=== PATIENT | female | born 1995 | race Caucasian/White ===

== ENCOUNTER → 2023-08-10 | Outpatient (CLI) | payer BC, SELFPAY ==
--- NOTE | 2023-08-10 12:29 | US_ITS ---
STUDY: FIRST TRIMESTER OBSTETRICAL ULTRASOUND REASON FOR EXAM: Female, 27 years old bleeding and cramping LMP: July 06, 2023 TECHNIQUE: Transvaginal TECHNICAL QUALITY: Adequate. PRIOR ULTRASOUND: None. FINDINGS: There is visualization of a single gestational sac in a normal intrauterine position. The mean sac diameter (MSD) measures 4.5 mm, indicating an estimated gestational age (EGA) of 5 weeks, 2 days. The gestational sac shape is within normal limits. There is no demonstrated yolk sac. The placenta is non-visualized. There is no demonstrated embryo ( pole). The estimated gestation age (EGA) by LMP is 5 weeks, 0 days. The estimated date of delivery (RALPH) by LMP is April 11, 2024. The estimated gestation age (EGA) by US is 5 weeks, 2 days. The estimated date of delivery (RALPH) by US is April 09, 2024. The uterus measures 9.5 cm x 6.8 cm x 5 cm. The endometrium is thickened and is hyperechoic. The endometrium measures 1.6 cm. There is no demonstrated uterine fibroid. The cervix is closed. The right ovary measures 4.1 cm x 2.37 x 2.5. There is a 1.9 cm x 1.6 cm x 1.4 cm corpus luteum cyst. There is no visualized right adnexal mass or complex lesion. The left ovary measures 2.6 cm x 1.5 cm x 1.1 cm. There is no left ovarian cyst. There is no visualized left adnexal mass or complex lesion. There is no fluid in the cul de sac. US/Transvaginal w/Preg US IMPRESSION: Intrauterine gestational sac without a yolk sac or pole measuring 5 weeks and 2 days. Follow up recommended. Electronically Signed: Miguel Vazquez MD at 13:22 EDT ,
[2023-08-10 13:45] LABS: hCG Titer Quant., Serum 4809 mIU/mL (1-3)
== END | disposition home or self-care (01) ==
PROVIDERS: Referring Provider Obstetrics & Gynecology; Visit Provider Obstetrics & Gynecology
DX: O26.899 Other specified pregnancy related conditions, unspecified trimester (principal); O20.9 Hemorrhage in early pregnancy, unspecified; R10.9 Unspecified abdominal pain; Z3A.00 Weeks of gestation of pregnancy not specified
CPT/HCPCS: 36415; 76817; 84702

== ENCOUNTER → 2023-08-12 | Outpatient (CLI) | payer BC, SELFPAY ==
[2023-08-12 07:59] LABS: hCG Titer Quant., Serum 916 mIU/mL (1-3)
== END | disposition home or self-care (01) ==
LOC: LAB 07:16
PROVIDERS: Referring Provider Obstetrics & Gynecology; Visit Provider Obstetrics & Gynecology
DX: O26.899 Other specified pregnancy related conditions, unspecified trimester (principal); O20.9 Hemorrhage in early pregnancy, unspecified; R10.9 Unspecified abdominal pain; Z3A.00 Weeks of gestation of pregnancy not specified
CPT/HCPCS: 36415; 84702

== ENCOUNTER 2023-08-20 07:31 | Outpatient (CLI) | payer BC, SELFPAY ==
[2023-08-20] VITALS (9 sets, daily range): BP systolic 115–124; BP diastolic 78–85; PULSE 68–82; RESP 14–20; TEMP 36.4–36.6; O2SAT 98–100; BMI 25.0
--- NOTE | 2023-08-20 07:37 | US_ITS ---
INDICATION: viability -- HEMORRHAGE IN EARLY -- HCG 08/10/23 4809 -- HCG 08/12/23 916 EXAMINATION: Ultrasound US OB Transvaginal TECHNIQUE: Transvaginal (for optimal evaluation of the adnexa) pelvic ultrasound was performed. Grayscale, spectral waveform, and color flow Doppler evaluation of the adnexa. COMPARISON: August 10, 2023 LMP: [Unknown Beta-hCG: Unknown FINDINGS: UTERUS: 8.0 x 4.1 x 6.0 cm. There is a 0.2 x 0.1 cm round anechoic focus within the endometrial cavity. The endometrial stripe measures 7.3 mm and is echogenic. RIGHT OVARY: 3.3 x 2.1 x 5.4 cm. There appears to be a corpus luteal cyst in the right ovary. LEFT OVARY: 3.3 x 1.3 x 2.0 cm. Normal. FREE FLUID: None. US/Transvaginal w/Preg US IMPRESSION: 0.2 x 0.1 cm round fluid focus within the endometrial cavity may reflect trace fluid, cannot entirely exclude, although unlikely, an early gestational sac. Electronically Signed: Sara Russell MD at 8:40 EDT ,
[2023-08-20] MEDS: Lactated Ringers 1,000 ML 15 ML IV (10:35)
[2023-08-20] MEDS: Doxycycline 100 MG CAPSULE PO (12:05)
--- NOTE | 2023-08-20 12:20 | PRE.ANES_ITS ---
ASA Classification* ASA Classification ASA Classification: 1 Assessment & Plan Anesthesia* Anesthesia Assessment Anesthesia Assessment: Discussed sedation and/or anesthesia options, risks, benefits, and alternatives with patient/parents/legal guardian/POA. Questions invited. The patient/parents/legal guardian/POA seems to understand and agrees to proceed with anesthesia plan. Reviewed the physical assessment, medical history, allergy history and patient home medications list prior to surgery/procedure/anesthetic and documented any changes. Performed airway and anesthesia risk assessments. Anesthesia Type Anesthesia Type: MAC History Source History Obtained from:: Patient and Chart Anesthesia Focused Assessment* Temperature: 97.5 F Pulse Rate: 82 Blood Pressure: 124/79 Respiratory Rate: 16 Pulse Ox: 100 Oxygen Delivery Method: Room Air Airway Assessment Mouth opens: >3 cm Mallampati Score: I Teeth Condition: Intact Neck Range of motion (ROM): Full ROM Focused Labs Anesthesia Preop lab: CBC CHEMISTRY COAG HCG, Quant 916 mIU/mL (1-3) H 08/12/23 07:18 Pre-Assessment Diagnosis/Proposed Procedure Planned Operative Procedure(s): SUCTION D & C Anesthesia History Anesthesia History - clerical support: Anesthesia History - clerical support Hx Hospitalization No 08/20/23 10:18 Any Problems With Anesthesia No 08/20/23 10:18 Cholinesterase deficiency No 08/20/23 10:18 You/Your Family Experience No 08/20/23 10:18 fever (hyperthermia) with Relationship Recent Exposure to Contagious No 08/20/23 10:22 Disease Does patient have nerve No 08/20/23 10:18 stimulator Patient instructed to have device shut off --Does patient have Pacemaker No 08/20/23 10:22 or ICD? When Was Last Pacemaker Check QUESTION #4 FULL TEXT: You/Your Family Experience fever (hyperthermia) with Anesthesia Last Oral Intake Last Oral intake: Last Oral Intake NPO since 07:15 08/20/23 10:22 Meds taken in AM with sips of water? Meds patient instructed to take am of surgery PONV PONV - clerical support: PONV - clerical support Female Yes 08/20/23 10:18 HX of Motion Sickness No 08/20/23 10:18 HX of N/V After Surgery No 08/20/23 10:18 Non-Smoker Yes 08/20/23 10:18 Duration of Surgery greater No 08/20/23 10:18 than 60 minutes Number of Risk Factors 2 08/20/23 10:18 PONV Score Moderate Risk 08/20/23 10:18 Height & Weight Height & Weight: Anesthesia: Height & Weight Height 5 ft 5 in 08/20/23 10:22 Weight: 68.039 kg 08/20/23 10:22 Body Mass Index (BMI) 25.0 08/20/23 10:22 Respiratory Assessment Respiratory Assessment - clerical support: Respiratory Tract Infection Hx - clerical support Hx Respiratory Tract Infection No 08/20/23 10:18 STOP Sleep Apnea STOP Sleep Apnea - clerical support: STOP Sleep Apnea - clerical support Hx Hypertension No 08/20/23 10:18 Hx Sleep Apnea No 08/20/23 10:18 CPAP BIPAP Do you snore loudly (louder No 08/20/23 10:18 than talking or can be heard Do you often feel tired/ No 08/20/23 10:18 fatigued/ sleepy during daytime? Has anyone observed you stop No 08/20/23 10:18 breathing during sleep? STOP Results Negative 08/20/23 10:18 QUESTION #5 FULL TEXT : Do you snore loudly (louder than talking or can be heard through closed doors)? 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 Specify any problems Hx of Preganancy in last 3 Yes 08/20/23 10:18 Months Nurse Filling Out Transfusion KNAPOLDIMAS 08/20/23 10:18 & Questions: Date: 08/20/23 08/20/23 10:18 Time: 10:20 08/20/23 10:18 Patient unable to answer at this time (ie. confused, unrespo /Reproduction History /Reproductive History - clerical support: /Reproductive Hx- clerical support Hx Now Yes 08/20/23 10:18 Gestational Age (in weeks): EDC: Hx Hx Para Hx Section SAB No 08/20/23 10:18 Active Medications Active Medications: Current Medications Generic Name Dose Route Start Last Admin Trade Name Freq PRN Reason Stop Dose Admin Lactated Ringer's 1,000 mls @ 15 mls/hr 08/20/23 10:00 08/20/23 10:35 IV 15 mls/hr .Q48H ARIK Administration PFSH Home Medications ?Medication ?Instructions ?Recorded ?Last Taken ?Type NK 08/20/23 Unknown History Allergy/AdvReac Type Severity Reaction Status Date / Time metoclopramide (From Reglan) Allergy Mild lock jaw Verified 08/20/23 10:17 Surgical History S/P left knee surgery S/P wisdom tooth extraction Social History adopted: Yes Smoking Status: Never smoker alcohol intake: current details: occasionally substance use type: does not use caffeine: Yes what type of physical activity do you participate in: walking frequency: 5-6 times per week seatbelt use: always do you feel safe at home: Yes additional social history: Radha Day Review of Systems (Anesthesia) ROS Narrative System reviewed and no additional complaints, except as documented.
--- NOTE | 2023-08-20 12:42 | PCM.HP.OB ---
HPI - General HPI Narrative s27 year old who presents for with recent miscarriage at home. states large amount of bleeding on wednesday with tissue passage. using motrin but no other medication management. had ultrasound on 08/09 that demonstrated IUP with no pole but GS measuring 5w2d. repeat hcg on 08/11 decreasing from 4809 to 916 to confirm miscarriage diagnosis. retained POC seen today on ultrasound PFSH PFSH Home Medications ?Medication ?Instructions ?Recorded ?Last Taken ?Type NK 08/20/23 Unknown History Allergy/AdvReac Type Severity Reaction Status Date / Time metoclopramide (From Reglan) Allergy Mild lock jaw Verified 08/20/23 10:17 Surgical History S/P left knee surgery S/P wisdom tooth extraction Social History adopted: Yes Smoking Status: Never smoker alcohol intake: current details: occasionally substance use type: does not use caffeine: Yes what type of physical activity do you participate in: walking frequency: 5-6 times per week seatbelt use: always do you feel safe at home: Yes additional social history: - Shay History 2 Elective abortions Hx Para 0 Spontaneous abortions 2 Hx # Term Pregnancies Ectopic pregnancies Hx # Pregnancies Multiple births # of living children ROS Constitutional Constitutional: Reports systems reviewed and no addt'l complaints, except as documented; Denies as per HPI, change in weight, fatigue, fever(s), malaise, weakness or other Eyes Eyes: Reports systems reviewed and no addt'l complaints, except as documented; Denies as per HPI, change in vision or other ENT HEENT: Reports systems reviewed and no addt'l complaints, except as documented Respiratory/Chest Respiratory/Chest: Reports systems reviewed and no addt'l complaints, except as documented Gastrointestinal Gastrointestinal: Reports systems reviewed and no addt'l complaints, except as documented and as per HPI Genitourinary Genitourinary: Reports as per HPI Musculoskeletal Musculoskeletal: Reports systems reviewed and no addt'l complaints, except as documented Neurologic Neurologic: Reports systems reviewed and no addt'l complaints, except as documented Psychiatric Psychiatric: Reports systems reviewed and no addt'l complaints, except as documented Endocrine Endocrinology: Reports systems reviewed and no addt'l complaints, except as documented Hematologic/Lymphatic Hematologic/Lymphatic: Reports systems reviewed and no addt'l complaints, except as documented Vital Signs Vital Signs Vital Signs: 08/20/23 10:22 08/20/23 10:22 08/20/23 12:28 Temperature 97.5 F L 97.5 F L Temperature Source Temporal Pulse Rate 82 82 Respiratory Rate 16 16 Respiratory Pattern Normal Blood Pressure 124/79 H 124/79 H Blood Pressure Mean 94 Blood Pressure Source Monitor Blood Pressure Position Semi-Fowlers Blood Pressure Location Left Arm Pulse Ox 100 100 Oxygen Delivery Method Room Air Room Air Weight Weight: 150 lb Body Mass Index (BMI) 25.0 Physical Exam Const alert, oriented x3 and no apparent distress HEENT normocephalic Head and Scalp: atraumatic Eyes EOMs intact bilaterally and conjunctivae normal Neck full ROM, no lymphadenopathy, supple and thyroid normal General: trachea midline Lymph Lymphatic: no lymphadenopathy noted Resp normal respiratory effort, no retractions, no use of accessory muscles and clear to auscultation bilaterally Cardio regular rhythm GI normal to inspection, nondistended, normoactive bowel sounds, soft to palpation, non-distended and no masses Inspection: Negative for abdominal distention Back/Spine no CVA tenderness Extremity normal to inspection Skin no rashes or lesions noted Neuro moves all extremities and deep tendon reflexes 2+ bilaterally Psych mental status grossly normal Labs Labs Labs: Obstetrics Ultrasound Assessment & Plan (1) Incomplete miscarriage: COMMENT: 7.3mm EML with debris. c/w Dr. Enriquez. options reviewed and pt opted for D&C today. PLAN: Plan suspeicion for retained POC recommend d and c. After discussing the patient's diagnosis and treatment plan options, patient wishes to proceed with surgical management. I have discussed with the patient the risks, benefits, and alternatives of the procedure which include but are not limited to risks of anesthesia, bleeding, infection, possible damage to bowel, bladder, or surrounding vasculature which could lead to additional surgery to evaluate any complications. Patient agrees to procedure and wishes to proceed. ACOG/uptodate references given for additional information regarding procedure.
--- NOTE | 2023-08-20 13:00 | POC_PTH ---
PATIENT: ALEJANDRO BAUTISTA LOC: [facility] [place] U#:[id number] AGE/SX: 27/F ROOM: RE08/20/[address]: Dr. Krystle Enriquez MD : 1995 BED: DIS: 08/20/2023 SPEC #: [id number] RECD: 08/20/23 14:16 STATUS: ASHLEY RESuha #: [id number] KIAN: 08/20/23 13:[address]: Krystle Enriquez DEPT: SURGICAL PATHOLOGY RECD BY: Philomena Delgado ENTERED: 08/20/23 14:17 SP TYPE: PROD CONC OTHR DR: Dr. Brenda Hernandez, DO No Primary Care Phys Tissues: Product of conception, NOS Procedures: Surgery Specimen Level IV HEADER OPERATION: D&C, suction PRE-OP DIAGNOSIS: Incomplete miscarriage TISSUE SUBMITTED: Products of conception for Anora testing MICROSCOPIC DIAGNOSIS Products of conception, suction, dilation and curettage: Decidua, endometrium and syncytial and cyto-trophoblastic tissue (products of conception), clinically incomplete miscarriage. See comment. JESSIKA: 08/23/2023 COMMENT No obvious chorionic villi are identified. Results of Anora studies will be reported separately as an addendum. Case has been reviewed in consultation with Dr. Shell who concurs with the above diagnosis. IDC:AM MICROSCOPIC DESCRIPTION Slides are reviewed. GROSS DESCRIPTION Received fresh for Anora studies without fixative labeled with the patient's name is a specimen designated Products of conception. The specimen consists of multiple irregular fragments of pink hemorrhagic soft tissue that in aggregate measure 3.0 x 2.0 x 0.3 cm. No tissue is identified. The specimen is totally submitted in one cassette. Portion of tissue is submitted for Anora studies. Entire specimen is submitted in one cassette. JESSIKA/ 08/20/2023 TC:5 CPT:34870
[2023-08-20 13:14] LABS: Absolute Lymphocyte Count 2.26 X10^3/uL (0.83-4.51); Absolute Neutrophil Count 7.6 X10^3/uL (2.0-7.7); Basophil# 0.05 X10^3/uL; Basophil% 0.5 % (0-1); Eosinophil# 0.03 X10^3/uL; Eosinophils% 0.3 % (0-5); Hematocrit 43.9 % (37-47); Hemoglobin 14.4 g/dL (12.0-15.0); Lymphocyte # 2.26 X10^3/ul (0.83-4.51); Lymphocyte % 21.8 % (19-41); Mean Corp Hgb Conc 32.8 g/dL (32-36); Mean Corpuscular Hgb 29.8 pg (27.0-32.0); Mean Corpuscular Volume 90.7 fL (81-99); Monocyte# 0.44 X10^3/uL; Monocyte% 4.2 % (0-10); NRBC Flagged by Analyzer 0 % (0-5); Neutrophil # 7.57 X10^3/uL (2.7-7.7); Neutrophil % 72.9 % (47-70); Platelet Count 340 K/mm3 (150-450); RBC Distribution Width CV 12.3 % (11.6-14.6); RBC Distribution Width SD 40.7 fl (35.1-43.9); Red Blood Count 4.84 M/mm3 (4.2-5.4); White Blood Count 10.4 K/mm3 (4.4-11.0)
--- NOTE | 2023-08-20 13:14 | PCM.OPRPT ---
Problems Associated Problem List Diagnoses (1) Incomplete miscarriage: (2) History of recurrent miscarriages: Report of Operation Date of Procedure: 08/20/23 Pre-Operative Diagnosis: see problem list Post-Operative Diagnosis: same Surgery/Procedure Performed:: Suction dilation and curettage Description of Surgical Findings:: no FHT present, Nonviable 7-8 weeks retained POC Surgeon: Krystle Enriquez search engine optimization manager: None Type of Anesthesia: Local MAC Special Medications: none Specimen's removed: POC Drains: none Estimated Blood Loss (mL): 50 Fluids Replaced: crystalloid Description of Procedure: Patient was taken to the operating room and placed under MAC local anesthesia. She was prepped and draped in the normal sterile fashion the dorsal lithotomy position. Bladder was drained of clear urine and anterior lip of the cervix was grasped and the uterus sounded to 8 cm. Cervix was progressively dilated to allow passage of a 8 mm suction curette. Progressive passes were made removing the retained products of conception without complication. Sharp curettage confirmed complete removal of the retained products. All instruments were removed from the vagina and excellent hemostasis was noted and the patient was taken to recovery in stable condition. Grafts/Implants Used: none Procedure Start Time: 13:28 Procedure Stop Time: 13:38 Complications none Admit VTE Documentation VTE Present on Admission: No VTE Mechan Device Prophylaxis: SCD's Procedures Urinary/Genital 52xxx-59xxx: 27598 Trmt of incomplete Ab, any TM
--- NOTE | 2023-08-20 13:16 | DCINST_ITS ---
Discharge Instructions Diet Discharge Diet: No restrictions Activity Discharge Activity: Return to Normal Activity, May Shower and May Take a Tub Bath (after 1 week) May resume sexual activity in: 1-2 weeks Weight Bearing Status: Weight bearing as tolerated Lifting Restrictions: none Dressing / Incision Call your doctor if you observe: Fever of 101 or Higher, Using more than 1 pad per hour, Shortness of breath and Uncontrolled pain Follow Up Care Please Follow Up With: Krystle Enriquez MD When: Call [phone] to schedule appointment. Test Results: Test results from this visit will be discussed in further detail at your follow- up appointment, if applicable. Discharge Plan Admission Reason For Visit: HEMORRHAGE IN EARLY Attending Provider: Krystle Enriquez Primary Care Provider: Care Physician,Vy Primary Discharge Orders/Prescriptions Prescriptions: No Action NK Referrals / Follow Up: Care Physician,No Primary [Primary Care Provider] - Disposition Patient Disposition: Home, Self Care
[2023-08-20] MEDS: Lidocaine 1% (20 ml mdv) 20 ML Vial (13:41)
[2023-08-20] MEDS: Silver Nitrate (BKC) 1 EACH ×2 (13:49→13:51)
--- NOTE | 2023-08-20 14:02 | PCM.POST.ANE ---
Anesthesia: Postop Eval I Current Vital Signs Temperature: 97.8 F Pulse Rate: 75 Blood Pressure: 122/85 Respiratory Rate: 20 Pulse Ox: 100 Oxygen Delivery Method: Room Air Assessment Airway patent: Yes Spontaneous unlabored respirations: Yes Mental status: Awake and Calm nausea: No Vomiting: No Anesthesia Complication: No Fluid Hydration Crystalloid volume administer (ml): 600 Total IV fluid infused: 600 Progress Note Anesthesia document: Postop Eval 1 completed: Yes
--- NOTE | 2023-08-20 16:50 | POSTOPAN2_ITS ---
Anesthesia Postop Eval I Sum Postop Eval Completion status Anesthesia document: Postop Eval 1 completed: Yes Anesthesia Postop Eval I Summary Anesthesia Postop Eval I Summary: Anesthesia Postop Eval I: Assessment Summary Airway patent Yes 08/20/23 14:03 PRACTICE ASSISTANT.JDEF Spontaneous unlabored Yes 08/20/23 14:03 PRACTICE ASSISTANT.JDEF respirations Mental status Awake,Calm 08/20/23 14:03 PRACTICE ASSISTANT.JDEF nausea No 08/20/23 14:03 PRACTICE ASSISTANT.JDEF Vomiting No 08/20/23 14:03 PRACTICE ASSISTANT.JDEF Anesthesia Postop Eval I: Fluid Summary Crystalloid volume administer 600 08/20/23 14:03 PRACTICE ASSISTANT.JDEF (ml) Colloids volume administered ( ml) Blood Product volume administered (ml) Total IV fluid infused 600 08/20/23 14:03 PRACTICE ASSISTANT.JDEF Anesthesia Postop Eval I: Summary Notes Anesthesia Complication No 08/20/23 14:03 PRACTICE ASSISTANT.JDEF Anesthesia Complication Comment: Post-operative progress note Anesthesia: Postop Eval II Evaluation Mental status: Awake and Calm Pain Level: 1 nausea: No Vomiting: No
--- NOTE | 2023-08-20 16:50 | PCM.POSTANE2 ---
Anesthesia Postop Eval I Sum Postop Eval Completion status Anesthesia document: Postop Eval 1 completed: Yes Anesthesia Postop Eval I Summary Anesthesia Postop Eval I Summary: Anesthesia Postop Eval I: Assessment Summary Airway patent Yes 08/20/23 14:03 WORKERS' COMPENSATION CLAIMS EXAMINER.JDEF Spontaneous unlabored Yes 08/20/23 14:03 WORKERS' COMPENSATION CLAIMS EXAMINER.JDEF respirations Mental status Awake,Calm 08/20/23 14:03 WORKERS' COMPENSATION CLAIMS EXAMINER.JDEF nausea No 08/20/23 14:03 WORKERS' COMPENSATION CLAIMS EXAMINER.JDEF Vomiting No 08/20/23 14:03 WORKERS' COMPENSATION CLAIMS EXAMINER.JDEF Anesthesia Postop Eval I: Fluid Summary Crystalloid volume administer 600 08/20/23 14:03 WORKERS' COMPENSATION CLAIMS EXAMINER.JDEF (ml) Colloids volume administered ( ml) Blood Product volume administered (ml) Total IV fluid infused 600 08/20/23 14:03 WORKERS' COMPENSATION CLAIMS EXAMINER.JDEF Anesthesia Postop Eval I: Summary Notes Anesthesia Complication No 08/20/23 14:03 WORKERS' COMPENSATION CLAIMS EXAMINER.JDEF Anesthesia Complication Comment: Post-operative progress note Anesthesia: Postop Eval II Evaluation Mental status: Awake and Calm Pain Level: 1 nausea: No Vomiting: No
[2023-08-24 17:08] LABS: Anti-Cardiolipin Ab, IgA, Qn < 9 APL U/mL (0-11); Anti-Cardiolipin Ab, IgG, Qn < 9 GPL U/mL (0-14); Anti-Cardiolipin Ab, IgM, Qn < 9 MPL U/mL (0-12); Beta-2-Glycoprotein I IgA <9 (0-25); Beta-2-Glycoprotein I IgG <9 (0-20); Beta-2-Glycoprotein I IgM <9 (0-32); Dilute Prothrombin Time (dPT) 37.9 sec (0.0-47.6); Dilute Russell Viper Venom 39.1 sec (0.0-47.0); Interpretation Comment: (.); Thrombin Time 19.2 sec (0.0-23.0); dPT Confirm Ratio 1.26 Ratio (0.00-1.34)
[2023-08-25 06:07] LABS: Pathology Specimen OB SEE PATHOLOGY REPORT
== END 2023-08-20 15:16 | disposition home or self-care (01) ==
LOC: OPUS 09:51 → SDC 09:56 → AC 10:01
PROVIDERS: Referring Provider Obstetrics & Gynecology; Visit Provider Obstetrics & Gynecology
PROC: (CPT 59812; principal; 2023-08-20 12:45)
DX: O03.4 Incomplete spontaneous abortion without complication (principal); Z87.59 Personal history of other complications of pregnancy, childbirth and the puerperium
CPT/HCPCS: 59812; 01965; 76817; 85025; 86146; 86147; 86850; 86900; 86901; 88305; J2405

== ENCOUNTER → 2024-01-06 | Outpatient (CLI) | payer SELFPAY ==
[2024-01-06 18:05] LABS: hCG Titer Quant., Serum 2222 mIU/mL (1-3)
== END | disposition home or self-care (01) ==
LOC: BWCLAB 14:41
PROVIDERS: Referring Provider Obstetrics & Gynecology; Visit Provider Obstetrics & Gynecology
DX: O26.859 Spotting complicating pregnancy, unspecified trimester (principal); Z3A.00 Weeks of gestation of pregnancy not specified
CPT/HCPCS: 36415; 84702

== ENCOUNTER → 2024-01-08 | Outpatient (CLI) | payer SELFPAY ==
[2024-01-08 15:37] LABS: hCG Titer Quant., Serum 1600 mIU/mL (1-3)
== END | disposition home or self-care (01) ==
LOC: LAB 13:41
PROVIDERS: Visit Provider Obstetrics & Gynecology
DX: O26.859 Spotting complicating pregnancy, unspecified trimester (principal); Z3A.00 Weeks of gestation of pregnancy not specified
CPT/HCPCS: 36415; 84702

== ENCOUNTER → 2024-01-12 | Outpatient (CLI) | payer SELFPAY ==
[2024-01-12 15:33] LABS: hCG Titer Quant., Serum 260 mIU/mL (1-3)
== END | disposition home or self-care (01) ==
PROVIDERS: Obstetrics & Gynecology; Referring Provider Obstetrics & Gynecology; Visit Provider Obstetrics & Gynecology
DX: O03.9 Complete or unspecified spontaneous abortion without complication (principal)
CPT/HCPCS: 36415; 84702

== ENCOUNTER → 2024-01-24 | Outpatient (CLI) | payer SELFPAY ==
[2024-01-24 11:17] LABS: hCG Titer Quant., Serum 6 mIU/mL (1-3)
== END | disposition home or self-care (01) ==
LOC: BWCLAB 10:25
PROVIDERS: Visit Provider Obstetrics & Gynecology
DX: O03.4 Incomplete spontaneous abortion without complication (principal)
CPT/HCPCS: 36415; 84702

== ENCOUNTER → 2024-04-21 | Outpatient (CLI) | payer SELFPAY ==
[2024-04-21 13:39] LABS: hCG Titer Quant., Serum 33446 mIU/mL (<9 non-preg)
== END | disposition home or self-care (01) ==
LOC: BWCLAB 11:46
PROVIDERS: Referring Provider Registered Nurse; Visit Provider Registered Nurse
DX: N96 Recurrent pregnancy loss (principal)
CPT/HCPCS: 36415; 84702

== ENCOUNTER → 2024-04-23 | Outpatient (CLI) | payer SELFPAY ==
[2024-04-23 12:00] LABS: hCG Titer Quant., Serum 40447 mIU/mL (<9 non-preg)
== END | disposition home or self-care (01) ==
LOC: LAB 11:02
PROVIDERS: Registered Nurse; PCP Obstetrics & Gynecology; Referring Provider Obstetrics & Gynecology; Visit Provider Obstetrics & Gynecology
DX: O26.20 Pregnancy care for patient with recurrent pregnancy loss, unspecified trimester (principal)
CPT/HCPCS: 36415; 84702

== ENCOUNTER → 2024-05-11 | Outpatient (CLI) | payer SELFPAY ==
[2024-05-11 12:21] LABS: Absolute Lymphocyte Count 2.11 X10^3/uL (0.83-4.51); Absolute Neutrophil Count 11.2 X10^3/uL (2.0-7.7); Basophil# 0.04 X10^3/uL; Basophil% 0.3 % (0-1); Eosinophil# 0.14 X10^3/uL; Hematocrit 41.3 % (37-47); Hemoglobin 14.3 g/dL (12.0-15.0); Lymphocyte # 2.11 X10^3/ul (0.83-4.51); Lymphocyte % 14.9 % (19-41); Mean Corp Hgb Conc 34.6 g/dL (32-36); Mean Corpuscular Hgb 30.3 pg (27.0-32.0); Mean Corpuscular Volume 87.5 fL (81-99); Mean Platelet Vol. 9.6 fl (6.2-12.0); Monocyte# 0.67 X10^3/uL; Monocyte% 4.7 % (0-10); NRBC Flagged by Analyzer 0 % (0-5); Neutrophil # 11.17 X10^3/uL (2.7-7.7); Neutrophil % 78.8 % (47-70); Platelet Count 332 K/mm3 (150-450); RBC Distribution Width SD 38.8 fl (35.1-43.9); Red Blood Count 4.72 M/mm3 (4.2-5.4); White Blood Count 14.2 K/mm3 (4.4-11.0)
[2024-05-11 13:35] LABS: Hepatitis B Surface Antigen Nonreactive (Nonreactive); Hepatitis C Antibody Nonreactive (Nonreactive); Rubella IgG REAC (Nonreactive); Syphilis Antibodies Nonreactive (Nonreactive)
[2024-05-11 14:42] LABS: HIV Nonreactive (Nonreactive)
== END | disposition home or self-care (01) ==
PROVIDERS: PCP Obstetrics & Gynecology; Referring Provider Obstetrics & Gynecology; Visit Provider Obstetrics & Gynecology
DX: O09.90 Supervision of high risk pregnancy, unspecified, unspecified trimester (principal); Z3A.00 Weeks of gestation of pregnancy not specified; Z78.9 Other specified health status
CPT/HCPCS: 36415; 85025; 86703; 86762; 86780; 86787; 86803; 86850; 86900; 86901; 87340

== ENCOUNTER → 2024-06-06 | Outpatient (CLI) | payer SELFPAY | END | disposition home or self-care (01) | LOC: LABSPEC 14:06 | PROVIDERS: PCP Obstetrics & Gynecology; Referring Provider Obstetrics & Gynecology; Visit Provider Obstetrics & Gynecology | DX: O09.90 Supervision of high risk pregnancy, unspecified, unspecified trimester (principal); Z3A.00 Weeks of gestation of pregnancy not specified | CPT/HCPCS: 87491; 87591 ==

== ENCOUNTER → 2024-07-05 | Outpatient (CLI) | payer BC, SELFPAY | END | disposition home or self-care (01) | LOC: LABSPEC 10:56 | PROVIDERS: PCP Obstetrics & Gynecology; Referring Provider Nurse Practitioner Women's Health; Visit Provider Nurse Practitioner Women's Health | DX: R30.0 Dysuria (principal) | CPT/HCPCS: 87086; 87088 ==

== ENCOUNTER → 2024-07-10 | Outpatient (CLI) | payer SELFPAY ==
[2024-07-10 07:23] LABS: Bacteria 0 SEEN /hpf (None Seen); Mucous, Urine 0 SEEN /hpf (<or=2+); Red Blood Cells-Urine 0 SEEN /hpf (0-5); White Blood Cells 0 SEEN /hpf (0-5)
[2024-07-10 10:32] LABS: Color, Urine Yellow (Yellow); Glucose, Dipstick Normal (Normal); Ketone-Dipstick Negative (Negative); Leukocyte Esterase-Dipstick Negative /ul (Negative); Nitrite-Dipstick Negative (Negative); Occult Blood-Urine Negative /ul (Negative); Protein-Dipstick Negative (Negative); Specific Gravity, Urine 1.005 (1.002-1.030); Urine Bilirubin Dipstick Negative (Negative); Urine Clarity Clear (Clear); Urine Urobilinogen Normal (Normal)
[2024-07-10 10:38] LABS: Squamous Epithelial Cells - UA 0-5 SEEN /hpf (5-10)
== END | disposition home or self-care (01) ==
LOC: LABSPEC 07:21
PROVIDERS: PCP Obstetrics & Gynecology; Visit Provider Physician Assistant
DX: R82.90 Unspecified abnormal findings in urine (principal)
CPT/HCPCS: 81001; 87086; 87088

== ENCOUNTER → 2024-07-20 | Outpatient (CLI) | payer SELFPAY ==
--- NOTE | 2024-07-20 15:08 | US_ITS ---
PROCEDURE: OB ANATOMY W/ TRANSVAGINAL 07/20/2024 REASON FOR EXAM: ANATOMY/CERVICAL LENGTH TECHNIQUE: High resolution obstetric ultrasound performed using a 2D transducer. Standard views obtained, including biometry, anatomy survey, and Doppler studies. COMPARISON: None FINDINGS LMP: March 07, 2024. Number: 1 Position: Vertex Placental Position: Anterior and not low-lying. Placental Abnormalities: None DIMENSIONS: Biparietal Diameter: 4.42 cm: 19 weeks and 3 days: 54 percentile/ Head Circumference: 16.65 cm: 19 weeks and 2 days: 45th percentile/ Abdominal Circumference: 14.11 cm: 19 weeks and 3 days: 52nd percentile/ Femur Length: 2.76 cm: 18 weeks and 3 days: 16 percentile/ ESTIMATED WEIGHT: 272 g plus/-41 g ESTIMATED WEIGHT PERCENTILE (24+ weeks): 33rd ESTIMATED GESTATIONAL AGE: Baseline: 19 weeks and 2 days By Ultrasound: 19 weeks and 1 day ESTIMATED DATE OF DELIVERY: Baseline: December 12, 2024 By Ultrasound: December 13, 2024 BIOPHYSICAL ASSESSMENT: Amniotic Fluid Volume: 4.1 Amniotic Fluid Index: Within normal limits. ( Cardiac Motion: 160 beats per minute (average) Trunk and Limb Motion: Present. MATERNAL ANATOMY: Adnexa: Both maternal ovaries are visualized and unremarkable. Cervical Length (if measured): 3.5 cm ANATOMY: Spine: Unremarkable Cranium: Unremarkable Cerebellum: Unremarkable Cisterna Magna: Unremarkable Cavum Septum Pellucidi: Unremarkable Lateral Ventricles: Unremarkable Choroid Plexus: Unremarkable Midline Falx: Unremarkable Nuchal Fold: Unremarkable Heart: Unremarkable Stomach: Unremarkable Kidneys: Unremarkable Bladder: Unremarkable Umbilical Cord: Unremarkable Extremities: Unremarkable US/OB Anatomy w/ Transvaginal IMPRESSION: Single live intrauterine gestation with a mean gestational age of 19 weeks and 1 day. Reading Location: [place] [id number]
== END | disposition home or self-care (01) ==
PROVIDERS: Referring Provider Obstetrics & Gynecology; Visit Provider Obstetrics & Gynecology
DX: Z34.90 Encounter for supervision of normal pregnancy, unspecified, unspecified trimester (principal)
CPT/HCPCS: 76805; 76817

== ENCOUNTER → 2024-09-18 | Outpatient (CLI) | payer SELFPAY ==
[2024-09-18 10:37] LABS: Hematocrit 37.0 % (37-47); Hemoglobin 11.9 g/dL (12.0-15.0); Immature Granulocytes Count 0.090 X10^3/uL (0.0-0.0); Mean Corp Hgb Conc 32.2 g/dL (32-36); Mean Corpuscular Volume 88.3 fL (81-99); Mean Platelet Vol. 10.3 fl (6.2-12.0); NRBC Flagged by Analyzer 0 % (0-5); Platelet Count 222 K/mm3 (150-450); RBC Distribution Width CV 13.0 % (11.6-14.6); RBC Distribution Width SD 41.5 fl (35.1-43.9); Red Blood Count 4.19 M/mm3 (4.2-5.4); White Blood Count 13.0 K/mm3 (4.4-11.0)
[2024-09-18 11:22] LABS: Glucose Challenge Gest 1H 50g 148 mg/dL (70-140); HIV Nonreactive (Nonreactive); Syphilis Antibodies Nonreactive (Nonreactive)
== END | disposition home or self-care (01) ==
LOC: BWCLAB 08:46
PROVIDERS: Obstetrics & Gynecology; Visit Provider Nurse Practitioner Women's Health
DX: O09.92 Supervision of high risk pregnancy, unspecified, second trimester (principal); Z3A.00 Weeks of gestation of pregnancy not specified; Z13.1 Encounter for screening for diabetes mellitus
CPT/HCPCS: 36415; 82950; 85025; 86703; 86780

== ENCOUNTER → 2024-09-20 | Outpatient (CLI) | payer SELFPAY ==
--- OUTSIDE RECORDS SUMMARY | 2024-09-20 06:41 | XMS RPT_ITS | CCD ---
Author Organization [facility] Care Team Providers Care Ems Instructor Name Role Phone ANTHONY GONGORA Attending Unavailable Timothy Anna Primary Care Unavaila Timothy Rivero Consulting Unavaila Timothy Rivero Unavailable Brenda Mccall Unavailable Unavailable Primary Care Provider UnavailGENEVIEVE Perez Consulting Unavailable NAZZARO JOHANNA C Attending Unavailable NAZZAROYUSUFJOHANNA C Attending Unavailable NAZZARO, JOHANNA C Attending Unavailable NAZZARO, JOHANNA Doc Attending Unavailable TUNDE ROJAS Attending Unavailabl e NAZZARO, JOHANNA C Attending Unavailable NAZZARO, JOHANNA C Attending Unavailable NAZZARO, JOHANNA C Attending Unavailable NAZZARO, JOHANNA C Attending Unavailable NAZZARO, JOHANNA C Attending Unavailable NAZZARO, JOHANNA C Attending Unavailable NAZZARO, JOHANNA Attending Unavailable Care Physician, No Primary Primary Care Provider Unavailable Dr. Brenda Hernandez DO Attending Provider Dr. Brenda Hernandez DO Referring Provider Dr. Krystle Enriquez MD Attending Provider [phone] Care Physician, No Primary Referring Provider Un available Lacy Gongora CNM Attending Provider [phone] Lacy Gongora CNM Referring Provider [phone] Dr. Brenda Hernandez DO Primary Care Provid er Care Physician, No Primary Primary Care Provider Unavailable Dr. Brenda Hernandez DO Attending Provider Dr. Brenda Hernandez DO Referring Provider Care Physician, No Primary Primary Care Provider Unavailable Yamilex Delvalle CNM Attending Provider [phone] Joseph POSTDOCTORAL RESEARCH FELLOW-CBonnie Attending Provider [phone] Joseph POSTDOCTORAL RESEARCH FELLOW-C, Bonnie Referring Provider [phone] Richard Fofana Attending Provider Richard Fofana Attending Provider [phone] Krissy Castillo DO, Dr. Gutierrez Primary Care Provid er Krissy Castillo DO, Dr. Gutierrez Attending Provider Krissy Castillo DO, Dr. Gutierrez Referring Provider Care Physician, No Primary Referring Provider Un available Care Physician, No Primary Primary Care Provider Unavailable Krissy Castillo DO, Dr. Gutierrez Primary Care Provid er Krissy Castillo DO, Dr. Gutierrez Attending Provider Krissy Castillo DO, Dr. Gutierrez Referring Provider Brenda Hernandez Primary Care Unavailabl e Brenda Hernandez Referring Unavailabl e Yamilex Delvalle Attending Unavailable Care Physician, No Primary Primary Care Unava ilable Care Physician, No Primary Referring Unava ilable Krystle Enriquez Attending Unavailable Care Physician, No Primary Primary Care Unava ilable Brenda Hernandez Referring Unavailabl e Betye Brenda Castillo Attending Unavailabl e Betye Brenda Castillo Primary Care Unavailabl e Richard Meng Attending Unavailable Care Physician, No Primary Primary Care Unava ilable Lacy Gongora Referring Unavailable Lacy Gongora Attending Unavailable Brenda Hernandez Primary Care Unavailabl e Betye VelBrenda greenberg Referring Unavailabl e Betye Anna, Brenda Attending Unavailabl e Care Physician, No Primary Primary Care Unava ilable Brenda Hernandez Referring Unavailabl e Brenda Hernandez Attending Unavailabl e Care Physician, No Primary Primary Care Unava ilable Bonnie Ruiz NP Attending Unavailable Care Physician, No Primary Primary Care Unava ilable Brenda Hernandez Referring Unavailabl e Yamilex Delvalle Attending Unavailable Care Physician, No Primary Primary Care Unava ilable Vande Velde, Brenda Attending Unavailabl e Vande Velde, Brenda Primary Care Unavailabl e Vande Velde, Brenda Referring Unavailabl e Richard Meng Attending Unavailable Care Physician, No Primary Primary Care Unava ilable Care Physician, No Primary Referring Unava ilable Lacy Gongora Attending Unavailable Vande Velde, Brenda Primary Care Unavailabl e Vande Velde, Brenda Referring Unavailabl e Vande Velde, Brenda Attending Unavailabl e Vande Velde, Brenda Primary Care Unavailabl e Care Physician, No Primary Referring Unava ilable Vande Velde, Brenda Attending Unavailabl e Care Physician, No Primary Primary Care Unava ilable Vande Velde, Brenda Referring Unavailabl e Joseph POSTDOCTORAL RESEARCH FELLOWBonnie Attending Unavailable Vande Velde, Brenda Primary Care Unavailabl e Vande Velde, Brenda Referring Unavailabl e Joseph POSTDOCTORAL RESEARCH FELLOWBonnie Attending Unavailable Care Physician, No Primary Primary Care Unava ilable Vande Velde, Brenda Referring Unavailabl e Vande Velde, Brenda Attending Unavailabl e Care Physician, No Primary Primary Care Unava ilable Krystle Enriquez Attending Unavailable Vande Velde, Brenda Primary Care Unavailabl e Vande Velde, Brenda Referring Unavailabl e Vande Velde, Brenda Attending Unavailabl e Vande Velde, Brenda Primary Care Unavailabl e Vande Velde, Brenda Referring Unavailabl e Vande Velde, Brenda Attending Unavailabl e Care Physician, No Primary Primary Care Unava ilable Vande Velde, Brenda Referring Unavailabl e Vande Velde, Brenda Attending Unavailabl e Vande Velde, Brenda Primary Care Unavailabl e Joseph POSTDOCTORAL RESEARCH FELLOWBonnie Referring Unavailable Joseph Bonnie SANCHEZ Attending Unavailable Allergies Allergy Classification Reported Allergen(s) Allergy Type Date of Onset Reaction(s) Facility (20 sources) Metoclopramide; Translations: [METOCLOPRAMIDE] Drug Allergy [address] [facility] (1 source) Metoclopramide Drug Allergy 5 [facility] Medications Current Medications Medication Drug Class(es) Dates Sig (Normalized) Sig (Original) Amoxicillin / Clavulanate (1 source) Penicillin-class Antibacterial Start: 12-25-2020 take 1 tablet by mouth twice daily Augmentin 875-125 MG 1 tablet Orally Twice a day for 10 day(s) Dec, Active busPIRone hydrochloride 10 mg oral tablet (9 sources) Start: 06-06-2024 take 1 tablet by mouth three times daily as needed for anxiety Buspirone 10 mg tablet Active 10 mg PO THREE TIMES A DAY as needed for anxiety 60 June 06, 2024 12:00am cephalexin 500 mg oral capsule (9 sources) Cephalosporin Antibacterial Start: 02-24-2022 End: 03-06-2022 take 1 capsule by mouth twice daily cephALEXin (KEFLEX) 500 mg capsule Indications: Urinary tract infection symptoms Take 1 capsule by mouth twice daily for 10 days. 20 capsule 0 02/24/2022 03/06/2022 Active Comment on above: Take 1 capsule by [facility] twice daily for 10 days. dextromethorphan hydrobromide 15 mg / guaiFENesin 400 mg / pseudoephedrine hydrochloride 60 mg oral tablet (1 source) alpha-Adrenergic Agonist, Uncompetitive F-ruiktz-Y-aspartat e Receptor Antagonist, Sigma-1 Agonist Start: 12-13-2020 Capmist DM 60-15-400 MG 1 tablet at 6 hour intervals as needed Orally Four times a day for 7 days Nov, Active hydrOXYzine hydrochloride 25 mg oral tablet (1 source) Antihistamine Start: 02-06-2021 take 1 tablet by mouth every six hours hydrOXYzine HCl 25 MG 1 tablet as needed Orally every 6 hrs for 30 day(s) Jan, Active Iron (12 sources) Start: 04-13-2024 [id number] 1-Hji-Kam-Fish (Natavi Pnv) 13.5 mg iron- 0.5 mg-150 mg capsule Active NMA PO April 13, 2024 1:00am melatonin 5 mg oral tablet (6 sources) take 1 tablet by mouth once daily in the evening Melatonin 5 MG 1 tablet in the evening Orally Once a day for 30 day(s) Active sertraline 25 mg oral tablet (1 source) Serotonin Reuptake Inhibitor Start: 01-04-2020 take 1 tablet by mouth once daily Sertraline HCl 25 MG 1 tablet Orally Once a day for 30 day(s) Dec, Active Completed/Discontinued Medications Medication Drug Class(es) Dates Sig (Normalized) Sig (Original) amoxicillin 500 mg oral capsule (20 sources) Penicillin-class Antibacterial Start: 02-19-2022 take 1 capsule by mouth three times daily amoxicillin (POLYMOX, AMOXIL) 500 mg capsule Take 500 mg by mouth three times daily. 0 02/19/2022 Active Comment on above: Take 500 mg by mouth three times daily. progesterone 200 mg oral capsule (12 sources) Progesterone Start: 09-24-2023 End: 04-13-2024 Progesterone Micronized (Prometrium) 200 mg capsule Discontinued 200 mg VAGINAL AT BEDTIME 30 30 3 September 24, 2023 12:00am April 13, 2024 9:25am continue through 14 weeks Problems Active Problems Problem Classification Problem Date Documented Date Episodic/Chronic Genitourinary symptoms and ill-defined conditions (20 sources) Urinary symptoms ; Translations: [Unspecified symptoms and signs involving the genitourinary system] Onset: 07-11-2024 Episodic Hemorrhage during ; abruptio placenta; placenta previa (12 sources) Antepartum hemorrhage; Translations: [Hemorrhage in early , unspecified] 08-24-2023 Episodic Other complications of (20 sources) ; Translations: [ with inconclusive viability, not applicable or unspecified] Episodic Comment on above: NIPT w gender and ca rrier- declines NIPT w gender and ca rrier-agrees NIPT w gender and ca rrier-agrees, normal anatomy Other complications of (20 sources) Spotting per vagina in ; Translations: [Spotting complicating , unspecified trimester] 04-21-2024 Episodic Comment on above: FHR 114, HCGx2. FHR 114, HCGx2. reso lved Other complications of (12 sources) H/O: miscarriage; Translations: [Supervision of with other poor reproductive or obstetric history, unspecified trimester] 08-24-2023 Episodic Other complications of (20 sources) High risk ; Translations: [Supervision of high risk , unspecified, unspecified trimester] 04-13-2024 Episodic Comment on above: , Shay [id number], Mor ramón Other complications of (12 sources) Complication of , childbirth and/or the puerperium; Translations: [Other specified related conditions, unspecified trimester] 08-24-2023 Episodic Other complications of (13 sources) Varicella non-immune; Translations: [Supervision of other high risk pregnancies, unspecified trimester] 07-05-2024 Episodic Comment on above: Enc avoidance and va ccine pp Other complications of (1 source) Supervision of high risk , unspecified, second trimester; Translations: [Supervision of high risk , unspecified, second trimester] Onset: 08-30-2024 Episodic Other complications of (1 source) Supervision of other high risk pregnancies, unspecified trimester; Translations: [Supervision of other high risk pregnancies, unspecified trimester] Onset: 08-03-2024 Episodic Other complications of (1 source) Supervision of high risk , unspecified, unspecified trimester; Translations: [Supervision of high risk , unspecified, unspecified trimester] Onset: 08-16-2024 Episodic Other female genital disorders (20 sources) Recurrent loss; 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] Onset: 08-03-2024 09-13-2023 Episodic Comment on above: recommend APL panel and suzan haney, will discuss parental chromosome testing and HSG at postop appointmenttapan Haney female, Maternal cell contaminiation cant be ruled out as patental sample was not ran Other nutritional; endocrine; and metabolic disorders (1 source) Body mass index (BMI) 27.0-27.9, adult Episodic Other and delivery including normal (11 sources) test positive; Translations: [Encounter for test, result positive] Onset: 07-25-2024 Episodic Comment on above: Enc avoidance and va ccine pp Other screening for suspected conditions (not mental disorders or infectious disease) (8 sources) Liver function tests abnormal; Translations: [Abnormal results of liver function studies] Episodic Other upper respiratory infections (6 sources) Sinusitis; Translations: [Chronic sinusitis, unspecified] Chronic Residual codes; unclassified (20 sources) Adopted; Translations: [Other specified health status] 04-13-2024 Episodic Residual codes; unclassified (1 source) Other specified health status; Translations: [Other specified health status] Onset: 08-03-2024 Episodic Residual codes; unclassified (1 source) 21 weeks gestation of ; Translations: [21 weeks gestation of ] Onset: 08-03-2024 Episodic Unclassified (20 sources) No additional problems on file Unclassified (1 source) Other underimmunization status; Translations: [Other underimmunization status] Onset: 08-03-2024 Past or Other Problems Problem Classification Problem Date Documented Date Episodic/Chronic Other complications of (1 source) with inconclusive viability, not applicable or unspecified; Translations: [ of unknown anatomic location] Onset: 03-16-2022 Episodic Other complications of (1 source) Spotting complicating , unspecified trimester; Translations: [Spotting complicating , unspecified trimester] Onset: 05-11-2024 Episodic Other complications of (1 source) care for patient with recurrent loss, unspecified trimester; Translations: [ care for patient with recurrent loss, unspecified trimester] Onset: 05-04-2024 Episodic Residual codes; unclassified (1 source) Other specified postprocedural states; Translations: [Other specified postprocedural states] Onset: 05-11-2024 Episodic Residual codes; unclassified (1 source) 9 weeks gestation of ; Translations: [9 weeks gestation of ] Onset: 05-11-2024 Episodic Spontaneous (15 sources) Miscarriage; Translations: [Complete or unspecified spontaneous without complication] Onset: 02-10-2024 Episodic Comment on above: 7.3mm EML with les roach/mick Enriquez. options reviewed and pt opted for D&C today. Unclassified (1 source) OB GROIN AREA DISCOMFORT Onset: 02-26-2022 Unclassified (1 source) VIABILITY Onset: 03-12-2022 Results Test Name Value Interpretation Reference Range Facility CBC W/Diff, Automatedon 07-2 Absolute Lymph 1.70 X10 3/uL Normal 0.83-4.51 [facility] Comment on above: Performed By: #### L 501.0250, L509.8002, L100.0100, [id number] #### [facility] [address] [place], [address] Absolute Neut 10.4 X10 3/uL High 2.0-7.7 [facility] Comment on above: Performed By: #### L 501.0250, L509.8002, L100.0100, [id number] #### [facility] [address] [place], [address] Basophils/100 WBC (Bld) 0.2 % Normal 0-1 [facility] Comment on above: Performed By: #### L 501.0250, L509.8002, L100.0100, [id number] #### [facility] [address] [place], [address] Eosinophils/100 WBC (Bld) 0.3 % Normal 0-5 [facility] Comment on above: Performed By: #### L 501.0250, L509.8002, L100.0100, [id number] #### [facility] [address] [place], [address] Erythrocyte distribution width (RBC) [Ratio] 13.0 % Normal 11.6-14.6 [facility] Comment on above: Performed By: #### L 501.0250, L509.8002, L100.0100, [id number] #### [facility] [address] [place], [address] Hematocrit (Bld) [Volume fraction] 37.0 % Normal 37-47 [facility] Comment on above: Performed By: #### L 501.0250, L509.8002, L100.0100, [id number] #### [facility] [address] [place], [address] Hemoglobin (Bld) [Mass/Vol] 11.9 g/dL Low 12.0-15.0 [facility] Comment on above: Performed By: #### L 501.0250, L509.8002, L100.0100, [id number] #### [facility] [address] [place], [address] IG% 0.700 Normal 0.0-0.9 [facility] Comment on above: Result Comment: IG% - Immature Granulocytes (promyelocytes, myelocytes and metamyelocytes) > 1% indicates that a LEFT SHIFT is Present. Performed By: #### L 501.0250, L509.8002, L100.0100, L3890.6006 #### [facility] [address] [place], [address] Lymphocytes/100 WBC (Bld) 13.1 % Low 19-41 [facility] Comment on above: Performed By: #### L 501.0250, L509.8002, L100.0100, [id number] #### [facility] [address] [place], [address] MCH (RBC) [Entitic mass] 28.4 pg Normal 27.0-32.0 [facility] Comment on above: Performed By: #### L 501.0250, L509.8002, L100.0100, [id number] #### [facility] [address] [place], [address] MCHC (RBC) [Mass/Vol] 32.2 g/dL Normal 32-36 [facility] Comment on above: Performed By: #### L 501.0250, L509.8002, L100.0100, [id number] #### [facility] [address] [place], [address] MCV (RBC) [Entitic vol] 88.3 fL Normal 81-99 [facility] Comment on above: Performed By: #### L 501.0250, L509.8002, L100.0100, [id number] #### [facility] [address] [place], [address] Monocytes/100 WBC (Bld) 5.5 % Normal 0-10 [facility] Comment on above: Performed By: #### L 501.0250, L509.8002, L100.0100, [id number] #### [facility] [address] [place], [address] Neutrophils/100 WBC (Bld) 80.2 % High 47-70 [facility] Comment on above: Performed By: #### L 501.0250, L509.8002, L100.0100, [id number] #### [facility] [address] [place], [address] Nucleated RBC (Bld) [#/Vol] 0 10*3/uL Normal 0-5 [facility] Comment on above: Performed By: #### L 501.0250, L509.8002, L100.0100, [id number] #### [facility] [address] [place], [address] Platelet mean volume (Bld) [Entitic vol] 10.3 fL Normal 6.2-12.0 [facility] Comment on above: Performed By: #### L 501.0250, L509.8002, L100.0100, [id number] #### [facility] [address] [place], [address] Platelets (Bld) [#/Vol] 222 10*3/uL Normal 150-450 [facility] Comment on above: Performed By: #### L 501.0250, L509.8002, L100.0100, [id number] #### [facility] [address] [place], [address] RBC (Bld) [#/Vol] 4.19 10*6/uL Low 4.2-5.4 [facility] Comment on above: Performed By: #### L 501.0250, L509.8002, L100.0100, [id number] #### [facility] [address] [place], [address] RDW SD 41.5 fl Normal 35.1-43.9 [facility] Comment on above: Performed By: #### L 501.0250, L509.8002, L100.0100, [id number] #### [facility] [address] [place], [address] WBC (Bld) [#/Vol] 13.0 10*3/uL High 4.4-11.0 [facility] Comment on above: Performed By: #### L 501.0250, L509.8002, L100.0100, [id number] #### [facility] [address] [place], [address] Glucose Challenge Gest 1H 50 deborah 09-18-2024 GLU GEST 50g 1H 148 mg/dL High 70-140 [facility] Comment on above: Performed By: #### L 501.0250, L509.8002, L100.0100, [id number] #### [facility] [address] [place], [address] HIVon 09-18-2024 HIV Non-Reactive Normal Nonreactive [facility] Comment on above: Result Comment: Non- Reactive Reactive Repeatedly reactive samples must be confirmed according to CDC recommended confirmatory algorithms. The subresults for either HIVAG or AHIV can be used as an aid in the selection of the confirmation algorithm for reactive samples. Send out specimens with Reactive results to [facility] for confirmation. Order the HIV antibody detection and differentiation: [id number] Performed By: #### L 501.0250, L509.8002, L100.0100, L3890.6006 #### [facility] [address] [place], [address] Human Service Technician Office Visit Reporton 09-18-2024 Human Service Technician Office Visit Report [facility] [address] [place] [address], [address] [place] [address] OFFICE VISIT Date of Service: 09/18/24 MR#: [id number] Acct: [id number] Name: KASSANDRA BAUTISTA Rep #: [id number] : 1995 Provider: JESSI cooper Age/Sex: 28/F [place] [facility] [place]: Signed Intake Vital Signs 07/05/24 08:31 08/30/24 08:43 09/18/24 08:37 09/18/24 08:53 Height 5 ft 5 in 5 ft 5 in 5 ft 5 in Weight: 190 lb BMI 31.6 BP 136/80 H Intake Visit Reasons: 28 wk ob/glucose Rush Seater Required: No Is patient in pain?: No Allergies metoclopramide (From Reglan) Allergy (Mild, Verified 09/18/24 08:38) lock jaw Medications ???Medication ???Instructions ???Recorded ???Confirmed ???Type PNV 158-iron 13.5 mg-folic 0.5 cap PO 04/13/24 09/18/24 History mg-omega 3-dha 150 mg-epa-fish capsule (Natavi PNV) buspirone 10 mg tablet 10 mg PO TID PRN anxiety #60 tabs 06/06/24 09/18/24 Rx Last Menstrual Period: 03/07/24 Zika: Zika virus screening: Negative : No Have you fallen in the past year?: No PFSH PFSH Medical History Spotting in early Incomplete miscarriage History of miscarriage, currently Abdominal cramping affecting Bleeding in early Surgical History S/P D C (status post dilation and curettage) S/P left knee surgery S/P wisdom tooth extraction Social History adopted: Yes household members: spouse number of children: 0 current occupational status: employed 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[employer] pets and animals: No history of recent travel: No sexually active: Yes Smoking Status: Never smoker second hand exposure: No alcohol intake: never substance use type: does not use diet: gluten free well-balanced diet: daily or most days caffeine: Yes during the past year weight has: decreased > 10 lbs what type of physical activity do you participate in: walking frequency: 3-4 times per week blayne/sabianism: Religious seatbelt use: always do you feel safe at home: Yes additional social history: - Shay History 4 Elective abortions Hx Para 0 Spontaneous abortions 3 Hx # Term Pregnancies Ectopic pregnancies Hx # Pregnancies Multiple births # of living children HPI 28 wk ob/glucose Details: KASSANDRA BAUTISTA is a 28 year old who presents for routine OB visit. OB Visit RALPH Calculator Estimated Delivery Date Method Current WG Current Estimate 12/12/24 LMP (Certain) 27w 6d Initial Weight: 168 lb Date -???-???-???-???-???- ???-???-???-???-???-? ??-???- EGA Weight BP Urine Prot -???-???-???-???-???- ???-???-???-???-???-? ??-???- Glucose FHR FuHt Pres Dilation -???-???-???-???-???- ???-???-???-???-???-? ??-???- Effaced St Visit Note 04/21/24 -???-???-???-???-???- ???-???-???-???-???-? ??-???- 6w 3d 168 lb 4 oz (+4 oz) 143/89 -???-???-???-???-???- ???-???-???-???-???-? ??-???- 114 -???-???-???-???-???- ???-???-???-???-???-? ??-???- LC- nob next week. here for early trimester bleeding. brown bleeding x5 days. not wearing a pad. FHR 114. obtaining hcgs. 05/11/24 -???-???-???-???-???- ???-???-???-???-???-? ??-???- 9w 2d 171 lb 6 oz (+3 lb 6 oz) 121/83 Negative -???-???-???-???-???- ???-???-???-???-???-? ??-???- Negative 190 -???-???-???-???-???- ???-???-???-???-???-? ??-???- JV- CRL stil l consistent with LMP. new ob labs today. 06/06/24 -???-???-???-???-???- ???-???-???-???-???-? ??-???- 13w 0d 173 lb 8 oz (+5 lb 8 oz) 129/82 Negative -???-???-???-???-???- ???-???-???-???-???-? ??-???- Negative 168 -???-???-???-???-???- ???-???-???-???-???-? ??-???- JV- no lof, vaginal bleeding, or cramping. + FM seen. patient is still suffering with anxiety. will try buspar. 06/22/24 -???-???-???-???-???- ???-???-???-???-???-? ??-???- 15w 2d 179 lb 4 oz (+11 lb 4 oz) 139/84 Negative -???-???-???-???-???- ???-???-???-???-???-? ??-???- Negative 163 -???-???-???-???-???- ???-???-???-???-???-? ??-???- KW- work in for heartbeat check. no vb/cramping. KW- work in for heartbeat check. n o vb/cramping. anatomy US ordered 07/05/24 -???-???-???-???-???- ???-???-???-???-???-? ??-???- 17w 1d 179 lb 2 oz (+11 lb 2 oz) 122/76 Negative -???-???-???-???-???- ???-???-???-???-???-? ??-???- Negative 148 -???-???-???-???-???- ???-???-???-???-???-? ??-???- -No VB. D lena well. Denies concerns 08/03/24 -???-???-???-???-???- ???-???-???-???-???-? ??-???- 21w 2d 185 lb 6 oz (+17 lb 6 oz) 127/83 Negative -???-???-???-???-???- ???-???-???-???-???-? ??-???- Negative 150 -???-???-???-???-???- ???-???-???-???-???-? ??-???- k (more content not included)... Normal [facility] Syphilis Antibodieson 2024 Syphilis Abs Non-Reactive Normal Nonreactive [facility] Comment on above: Performed By: #### L 501.0250, L509.8002, L100.0100, L3890.6006 #### [facility] [address] [place], [address] Laboratory - Chemistry and C hemistry - challengeOrdered By: Brenda Castillo on 08-30-2024 Glucose Ql (U) Negative [facility] - UrinalysisOrder ed By: Brenda Castillo on 08-30-2024 Protein Ql (U) Negative [facility] Human Service Technician Office Visit Reporton 08-30-2024 Human Service Technician Office Visit Report [facility] [address], [address] [place] [address] OFFICE VISIT Date of Service: 08/30/24 MR#: [id number] Acct: [id number] Name: KASSANDRA BAUTISTA Rep #: [id number] : 1995 Provider: Dr. Brenda Ramos DO Age/Sex: 28/F [place] [facility] [place]: Signed Intake Vital Signs 06/06/24 12:57 08/03/24 10:19 08/30/24 08:43 Height 5 ft 5 in 5 ft 5 in 5 ft 5 in Weight: 189 lb 6 oz BMI 31.5 BP 134/84 H Intake Visit Reasons: 25wk ob Rush Seater Required: No Is patient in pain?: No Feel stressed/tense/nervou s/anxious/difficulty sleeping: not at all Allergies metoclopramide (From Reglan) Allergy (Mild, Verified 08/30/24 08:49) lock jaw Medications ???Medication ???Instructions ???Recorded ???Confirmed ???Type PNV 158-iron 13.5 mg-folic 0.5 cap PO 04/13/24 08/30/24 History mg-omega 3-dha 150 mg-epa-fish capsule (Natavi PNV) buspirone 10 mg tablet 10 mg PO TID PRN anxiety #60 tabs 06/06/24 08/30/24 Rx Last Menstrual Period: 03/07/24 Zika: Zika virus screening: Negative : No PFSH PFSH Medical History Spotting in early Incomplete miscarriage History of miscarriage, currently Abdominal cramping affecting Bleeding in early Surgical History S/P D C (status post dilation and curettage) S/P left knee surgery S/P wisdom tooth extraction Social History adopted: Yes household members: spouse number of children: 0 current occupational status: employed 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[employer] pets and animals: No history of recent travel: No sexually active: Yes Smoking Status: Never smoker second hand exposure: No alcohol intake: never substance use type: does not use diet: gluten free well-balanced diet: daily or most days caffeine: Yes during the past year weight has: decreased > 10 lbs what type of physical activity do you participate in: walking frequency: 3-4 times per week blayne/sabianism: Religious seatbelt use: always do you feel safe at home: Yes additional social history: - Shay History 4 Elective abortions Hx Para 0 Spontaneous abortions 3 Hx # Term Pregnancies Ectopic pregnancies Hx # Pregnancies Multiple births # of living children HPI 25wk ob Details: KASSANDRA BAUTISTA is a 28 year old who presents for routine OB visit. OB Visit RALPH Calculator Estimated Delivery Date Method Current WG Current Estimate 12/12/24 LMP (Certain) 25w 1d Initial Weight: 168 lb Date -???-???-???-???-???- ???-???-???-???-???-? ??-???- EGA Weight BP Urine Prot -???-???-???-???-???- ???-???-???-???-???-? ??-???- Glucose FHR FuHt Pres Dilation -???-???-???-???-???- ???-???-???-???-???-? ??-???- Effaced St Visit Note 04/21/24 -???-???-???-???-???- ???-???-???-???-???-? ??-???- 6w 3d 168 lb 4 oz (+4 oz) 143/89 -???-???-???-???-???- ???-???-???-???-???-? ??-???- 114 -???-???-???-???-???- ???-???-???-???-???-? ??-???- LC- nob next week. here for early trimester bleeding. brown bleeding x5 days. not wearing a pad. FHR 114. obtaining hcgs. 05/11/24 -???-???-???-???-???- ???-???-???-???-???-? ??-???- 9w 2d 171 lb 6 oz (+3 lb 6 oz) 121/83 Negative -???-???-???-???-???- ???-???-???-???-???-? ??-???- Negative 190 -???-???-???-???-???- ???-???-???-???-???-? ??-???- JV- CRL stil l consistent with LMP. new ob labs today. 06/06/24 -???-???-???-???-???- ???-???-???-???-???-? ??-???- 13w 0d 173 lb 8 oz (+5 lb 8 oz) 129/82 Negative -???-???-???-???-???- ???-???-???-???-???-? ??-???- Negative 168 -???-???-???-???-???- ???-???-???-???-???-? ??-???- JV- no lof, vaginal bleeding, or cramping. + FM seen. patient is still suffering with anxiety. will try buspar. 06/22/24 -???-???-???-???-???- ???-???-???-???-???-? ??-???- 15w 2d 179 lb 4 oz (+11 lb 4 oz) 139/84 Negative -???-???-???-???-???- ???-???-???-???-???-? ??-???- Negative 163 -???-???-???-???-???- ???-???-???-???-???-? ??-???- KW- work in for heartbeat check. no vb/cramping. KW- work in for heartbeat check. n o vb/cramping. anatomy US ordered 07/05/24 -???-???-???-???-???- ???-???-???-???-???-? ??-???- 17w 1d 179 lb 2 oz (+11 lb 2 oz) 122/76 Negative -???-???-???-???-???- ???-???-???-???-???-? ??-???- Negative 148 -???-???-???-???-???- ???-???-???-???-???-? ??-???- -No VB. D oing well. Denies concerns 08/03/24 -???-???-???-???-???- ???-???-???-???-???-? ??-???- 21w 2d 185 lb 6 oz (+17 lb 6 oz) 127/83 Negative -???-???-???-???-???- ???-???-???-???-???-? ??-???- Negative 150 -???-???-???-???-???- ???-???-???-???-? (more content not included)... Normal [facility] - Chemistry and C hemistry - challengeOrdered By: Yamilex Delvalle on 08-03-2024 Glucose Ql (U) Negative [facility] - UrinalysisOrder ed By: Yamilex Delvalle on 08-03-2024 Protein Ql (U) Negative [facility] Human Service Technician Office Visit Reporton 08-03-2024 Human Service Technician Office Visit Report [facility], [facility] [address] [place] [address] OFFICE VISIT Date of Service: 08/03/24 MR#: [id number] Acct: [id number] Name: KASSANDRA BAUTISTA Rep #: [id number] : 1995 Provider: MICHAEL Freeman [facility] Age/Sex: 28/F [place] [facility] [place]: Signed Intake Vital Signs 06/06/24 12:57 07/08/24 09:56 08/03/24 10:17 08/03/24 10:19 Height 5 ft 5 in 5 ft 5 in 5 ft 5 in 5 ft 5 in Weight: 185 lb 6 oz BMI 30.8 BP 127/83 H Intake Visit Reasons: 21wk ob Rush Seater Required: No Is patient in pain?: No Allergies metoclopramide (From Reglan) Allergy (Mild, Verified 08/03/24 10:17) lock jaw Medications ???Medication ???Instructions ???Recorded ???Confirmed ???Type PNV 158-iron 13.5 mg-folic 0.5 cap PO 04/13/24 08/03/24 History mg-omega 3-dha 150 mg-epa-fish capsule (Natavi PNV) buspirone 10 mg tablet 10 mg PO TID PRN anxiety #60 tabs 06/06/24 08/03/24 Rx Last Menstrual Period: 03/07/24 Zika: Zika virus screening: Negative : No PFSH PFSH Medical History Spotting in early Incomplete miscarriage History of miscarriage, currently Abdominal cramping affecting Bleeding in early Surgical History S/P D C (status post dilation and curettage) S/P left knee surgery S/P wisdom tooth extraction Social History adopted: Yes household members: spouse number of children: 0 current occupational status: employed 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[employer] pets and animals: No history of recent travel: No sexually active: Yes Smoking Status: Never smoker second hand exposure: No alcohol intake: never substance use type: does not use diet: gluten free well-balanced diet: daily or most days caffeine: Yes during the past year weight has: decreased > 10 lbs what type of physical activity do you participate in: walking frequency: 3-4 times per week blayne/sabianism: Religious seatbelt use: always do you feel safe at home: Yes additional social history: - Shay History 4 Elective abortions Hx Para 0 Spontaneous abortions 3 Hx # Term Pregnancies Ectopic pregnancies Hx # Pregnancies Multiple births # of living children HPI 21wk ob Details: KASSANDRA BAUTISTA is a 28 year old who presents for routine OB visit. OB Visit RALPH Calculator Estimated Delivery Date Method Current WG Current Estimate 12/12/24 LMP (Certain) 21w 2d Initial Weight: 168 lb Date -???-???-???-???-???- ???-???-???-???-???-? ??-???- EGA Weight BP Urine Prot -???-???-???-???-???- ???-???-???-???-???-? ??-???- Glucose FHR FuHt Pres Dilation -???-???-???-???-???- ???-???-???-???-???-? ??-???- Effaced St Visit Note 04/21/24 -???-???-???-???-???- ???-???-???-???-???-? ??-???- 6w 3d 168 lb 4 oz (+4 oz) 143/89 -???-???-???-???-???- ???-???-???-???-???-? ??-???- 114 -???-???-???-???-???- ???-???-???-???-???-? ??-???- LC- nob next week. here for early trimester bleeding. brown bleeding x5 days. not wearing a pad. FHR 114. obtaining hcgs. 05/11/24 -???-???-???-???-???- ???-???-???-???-???-? ??-???- 9w 2d 171 lb 6 oz (+3 lb 6 oz) 121/83 Negative -???-???-???-???-???- ???-???-???-???-???-? ??-???- Negative 190 -???-???-???-???-???- ???-???-???-???-???-? ??-???- JV- CRL stil l consistent with LMP. new ob labs today. 06/06/24 -???-???-???-???-???- ???-???-???-???-???-? ??-???- 13w 0d 173 lb 8 oz (+5 lb 8 oz) 129/82 Negative -???-???-???-???-???- ???-???-???-???-???-? ??-???- Negative 168 -???-???-???-???-???- ???-???-???-???-???-? ??-???- JV- no lof, vaginal bleeding, or cramping. + FM seen. patient is still suffering with anxiety. will try buspar. 06/22/24 -???-???-???-???-???- ???-???-???-???-???-? ??-???- 15w 2d 179 lb 4 oz (+11 lb 4 oz) 139/84 Negative -???-???-???-???-???- ???-???-???-???-???-? ??-???- Negative 163 -???-???-???-???-???- ???-???-???-???-???-? ??-???- KW- work in for heartbeat check. no vb/cramping. KW- work in for heartbeat check. n o vb/cramping. anatomy US ordered 07/05/24 -???-???-???-???-???- ???-???-???-???-???-? ??-???- 17w 1d 179 lb 2 oz (+11 lb 2 oz) 122/76 Negative -???-???-???-???-???- ???-???-???-???-???-? ??-???- Negative 148 -???-???-???-???-???- ???-???-???-???-???-? ??-???- MH-No VB. D oing well. Denies concerns 08/03/24 -???-???-???-???-???- ???-???-???-???-???-? ??-???- 21w 2d 185 lb 6 oz (+17 lb 6 oz) 127/83 Negative -???-???-???-???-???- ???-???-???-???-???-? ??-???- Negative 150 -???-???-???-???-???- ???-???-???-???-???-? ??-???- kw- no vb/lo f/ctx. some fm. anatomy (more content not included)... [facility] OB Anatomy w/ Transvaginalon 07-20-2024 OB Anatomy w/ Transvaginal [facility] [address] [place] [address] OB Anatomy w/ Transvaginal MR#: [id number] Acct: [id number] Name: KASSANDRA BAUTISTA Rep #: [id number] : 1995 F 28 From: Miguel olea MD PCP: Care Physician,No Primary Status: [facility] CLI Study: OB Anatomy w/ Transvaginal Date of Exam: 07/20 Exam# [id number] Ordering Dr: Brenda Hernandez DO PROCEDURE: OB ANATOMY W/ TRANSVAGINAL 07/20/2024 REASON FOR EXAM: ANATOMY/CERVICAL LENGTH TECHNIQUE: High resolution obstetric ultrasound performed using a 2D transducer. Standard views obtained, including biometry, anatomy survey, and Doppler studies. COMPARISON: None FINDINGS LMP: March 07, 2024. Number: 1 Position: Vertex Placental Position: Anterior and not low-lying. Placental Abnormalities: None DIMENSIONS: Biparietal Diameter: 4.42 cm: 19 weeks and 3 days: 54 percentile/ Head Circumference: 16.65 cm: 19 weeks and 2 days: 45th percentile/ Abdominal Circumference: 14.11 cm: 19 weeks and 3 days: 52nd percentile/ Femur Length: 2.76 cm: 18 weeks and 3 days: 16 percentile/ ESTIMATED WEIGHT: 272 g plus/-41 g ESTIMATED WEIGHT PERCENTILE (24+ weeks): 33rd ESTIMATED GESTATIONAL AGE: Baseline: 19 weeks and 2 days By Ultrasound: 19 weeks and 1 day ESTIMATED DATE OF DELIVERY: Baseline: December 12, 2024 By Ultrasound: December 13, 2024 BIOPHYSICAL ASSESSMENT: Amniotic Fluid Volume: 4.1 Amniotic Fluid Index: Within normal limits. ( Cardiac Motion: 160 beats per minute (average) Trunk and Limb Motion: Present. MATERNAL ANATOMY: Adnexa: Both maternal ovaries are visualized and unremarkable. Cervical Length (if measured): 3.5 cm ANATOMY: Spine: Unremarkable Cranium: Unremarkable Cerebellum: Unremarkable Cisterna Magna: Unremarkable Cavum Septum Pellucidi: Unremarkable Lateral Ventricles: Unremarkable Choroid Plexus: Unremarkable Midline Falx: Unremarkable Nuchal Fold: Unremarkable Heart: Unremarkable Stomach: Unremarkable Kidneys: Unremarkable Bladder: Unremarkable Umbilical Cord: Unremarkable Extremities: Unremarkable US/OB Anatomy w/ Transvaginal IMPRESSION: Single live intrauterine gestation with a mean gestational age of 19 weeks and 1 day. Reading Location: [facility]--[facility] CC: Dr. Brenda Hernandez DO; No Primary Care Physician Supervisor Sulfuric Acid Plant: Signed Normal [facility] Urine Cultureon 07-11-2024 URC Mixed Gram Positive Organisms [place] Count 11,000-25,000 MIXC Mixed contaminants. Submit a new specimen if indicated. [facility] Comment on above: Performed By: #### M 100.2986 #### [facility] [address] [place] [place], [address] Bilirubin Test strip Ql (U)O rdered By: Richard Meng on 07-10-2024 Bilirubin Ql (U) Negative Negative [facility] Ketones Test strip Ql (U)Ord ered By: Richard Meng on 07-10-2024 Ketones Ql (U) Negative Negative [facility] Microscopic analysis of urin e for red blood cells (RBC)Ordered By: Richard Meng on 07-10-2024 Microscopic analysis of urine for red blood cells (RBC) 0 SEEN /hpf 0-5 [facility] Mucus LM Ql (Urine sed)Order ed By: Richard Meng on 07-10-2024 Mucus Ql (Urine sed) 0 SEEN /hpf [facility] Nitrite Test strip Ql (U)Ord ered By: Richard Meng on 07-10-2024 Nitrite Ql (U) Negative Negative [facility] Protein Test strip Ql (U)Ord ered By: Richard Meng on 07-10-2024 Protein Ql (U) Negative Negative [facility] Squamous epithelial cells de tection in urine sediment by light microscopyOrdered By: Richard Meng on 07-10-2024 Epithelial cells.squamous LM Ql (Urine sed) 0-5 SEEN /hpf 5-10 [facility] Urinalysis, Completeon 07-10 EPI,SQUAMOUS 0-5 SEEN Normal 5-10 [facility] Comment on above: Order Comment: ALICIA TYLER TO SPECIFY Performed By: #### M 100.2200 #### [facility] [address] [place], [place], [id number] BACTERIA 0 SEEN Normal None Seen [facility] Comment on above: Order Comment: ALICIA MULTANIOR TO SPECIFY Performed By: #### M 100.2200 #### [facility] [address] [place], [place], [phone] Mucus Ql (Urine sed) 0 SEEN Normal [facility] Comment on above: Order Comment: ALICIA MULTANIOR TO SPECIFY Performed By: #### M 100.2200 #### [facility] [address] [place], [place], [id number] RBC 0 SEEN Normal 0-5 [facility] Comment on above: Order Comment: ALICIA MULTANIOR TO SPECIFY Performed By: #### M 100.2200 #### [facility] [address] [place], [place], [phone] WBC 0 SEEN Normal 0-5 [facility] Comment on above: Order Comment: ALICIA MULTANIOR TO SPECIFY Performed By: #### M 100.2200 #### [facility] [address] [place], [place], [id number] Urine clarityOrdered By: Augustine Meng on 07-10-2024 Clarity (U) Clear Clear [facility] Urine color determinationOrd ered By: Richard Meng on 07-10-2024 Color (U) Yellow Yellow [facility] Urine cultureOrdered By: Augustine Meng on 07-10-2024 Bacteria identified Cx Nom (U) Positive Abnormal [facility] Urine glucose detectionOrder ed By: Richard Meng on 07-10-2024 Glucose Ql (U) Normal mg/dl Normal [facility] Urine leukocyte esterase det ection by dipstickOrdered By: Richard Meng on 07-10-2024 Leukocyte esterase Test strip Ql (U) Negative Negative [facility] Urine pHOrdered By: Richard Moreno hstetler on 07-10-2024 pH (U) 7.0 [pH] 5.0 - 8.0 [facility] Urine sediment bacteria coun t by microscopy (number/high power field)Ordered By: Richard Meng on 07-10-2024 Bacteria LM.HPF (Urine sed) [#/Area] 0 /[HPF] None Seen [facility] Urine specific gravity measu rementOrdered By: Richard Meng on 07-10-2024 Specific gravity (U) [Rel density] 1.005 1.002-1.030 [facility] Urine urobilinogen measureme ntOrdered By: Richard Meng on 07-10-2024 Urobilinogen Ql (U) Normal mg/dl Normal [facility] White blood cell countOrdere d By: Richard Meng on 07-10-2024 White blood cell count 0 SEEN /hpf 0-5 [facility] - Chemistry and C hemistry - challengeOrdered By: Richard Meng on 07-08-2024 Bilirubin Ql (U) Negative [facility] Glucose Ql (U) Negative [facility] Ketones Ql (U) Negative [facility] pH (U) 7.0 [pH] [facility] Specific gravity (U) [Rel density] 1.005 [facility] Urobilinogen (U) [Mass/Vol] 0.7360748 mg/dL [facility] - Hematology and Cell countsOrdered By: Richard Meng on 07-08-2024 Hemoglobin Ql (U) Negative [facility] - Specimen inform ationOrdered By: Richard Meng on 07-08-2024 Clarity (U) Clear [facility] Color (U) YELLOW [facility] - UrinalysisOrder ed By: Richard Meng on 07-08-2024 Nitrite Ql (U) Negative [facility] Protein Ql (U) Negative [facility] No Panel InformationOrdered By: Richard Meng on 07-08-2024 Urine Leukocytes Negatve [facility] Urine Non-Hemolyzed Blood Negative [facility] Urgent Care Visit Reporton 0 07-08-2024 Urgent Care Visit Report [facility] [address], [address] [place] [address] OFFICE VISIT Date of Service: 07/08/24 MR#: [id number] Acct: [id number] Name: KASSANDRA BAUTISTA Rep #: [id number] : 1995 Provider: ARGENTINA Pang Age/Sex: 28/F [place] [facility] [place] Status: Signed Intake Vital Signs 07/05/24 08:31 07/08/24 09:56 Height 5 ft 5 in 5 ft 5 in Weight: 179 lb 2 oz 179 lb 2 oz BMI 29.7 29.7 BP 122/76 H 120/78 Position Sitting Pulse 99 Temp 98.7 F Temp Source Oral Pulse Oximetry (%) 97 Oxygen Delivery Method room air Intake Visit Reasons: CONCERN FOR UTI Accompanied by: Allergies metoclopramide (From Reglan) Allergy (Mild, Verified 07/08/24 09:49) lock jaw Medications ???Medication ???Instructions ???Recorded ???Confirmed ???Type PNV 158-iron 13.5 mg-folic 0.5 cap PO 04/13/24 07/08/24 History mg-omega 3-dha 150 mg-epa-fish capsule (Natavi PNV) buspirone 10 mg tablet 10 mg PO TID PRN anxiety #60 tabs 06/06/24 07/08/24 Rx Nurse's Note: Frequency with cloudy urination and tiny amount of burning after urinating. Patient concerned for a UTI and she is . Patient states this has been going on for 3 days to a week. 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[employer] pets and animals: No history of recent travel: No sexually active: Yes Smoking Status: Never smoker second hand exposure: No alcohol intake: never substance use type: does not use diet: gluten free well-balanced diet: daily or most days caffeine: Yes during the past year weight has: decreased > 10 lbs what type of physical activity do you participate in: walking frequency: 3-4 times per week blayne/sabianism: Religious seatbelt use: always do you feel safe at home: Yes additional social history: - Shay Female Reproductive History Menstrual Ab spontaneous: 3 HPI HPI Details: KASSANDRA BAUTISTA, is a 28 F who presents to the office today for evaluation of possible UTI. Patient states that she recently completed a urine culture through her [employer] and was notified that it showed 80,000 - 100,000 mixed gram positive bacteria, she was then instructed to complete another urinalysis and culture to rule out infection. Patient states that she is currently feeling well without symptoms but is concerned since she is 17 weeks . Patient denies history of recurrent UTIs. ROS Const Constitutional: No body ache, chills, fatigue or fever(s) Gastro GI: No abdominal pain, change in bowel habits, diarrhea or vomiting Genitourinary-Female: No painful urination, urinary frequency, urinary urgency, blood in urine or suprapubic fullness Endo Endocrine: No fatigue Exam Const General: healthy appearing and no acute distress GI Palpation: soft, no guarding and nontender Other: Palpable fundus just inferior to the umbilicus; No CVA tenderness bilaterally Results POC Urinalysis Dip (Clinic) Office Urine Color YELLOW Last Edit by Lesley Guo MA on 07/08/24 09:59 Office Urine Clarity Clear Last Edit by Lesley Guo MA on 07/08/24 09:59 Office Urine Glucose Negative Last Edit by Lesley Guo MA on 07/08/24 09:59 Office Urine Ketones Negative Last Edit by Lesley Guo MA on 07/08/24 09:59 Off Ur Spec [place] 1.005 Last Edit by Lesley Guo MA on 07/08/24 09:59 Office Urine pH 7.0 Last Edit by Lesley Guo MA on 07/08/24 09:59 Office Urine Bilirubin Negative Last Edit by Lesley Guo MA on 07/08/24 09:59 Office Urine Urobilinogen 0.2 mg/dL Last Edit by Lesley Guo MA on 07/08/24 09:59 Office Urine Blood Negative Last Edit by Lesley Guo MA on 07/08/24 09:59 Office Urine Blood Hemolyzed Negative Last Edit by Lesley Guo MA on 07/08/24 09:59 Office Urine Protein Negative Last Edit by Lesley Guo MA on 07/08/24 09:59 Office Urine Nitrate Negative Last Edit by Lesley Guo MA on 07/08/24 09:59 Off Ur Leukocytes Negatve Last Edit by Lesley Guo MA on 07/08/24 09:59 Coding Level of Care Code New Pt Off vis,new,level 3 Patient Type New History Expanded Problem Focused Exam Expanded Problem Focused Medical Decision Making Low Complexity Diagnoses (more content not included)... [facility] Urine Cultureon 07-07-2024 URC Mixed Gram Positive Organisms [place] Count 80,000-100,000 MIXC Mixed contaminants. Submit a new specimen if indicated. [facility] Comment on above: Performed By: #### M 100.3022 #### [facility] [address] [place], [address] Laboratory - Chemistry and C hemistry - challengeOrdered By: Bonnie Ruiz on 07-05-2024 Bilirubin Ql (U) Negative [facility] Glucose Ql (U) Negative [facility] Ketones Ql (U) Negative [facility] pH (U) 8.5 [pH] [facility] Specific gravity (U) [Rel density] 1.010 [facility] Urobilinogen (U) [Mass/Vol] Negative [facility] - Hematology and Cell countsOrdered By: Bonnie Ruiz on 07-05-2024 Hemoglobin Ql (U) Trace [facility] - Specimen inform ationOrdered By: Bonnie Ruiz on 07-05-2024 Clarity (U) Clear [facility] Color (U) Yellow [facility] - UrinalysisOrder ed By: Bonnie Ruiz on 07-05-2024 Nitrite Ql (U) Negative [facility] Protein Ql (U) Negative [facility] No Panel InformationOrdered By: Bonnie Ruiz on 07-05-2024 Urine Leukocytes Negatve [facility] Urine Non-Hemolyzed Blood [facility] Human Service Technician Office Visit Reporton 07-05-2024 Human Service Technician Office Visit Report [facility] [address], [address] [place] [address] OFFICE VISIT Date of Service: 07/05/24 MR#: [id number] Acct: [id number] Name: KASSANDRA BAUTISTA Rep #: [id number] : 1995 Provider: JESSI cooper Age/Sex: 28/F Location[place] [facility] Status: Signed Intake Vital Signs 05/11/24 10:21 06/22/24 14:21 07/05/24 08:31 Height 5 ft 5 in 5 ft 5 in 5 ft 5 in Weight: 179 lb 2 oz BMI 29.7 BP 122/76 H Intake Visit Reasons: 17wk ob Chief Complaint: 17 Week OB Rush Seater Required: No Is patient in pain?: No Allergies metoclopramide (From Reglan) Allergy (Mild, Verified 07/05/24 08:30) lock jaw Medications ???Medication ???Instructions ???Recorded ???Confirmed ???Type PNV 158-iron 13.5 mg-folic 0.5 cap PO 04/13/24 07/05/24 History mg-omega 3-dha 150 mg-epa-fish capsule (Natavi PNV) buspirone 10 mg tablet 10 mg PO TID PRN anxiety #60 tabs 06/06/24 07/05/24 Rx Last Menstrual Period: 03/07/24 Zika: Zika virus screening: Negative : No PFSH PFSH Medical History Spotting in early Incomplete miscarriage History of miscarriage, currently Abdominal cramping affecting Bleeding in early Surgical History S/P D C (status post dilation and curettage) S/P left knee surgery S/P wisdom tooth extraction Social History adopted: Yes household members: spouse number of children: 0 current occupational status: employed current occupation: [employer] pets and animals: No history of recent travel: No sexually active: Yes Smoking Status: Never smoker second hand exposure: No alcohol intake: never substance use type: does not use diet: gluten free well-balanced diet: daily or most days caffeine: Yes during the past year weight has: decreased > 10 lbs what type of physical activity do you participate in: walking frequency: 3-4 times per week blayne/sabianism: Religious seatbelt use: always do you feel safe at home: Yes additional social history: - Shay History 4 Elective abortions Hx Para 0 Spontaneous abortions 3 Hx # Term Pregnancies Ectopic pregnancies Hx # Pregnancies Multiple births # of living children HPI 17wk ob Details: KASSANDRA BAUTISTA is a 28 year old who presents for routine OB visit. OB Visit RALPH Calculator Estimated Delivery Date Method Current WG Current Estimate 12/12/24 LMP (Certain) 17w 1d Initial Weight: 168 lb Date -???-???-???-???-???- ???-???-???-???-???-? ??-???- EGA Weight BP Urine Prot -???-???-???-???-???- ???-???-???-???-???-? ??-???- Glucose FHR FuHt Pres Dilation -???-???-???-???-???- ???-???-???-???-???-? ??-???- Effaced St Visit Note 04/21/24 -???-???-???-???-???- ???-???-???-???-???-? ??-???- 6w 3d 168 lb 4 oz (+4 oz) 143/89 -???-???-???-???-???- ???-???-???-???-???-? ??-???- 114 -???-???-???-???-???- ???-???-???-???-???-? ??-???- LC- nob next week. here for early trimester bleeding. brown bleeding x5 days. not wearing a pad. FHR 114. obtaining hcgs. 05/11/24 -???-???-???-???-???- ???-???-???-???-???-? ??-???- 9w 2d 171 lb 6 oz (+3 lb 6 oz) 121/83 Negative -???-???-???-???-???- ???-???-???-???-???-? ??-???- Negative 190 -???-???-???-???-???- ???-???-???-???-???-? ??-???- JV- CRL stil l consistent with LMP. new ob labs today. 06/06/24 -???-???-???-???-???- ???-???-???-???-???-? ??-???- 13w 0d 173 lb 8 oz (+5 lb 8 oz) 129/82 Negative -???-???-???-???-???- ???-???-???-???-???-? ??-???- Negative 168 -???-???-???-???-???- ???-???-???-???-???-? ??-???- JV- no lof, vaginal bleeding, or cramping. + FM seen. patient is still suffering with anxiety. will try buspar. 06/22/24 -???-???-???-???-???- ???-???-???-???-???-? ??-???- 15w 2d 179 lb 4 oz (+11 lb 4 oz) 139/84 Negative -???-???-???-???-???- ???-???-???-???-???-? ??-???- Negative 163 -???-???-???-???-???- ???-???-???-???-???-? ??-???- KW- work in for heartbeat check. no vb/cramping. KW- work in for heartbeat check. n o vb/cramping. anatomy US ordered 07/05/24 -???-???-???-???-???- ???-???-???-???-???-? ??-???- 17w 1d 179 lb 2 oz (+11 lb 2 oz) 122/76 Negative -???-???-???-???-???- ???-???-???-???-???-? ??-???- Negative 148 -???-???-???-???-???- ???-???-???-???-???-? ??-???- MH-No VB. D oing well. Denies concerns ACOG First Trimester First Trimester: Discussed Exam Const General: cooperative Nutritional Appearance: well nourished GI Palpation: soft, nontender and other (gravid) Results POC Urinalysis 2 Dip (Clinic) Offic (more content not included)... [facility] Urine cultureOrdered By: Valentín Ruiz on 07-05-2024 Bacteria identified Cx Nom (U) Positive Abnormal [facility] - Chemistry and C hemistry - challengeOrdered By: Yamilex Delvalle on 06-22-2024 Glucose Ql (U) Negative [facility] - UrinalysisOrder ed By: Yamilex Delvalle on 06-22-2024 Protein Ql (U) Negative [facility] Human Service Technician Office Visit Reporton 06-22-2024 Human Service Technician Office Visit Report [facility] [address], [address] [place] [address] OFFICE VISIT Date of Service: 06/22/24 MR#: [id number] Acct: [id number] Name: KASSANDRA BAUTISTA Rep #: [id number] : 1995 Provider: MICHAEL Freeman ams Age/Sex: 28/F Location: [facility] [place] Status: Signed Intake Vital Signs 06/06/24 12:57 06/22/24 14:21 Height 5 ft 5 in 5 ft 5 in Weight: 173 lb 8 oz 179 lb 4 oz BMI 28.8 29.8 BP 129/82 H 139/84 H Intake Visit Reasons: HEARTBEAT CHECK Chief Complaint: Heartbeat Check Rush Seater Required: No Is patient in pain?: No Allergies metoclopramide (From Reglan) Allergy (Mild, Verified 06/22/24 14:24) lock jaw Medications ???Medication ???Instructions ???Recorded ???Confirmed ???Type PNV 158-iron 13.5 mg-folic 0.5 cap PO 04/13/24 06/22/24 History mg-omega 3-dha 150 mg-epa-fish capsule (Natavi PNV) buspirone 10 mg tablet 10 mg PO TID PRN anxiety #60 tabs 06/06/24 06/22/24 Rx Last Menstrual Period: 03/07/24 : No PFSH PFSH Medical History Spotting in early Incomplete miscarriage History of miscarriage, currently Abdominal cramping affecting Bleeding in early Surgical History S/P D C (status post dilation and curettage) S/P left knee surgery S/P wisdom tooth extraction Social History adopted: Yes household members: spouse number of children: 0 current occupational status: employed 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[employer] pets and animals: No history of recent travel: No sexually active: Yes Smoking Status: Never smoker second hand exposure: No alcohol intake: never substance use type: does not use diet: gluten free well-balanced diet: daily or most days caffeine: Yes during the past year weight has: decreased > 10 lbs what type of physical activity do you participate in: walking frequency: 3-4 times per week blayne/sabianism: Religious seatbelt use: always do you feel safe at home: Yes additional social history: - Shay History 4 Elective abortions Hx Para 0 Spontaneous abortions 3 Hx # Term Pregnancies Ectopic pregnancies Hx # Pregnancies Multiple births # of living children HPI HEARTBEAT CHECK Details: KASSANDRA BAUTISTA is a 28 year old who presents for routine OB visit. OB Visit RALPH Calculator Estimated Delivery Date Method Current WG Current Estimate 12/12/24 LMP (Certain) 15w 2d Initial Weight: 168 lb Date -???-???-???-???-???- ???-???-???-???-???-? ??-???- EGA Weight BP Urine Prot -???-???-???-???-???- ???-???-???-???-???-? ??-???- Glucose FHR FuHt Pres Dilation -???-???-???-???-???- ???-???-???-???-???-? ??-???- Effaced St Visit Note 04/21/24 -???-???-???-???-???- ???-???-???-???-???-? ??-???- 6w 3d 168 lb 4 oz (+4 oz) 143/89 -???-???-???-???-???- ???-???-???-???-???-? ??-???- 114 -???-???-???-???-???- ???-???-???-???-???-? ??-???- LC- nob next week. here for early trimester bleeding. brown bleeding x5 days. not wearing a pad. FHR 114. obtaining hcgs. 05/11/24 -???-???-???-???-???- ???-???-???-???-???-? ??-???- 9w 2d 171 lb 6 oz (+3 lb 6 oz) 121/83 Negative -???-???-???-???-???- ???-???-???-???-???-? ??-???- Negative 190 -???-???-???-???-???- ???-???-???-???-???-? ??-???- JV- CRL stil l consistent with LMP. new ob labs today. 06/06/24 -???-???-???-???-???- ???-???-???-???-???-? ??-???- 13w 0d 173 lb 8 oz (+5 lb 8 oz) 129/82 Negative -???-???-???-???-???- ???-???-???-???-???-? ??-???- Negative 168 -???-???-???-???-???- ???-???-???-???-???-? ??-???- JV- no lof, vaginal bleeding, or cramping. + FM seen. patient is still suffering with anxiety. will try buspar. 06/22/24 -???-???-???-???-???- ???-???-???-???-???-? ??-???- 15w 2d 179 lb 4 oz (+11 lb 4 oz) 139/84 Negative -???-???-???-???-???- ???-???-???-???-???-? ??-???- Negative 163 -???-???-???-???-???- ???-???-???-???-???-? ??-???- KW- work in for heartbeat check. no vb/cramping. KW- work in for heartbeat check. n o vb/cramping. anatomy US ordered ACOG First Trimester First Trimester: Discussed ROS Const Reports system reviewed and no additional complaints, except as documented Eyes Reports system reviewed and no additional complaints, except as documented ENT Reports system reviewed and no additional complaints, except as documented Card Reports system reviewed and no additional complaints, except as documented Resp Reports system reviewed and no additional complaints, except as documented GI Reports system reviewed and no additional complaints, except as documented (more content not included)... [facility] Chlamydia and Neisseria gono rrhoeae detection by PCROrdered By: Brenda Castillo on 06-06-2024 Chlamydia/Neisseria (PCR) [facility] - Chemistry and C hemistry - challengeOrdered By: Brenda Castillo on 06-06-2024 Glucose Ql (U) Negative [facility] - UrinalysisOrder ed By: Brenda Castillo on 06-06-2024 Protein Ql (U) Negative [facility] [id number] 06-06-2024 M8200.2203 Pending Chlamydia Trachomatis PCR NEGATIVE for Chlamydia trachomatis N. gonorrhoeae PCR Negative for N. gonorrhoeae Normal [facility] Comment on above: Performed By: #### L 700.8000 #### [facility] [address] [place], [address] Human Service Technician Office Visit Reporton 06-06-2024 Human Service Technician Office Visit Report [facility] [address], [address] [place] [address] OFFICE VISIT Date of Service: 06/06/24 MR#: [id number] Acct: [id number] Name: KASSANDRA BAUTISTA Rep #: [id number] : 1995 Provider: Dr. Brenda Ramos, Age/Sex: 28/F [place] [facility] [place]: Signed Intake Vital Signs 09/24/23 08:21 05/11/24 10:21 06/06/24 12:57 Height 5 ft 5 in 5 ft 5 in 5 ft 5 in Weight: 173 lb 8 oz BMI 28.8 BP 129/82 H Intake Visit Reasons: 13wk ob Rush Seater Required: No Is patient in pain?: No Allergies metoclopramide (From Reglan) Allergy (Mild, Verified 06/06/24 12:58) lock jaw Medications ???Medication ???Instructions ???Recorded ???Confirmed ???Type PNV 158-iron 13.5 mg-folic 0.5 cap PO 04/13/24 06/06/24 History mg-omega 3-dha 150 mg-epa-fish capsule (Natavi PNV) buspirone 10 mg tablet 10 mg PO TID PRN anxiety #60 tabs 06/06/24 06/06/24 Rx Last Menstrual Period: 03/07/24 Zika: Zika virus screening: Negative : No PFSH PFSH Medical History Spotting in early Incomplete miscarriage History of miscarriage, currently Abdominal cramping affecting Bleeding in early Surgical History S/P D C (status post dilation and curettage) S/P left knee surgery S/P wisdom tooth extraction Social History adopted: Yes household members: spouse number of children: 0 current occupational status: employed 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[employer] pets and animals: No history of recent travel: No sexually active: Yes Smoking Status: Never smoker second hand exposure: No alcohol intake: never substance use type: does not use diet: gluten free well-balanced diet: daily or most days caffeine: Yes during the past year weight has: decreased > 10 lbs what type of physical activity do you participate in: walking frequency: 3-4 times per week blayne/sabianism: Religious seatbelt use: always do you feel safe at home: Yes additional social history: - Shay History 4 Elective abortions Hx Para 0 Spontaneous abortions 3 Hx # Term Pregnancies Ectopic pregnancies Hx # Pregnancies Multiple births # of living children HPI 13wk ob Details: KASSANDRA BAUTISTA is a 28 year old who presents for routine OB visit. OB Visit RALPH Calculator Estimated Delivery Date Method Current WG Current Estimate 12/12/24 LMP (Certain) 13w 0d Initial Weight: 168 lb Date -???-???-???-???-???- ???-???-???-???-???-? ??-???- EGA Weight BP Urine Prot -???-???-???-???-???- ???-???-???-???-???-? ??-???- Glucose FHR FuHt Pres Dilation -???-???-???-???-???- ???-???-???-???-???-? ??-???- Effaced St Visit Note 04/21/24 -???-???-???-???-???- ???-???-???-???-???-? ??-???- 6w 3d 168 lb 4 oz (+4 oz) 143/89 -???-???-???-???-???- ???-???-???-???-???-? ??-???- 114 -???-???-???-???-???- ???-???-???-???-???-? ??-???- LC- nob next week. here for early trimester bleeding. brown bleeding x5 days. not wearing a pad. FHR 114. obtaining hcgs. 05/11/24 -???-???-???-???-???- ???-???-???-???-???-? ??-???- 9w 2d 171 lb 6 oz (+3 lb 6 oz) 121/83 Negative -???-???-???-???-???- ???-???-???-???-???-? ??-???- Negative 190 -???-???-???-???-???- ???-???-???-???-???-? ??-???- JV- CRL stil l consistent with LMP. new ob labs today. 04/15/25 -???-???-???-???-???- ???-???-???-???-???-? ??-???- 13w 0d 173 lb 8 oz (+5 lb 8 oz) 129/82 -???-???-???-???-???- ???-???-???-???-???-? ??-???- 168 -???-???-???-???-???- ???-???-???-???-???-? ??-???- JV- no lof, vaginal bleeding, or cramping. + FM seen. patient is still suffering with anxiety. will try buspar. ACOG First Trimester First Trimester: Discussed Coding Level of Care Code OB Routine Diagnoses Spotting in early O26.859 S/P D C (status post dilation and curettage) Z98.890 Adopted person Z78.9 Supervision of high-risk O09.90 13 weeks gestation of Z3A.13 Weeks of gestation: 13 weeks History of recurrent miscarriages N96 Assessment and Plan Assessment and Plan (1) Spotting in early : Status: Acute Comment: FHR 114, HCGx2. resolved (2) S/P D C (status post dilation and curettage): Status: Acute Comment: 08/20/23 SM (3) Adopted person: Status: Acute (4) Supervision of high-risk : Status: Acute Comment: , Shay (5) : Status: Acute Qualifiers: Weeks of gestation: 13 weeks Qualified Code(s): Z3A.13 - 13 weeks gestation of Comment: NIPT w gender and carrier- declines (more content not included)... [facility] V-Zoster IgG (Immunity)on V ZOSTER IgG Normal [facility] Comment on above: Result Comment: RESU LT: NON REACTIVE Please note reference interval change A Reactive result is considered evidence of immunity to VZV. Reactive indicates that VZV IgG was detected consistent with previous infection and/or vaccination. A Non Reactive result indicates that VZV IgG was not detected suggesting that immunity has not been acquired. Performed at: [facility] [id number] Electronic Warfare Technician: Kevon Flynn PhD, Phone: [phone] Performed By: #### M 100.2200 #### [facility] [address] [place], [address] Absolute lymphocyte countOrd ered By: Brenda Anna on 05-11-2024 Lymphocytes Auto (Unsp spec) [#/Vol] 2.11 10*3/uL 0.83-4.51 [facility] Absolute neutrophil countOrd ered By: Brenda Anna on 05-11-2024 Neutrophils (Bld) [#/Vol] 11.2 10*3/uL High 2.0-7.7 [facility] Automated lymphocyte count a s percentage of total leukocytesOrdered By: Brenda Castillo on 05-11-2024 Lymphocytes/100 WBC Auto (Unsp spec) 14.9 % Low 19-41 [facility] Basophil percentageOrdered B y: Brenda Anna on 05-11-2024 Basophils/100 WBC (Bld) 0.3 % 0-1 [facility] CBC W/Diff, Automatedon - 0-2024 Absolute Lymph 2.11 X10 3/uL Normal 0.83-4.51 [facility] Comment on above: Performed By: #### M 100.2200 #### [facility] [address] [place], [address] Absolute Neut 11.2 X10 3/uL High 2.0-7.7 [facility] Comment on above: Performed By: #### M 100.2200 #### [facility] [address] [place], [address] Basophils/100 WBC (Bld) 0.3 % Normal 0-1 [facility] Comment on above: Performed By: #### M 100.2200 #### [facility] [address] [place], [address] Eosinophils/100 WBC (Bld) 1.0 % Normal 0-5 [facility] Comment on above: Performed By: #### M 100.2200 #### [facility] [address] [place], [address] Erythrocyte distribution width (RBC) [Ratio] 12.0 % Normal 11.6-14.6 [facility] Comment on above: Performed By: #### M 100.2200 #### [facility] [address] [place], [address] Hematocrit (Bld) [Volume fraction] 41.3 % Normal 37-47 [facility] Comment on above: Performed By: #### M 100.2200 #### [facility] [address] [place], [address] Hemoglobin (Bld) [Mass/Vol] 14.3 g/dL Normal 12.0-15.0 [facility] Comment on above: Performed By: #### M 100.2200 #### [facility] [address] [place], [address] IG% 0.300 Normal 0.0-0.9 [facility] Comment on above: Result Comment: IG% - Immature Granulocytes (promyelocytes, myelocytes and metamyelocytes) > 1% indicates that a LEFT SHIFT is Present. Performed By: #### M 100.2200 #### [facility] [address] [place], [address] Lymphocytes/100 WBC (Bld) 14.9 % Low 19-41 [facility] Comment on above: Performed By: #### M 100.2200 #### [facility] [address] [place], [address] MCH (RBC) [Entitic mass] 30.3 pg Normal 27.0-32.0 [facility] Comment on above: Performed By: #### M 100.2200 #### [facility] [address] [place], [address] MCHC (RBC) [Mass/Vol] 34.6 g/dL Normal 32-36 [facility] Comment on above: Performed By: #### M 100.2200 #### [facility] [address] [place], [address] MCV (RBC) [Entitic vol] 87.5 fL Normal 81-99 [facility] Comment on above: Performed By: #### M 100.2200 #### [facility] [address] [place], [address] Monocytes/100 WBC (Bld) 4.7 % Normal 0-10 [facility] Comment on above: Performed By: #### M 100.2200 #### [facility] [address] [place], [address] Neutrophils/100 WBC (Bld) 78.8 % High 47-70 [facility] Comment on above: Performed By: #### M 100.2200 #### [facility] [address] [place], [address] Nucleated RBC (Bld) [#/Vol] 0 10*3/uL Normal 0-5 [facility] Comment on above: Performed By: #### M 100.2200 #### [facility] [address] [place], [address] Platelet mean volume (Bld) [Entitic vol] 9.6 fL Normal 6.2-12.0 [facility] Comment on above: Performed By: #### M 100.2200 #### [facility] [address] [place], [address] Platelets (Bld) [#/Vol] 332 10*3/uL Normal 150-450 [facility] Comment on above: Performed By: #### M 100.2200 #### [facility] [address] [place], [address] RBC (Bld) [#/Vol] 4.72 10*6/uL Normal 4.2-5.4 [facility] Comment on above: Performed By: #### M 100.2200 #### [facility] [address] [place], [address] RDW SD 38.8 fl Normal 35.1-43.9 [facility] Comment on above: Performed By: #### M 100.2200 #### [facility] [address] [place], [address] WBC (Bld) [#/Vol] 14.2 10*3/uL High 4.4-11.0 [facility] Comment on above: Performed By: #### M 100.2200 #### [facility] [address] [place], [address] Eosinophil percentageOrdered By: Brenda Castillo on 05-11-2024 Eosinophils/100 WBC (Bld) 1.0 % 0-5 [facility] Erythrocyte distribution wid th ratioOrdered By: Brenda Castillo on 05-11-2024 Erythrocyte distribution width (RBC) [Ratio] 12.0 % 11.6-14.6 [facility] Erythrocyte distribution wid th standard deviationOrdered By: Brenda Castillo on 05-11-2024 Erythrocyte distribution width (RBC) [Entitic vol] 38.8 fL 35.1-43.9 [facility] Erythrocyte distribution width (RBC) [Ratio] 38.8 fl 35.1-43.9 [facility] HBV surface Ag Ql (S)Ordered By: Brenda Castillo on 05-11-2024 Hepatitis B Surface Antigen Non-Reactive Nonreactive [facility] Comment on above: Reactive: Presumptiv e evidence of HBV. Repeatedly reactive samples must be confirmed using a neutralization test ([employer] HBsAg Confirmatory Test)Non-Reactive: HBsAg not detected; does not exclude the possibility of exposure to HBV Hematocrit Auto (Bld) [Volum e fraction]Ordered By: Brenda Castillo on 05-11-2024 Hematocrit (Bld) [Volume fraction] 41.3 % 37-47 [facility] Hemoglobin measurementOrdere d By: Brenda Anna on 05-11-2024 Hemoglobin (Bld) [Mass/Vol] 14.3 g/dL 12.0-15.0 [facility] Hepatitis C antibodyOrdered By: Brenda Castillo on 05-11-2024 Hepatitis C Antibody Non-Reactive Nonreactive [facility] Comment on above: Reactive: Presumptiv e evidence of antibodies to HCV. Follow CDC recommendations for supplemental testing.Non-Reactive: Antibodies to HCV were not detected; does not exclude the possibility of exposure to HCVReactive Results are presumptive evidence of antibodies to HCV. Follow CDC recommendations for supplemental testing.Order confirmation testing: HCV Quant by PCR testing - HCVPCR #[id number] Non Reactive: < 0.8 Equivocal: >/= 0.8 to < 1.0 Reactive: >/= 1.0The [facility] requires that a reactive/equivocal HCV antibody result be sent out for confirmation. HCV Quant by PCR testing. Immature granulocytes/100 WB C Auto (Bld)Ordered By: Brenda Castillo on 05-11-2024 Immature granulocytes/100 WBC (Bld) 0.300 % 0.0-0.9 [facility] Comment on above: IG% - Immature Granu locytes (promyelocytes, myelocytes and metamyelocytes) > 1% indicates that a LEFT SHIFT is Present. L3890.6006on 05-11-2024 HIV Non-Reactive Normal Nonreactive [facility] Comment on above: Performed By: #### M 100.2200 #### [facility] [address] [place], [place], [address] L3890.6102on 05-11-2024 HEP B Surf Ag Non-Reactive Normal Nonreactive [facility] Comment on above: Result Comment: Reac tive: Presumptive evidence of HBV. Repeatedly reactive samples must be confirmed using a neutralization test ([employer] HBsAg Confirmatory Test) Non-Reactive: HBsAg not detected; does not exclude the possibility of exposure to HBV Performed By: #### M 100.2200 #### [facility] [address] [facility] [place], [address] L3890.6301on 05-11-2024 Hepatitis C Ab Non-Reactive Normal Nonreactive [facility] Comment on above: Result Comment: Reac tive: Presumptive evidence of antibodies to HCV. Follow CDC recommendations for supplemental testing. Non-Reactive: Antibodies to HCV were not detected; does not exclude the possibility of exposure to HCV Reactive Results are presumptive evidence of antibodies to HCV. Follow CDC recommendations for supplemental testing. Order confirmation testing: HCV Quant by PCR testing - HCVPCR #[id number] Non Reactive: < 0.8 Equivocal: >/= 0.8 to < 1.0 Reactive: >/= 1.[address] [facility] requires that a reactive/equivocal HCV antibody result be sent out for confirmation. HCV Quant by PCR testing. Performed By: #### M 100.2200 #### [facility] [address] [place], [address] L509.4006on 05-11-2024 Rubella IgG REAC Normal Nonreactive [facility] Comment on above: Result Comment: Anti body Result: Interpretation Non-Reactive: Non-Immune Reactive: Immune The following results were obtained with the [employer] Rubella IgG assay. Results from assays of other manufacturers cannot be used interchangeably. Performed By: #### M 100.2200 #### [facility] [address] [facility] [place], [address] L509.8002on 05-11-2024 Syphilis Abs Non-Reactive Normal Nonreactive [facility] Comment on above: Performed By: #### M 100.2200 #### [facility] [address] [place] [address]. [place], [address] Laboratory - Chemistry and C hemistry - challengeOrdered By: Brenda Castillo on 05-11-2024 Glucose Ql (U) Negative [facility] - Microbiology an d Antimicrobial susceptibilityOrdered By: Brenda Castillo on 05-11-2024 HBV surface Ag Ql (S) Non-Reactive Nonreactive [facility] Comment on above: Reactive: Presumptiv e evidence of HBV. Repeatedly reactive samples must be confirmed using a neutralization test ([employer] HBsAg Confirmatory Test)Non-Reactive: HBsAg not detected; does not exclude the possibility of exposure to HBV Laboratory - UrinalysisOrder ed By: Brenda Castillo on 05-11-2024 Protein Ql (U) Negative [facility] Lymphocytes Auto (Unsp spec) [#/Vol]Ordered By: Brenda Castillo on 05-11-2024 Lymphocytes (Bld) [#/Vol] 2.11 10*3/uL 0.83-4.51 [facility] Lymphocytes/100 WBC Auto (Un sp spec)Ordered By: Brenda Castillo on 05-11-2024 Lymphocytes/100 WBC (Bld) 14.9 % Low 19-41 [facility] MCV (mean corpuscular volume ) determinationOrdered By: Brenda Castillo on 05-11-2024 MCV (RBC) [Entitic vol] 87.5 fL 81-99 [facility] Mean corpuscular hemoglobin (MCH) determinationOrdered By: Brenda Castillo on 05-11-2024 MCH (RBC) [Entitic mass] 30.3 pg 27.0-32.0 [facility] Mean corpuscular hemoglobin concentration (MCHC) determinationOrdered By: Brenda Castillo on 05-11-2024 MCHC (RBC) [Mass/Vol] 34.6 g/dL 32-36 [facility] Mean platelet volume determi nationOrdered By: Brenda Castillo on 05-11-2024 Platelet mean volume (Bld) [Entitic vol] 9.6 fL 6.2-12.0 [facility] Monocyte percentageOrdered B y: Brenda Castillo on 05-11-2024 Monocytes/100 WBC (Bld) 4.7 % 0-10 [facility] Neutrophil percentageOrdered By: Brenda Castillo on 05-11-2024 Neutrophils/100 WBC (Bld) 78.8 % High 47-70 [facility] No Panel InformationOrdered By: Brenda Castillo on 05-11-2024 HIV (1&2) Antibody Non-Reactive Nonreactive [facility] Nucleated red blood cell per centageOrdered By: Brenda Castillo on 05-11-2024 Nucleated RBC/100 WBC (Bld) [Ratio] 0 % 0-5 [facility] Human Service Technician Office Visit Reporton 05-11-2024 Human Service Technician Office Visit Report [facility] [address], [address] [place] [address] OFFICE VISIT Date of Service: 05/11/24 MR#: [id number] Acct: [id number] Name: KASSANDRA BAUTISTA Rep #: [id number] : 1995 Provider: Dr. Brenda Ramos, Age/Sex: 28/F [place] [facility] [place]: Signed Intake Vital Signs 04/21/24 12:02 04/24/24 09:38 05/11/24 10:21 Height 5 ft 5 in 5 ft 5 in 5 ft 5 in Weight: 171 lb 6 oz BMI 28.5 BP 121/83 H Intake Visit Reasons: 9WK NOB Rush Seater Required: No Is patient in pain?: No Allergies metoclopramide (From Reglan) Allergy (Mild, Verified 05/11/24 10:19) lock jaw Medications ???Medication ???Instructions ???Recorded ???Confirmed ???Type PNV 158-iron 13.5 mg-folic 0.5 cap PO 04/13/24 05/11/24 History mg-omega 3-dha 150 mg-epa-fish capsule (Natavi PNV) Last Menstrual Period: 03/07/24 Zika: Zika virus screening: Negative : No PFSH PFSH Medical History Spotting in early Incomplete miscarriage History of miscarriage, currently Abdominal cramping affecting Bleeding in early Surgical History S/P D C (status post dilation and curettage) S/P left knee surgery S/P wisdom tooth extraction Social History adopted: Yes household members: spouse number of children: 0 current occupational status: employed 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 occupation: [employer]- [employer] pets and animals: No history of recent travel: No sexually active: Yes Smoking Status: Never smoker second hand exposure: No alcohol intake: never substance use type: does not use diet: gluten free well-balanced diet: daily or most days caffeine: Yes during the past year weight has: decreased > 10 lbs what type of physical activity do you participate in: walking frequency: 3-4 times per week blayne/sabianism: Religious seatbelt use: always do you feel safe at home: Yes additional social history: - Shay History 4 Elective abortions Hx Para 0 Spontaneous abortions 3 Hx # Term Pregnancies Ectopic pregnancies Hx # Pregnancies Multiple births # of living children HPI 9WK NOB Details: KASSANDRA BAUTISTA is a 28 year old who presents for routine OB visit. OB Visit RALPH Calculator Estimated Delivery Date Method Current WG Current Estimate 12/12/24 LMP (Certain) 9w 2d Initial Weight: 168 lb Date -???-???-???-???-???- ???-???-???-???-???-? ??-???- EGA Weight BP Urine Prot -???-???-???-???-???- ???-???-???-???-???-? ??-???- Glucose FHR FuHt Pres Dilation -???-???-???-???-???- ???-???-???-???-???-? ??-???- Effaced St Visit Note 04/21/24 -???-???-???-???-???- ???-???-???-???-???-? ??-???- 6w 3d 168 lb 4 oz (+4 oz) 143/89 -???-???-???-???-???- ???-???-???-???-???-? ??-???- 114 -???-???-???-???-???- ???-???-???-???-???-? ??-???- LC- nob next week. here for early trimester bleeding. brown bleeding x5 days. not wearing a pad. FHR 114. obtaining hcgs. 05/11/24 -???-???-???-???-???- ???-???-???-???-???-? ??-???- 9w 2d 171 lb 6 oz (+3 lb 6 oz) 121/83 Negative -???-???-???-???-???- ???-???-???-???-???-? ??-???- Negative 190 -???-???-???-???-???- ???-???-???-???-???-? ??-???- JV- CRL stil l consistent with LMP. new ob labs today. ACOG First Trimester First Trimester: Discussed Results POC Urinalysis 2 Dip (Clinic) Office Urine Glucose Negative Last Edit by Ju Kirk on 05/11/24 10:26 Office Urine Protein Negative Last Edit by Ju Kirk on 05/11/24 10:26 Coding Level of Care Code OB Routine Diagnoses Spotting in early O26.859 S/P D C (status post dilation and curettage) Z98.890 Adopted person Z78.9 Supervision of high-risk O09.90 9 weeks gestation of Z3A.09 Weeks of gestation: 9 weeks History of recurrent miscarriages N96 Assessment and Plan Assessment and Plan (1) Spotting in early : Status: Acute Comment: FHR 114, HCGx2. resolved (2) S/P D C (status post dilation and curettage): Status: Acute Comment: 08/20/23 SM (3) Adopted person: Status: Acute (4) Supervision of high-risk : Status: Acute Comment: , Shay (5) : Status: Acute Qualifiers: Weeks of gestation: 9 weeks Qualified Code(s): Z3A.09 - 9 weeks gestation of Comment: NIPT w gender and carrier- declines (6) History of recurrent miscarriages: Status: Acute Comment: recommend APL panel and suzan haney, will discuss parental chromosome testing and HSG at postop appointment [place] nl female, Maternal ce (more content not included)... [facility] Platelet countOrdered By: Yusuf Castillo on 05-11-2024 Platelets (Bld) [#/Vol] 332 10*3/uL 150-450 [facility] RBC Auto (Bld) [#/Vol]Ordere d By: Brenda Castillo on 05-11-2024 RBC (Bld) [#/Vol] 4.72 10*6/uL 4.2-5.4 [facility] Rubella immune status determ ination by IgG antibody assayOrdered By: Brenda Castillo on 05-11-2024 Rubella IgG Antibody REAC Nonreactive [facility] Comment on above: Antibody Result: Int erpretationNon-Reactive: Non-ImmuneReactive: ImmuneThe following results were obtained with the [employer] Rubella IgG assay. Results from assays of other manufacturers cannot be used interchangeably. Serum Varicella zoster virus IgG antibody assay by immunoassay (units/volume)Ordered By: Brenda Castillo on 05-11-2024 VZV IgG IA Qn (S) See comment [facility] Comment on above: RESULT: NON REACTIVE Please note reference interval changeA Reactive result is considered evidence of immunity toVZV. Reactive indicates that VZV IgG was detectedconsistent with previous infection and/or vaccination.A Non Reactive result indicates that VZV IgG was notdetected suggesting that immunity has not been acquired.Performed at: [facility] [address] [id number] Director: Kevon Flynn PhD, Phone: [phone] T. pallidum abOrdered By: Yusuf Castillo on 05-11-2024 Syphilis Total Antibody Non-Reactive Nonreactiv e [facility] Type AND Screenon 05-11-2024 ABO and Rh group Nom (Bld) Blood group A Rh(D) positive Normal [facility] Comment on above: Order Comment: PN Performed By: #### M 100.2200 #### [facility] [address] [facility] [place], [address] VZV IgG IA Qn (S)Ordered By: Brenda Castillo on 05-11-2024 Varicella-Zoster IgG Antibody See comment [facility] Comment on above: RESULT: NON REACTIVE Please note reference interval changeA Reactive result is considered evidence of immunity toVZV. Reactive indicates that VZV IgG was detectedconsistent with previous infection and/or vaccination.A Non Reactive result indicates that VZV IgG was notdetected suggesting that immunity has not been acquired.Performed at: [facility] ([place])[address] [id number] Director: Kevon Flynn PhD, Phone: [phone] White blood cell (WBC) count Ordered By: Brenda Castillo on 05-11-2024 WBC (Bld) [#/Vol] 14.2 10*3/uL High 4.4-11.0 [facility] HCG ( test) QlOrder ed By: Lacy Gongora on 04-23-2024 Human Chorionic Gonadotropin, Quant 53526 mIU/mL High <9 [facility] Comment on above: Gestational Age0.2-1 Week: 5-50 mIU/mL1-2 Weeks: 50-500 mIU/mL2-3 Weeks: 100-5000 mIU/mL3-4 Weeks: 500-10,000 mIU/mL4-5 Weeks:1000-50,000 mIU/mL5-6 Weeks: 10,000-100,000 mIU/mL6-8 Weeks: 15,000-200,000 mIU/mL2-3 Months:10,000-100,000 mIU/mL Serum human chorionic gonado tropin detection for pregnancyOrdered By: Lacy Gongora on 04-23-2024 HCG ( test) Ql [address]23 mIU/mL High <9 [facility] Comment on above: Gestational Age0.2-1 Week: 5-50 mIU/mL1-2 Weeks: 50-500 mIU/mL2-3 Weeks: 100-5000 mIU/mL3-4 Weeks: 500-10,000 mIU/mL4-5 Weeks:1000-50,000 mIU/mL5-6 Weeks: 10,000-100,000 mIU/mL6-8 Weeks: 15,000-200,000 mIU/mL2-3 Months:10,000-100,000 mIU/mL hCG Titer Quant., Serumon HCG QUANT. 36951 mIU/mL High <9 non-preg [facility] Comment on above: Result Comment: Gest ational Age 0.2-1 Week: 5-50 mIU/mL 1-2 Weeks: 50-500 mIU/mL 2-3 Weeks: 100-5000 mIU/mL 3-4 Weeks: 500-10,000 mIU/mL 4-5 Weeks:1000-50,000 mIU/mL 5-6 Weeks: 10,000-100,000 mIU/mL 6-8 Weeks: 15,000-200,000 mIU/mL 2-3 Months:10,000-100,000 mIU/mL Performed By: #### L 700.8000 #### [facility] [address] [place], [address] HCG ( test) QlOrder ed By: Lacy Gongora on 04-21-2024 Human Chorionic Gonadotropin, Quant 59473 mIU/mL High <9 [facility] Comment on above: Gestational Age0.2-1 Week: 5-50 mIU/mL1-2 Weeks: 50-500 mIU/mL2-3 Weeks: 100-5000 mIU/mL3-4 Weeks: 500-10,000 mIU/mL4-5 Weeks:1000-50,000 mIU/mL5-6 Weeks: 10,000-100,000 mIU/mL6-8 Weeks: 15,000-200,000 mIU/mL2-3 Months:10,000-100,000 mIU/mL Human Service Technician Office Visit Reporton 04-21-2024 Human Service Technician Office Visit Report [facility] [address], [address] [place] [address] OFFICE VISIT Date of Service: 04/21/24 MR#: [id number] Acct: [id number] Name: KASSANDRA BAUTISTA Rep #: [id number] : 1995 Provider: MICHAEL lua Age/Sex: 28/F [place] [facility] [place]: Signed Intake Vital Signs 09/24/23 08:21 04/21/24 11:20 Height 5 ft 5 in 5 ft 5 in Weight: 168 lb 4 oz BMI 28.0 BP 143/89 H Intake Visit Reasons: 6w3d spotting x 5 days Allergies metoclopramide (From Reglan) Allergy (Mild, Verified 04/21/24 11:21) lock jaw Medications ???Medication ???Instructions ???Recorded ???Confirmed ???Type PNV 158-iron 13.5 mg-folic 0.5 cap PO 04/13/24 04/21/24 History mg-omega 3-dha 150 mg-epa-fish capsule (Natavi PNV) PFSH Medical History (Updated 04/21/24 @ 12:01 by Lacy Gongora CNM) Spotting in early Incomplete miscarriage History of miscarriage, currently Abdominal cramping affecting Bleeding in early Surgical History S/P D C (status post dilation and curettage) S/P left knee surgery S/P wisdom tooth extraction Social History adopted: Yes household members: spouse number of children: 0 current occupational status: employed current occupation: [employer]- [employer] pets and animals: No history of recent travel: No sexually active: Yes Smoking Status: Never smoker second hand exposure: No alcohol intake: never substance use type: does not use diet: gluten free well-balanced diet: daily or most days caffeine: Yes during the past year weight has: decreased > 10 lbs what type of physical activity do you participate in: walking frequency: 3-4 times per week blayne/sabianism: Religious seatbelt use: always do you feel safe at home: Yes additional social history: - Shay HPI 6w3d spotting x 5 days Details: KASSANDRA BAUTISTA is a 28 year old who presents for first trimester bleeding with recurrent miscarriages. brown bleeding x5 days. not needing to wear a pad. History 4 Elective abortions Hx Para 0 Spontaneous abortions 3 Hx # Term Pregnancies Ectopic pregnancies Hx # Pregnancies Multiple births # of living children Exam Const General: cooperative and healthy appearing Resp Effort Inspection: normal respiratory effort and able to speak in complete sentences GI Inspection: normal to inspection Palpation: soft Speculum Exam - Vagina: normal appearance of the vagina Coding Level of Care Code Off vis,est,level 3 Diagnoses Adopted person Z78.9 Supervision of high-risk O09.90 Less than 8 weeks gestation of Z3A.01 Weeks of gestation: less than 8 weeks History of recurrent miscarriages N96 Spotting in early O26.859 Assessment and Plan Assessment and Plan (1) Adopted person: Status: Acute (2) Supervision of high-risk : Status: Acute Comment: , Shay (3) : Status: Acute Qualifiers: Weeks of gestation: less than 8 weeks Qualified Code(s): Z3A.01 - Less than 8 weeks gestation of Comment: NIPT w gender and carrier- declines (4) History of recurrent miscarriages: Status: Acute Comment: recommend APL panel and suzan haney, will discuss parental chromosome testing and HSG at postop appointment tapan Haney female, Maternal cell contaminiation cant be ruled out as patental sample was not ran (5) Spotting in early : Status: Acute Comment: FHR 114, HCGx2. Orders: Orders hCG Titer Quant., Serum Today N96 - Recurrent loss hCG Titer Quant., Serum 2 Days N96 - Recurrent loss, O09.90 - Supervision of high risk , unspecified, unspecified trimester 04/21/24 1202 Date Lacy Gongora [facility] Cosigner Signature: Date (if applicable) CC: Normal [facility] Serum human chorionic gonado tropin detection for pregnancyOrdered By: Lacy Gongora on 04-21-2024 HCG ( test) Ql [address] mIU/mL High <9 [facility] Comment on above: Gestational Age0.2-1 Week: 5-50 mIU/mL1-2 Weeks: 50-500 mIU/mL2-3 Weeks: 100-5000 mIU/mL3-4 Weeks: 500-10,000 mIU/mL4-5 Weeks:1000-50,000 mIU/mL5-6 Weeks: 10,000-100,000 mIU/mL6-8 Weeks: 15,000-200,000 mIU/mL2-3 Months:10,000-100,000 mIU/mL hCG Titer Quant., Serumon HCG QUANT. 95850 mIU/mL High <9 non-preg [facility] Comment on above: Result Comment: Gest ational Age 0.2-1 Week: 5-50 mIU/mL 1-2 Weeks: 50-500 mIU/mL 2-3 Weeks: 100-5000 mIU/mL 3-4 Weeks: 500-10,000 mIU/mL 4-5 Weeks:1000-50,000 mIU/mL 5-6 Weeks: 10,000-100,000 mIU/mL 6-8 Weeks: 15,000-200,000 mIU/mL 2-3 Months:10,000-100,000 mIU/mL Performed By: #### L 700.8000 #### [facility] [place], [address] HCG ( test) QlOrder ed By: Krystle Enriquez on 01-24-2024 Human Chorionic Gonadotropin, Quant 6 mIU/mL High <4 [facility] hCG Titer Quant., Serumon HCG QUANT. 6 mIU/mL High 1-3 [facility] Comment on above: Performed By: #### L 700.8000 #### [facility] [address] [place], [address] HCG ( test) QlOrder ed By: Krystle Enriquez on 01-12-2024 Human Chorionic Gonadotropin, Quant 260 mIU/mL High <4 [facility] Comment on above: hCG levels with Gest ational AgeGestational Age hCG mIU/mL (IU/L)0.2 - 1 week 5 - 501-2 weeks 50 - 5002-3 weeks 100 - 62580-9 weeks 500 - 481553-8 weeks 1000 - 926379-6 weeks 42856 - 100,0006-8 weeks 60890 - 200,0002-3 months 13033 - 100,000 hCG Titer Quant., Serumon HCG QUANT. 260 mIU/mL High 1-3 [facility] Comment on above: Result Comment: hCG levels with Gestational Age Gestational Age hCG mIU/mL (IU/L) 0.2 - 1 week 5 - 50 1-2 weeks 50 - 500 2-3 weeks 100 - 5000 3-4 weeks 500 - 29160 4-5 weeks 1000 - 87573 5-6 weeks 82980 - 100,000 6-8 weeks 85697 - 200,000 2-3 months 90537 - 100,000 Performed By: #### L 700.8000 #### [facility] [address] [place], [address] HCG ( test) QlOrder ed By: Brenda Castillo on 01-08-2024 Human Chorionic Gonadotropin, Quant 1600 mIU/mL High <4 [facility] Comment on above: hCG levels with Gest ational AgeGestational Age hCG mIU/mL (IU/L)0.2 - 1 week 5 - 501-2 weeks 50 - 5002-3 weeks 100 - 38587-8 weeks 500 - 467487-1 weeks 1000 - 722311-0 weeks 65686 - 100,0006-8 weeks 59271 - 200,0002-3 months 13026 - 100,000 hCG Titer Quant., Serumon HCG QUANT. 1600 mIU/mL High 1-3 [facility] Comment on above: Result Comment: hCG levels with Gestational Age Gestational Age hCG mIU/mL (IU/L) 0.2 - 1 week 5 - 50 1-2 weeks 50 - 500 2-3 weeks 100 - 5000 3-4 weeks 500 - 65956 4-5 weeks 1000 - 55062 5-6 weeks 69728 - 100,000 6-8 weeks 13075 - 200,000 2-3 months 04921 - 100,000 Performed By: #### L 700.8000 #### [facility] [address] [place], [address] HCG ( test) QlOrder ed By: Brenda Castillo on 01-06-2024 Human Chorionic Gonadotropin, Quant 2222 mIU/mL High <4 [facility] Comment on above: hCG levels with Gest ational AgeGestational Age hCG mIU/mL (IU/L)0.2 - 1 week 5 - 501-2 weeks 50 - 5002-3 weeks 100 - 04676-8 weeks 500 - 471407-6 weeks 1000 - 889073-0 weeks 42527 - 100,0006-8 weeks 65110 - 200,0002-3 months 08676 - 100,000 hCG Titer Quant., Serumon HCG QUANT. 2222 mIU/mL High 1-3 [facility] Comment on above: Result Comment: hCG levels with Gestational Age Gestational Age hCG mIU/mL (IU/L) 0.2 - 1 week 5 - 50 1-2 weeks 50 - 500 2-3 weeks 100 - 5000 3-4 weeks 500 - 55628 4-5 weeks 1000 - 96798 5-6 weeks 03944 - 100,000 6-8 weeks 10612 - 200,000 2-3 months 66313 - 100,000 Performed By: #### L 700.8000 #### [facility] [address] [place], [place], [address] Human Service Technician Office Visit Reporton 09-24-2023 Human Service Technician Office Visit Report [facility] [address] [place] [address] OFFICE VISIT Date of Service: 09/24/23 MR#: [id number] Acct: [id number] Name: KASSANDRA BAUTISTA Rep #: [id number] : 1995 Provider: Dr. Krystle alejo MD Age/Sex: 27/F [place] [facility] [place]: Signed Intake Vital Signs 08/20/23 10:22 09/24/23 08:21 Height 5 ft 5 in 5 ft 5 in Weight: 156 lb 8 oz BMI 26.0 BP 124/82 H Intake Visit Reasons: D+C FU Chief Complaint: D C F/U Rush Seater Required: No Is patient in pain?: No Allergies metoclopramide (From Reglan) Allergy (Mild, Verified 09/24/23 08:21) lock jaw Medications ???Medication ???Instructions ???Recorded ???Confirmed ???Type NK 08/20/23 09/24/23 History progesterone micronized 200 mg 200 mg vaginal QHS 30 days #30 caps 09/24/23 09/24/23 Rx capsule (Prometrium) Is last menstrual period known: No Post menopausal: No Patient : No : No [employer] [facility] Medical History History of miscarriage, currently Abdominal cramping affecting Bleeding in early Surgical History S/P D C (status post dilation and curettage) S/P left knee surgery S/P wisdom tooth extraction Social History adopted: Yes Smoking Status: Never smoker alcohol intake: current details: occasionally substance use type: does not use caffeine: Yes what type of physical activity do you participate in: walking frequency: 5-6 times per week seatbelt use: always do you feel safe at home: Yes additional social history: - [facility] D+C FU Details: KASSANDRA BAUTSITA is a 27 year old who presents for follow up after miscarriage, recovered well no issues. History 2 Elective abortions Hx Para 0 Spontaneous abortions 2 Hx # Term Pregnancies Ectopic pregnancies Hx # Pregnancies Multiple births # of living children ROS Const Constitutional: Denies fatigue, fever(s), headache(s), increased appetite, poor appetite, weight gain or weight loss GI GI: Reports as per HPI; Denies abdominal pain, constipation, nausea or vomiting : Reports as per HPI; Denies difficulty voiding, dysuria, hematuria, pelvic pain, urinary frequency, urinary incontinence, urinary hesitancy, urinary urgency, vaginal discharge, vaginal dryness, vaginal odor, vaginal pruritus or other Exam Const General: cooperative, healthy appearing, comfortable, no acute distress and well developed Orientation: alert HENKS Head: normal to inspection and normocephalic Ears: hearing grossly normal bilaterally and external ears normal Nose: external nose normal and nares normal Face and sinus: normal facial exam Neck Neck: normal visual inspection, no lymphadenopathy and trachea midline Thyroid: thyroid normal Resp Effort Inspection: normal respiratory effort Musc Other: gross motor intact no deficits, full bilateral strength Skin General: no rashes or lesions noted Neuro Motor: muscle tone normal throughout Coding Level of Care Code No Charge Diagnoses History of recurrent miscarriages N96 Incomplete miscarriage O03.4 Assessment and Plan Assessment and Plan (1) History of recurrent miscarriages: Status: Acute Comment: recommend APL panel and suzan haney, will discuss parental chromosome testing and HSG at postop appointment [place], tapan female, Maternal cell contaminiation cant be ruled out as patental sample was not ran (2) Incomplete miscarriage: Status: Acute Comment: 7.3mm EML with debris. c/w Dr. Enriquez. options reviewed and pt opted for D C today. Medications: New progesterone micronized (Prometrium) continue through 14 weeks 200 mg vaginal QHS 30 days 30 caps 3RF Plan Problem list updated and treatment plans were reviewed with the patient and relevant educational handouts given. See problem list details for specific plan information. 09/24/23 0838 Date Krystle Enriquez MD [facility] Signature: Date (if applicable) CC: [facility] IGP,RFX APTIMA HPV ASCU (LC1 91945)on 03-25-[address] [facility] Diagnosis [facility] Note [facility] Performed by [facility] Specimen adequacy: [facility] Test Methodology: [facility] IGP,Rfx AptimaRon 03-25-2022 . . [facility] Comment on above: Order Comment: Speci men Comment: [id number] Specimen Comment: No. of containers..01 ThinPrep Vial Performed By: #### L 801.8810 #### [place] [address] . [facility] Comment on above: Order Comment: Speci men Comment: [id number] Specimen Comment: No. of containers..01 ThinPrep Vial Result Comment: The HPV DNA reflex criteria were not met with this specimen result therefore, no HPV testing was performed. Performed at: [facility] [address] [place], [place] [id number] Electronic Warfare Technician: Berto Banegas MD, Phone: [phone] Performed at: - [facility] [id number] Electronic Warfare Technician: Lila Martin MD, Phone: [phone] Performed By: #### L 801.8810 #### [place] [address] Diagnosis: [facility] Comment on above: Order Comment: Speci men Comment: [id number] Specimen Comment: No. of containers..01 ThinPrep Vial Result Comment: NEGA TIVE FOR INTRAEPITHELIAL LESION OR MALIGNANCY. Performed By: #### L 801.8810 #### [place] [address] Note: [facility] Comment on above: Order Comment: Speci men Comment: [id number] Specimen Comment: No. of containers..01 ThinPrep Vial Result Comment: The Pap smear is a screening test designed to aid in the detection of premalignant and malignant conditions of the uterine cervix. It is not a diagnostic procedure and should not be used as the sole means of detecting cervical cancer. Both false-positive and false-negative reports do occur. Performed By: #### L 801.8810 #### [place] [address] Performed by: [facility] Comment on above: Order Comment: Speci men Comment: [id number] Specimen Comment: No. of containers..01 ThinPrep Vial Result Comment: Carson Delvalle Program Support Assistant (ASCP) Performed By: #### L 801.8810 #### [place] [address] Spec adequacy: [facility] Comment on above: Order Comment: Speci men Comment: [id number] Specimen Comment: No. of containers..01 ThinPrep Vial Result Comment: Sati sfactory for evaluation. Endocervical and/or squamous metaplastic cells (endocervical component) are present. Performed By: #### L 801.8810 #### [place] [address] Test Methodlogy Normal [facility] Comment on above: Order Comment: Speci men Comment: [id number] Specimen Comment: No. of containers..01 ThinPrep Vial Result Comment: This liquid based ThinPrep(R) pap test was screened with the use of an image guided system. Performed By: #### L 801.8810 #### [place] [address] No Panel Informationon 03-[address] [facility] CNOVon 03-17-2022 CNOV Office Visit (OBGDOV ) KASSANDRA BAUTISTA ([id number]) 1995 F Date Time Provider Department 03/17/22 2:45 PM JOHANNA NIEVES During your visit today, we recorded the following information about you: Pulse Blood pressure Weight Height 110/minute 130/85 78.3 kg 1.651 m Johanna Nieves DO 03/17/2022 4:10 PM Signed Patient presents for follow up She has been having bhcg q48h due to of unknown location She initially did not have an appropriate rise, did have an appropriate rise for a few levels, then an inappropriate rise At which time she started bleeding at the end of last week, she states the flow was like a period Today she has not had any bleeding Bhcg dropped significantly and was 25 yesterday Today the urine is negative Sexually active with 1 male partner Denies concern for infection Denies pain today Exam: Appears well, in no acute distress No increased respiratory effort Ambulating without difficulty External genitalia wnl, physiologic discharge, no bleeding, cervix appears normal, bimanual non tender A/P: ASSESSMENT/PLAN: 1. Encounter for gynecological examination (general) (routine) without abnormal findings - ICD9: V72.31, ICD10: Z01.419 (primary diagnosis) 2. examination or test, negative result - ICD9: V72.41, ICD10: Z32.02 - HCG QUAL UR B/O 3. Spontaneous loss - ICD9: 634.90, ICD10: O03.9 UPT negative today thus resolved Patient coping well States this was not prevented but not planned, she is interested in contraception; we discussed options including LARC methods She will notify us of her decision 4. Encounter for screening for malignant neoplasm of cervix - ICD9: V76.2, ICD10: Z12.4 - IGP,RFX APTIMA HPV ASCU ([id number]) Johanna Nieves DO This visit was chaperoned by Radha Pereyra spent a total of 30 minutes on the date of the service which included preparing to see the patient, [id number] patient care, completing clinical documentation, obtaining and/or reviewing separately obtained history, performing a medically appropriate examination, counseling and educating the patient/family/caregi amanda, and ordering medications, tests, or procedures. Allergies As of Date: 03/17/2022 Noted Allergy Reaction REGLAN (METOCLOPRAMIDE) 02/24/2022 5 - Intolerance Date Reviewed: 03/17/2022 Reviewed by: Jolynn Szymanski MA - Fully Assessed Reason for Visit: Follow Up [171] Cmt: Discuss possible DANDC Primary Visit Diagnosis:Encounter for gynecological examination (general) (routine) without abnormal findings [Z01.419] Other Visit Diagnoses: examination or test, negative result [Z32.02] Spontaneous loss [O03.9] Encounter for screening for malignant neoplasm of cervix [Z12.4] Order(s):HCG QUAL UR B/O [[id number]] Order #: [id number] IGP,RFX APTIMA HPV ASCU ([id number]) [[id number]] Order #: [id number] Prescriptions as of 03/17/2022 - amoxicillin (POLYMOX, AMOXIL) 500 mg capsule Take 500 mg by mouth three times daily. Problem List As Of Date: 03/17/2022 (None) Encounter Status:Closed by JOHANNA NIEVES on 03/17/22 Normal [facility] HCG QUAL UR B/Oon 03-17-2022 status Negative neg - pos [facility] Quality Check Yes [facility] B-HCG (QUANT)on 03-16-2022 B-HCG (QUANT) 25.41 mIU/mL Normal [facility] Comment on above: Result Comment: Appr ox. Gestional Age Approx. hCG Range (weeks) (mlU/mL) 3 5.8 - 71.2 4 9.5 - 750 5 217 - 7,138 6 158 - 31,795 7 3,697 - 163,563 8 32,065 - 149,571 9 63,803 - 151,140 10 46,509 - 186,977 12 27,832 - 210,612 14 13,950 - 62,530 15 12,039 - 70,971 16 9,040 - 56,451 17 8,175 - 55,868 18 8,099 - 58,176 Performed By: #### L 304.0222 #### ML - [facility] [address] [place] [address] [facility] 03-16-2022 [facility] Nurse Visit (OBGDOV) KASSANDRA BAUTISTA ([id number]) 1995 F Date Time Provider Department 03/16/22 7:00 AM NURSE CEMENT SIDE LASTER RALPH GAMEZ During your visit today, we recorded the following information about you: Matty Becker, ALEXX 03/16/2022 7:27 AM Signed Patient presented today for repeat lab work for her bhcg level. Patient reports still bleeding today stating it's honestly like I'm having a period. Patient had sent a secure email to due to not being able to send a message through [employer] on Wednesday showing Dr. Nieves what she had passed. Today patient provided a urine sample for a urine test. It was originally negative at 3 minutes but by 5 minutes showed a faint line. A bhcg level was drawn today in the office. Patient has an in office appointment with Dr. Nieves tomorrow at 2:45PM. No further questions or concerns at this time. Venipuncture performed to right antecubital. Number of tubes collected: 1 Matty Becker RN March 16, 2022 7:18 AM Allergies As of Date: 03/16/2022 Noted Allergy Reaction REGLAN (METOCLOPRAMIDE) 02/24/2022 5 - Intolerance Date Reviewed: 03/16/2022 Reviewed by: Matty Becker RN - Fully Assessed Reason for Visit: Follow Up [171] Phlebotomy [1172] Primary Visit Diagnosis: of unknown anatomic location [O36.80X0] Other Visit Diagnosis:Encounter for test, result positive [Z32.01] Order(s):HCG QUAL UR B/O [[id number]] Order #: [id number] Prescriptions as of 03/16/2022 - amoxicillin (POLYMOX, AMOXIL) 500 mg capsule Take 500 mg by mouth three times daily. Problem List As Of Date: 03/16/2022 (None) Visit Notes: >> Matty Becker RN Mon Mar 16, 2022 7:24 AM Status: Signed Patient presented today for repeat lab work for her bhcg level. Patient reports still bleeding today stating it's honestly like I'm having a period. Patient had sent a secure email to [email or web address] due to not being able to send a message through [employer] on Wednesday showing Dr. Nieves what she had passed. Today patient provided a urine sample for a urine test. It was originally negative at 3 minutes but by 5 minutes showed a faint line. A bhcg level was drawn today in the office. Patient has an in office appointment with Dr. Nieves tomorrow at 2:45PM. No further questions or concerns at this time. Venipuncture performed to right antecubital. Number of tubes collected: 1 Matty Becker RN March 16, 2022 7:18 AM Encounter Status:Closed by MATTY BECKER on 03/16/22 Normal [facility] HCG.beta subunit Qnon 2022 hCG Quantitative, Blood 25.41 mIU/mL [facility] B-HCG (QUANT)on 03-12-2022 B-HCG (QUANT) 440.40 mIU/mL Normal [facility] Comment on above: Result Comment: Appr ox. Gestional Age Approx. hCG Range (weeks) (mlU/mL) 3 5.8 - 71.2 4 9.5 - 750 5 217 - 7,138 6 158 - 31,795 7 3,697 - 163,563 8 32,065 - 149,571 9 63,803 - 151,140 10 46,509 - 186,977 12 27,832 - 210,612 14 13,950 - 62,530 15 12,039 - 70,971 16 9,040 - 56,451 17 8,175 - 55,868 18 8,099 - 58,176 Performed By: #### L 304.0222 #### ML - [facility] [address] [place] [id number] [facility] 03-12-2022 [facility] Nurse Visit (OBGDOV) KASSANDRA BAUTISTA ([id number]) 1995 F Date Time Provider Department 03/12/22 7:00 AM NURSE CEMENT SIDE LASTER UP RALPH OBGDOV During your visit today, we recorded the following information about you: Matty Becker RN 03/12/2022 7:33 AM Signed Venipuncture performed to left antecubital. Number of tubes collected: 1 gold. Matty Becker RN March 12, 2022 7:28 AM Allergies As of Date: 03/12/2022 Noted Allergy Reaction REGLAN (METOCLOPRAMIDE) 02/24/2022 5 - Intolerance Date Reviewed: 03/12/2022 Reviewed by: Matty Becker RN - Fully Assessed Reason for Visit: Phlebotomy [1172] Primary Visit Diagnosis: of unknown anatomic location [O36.80X0] Prescriptions as of 03/12/2022 - amoxicillin (POLYMOX, AMOXIL) 500 mg capsule Take 500 mg by mouth three times daily. Problem List As Of Date: 03/12/2022 (None) Visit Notes: >> Matty Becker RN [facility] Mar 12, 2022 7:31 AM Status: Signed Venipuncture performed to left antecubital. Number of tubes collected: 1 gold. Matty Becker RN March 12, 2022 7:28 AM Encounter Status:Closed by MATTY BECKER on 03/12/22 [facility] CNOVon 03-12-2022 CNOV Office Visit (OBGDOV ) KASSANDRA BAUTISTA ([id number]) 1995 F Date Time Provider Department 03/12/22 7:00 AM ULTRASOUND CEMENT SIDE LASTER UP RALPH OBGDOV During your visit today, we recorded the following information about you: Matty Lee 03/12/2022 7:48 AM Signed Kassandra Castellanosder was seen today for an complete transvaginal obstetric ultrasound to evaluate uterus, ovaries, adnexae, gestation, and viability at 5 weeks. Patient was educated about the exam. All questions and concerns were addressed. Verbal consent was obtained. Patient tolerated the exam well with no concerns voiced throughout the exam. Exam was completed without complication. The exam was submitted to the radiologist for interpretation. Matty Lee RDMS Allergies As of Date: 03/12/2022 Noted Allergy Reaction REGLAN (METOCLOPRAMIDE) 02/24/2022 5 - Intolerance Date Reviewed: 03/12/2022 Reviewed by: Matty Becker RN - Fully Assessed Reason for Visit: Care [86] Cmt: Ultrasound Primary Visit Diagnosis: of unknown anatomic location [O36.80X0] Prescriptions as of 03/12/2022 - amoxicillin (POLYMOX, AMOXIL) 500 mg capsule Take 500 mg by mouth three times daily. Problem List As Of Date: 03/12/2022 (None) Encounter Status:Closed by MATTY LEE on 03/12/22 Normal [facility] CNPNon 03-12-2022 CNPN Telephone (OBGDOV) KASSANDRA BAUTISTA ([id number]) 1995 F Date Time Provider Department 03/12/22 JOHANNA NIEVES During your visit today, we recorded the following information about you: Johanna Nieves, 03/12/2022 12:14 PM Signed At this point bhcg is not rising appropriately or falling appropriately. Can we add her for an appointment within 1 week? I would recommend [facility] as this does not seem to be resolving spontaneously. Jolynn Szymanski MA 03/12/2022 4:16 PM Signed Informed patient. Scheduled her with Dr Nieves next week. Allergies As of Date: 03/12/2022 Noted Allergy Reaction REGLAN (METOCLOPRAMIDE) 02/24/2022 5 - Intolerance Date Reviewed: 03/12/2022 Reviewed by: Matty Becker RN - Fully Assessed Reason for Visit: Results [95] Prescriptions as of 06/26/2022 - amoxicillin (POLYMOX, AMOXIL) 500 mg capsule Take 500 mg by mouth three times daily. Problem List As Of Date: 03/12/2022 (None) Encounter Status:Closed by JOLYNN SZYMANSKI on 06/26/22 Normal [facility] HCG.beta subunit Qnon 2022 hCG Quantitative, Blood 440.40 mIU/mL [facility] OB TRANSVAGINALon 023 [facility] B-HCG (QUANT)on 03-10-2022 B-HCG (QUANT) 416.60 mIU/mL Normal [facility] Comment on above: Result Comment: Appr ox. Gestional Age Approx. hCG Range (weeks) (mlU/mL) 3 5.8 - 71.2 4 9.5 - 750 5 217 - 7,138 6 158 - 31,795 7 3,697 - 163,563 8 32,065 - 149,571 9 63,803 - 151,140 10 46,509 - 186,977 12 27,832 - 210,612 14 13,950 - 62,530 15 12,039 - 70,971 16 9,040 - 56,451 17 8,175 - 55,868 18 8,099 - 58,176 Performed By: #### L 304.0222 #### ML - LABORATORY [address] [place] [address] [facility] 03-10-2022 CNNURSE Nurse Visit (OBGDOV) KASSANDRA BAUTISTA ([id number]) 1995 F Date Time Provider Department 03/10/22 7:00 AM NURSE CEMENT SIDE LASTER UP RALPH OBGDOV During your visit today, we recorded the following information about you: Matty Becker RN 03/10/2022 7:09 AM Signed Venipuncture performed to right antecubital. Number of tubes collected: 1 gold. Matty Becker RN March 10, 2022 7:06 AM Allergies As of Date: 03/10/2022 Noted Allergy Reaction REGLAN (METOCLOPRAMIDE) 02/24/2022 5 - Intolerance Date Reviewed: 03/10/2022 Reviewed by: Matty Becker RN - Fully Assessed Reason for Visit: Phlebotomy [1172] Primary Visit Diagnosis: of unknown anatomic location [O36.80X0] Prescriptions as of 03/10/2022 - amoxicillin (POLYMOX, AMOXIL) 500 mg capsule Take 500 mg by mouth three times daily. Problem List As Of Date: 03/10/2022 (None) Visit Notes: >> Matty Becker RN e Mar 10, 2022 7:08 AM Status: Signed Venipuncture performed to right antecubital. Number of tubes collected: 1 gold. Matty Becker RN March 10, 2022 7:06 AM Encounter Status:Closed [facility] (OBGDOV) KASSANDRA BAUTISTA ([id number]) 1995 F Date Time Provider Department 03/10/22 JOHANNA NIEVES During your visit today, we recorded the following information about you: Johanna Nieves DO 03/10/2022 11:57 AM Signed The bhcg dropping over the last two days is now concerning for a non-viable , after it did rise appropriately for a few blood draws. Can we schedule TVUS? A viable would not be visible at this time but I want to assess the ovaries for signs of ectopic . Continue bhcg. Matty Becker RN 03/10/2022 1:03 PM Signed Patient is scheduled in our office on 03/12/22 for an ultrasound along with her bhcg blood draw. Matty Becker RN March 10, 2022 1:02 PM Matty Becker RN 03/11/2022 7:59 AM Signed Patient called in stating that she started spotting today. Informed patient that she could have bleeding that is similar to a period along with cramping. Patient instructed to go to the ER if she starts bleeding more than 2 maxi pads for 2 consecutive hours. Patient verbalized an understanding. Matty Becker RN Allergies As of Date: 03/10/2022 Noted Allergy Reaction REGLAN (METOCLOPRAMIDE) 02/24/2022 5 - Intolerance Date Reviewed: 03/10/2022 Reviewed by: Matty Becker RN - Fully Assessed Reason for Visit: Results [95] Primary Visit Diagnosis: of unknown anatomic location [O36.80X0] Order(s): FEMALE PELVIS TRANSVAG [[id number]] Order #: [id number] FUTURE Prescriptions as of 06/26/2022 - amoxicillin (POLYMOX, AMOXIL) 500 mg capsule Take 500 mg by mouth three times daily. Problem List As Of Date: 03/10/2022 (None) Encounter Status:Closed by MATTY BECKER on 03/10/22 [facility] Telephone (OBGDOV) BAUTISTAKASSANDRA BEAN ([id number]) 1995 F Date Time Provider Department 03/10/22 JOHANNA NIEVES During your visit today, we recorded the following information about you: Matty Becker RN 03/10/2022 11:51 AM Signed This RN returned the patient's phone call regarding her lab results. Dr. Nieves discussed with this nurse that due to the bhcg levels dropping that we can say that this is a non-viable . Dr. Nieves advises that the patient continue her bhcg levels every 48 hours. Patient is scheduled in our office on 03/12/[address] Nieves would also like the patient to have an ultrasound. Patient is scheduled in our office on 03/12/2022 at 7AM. This RN called patient to discuss these findings with patient. Informed patient that she must continue the blood work and that Dr. Nieves would like the ultrasound. Patient aware of the date and time. Informed patient that this ultrasound is to look at everything but that we don't plan on seeing anything in the uterus. Patient verbalized an understanding. Matty Becker RN March 10, 2022 11:51 AM Matty Becker RN 03/10/2022 1:04 PM Signed Patient called in asking if this would be the start of a miscarriage referring to the decreasing bhcg levels. Patient reports that when she went to the bathroom today she had a small amount of brown on the toilet paper. Patient instructed to continue monitoring and to go to the ER if she soaks through 2 or more maxi pads for 2 consecutive hours. Patient also instructed to go to the ER if she starts experiencing abdominal pain. Patient verbalized an understanding. Matty Becker RN March 10, 2022 1:00 PM Allergies As of Date: 03/10/2022 Noted Allergy Reaction REGLAN (METOCLOPRAMIDE) 02/24/2022 5 - Intolerance Date Reviewed: 03/10/2022 Reviewed by: Matty Becker RN - Fully Assessed Reason for Visit: Appointment [186] Prescriptions as of 06/26/2022 - amoxicillin (POLYMOX, AMOXIL) 500 mg capsule Take 500 mg by mouth three times daily. Problem List As Of Date: 03/10/2022 (None) Encounter Status:Closed by MATTY BECKER on 03/10/22 Normal [facility] HCG.beta subunit Qnon 2022 hCG Quantitative, Blood 416.60 mIU/mL [facility] B-HCG (QUANT)on 03-08-2022 B-HCG (QUANT) 501.60 mIU/mL Normal [facility] Comment on above: Result Comment: Appr ox. Gestional Age Approx. hCG Range (weeks) (mlU/mL) 3 5.8 - 71.2 4 9.5 - 750 5 217 - 7,138 6 158 - 31,795 7 3,697 - 163,563 8 32,065 - 149,571 9 63,803 - 151,140 10 46,509 - 186,977 12 27,832 - 210,612 14 13,950 - 62,530 15 12,039 - 70,971 16 9,040 - 56,451 17 8,175 - 55,868 18 8,099 - 58,176 Performed By: #### L 304.0222 #### ML [facility] [address] [place] [address] HCG.beta subunit Qnon 2022 hCG Quantitative, Blood 501.60 mIU/mL [facility] B-HCG (QUANT)on 03-06-2022 B-HCG (QUANT) 226.10 mIU/mL [facility] Comment on above: Result Comment: Appr ox. Gestional Age Approx. hCG Range (weeks) (mlU/mL) 3 5.8 - 71.2 4 9.5 - 750 5 217 - 7,138 6 158 - 31,795 7 3,697 - 163,563 8 32,065 - 149,571 9 63,803 - 151,140 10 46,509 - 186,977 12 27,832 - 210,612 14 13,950 - 62,530 15 12,039 - 70,971 16 9,040 - 56,451 17 8,175 - 55,868 18 8,099 - 58,176 Performed By: #### Sonny 304.0222 #### ML [facility] [address] [place] [address] [facility] 03-06-2022 CNNURSE Nurse Visit (OBGDOV) KASSANDRA [id number]) 1995 F Date Time Provider Department 03/06/22 7:00 AM NURSE CEMENT SIDE LASTER HEMA GAMEZ During your visit today, we recorded the following information about you: Matty Becker RN 03/06/2022 7:13 AM Signed Venipuncture performed to left forearm. Number of tubes collected: 1 Matty Becker RN March 06, 2022 7:07 AM Allergies As of Date: 03/06/2022 Noted Allergy Reaction REGLAN (METOCLOPRAMIDE) 02/24/2022 5 - Intolerance Date Reviewed: 03/06/2022 Reviewed by: Matty Becker RN - Fully Assessed Reason for Visit: Phlebotomy [1172] Primary Visit Diagnosis: of unknown anatomic location [O36.80X0] Prescriptions as of 03/06/2022 - amoxicillin (POLYMOX, AMOXIL) 500 mg capsule Take 500 mg by mouth three times daily. - cephALEXin (KEFLEX) 500 mg capsule Take 1 capsule by mouth twice daily for 10 days. Problem List As Of Date: 03/06/2022 (None) Visit Notes: >> Matty Becker RN WedMar 06, 2022 7:12 AM Status: Signed Venipuncture performed to left forearm. Number of tubes collected: 1 Matty Becker RN March 06, 2022 7:07 AM Encounter Status:Closed by MATTY BECKER on 03/06/22 [facility] 03-06-2022 CNPN Telephone (OBZENAIDAOV) KASSANDRA BAUTISTA ([id number]) 1995 F Date Time Provider Department 03/06/22 JOHANNA NIEVES During your visit today, we recorded the following information about you: Johanna Nieves DO 03/06/2022 12:46 PM Signed SHARON bhcg ravindra appropriately on this most recent lab draw; continue current mgmt; we still do not know anything definitively but will not intervene given the chance of a viable . Matty Becker RN 03/06/2022 1:07 PM Signed Patient had called into the office and this RN spoke to patient. Patient was informed of the appropriate rise in the bhcg level. Informed patient that she needed to continue to have the bhcg levels drawn. Patient verbalized an understanding. Matty Becker RN Allergies As of Date: 03/06/2022 Noted Allergy Reaction REGLAN (METOCLOPRAMIDE) 02/24/2022 5 - Intolerance Date Reviewed: 03/06/2022 Reviewed by: Matty Becker RN - Fully Assessed Reason for Visit: Results [95] Prescriptions as of 03/06/2022 - amoxicillin (POLYMOX, AMOXIL) 500 mg capsule Take 500 mg by mouth three times daily. - cephALEXin (KEFLEX) 500 mg capsule Take 1 capsule by mouth twice daily for 10 days. Problem List As Of Date: 03/06/2022 (None) Encounter Status:Closed by MATTY BECKER on 03/06/22 Normal [facility] HCG.beta subunit non 2022 hCG Quantitative, Blood 226.10 mIU/mL [facility] 03-05-2022 [facility] Telephone (OBGDOV) KASSANDRA BAUTISTA ([id number]) 1995 F Date Time Provider Department 03/05/22 JOHANNA NIEVES During your visit today, we recorded the following information about you: Johanna Nieves DO 03/05/2022 9:09 AM Signed Continue bhcg because they are rising but very slowly - typically this is a sign of a non-viable but do not want to intervene if there could be a viable . Continue with pain/bleeding precautions. Matty Becker RN 03/05/2022 9:25 AM Signed This RN called patient and informed her of Dr. Nieves's message. Patient asking about control. Informed patient that her bhcg levels have to go down to non- level (negative test) before she is able to start control. Patient is scheduled in our office tomorrow morning for her repeat bhcg. Patient verbalized an understanding. Patient re-educated on bleeding/pain precautions. Matty Becker RN March 05, 2022 9:25 AM Allergies As of Date: 03/05/2022 Noted Allergy Reaction REGLAN (METOCLOPRAMIDE) 02/24/2022 5 - Intolerance Date Reviewed: 03/04/2022 Reviewed by: Matty Becker RN - Fully Assessed Reason for Visit: Results [95] Prescriptions as of 03/05/2022 - amoxicillin (POLYMOX, AMOXIL) 500 mg capsule Take 500 mg by mouth three times daily. - cephALEXin (KEFLEX) 500 mg capsule Take 1 capsule by mouth twice daily for 10 days. Problem List As Of Date: 03/05/2022 (None) Encounter Status:Closed by MATTY BECKER on 03/05/22 [facility] CNN[facility] Nurse Visit (OBGDOV) KASSANDRA BAUTISTA ([id number]) 1995 F Date Time Provider Department 03/04/22 7:00 AM NURSE CEMENT SIDE LASTER UP RALPH OBGDOV During your visit today, we recorded the following information about you: Matty Becker RN 03/04/2022 8:24 AM Signed Venipuncture performed to right antecubital. Number of tubes collected: 1 gold. Matty Becker RN March 04, 2022 7:15 AM Matty Becker RN 03/04/2022 8:24 AM Signed Patient has been in contact with this nurse the past couple of days asking questions regarding her bhcg results and future plan of care. This RN has been in contact with Dr. Nieves regarding patient's results and care. Dr. Nieves states that she wants the patient to continue her bhcg levels every 48 hours until she reaches a non- level. Dr. Nieves states that she anticipates the number reaching a level and then plateauing and then decreasing. Dr. Nieves does not anticipate another ultrasound because we would not be able to see anything at the level the bhcg is at. Dr. Nieves states that if the bhcg does not get down to a non- level that she may have to go in for a DANDC. Patient was educated on signs and symptoms of an ectopic and when she should report to the ER. Patient was also educated on bleeding precautions and when she should report to the ER. Patient reports that when she first presented to the ER for something unrelated to the , patient reports having a severe cramp. Patient reports that when she went to the bathroom and wiped that there was a lot of blood and large clot/possible tissue. Patient reports that she isn't sure if this was the or what that was. Patient denies having any pain/discomfort or bleeding since. Informed patient that this message would be sent on to Dr. Nieves and that if her plan of care changes for patient, we would let her know. Patient thanked this nurse for answering all of her questions. No further concerns at this time. Matty Becker RN Allergies As of Date: 03/04/2022 Noted Allergy Reaction REGLAN (METOCLOPRAMIDE) 02/24/2022 5 - Intolerance Date Reviewed: 03/04/2022 Reviewed by: Matty Becker RN - Fully Assessed Reason for Visit: Phlebotomy [1172] Primary Visit Diagnosis: of unknown anatomic location [O36.80X0] Prescriptions as of 03/04/2022 - amoxicillin (POLYMOX, AMOXIL) 500 mg capsule Take 500 mg by mouth three times daily. - cephALEXin (KEFLEX) 500 mg capsule Take 1 capsule by mouth twice daily for 10 days. Problem List As Of Date: 03/04/2022 (None) Visit Notes: >> Matty Becker RN WedMar 04, 2022 7:58 AM Status: Signed Venipuncture performed to right antecubital. Number of tubes collected: 1 gold. Matty Becker RN March 04, 2022 7:15 AM >> Matty Becker RN WedMar 04, 2022 7:58 AM Status: Signed Patient has been in contact with this nurse the past couple of days asking questions regarding her bhcg results and future plan of care. This RN has been in contact with Dr. Nieves regarding patient's results and care. Dr. Nieves states that she wants the patient to continue her bhcg levels every 48 hours until she reaches a non- level. Dr. Nieves states that she anticipates the number reaching a level and then plateauing and then decreasing. Dr. Nieves does not anticipate another ultrasound because we would not be able to see anything at the level the bhcg is at. Dr. Nieves states that if the bhcg does not get down to a non- level that she may have to go in for a DANDC. Patient was educated on signs and symptoms of an ectopic and when she should report to the ER. Patient was also educated on bleeding precautions and when she should report to the ER. Patient reports that when she first presented to the ER for something unrelated to the , patient reports having a severe cramp. Patient reports that when she went to the bathroom and wiped that there was a lot of blood and large clot/possible tissue. Patient reports that she isn't sure if this was the or what that was. Patient denies having any pain/discomfort or bleeding since. Informed patient that this message would be sent on to Dr. Nieves and that if her plan of care changes for patient, we would let her know. Patient thanked this nurse for answering all of her questions. No further concerns at this time. Matty Becker RN Encounter Status:Closed by MATTY BECKER on 03/04/22 [facility] [place] 03-04-2022 FABRIZIO Telephone (OBGDOV) KASSANDRA BAUTISTA ([id number]) 1995 F Date Time Provider Department 03/04/22 JOHANNA NIEVES During your visit today, we recorded the following information about you: Matty Becker RN 03/04/2022 8:25 AM Signed Patient has been in contact with this nurse the past couple of days asking questions regarding her bhcg results and future plan of care. This RN has been in contact with Dr. Nieves regarding patient's results and care. Dr. Nieves states that she wants the patient to continue her bhcg levels every 48 hours until she reaches a non- level. Dr. Nieves states that she anticipates the number reaching a level and then plateauing and then decreasing. Dr. Nieves does not anticipate another ultrasound because we would not be able to see anything at the level the bhcg is at. Dr. Nieves states that if the bhcg does not get down to a non- level that she may have to go in for a DANDC. Patient was educated on signs and symptoms of an ectopic and when she should report to the ER. Patient was also educated on bleeding precautions and when she should report to the ER. Patient reports that when she first presented to the ER for something unrelated to the , patient reports having a severe cramp. Patient reports that when she went to the bathroom and wiped that there was a lot of blood and large clot/possible tissue. Patient reports that she isn't sure if this was the or what that was. Patient denies having any pain/discomfort or bleeding since. Informed patient that this message would be sent on to Dr. Nieves and that if her plan of care changes for patient, we would let her know. Patient thanked this nurse for answering all of her questions. No further concerns at this time. ALEXX Leong RN 03/04/2022 11:07 AM Signed Patient called in again asking about the result from today. Patient asking if this still means she isn't viable. Informed patient that we had discussed prior that the number could still rise but that it isn't rising appropriately and that the is still consider non-viable. Informed patient that this message would also be sent on to Dr. Nieves but that I may not be able to discuss her case with her until tomorrow when she returns to the office. Patient verbalized an understanding and thanked this nurse for talking with her. Matty Becker RN March 04, 2022 11:07 AM Allergies As of Date: 03/04/2022 Noted Allergy Reaction REGLAN (METOCLOPRAMIDE) 02/24/2022 5 - Intolerance Date Reviewed: 03/04/2022 Reviewed by: Matty Becker RN - Fully Assessed Reason for Visit: Patient Question [0204] Patient Update [7344] Prescriptions as of 03/04/2022 - amoxicillin (POLYMOX, AMOXIL) 500 mg capsule Take 500 mg by mouth three times daily. - cephALEXin (KEFLEX) 500 mg capsule Take 1 capsule by mouth twice daily for 10 days. Problem List As Of Date: 03/04/2022 (None) Encounter Status:Closed by MATTY BECKER on 03/04/22 Normal [facility] HCG.beta subunit Qnon 2022 hCG Quantitative, Blood 118.70 mIU/mL [facility] CNNURSEon 03-02-2022 CNNURSE Nurse Visit (OBGDOV) KASSANDRA BAUTISTA ([id number]) 1995 F Date Time Provider Department 03/02/22 7:00 AM NURSE CEMENT SIDE LASTER [facility]AL[facility] OBGDOV During your visit today, we recorded the following information about you: Matty Becker RN 03/02/2022 7:15 AM Signed Venipuncture performed to left hand. Number of tubes collected: 1 gold. Matty Becker RN March 02, 2022 7:12 AM Allergies As of Date: 03/02/2022 Noted Allergy Reaction REGLAN (METOCLOPRAMIDE) 02/24/2022 5 - Intolerance Date Reviewed: 03/02/2022 Reviewed by: Matty Becker RN - Fully Assessed Reason for Visit: Phlebotomy [1172] Primary Visit Diagnosis: of unknown anatomic location [O36.80X0] Prescriptions as of 03/02/2022 - amoxicillin (POLYMOX, AMOXIL) 500 mg capsule Take 500 mg by mouth three times daily. - cephALEXin (KEFLEX) 500 mg capsule Take 1 capsule by mouth twice daily for 10 days. Problem List As Of Date: 03/02/2022 (None) Visit Notes: >> Matty Becker RN WedMar 02, 2022 7:14 AM Status: Signed Venipuncture performed to left hand. Number of tubes collected: 1 gold. Matty Becker RN March 02, 2022 7:12 AM Encounter Status:Closed by MATTY BECKER on 03/02/22 Normal [facility] HCG.beta subunit Qnon 2022 hCG Quantitative, Blood 83.12 mIU/mL [facility] B-HCG (QUANT)on 02-28-2022 B-HCG (QUANT) 79.44 mIU/mL Normal [facility] Comment on above: Result Comment: Appr ox. Gestional Age Approx. hCG Range (weeks) (mlU/mL) 3 5.8 - 71.2 4 9.5 - 750 5 217 - 7,138 6 158 - 31,795 7 3,697 - 163,563 8 32,065 - 149,571 9 63,803 - 151,140 10 46,509 - 186,977 12 27,832 - 210,612 14 13,950 - 62,530 15 12,039 - 70,971 16 9,040 - 56,451 17 8,175 - 55,868 18 8,099 - 58,176 Performed By: #### L 304.0222 #### [facility] - [facility] [address] [place] [address]60 HCG.beta subunit Qnon 2022 hCG Quantitative, Blood 79.44 mIU/mL [facility] ABO and Rh group panel (Bld) on 02-27-2022 ABO and Rh group Nom (Bld) Blood group A Rh(D) positive [facility] B-HCG (QUANT)on 02-27-2022 B-HCG (QUANT) 64.20 mIU/mL Normal [facility] Comment on above: Result Comment: Appr ox. Gestional Age Approx. hCG Range (weeks) (mlU/mL) 3 5.8 - 71.2 4 9.5 - 750 5 217 - 7,138 6 158 - 31,795 7 3,697 - 163,563 8 32,065 - 149,571 9 63,803 - 151,140 10 46,509 - 186,977 12 27,832 - 210,612 14 13,950 - 62,530 15 12,039 - 70,971 16 9,040 - 56,451 17 8,175 - 55,868 18 8,099 - 58,176 Performed By: #### L 304.0222 #### [facility] [address] [place] [address] 89419 CBCon 02-27-2022 BASO# 0.00 x10(3) Normal 0.00-0.10 [facility] Comment on above: Performed By: #### L 200.0010 #### ML [facility] [address] [place] [address] 76696 Basophils/100 WBC (Bld) 0.2 % Normal 0.0-1.0 [facility] Comment on above: Performed By: #### L 200.0010 #### [facility] [address] [place] [address] 98628 EOS# 0.00 x10(3) Normal 0.00-0.54 [facility] Comment on above: Performed By: #### L 200.0010 #### [facility] [address] [place] [address] 73622 Eosinophils/100 WBC (Bld) 0.2 % Low 0.5-4.9 [facility] Comment on above: Performed By: #### L 200.0010 #### [facility] [address] [place] [address] 73003 Erythrocyte distribution width (RBC) [Ratio] 12.9 % Normal 12.5-15.7 [facility] Comment on above: Performed By: #### L 200.0010 #### ML [facility] [address] [place] [address] 28065 Hematocrit (Bld) [Volume fraction] 45.7 % Normal 36.0-48.0 [facility] Comment on above: Performed By: #### L 200.0010 #### ML [facility] [address] [place] [address] 86126 Hemoglobin (Bld) [Mass/Vol] 15.1 g/dL Normal 12.0-16.0 [facility] Comment on above: Performed By: #### L 200.0010 #### [facility] [address] [place] [address] 27469 LYMPH# 2.90 x10(3) Normal 1.00-3.50 [facility] Comment on above: Performed By: #### L 200.0010 #### [facility] [address] [place] [address] 63344 Lymphocytes/100 WBC (Bld) 18.0 % Normal 16.0-48.0 [facility] Comment on above: Performed By: #### L 200.0010 #### [facility] [address] [place] [address] 82226 MCH (RBC) [Entitic mass] 29.0 pg Normal 28.5-32.9 [facility] Comment on above: Performed By: #### L 200.0010 #### ML [facility] [address] [place] [address] 45679 MCHC (RBC) [Mass/Vol] 33.0 g/dL Normal 33.0-36.0 [facility] Comment on above: Performed By: #### L 200.0010 #### ML [facility] [address] [place] [address] 70072 MCV (RBC) [Entitic vol] 88.1 fL Normal 80.0-99.0 [facility] Comment on above: Performed By: #### L 200.0010 #### ML [facility] [address] [place] [address] 58568 MONO# 1.10 x10(3) High 0.30-0.80 [facility] Comment on above: Performed By: #### L 200.0010 #### [facility] [address] [place] [address] 03875 Monocytes/100 WBC (Bld) 6.9 % Normal 4.3-11.2 [facility] Comment on above: Performed By: #### L 200.0010 #### [facility] [address] [place] [address] 72138 NEUT# 11.80 x10(3) High 1.40-6.50 [facility] Comment on above: Performed By: #### L 200.0010 #### ML [facility] [address] [place] [address] 23381 Neutrophils/100 WBC (Bld) 74.7 % High 45.0-73.0 [facility] Comment on above: Performed By: #### L 200.0010 #### ML [facility] [address] [place] [address] 20850 Platelet mean volume (Bld) [Entitic vol] 8.1 fL Normal 7.5-9.5 [facility] Comment on above: Performed By: #### L 200.0010 #### [facility] [address] [place] [address] 53843 PLT 297 X10(3) Normal 150-450 [facility] Comment on above: Performed By: #### L 200.0010 #### [facility] [address] [place] [address] 15785 RBC 5.18 x10(6) High 3.30-5.00 [facility] Comment on above: Performed By: #### L 200.0010 #### ML [facility] [address] [place] [address] 50339 WBC 15.9 x10(3) High 4.5-10.0 [facility] Comment on above: Performed By: #### L 200.0010 #### [facility] [address] [place] [address] 99209 CBC W Auto Differential pane l (Bld)on 02-27-2022 BASO ABS 0.00 x10(3) 0.00 - 0.10 x10(3) [facility] Basophils/100 WBC (Bld) 0.2 % 0.0 - 1.0 % [facility] EOS ABS 0.00 x10(3) 0.00 - 0.54 x10(3) [facility] Eosinophils/100 WBC (Bld) 0.2 % Low 0.5 - 4.9 % [facility] Erythrocyte distribution width (RBC) [Ratio] 12.9 % 12.5 - 15.7 % [facility] Hematocrit (Bld) [Volume fraction] 45.7 % 36.0 - 48.0 % [facility] Hemoglobin (Bld) [Mass/Vol] 15.1 g/dL 12.0 - 16.0 g/dL [facility] LYMPH ABS 2.90 x10(3) 1.00 - 3.50 x10(3) [facility] Lymphocytes/100 WBC (Bld) 18.0 % 16.0 - 48.0 % [facility] MCH (RBC) [Entitic mass] 29.0 pg 28.5 - 32.[address] [facility] MCHC (RBC) [Mass/Vol] 33.0 g/dL 33.0 - 36.0 g/dL [facility] MCV (RBC) [Entitic vol] 88.1 fL 80.0 - 99.[address] [facility] MONO ABS 1.10 x10(3) High 0.30 - 0.80 x10(3) [facility] Monocytes/100 WBC (Bld) 6.9 % 4.3 - 11.2 % [facility] Neutrophil Ab 11.80 x10(3) High 1.40 - 6.50 x10(3) [facility] Neutrophils/100 WBC (Bld) 74.7 % High 45.0 - 73.0 % [facility] Platelet Count 297 X10(3) 150 - 450 X10(3) [facility] Platelet mean volume (Bld) [Entitic vol] 8.1 fL 7.5 - 9.[address] [facility] RBC 5.18 x10(6) High 3.30 - 5.00 x10(6) [facility] WBC 15.9 x10(3) High 4.5 - 10.0 x10(3) [facility] CNPNon 02-27-2022 CNPN Telephone (OBGDOV) ADELA BAUTISTA ([id number]) 1995 F Date Time Provider Department 02/27/22 JOHANNA NIEVES During your visit today, we recorded the following information about you: Matty Becker RN 02/27/2022 10:31 AM Signed Patient reports that she presented to the ER for increased pressure in her vagina. Patient reports that it wasn't until she was in the ER that she started cramping. Patient reports having blood work done. Patient reports her LMP was 02/01/2022. This would make her 3w5d . Patient reports she has not missed her period yet. Informed patient that Dr. Nieves advises that she go to [facility] lab tomorrow to have a repeat bhcg drawn and that she can present to our office on Wednesday for a lab draw. Appointment made. Patient verbalizes an understanding of plan of care. No further questions at this time. ALEXX Leong, DO 02/27/2022 10:54 AM Signed Addended by: JOHANNA NIEVES on: 02/27/2022 10:54 AM Modules accepted: Orders Allergies As of Date: 02/27/2022 Noted Allergy Reaction REGLAN (METOCLOPRAMIDE) 02/24/2022 5 - Intolerance Date Reviewed: Never Reviewed Reason for Visit: Patient Update [1234] Patient Question [7387] Appointment [186] Primary Visit Diagnosis: of unknown anatomic location [O36.80X0] Order(s):BETA HCG QUANT TUMOR MARKER [SQBHCG] Order #: [id number] STANDING Prescriptions as of 02/27/2022 - amoxicillin (POLYMOX, AMOXIL) 500 mg capsule Take 500 mg by mouth three times daily. - cephALEXin (KEFLEX) 500 mg capsule Take 1 capsule by mouth twice daily for 10 days. Problem List As Of Date: 02/27/2022 (None) Encounter Status:Closed by MATTY BECKER on 02/27/22 Normal [facility] HCG.beta subunit Qnon 2022 hCG Quantitative, Blood 64.20 mIU/mL [facility] TYPE & RHon 02-27-2022 BLD TYPE Positive Normal [facility] Comment on above: Performed By: #### B 100.0900 #### [facility] [address] [place] [address] US OB TRANSVAGINALon 023 [facility] US PREG TRANSVAGINALon 02-27 US PREG TRANSVAGINAL [place] [id number] Name: ADELA BAUTISTA Phys: GENEVIEVE ASNCHEZ D.O. : [birth year] Age: 26 Sex: F Acct: [id number] Loc: ED Exam Date: 02/27/22 Status: REG ER Radiology No.: Unit Number: [id number] Exam # Type/Exam [id number] US / US PREG TRANSVAGINAL EXAMINATION: FIRST TRIMESTER OBSTETRIC ULTRASOUND 02/27/2022 TECHNIQUE: Transvaginal first trimester obstetric pelvic duplex ultrasound was performed with real-time imaging, color flow Doppler imaging, and spectral analysis. COMPARISON: None HISTORY: ORDERING SYSTEM PROVIDED HISTORY: TECHNOLOGIST PROVIDED HISTORY: Reason for Exam: FINDINGS: Uterus: Uterus measures 8.7 x 4.3 x 5.5 cm. Endometrial double wall thickness is 12.2 mm.Gestational sac or yolk sac are not visualized. No cardiac activity is identified. Small quantity of free fluid is noted in the cul-de-sac. Right ovary measures 2.2 x 2.3 x 1.6 cm. Left ovary measures 1.9 x 1.4 x 1.4 cm. Flow is noted within the ovaries bilaterally. IMPRESSION: No intrauterine gestation identified. This could be related to early gestation, continued serial beta HCG values and short-term ultrasound follow-up are suggested. Electronically signed By Arcelia Gibson MD 02/27/2022 2:29:25 AM EST Workstation ID : [id number] < > Reported By: ARCELIA GIBSON M.D. Signed In Fluency By: ARCELIA GIBSON M.D. << Signature on File>> Reported By: ARCELIA GIBSON M.D. Signed By: ARCELIA GIBSON M.D. Tests performed at: [address] [address] [facility] 02-26-2022 [place] Telephone (NATHALIE) ADELA BAUTISTA ([id number]) 1995 F Date Time Provider Department 02/26/22 JOHANNA ROJAS During your visit today, we recorded the following information about you: Johanna Rojas APRN.PLATER APPRENTICE 02/26/2022 10:52 AM Signed Urine culture is negative for bacteria. Close follow up with product analyst is recommended. 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 Cece Carty Allergies As of Date: 02/26/2022 Noted Allergy Reaction REGLAN (METOCLOPRAMIDE) 02/24/2022 5 - Intolerance Date Reviewed: Never Reviewed Reason for Visit: Results [95] Prescriptions as of 02/26/2022 - amoxicillin (POLYMOX, AMOXIL) 500 mg capsule Take 500 mg by mouth three times daily. - cephALEXin (KEFLEX) 500 mg capsule Take 1 capsule by mouth twice daily for 10 days. Problem List As Of Date: 02/26/2022 (None) Encounter Status:Closed by JOHANNA ROJAS on 02/26/22 Normal [facility] UA W/C&Son 02-26-2022 Bilirubin Ql (U) Negative Normal NEGATIVE [facility] Comment on above: Order Comment: Urine Specimen Source+ CLEAN CATCH Performed By: #### L 200.3001 #### [facility] [address] [place] [address] 91282 Color (U) YELLOW Normal YELLOW [facility] Comment on above: Order Comment: Urine Specimen Source+ CLEAN CATCH Performed By: #### L 200.3001 #### [facility] [address] [place] [address] 42939 Glucose Ql (U) Negative Normal NEGATIVE [facility] Comment on above: Order Comment: Urine Specimen Source+ CLEAN CATCH Performed By: #### L 200.3001 #### [facility] [address] [place] [address] 21762 Hemoglobin Ql (U) LARGE Normal NEGATIVE [facility] Comment on above: Order Comment: Urine Specimen Source+ CLEAN CATCH Performed By: #### L 200.3001 #### [facility] [address] [place] [address] 02632 Leukocyte esterase Test strip Ql (U) Negative Normal NEGATIVE [facility] Comment on above: Order Comment: Urine Specimen Source+ CLEAN CATCH Performed By: #### L 200.3001 #### [facility] [address] [place] [address] 14382 Nitrite Ql (U) Negative Normal NEGATIVE [facility] Comment on above: Order Comment: Urine Specimen Source+ CLEAN CATCH Performed By: #### L 200.3001 #### [facility] [address] [place] [address] 91630 pH (U) 6.0 [pH] Normal 5.0-8.0 [facility] Comment on above: Order Comment: Urine Specimen Source+ CLEAN CATCH Performed By: #### L 200.3001 #### [facility] [address] [place] [address] 59245 Protein Ql (U) Negative Normal NEGATIVE [facility] Comment on above: Order Comment: Urine Specimen Source+ CLEAN CATCH Performed By: #### L 200.3001 #### [facility] [address] [place] [address] 31509 URINE APPEARANC CLEAR Normal CLEAR [facility] Comment on above: Order Comment: Urine Specimen Source+ CLEAN CATCH Performed By: #### L 200.3001 #### [facility] [address] [place] [address] 13293 URINE KETONE >=80 Normal NEGATIVE [facility] Comment on above: Order Comment: Urine Specimen Source+ CLEAN CATCH Performed By: #### L 200.3001 #### [facility] [address] [place] [address] 17482 URINE SPECIFIC 1.025 Normal 1.001-1.035 [facility] Comment on above: Order Comment: Urine Specimen Source+ CLEAN CATCH Performed By: #### L 200.3001 #### [facility] [address] [place] [address] 17652 URINE UROBILINO 0.2 EU/DL Normal 0.2-1.0 [facility] Comment on above: Order Comment: Urine Specimen Source+ CLEAN CATCH Performed By: #### L 200.3001 #### [facility] [address] [place] [address] 30066 URINE CULTUREon 02-26-2022 Bacteria identified Cx Nom (U) XXX [facility] Urinalysis complete panel (U )on 02-26-2022 Appearance (U) CLEAR CLEAR [facility] Bilirubin, Urine Negative NEGATIVE [facility] Blood, Urine LARGE NEGATIVE [facility] Color (U) YELLOW YELLOW [facility] Glucose Ql (U) Negative NEGATIVE MG/DL [facility] Ketones Ql (U) >=80 NEGATIVE MG/DL [facility] Leukocytes Negative NEGATIVE [facility] Nitrites Urine Negative NEGATIVE [facility] pH (U) 6.0 [pH] 5.0 - 8.0 [facility] Protein.monoclonal (U) [Mass/Vol] Negative NEGATIVE MG/DL [facility] Specific [place], Ur 1.025 1.001 - 1.035 [facility] Urobilinogen, Urine 0.2 EU/DL 0.2 - 1. 0 EU/DL [facility] CNOVon 02-24-2022 CNOV Office Visit (UPNO ) ADELA BAUTISTA ([id number]) 1995 F Date Time Provider Department 02/24/22 3:20 PM JOAHNNA ROJAS During your visit today, we recorded the following information about you: Temperature Pulse Respiration Blood pressure 98.3 degrees 96/minute 16/minute 122/83 Weight Last Period 70.3 kg 02/01/22 Johanna Rojas APRN.PLATER APPRENTICE 02/24/2022 3:50 PM Signed February 24, 2022 Subjective Chief Complaint: UTI (Patient stated that burning and frequent urination x 1 week. OTC: None Patient stated that she has been on Amox from PCP for the past week for her symptoms. Patient also stated that she is . ) HPI: Adela Bautista is a 26 year old female who presents today for 1 week history of urinary tract infection symptoms. Patient states that she has had urinary frequency and burning with urination for 1 week. States that she will initiate a urine stream and will feel a tinge at the end of her urination stream. States that she contacted her primary care provider via telephone and was sent amoxicillin for her symptoms. Patient states she has taken approximately 4 to 5 days worth of the medication with no change in her symptoms. Patient states that she and her found out yesterday that they are . Patient states she is approximately [address] Nieves's office today and established a new patient appointment. Patient denies any vaginal discharge, vaginal bleeding, fever, abdominal pain, flank/back pain, fever, vomiting. Has been drinking lots of cranberry juice. History reviewed. No pertinent past medical history. History reviewed. No pertinent surgical history. History reviewed. No pertinent family history. Social History Tobacco Use Smoking status: Never Smokeless tobacco: Never Vaping Use Vaping Use: Never used ALLERGIES Allergen Reactions Reglan [Metoclopram* Intolerance There is no immunization history on file for this patient. Current Medications: amoxicillin (POLYMOX, AMOXIL) 500 mg capsule Take 500 mg by mouth three times daily. Review of Systems Constitutional: Negative for chills, fever and malaise/fatigue. HENT: Negative. Eyes: Negative. Respiratory: Negative. Cardiovascular: Negative. Gastrointestinal: Negative for diarrhea, nausea and vomiting. Genitourinary: Positive for dysuria and frequency. Negative for flank pain and hematuria. Musculoskeletal: Negative. Skin: Negative. Neurological: Negative. Objective BP 122/83 Pulse 114 Temp 98.3 Resp 16 Wt 155 lb (70.3kg) SpO2 99% LMP 02/01/2022 HR - 96 Physical Exam Vitals reviewed. Constitutional: General: She is not in acute distress. Appearance: Normal appearance. She is not ill-appearing, toxic-appearing or diaphoretic. HENT: Head: Normocephalic and atraumatic. Abdominal: Tenderness: There is no right CVA tenderness or left CVA tenderness. Skin: General: Skin is warm and dry. Capillary Refill: Capillary refill takes less than 2 seconds. Neurological: Mental Status: She is alert and oriented to person, place, and time. Psychiatric: Mood and Affect: Mood normal. Behavior: Behavior normal. Thought Content: Thought content normal. Judgment: Judgment normal. Did show patient that Keflex was safe via [employer] juany on cell phone ASSESSMENT/PLAN: 1. Urinary tract infection symptoms - ICD9: 788.99, ICD10: R39.9 Increase fluids Avoid caffeine or carbonated drinks at this time Take all medications as ordered ER right away if you note a fever over 100.7, nausea, vomiting, and low back pain. Go to ER May stop Amoxicillin since it is not helping. Start new antibiotic (Keflex) -Educational pamphlet regarding Urinary Tract Infection in given - UA DIP B/O - URINE CULTURE - HCG QUAL UR B/O - CEPHALEXIN 500 MG CAPSULE TED Strange APRN.CNP 02/24/2022 3:45 PM Addendum Preliminary urine testing completed in [facility] is indicative of a Urinary Tract Infection. We will send your urine to the lab for culture analysis. This is to ensure the antibiotic selected today will indeed treat the bacteria in your urine. A [facility] employee will notify you via telephone with the results in 2-3 days. Increase fluids Avoid caffeine or carbonated drinks at this time Take all medications as ordered ER right away if you note a fever over 100.7, nausea, vomiting, and low back pain. Go to ER May stop Amoxicillin since it is not helping. Start new antibiotic (Keflex) -Educational pamphlet regarding Urinary Tract Infection in given Referring Provider: SELF [200] Allergies As of Date: 02/24/2022 Noted Allergy Reaction REGLAN (METOCLOPRAMIDE) 02/24/2022 5 - Intolerance Date Reviewed: Never Reviewed Reason for Visit: UTI [116] Cmt: Patient stated that burning and frequent (more content not included)... Normal [facility] HCG QUAL UR B/Oon 02-24-2022 status Positive neg - pos [facility] Quality Check Yes [facility] UA DIP B/Oon 02-24-2022 Bilirubin, Urine Small Neg [facility] Color/Appearance Yellow/Clear [facility] Glucose Ql (U) Negative Neg mg/dL [facility] Hemoglobin/Blood,Ur Large Neg [facility] Ketones Ql (U) Neg [facility] Leukocytes Small Neg [facility] Nitrite Ql (U) Negative Neg [facility] pH (U) 6.5 [pH] 4.5 - 8.0 [facility] Protein.monoclonal (U) [Mass/Vol] 100 mg/dL Neg mg/dL [facility] Specific [place], Ur 1.005 - 1.030 C [facility] Urobilinogen, Urine 0.2 EU Normal ( <1.1) EU [facility] Urine Cultureon 02-24-2022 Bacteria identified Cx Nom (U) CULTURE, URINE No growth (<1,000 CFU/ml) Urine, Midstream clean catch SOURCE: Urine, Midstream clean catch Test Performed By: [facility] [address] [place] [address] Acid Purification Equipment Operator: Erick Leone III, M.D. See Below Normal [facility] Visiton 1 Urgent Care Clinic Visit [facility] [address] [place] [address] - KASSANDRA BAUTISTA 1995 (25 F) [id number] Indra Tran MD URG Report #: [id number] (Signed) PCP: Timothy Anna MD Urgent Care Clinic Visit Visit Date: 12/02/20 Report Date/Time: 12/02/20 1616 HPI Arrival Information Source: patient Travel/Ebola Screening Traveled Out Of Country In Last 30 Days: No (Or) Been in Contact With Ill Person Who Has Traveled: No COVID Screening Had Unmasked Contact w/Anyone Who Testing Positive for COVID: No Patient States Having COVID Symptoms: No History of Present Illness Complaint: back pain Description of Symptoms: Pt c/o sharp pain in the middle of the chest in the back that started a week and half ago. States that she moved out of the state last month and it caused a lot of stress causing her to move back yesterday. States that her left arm has been tingling that just started an hr ago. Pt is not sure if maybe her symptoms are related to stress or anxiety due to having bad anxiety. Reports taking ibuprofen. Date of Onset (approx): 11/20/20 Treatment ISOTOPE TECHNICIAN: NSAIDS Provider HPI Details Patient presents with a 10 day history of sharp pain upper middle back which radiates around to the chest. 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 She notes a great deal of stress and anxiety. She also noted some recent left arm tingling. She noted no nereyda chest pain, shortness of breath, wheezing or any other associated symptoms. She did take some ibuprofen, but noted only taking 400 mg dosages on a scattered basis. Pain Assessment denies: Behavior: Calm Immunizations Immunizations Up to Date: no Patient Tetanus UTD (Within 5 Years): no Flu Vaccine: seasonal COVID Vaccine: dose 2 of 2 (NOT given at [facility]) Allergies/Home Meds Allergies Allergy/AdvReac Type Severity Reaction Status Date / Time metoclopramide [From Reglan] AdvReac Intermediate ANXIETY, Verified 12/02/20 16:04 EYE/FACIAL TWITCHING Home Medications Medication Instructions Recorded Confirmed melatonin 10 mg tablet 10 mg PO HS PRN 07/15/20 12/02/20 sertraline 25 mg tablet 25 mg PO DAILY 12/02/20 12/02/20 Reproductive History LMP: 11/27/20 Possibility of : No Currently : No Past Medical/Family/Social Hx [facility] COVID Testing History tested, negative Medical History Medical History Anxiety COVID-19 Surgical History Surgical History H/O left knee surgery H/O wisdom tooth extraction Social History Social History Smoking Status: Patient has never smoked. Exposed to 2nd Hand Smoke: Is not exposed to second hand smoke. Alcohol Use: Admits alcohol use. - Patient admits to rarely drinking. Substance Use: Denies substance use. Lives With: Lives with family. Caregiver/Support Person: Support person includes family. Sexually Active: Patient is not sexually active. Control: control includes none. ROS Constitutional: Reports: no symptoms reported Eyes: Reports: no symptoms reported Ears, Nose, Throat: Reports: no symptoms reported Breast/Chest: Reports: no symptoms reported Cardiovascular: Reports: as per HPI and chest pain ( Musculoskeletal.) Respiratory: Reports: no symptoms reported Gastrointestinal: Reports: no symptoms reported Genitourinary: Reports: no symptoms reported Musculoskeletal: Reports: as per HPI and back pain ( Upper, mid-back.) Integumentary: Reports: no symptoms reported Neurological: Reports: no symptoms reported Psychological: Reports: no symptoms reported Endocrine: Reports: no symptoms reported Hematological/Lymphat ic: Reports: no symptoms reported Allergic/Immunologic: Reports: no symptoms reported Exam Musc Thoracic/Lumbar Spine normal thoracic/lumbar inspection, with spasm present bilaterally upper thoracic area and with paraspinal muscle tenderness present bilaterally upper thoracic area Course Vital Signs: Arrival Temperature 98.6 F 12/02/20 16:00 Pulse Rate 99 H 12/02/20 16:00 Respiratory Rate 20 12/02/20 16:00 Blood Pressure 129/82 12/02/20 16:00 Pulse Oximetry 96 12/02/20 16:00 Current/Last Documented Temperature 98.6 F 12/02/20 16:00 Pulse Rate 99 H 12/02/20 16:00 Respiratory Rate 20 12/02/20 16:00 Blood Pressure 129/82 12/02/20 16:00 Pulse Oximetry 96 12/02/20 16:00 Height/Weight/BMI Height 5 ft 4 in Weight 72.575 kg Body Mass Index 27.4 Course Narrative: Signs and symptoms reviewed wi (more content not included)... Normal [facility] Anesthesia Post-Evaluationon 07-26-2020 Anesthesia Post-Evaluation [facility] [address] [place] [address] - KASSANDRA BAUTISTA 1995 (24 F) [id number] Suresh Fajardo CRNA SURG / Report #: [id number] (Signed) PCP: Timothy Anna MD Anesthesia Post-Evaluation Report Date/Time: 07/26/201405 Date Evaluation: 07/26/20 Time Evaluation: 14:06 Post-Evaluation: stable, vital signs within normal pre-op range, cardiovascular stable, adequate hydration, pain controlled, no nausea/vomiting and report given to nursing Airway Status: airway adequate and spontaneous respirations LOC Post-Operative: drowsy Vital Signs: Current/Last Documented Temperature 98.8 F 07/26/20 13:53 Temperature Source Temporal Artery Scan 07/26/20 13:53 Pulse Rate 66 07/26/20 14:00 Respiratory Rate 9 L 07/26/20 14:00 Respiratory Effort Unlabored 07/26/20 13:53 Respiratory Depth Regular 07/26/20 13:53 Blood Pressure 95/52 L 07/26/20 14:00 Blood Pressure Mean 70 07/26/20 14:00 Pulse Oximetry 100 07/26/20 14:03 Oxygen Flow Rate 3 07/26/20 14:03 Oxygen Delivery Device Nasal Cannula 07/26/20 14:03 Inhalational Anesthesia: used for maintenance PONV/Antiemetics Total PONV Risk Factors: 3 Admin 2 or More Prophylactic Antiemetics/Different Classes: Yes Electronically Signed By/Signed Date Time Suresh Fajardo CRNA 07/26/20 1407 Electronically Cosigned By/Signed Date Time [facility] Anesthesia Pre-Evaluationon 07-26-2020 Anesthesia Pre-Evaluation [facility] [address] [place] [address] - KASSANDRA BAUTISTA 1995 (24 F) [id number] Jorge Yao DO SURG / Report #: [id number] (Signed) PCP: Timothy Anna MD Anesthesia Pre-Evaluation Report Date/Time: 07/26/20 1229 Anesthesia Pre-Evaluation Date of Evaluation: 07/26/20 Time of Evaluation: 12:29 History Physical Patient Examined Prior to Surgery: Yes History Physical Reviewed: Yes History Physical Date: 07/26/20 History Physical Changes: No History Anesthesia Complication History: no complications Anesthesia Family Complication History: unknown Neurological History: anxiety Assessment NPO Status: NPO >8 hours Airway/Mallampati Classification: (1) soft palate, A/P tonsillar pillars, and uvula visible Dentition: normal ASA: 1 Cardiovascular Assessment Rate: regular rate Rhythm: regular rhythm Respiratory Assessment Effort Inspection: normal respiratory effort Auscultation: clear bilaterally throughout Plan Planned Anesthesia: general anesthesia Risk Factors Post-Op Nausea/Vomiting Risk Factors: female, non-smoker and intended administration of opioids for post-op analgesia Total PONV Risk Factors: 3 Other Risk Factors: no other risk factors Reviewed Reviewed Current Medications: Yes Reviewed Chart, Including Items: allergies and vital signs Allergies metoclopramide [From Reglan] Adverse Reaction (Intermediate, Verified 01/24/20 06:42) ANXIETY, EYE/FACIAL TWITCHING Electronically Signed By/Signed Date Time Jorge Yao, DO 07/26/20 1230 Electronically Cosigned By/Signed Date Time Normal [facility] HCG URINEon 07-26-2020 Beta HCG ( test) Ql (U) Negative Normal [facility] Comment on above: Order Comment: COLLE CTED BY: arcelia begum Performed By: #### H U #### MAIN LAB CLIA:[id number] [address] [place] [address] SARS-CoV-2,MRHon 07-19-2020 SARS-CoV-2 (COVID-19) RNA FRANCISOC+probe Ql (Unsp spec) Negative Normal Negative [facility] Comment on above: Order Comment: Comme nts: PREOP Nasopharynx Result Comment: Ry guallpa was tested using the Echoing GreenGX SARS-CoV-2 RT-PCR test on the Inbiomotion System. This test has Emergency Use Authorization from the [place] FDA. The EUA for this test is supported by the Motorcycle Subas[employer]er of Health and Human Service's declaration that circumstances exist to justify the emergency use of in vitro diagnostics for the detection and/or diagnosis of the virus that causes COVID-19. This EUA will remain in effect for the duration of the COVID-19 declaration. Performed By: #### S ARSCOV #### MAIN LAB CLIA:[id number] [address] [place] [id number] SARS-CoV-2 (COVID-19) RNA FRANCISCO+probe Ql (Unsp spec) NASOP Normal [facility] Comment on above: Order Comment: Comme nts: PREOP Nasopharynx Performed By: #### S ARSCOV #### MAIN LAB CLIA:[id number] [address] [place] [address] Emergency Room Visit Reporto n 01-04-2020 Emergency [place] [address] - KASSANDRA BAUTISTA 1995 (24 F) [id number] Johanna Ledezma MD ED Report #: [id number] (Signed) PCP: Timothy Anna MD Emergency Room Visit Report Visit Date: 01/03/20 Report Date/Time: 01/04/20 0144 HPI Arrival Condition on Arrival: Good VJ Level: 2 Information Source: patient Mode of Arrival: walk-in Limitations: no limitations Lives With: Family Support System: Family Travel/Ebola Screening Traveled Out Of Country In Last 30 Days: No (Or) Been in Contact With Ill Person Who Has Traveled: No COVID Screening Had Unmasked Contact w/Anyone Who Testing Positive for COVID: No Patient States Having COVID Symptoms: Yes History of Present Illness Complaint: anxiety Description of Symptoms: face is frozen, eyes twitching, anxiety Associated Symptoms: anxiety and other Date of Onset (approx): 01/03/20 Time of Onset (approx): 23:00 Provoking Factors: other Place of Occurrence: home Improves With: nothing Worsens With: nothing Hx of Similar Episode: No Additional HPI Information: Pt states that she was diagnosed with Covid last . States that about an hour ago her face started getting tight and her eyes started twitching. Pt states that she is not sure if she is anxious or what. Provider HPI Details Pt states that she was diagnosed with Covid last . States that about an hour ago her face started getting tight and her eyes started twitching. Pt states that she is not sure if she is anxious or what. face is frozen, eyes twitching, anxiety Pt states that about an hour ago she started to feel that her face was getting tight and her eyes were twitching. Pain Assessment Jaw: Intensity: 10 Description: Ache Duration: 1 hour Radiation: none Behavior: Calm Immunizations Immunizations Up to Date: yes Patient Tetanus UTD (Within 5 Years): yes Flu Vaccine: seasonal Pneumonia Vaccine: no Allergies/Home Meds Allergy to Contrast: No Allergy to Iodine/Shellfish: No Allergies Allergy/AdvReac Type Severity Reaction Status Date / Time No Known Drug Allergies Allergy Unverified 01/03/20 23:53 Home Medications Medication Instructions Recorded Confirmed azithromycin [Zithromax Z-Simon] See Rx Instructions .ROUTE 01/02/20 01/03/20 .COMPLEX #6 tab Last Intake Date Of Last Food/Fluid: 01/03/20 Reproductive History LMP: last week Sexually Active: No Control: none Possibility of : Yes : 0 Para: 0 Past Medical/Family/Social Hx PFSH COVID Testing History tested, positive COVID Testing Details last pt tested positive Medical History Medical History Anxiety (Acute) COVID-19 (Acute) Social History Social History Smoking Status: Patient has never smoked. Exposed to 2nd Hand Smoke: Is not exposed to second hand smoke. Alcohol Use: Denies alcohol use. - Patient is not a recovering alcoholic. Substance Use: Denies substance use. Lives With: Lives family. Caregiver/Support Person: Support person includes family. Sexually Active: Patient is not sexually active. Control: control includes none. ROS Constitutional: Reports: no symptoms reported; Denies: chills or fever(s) Eyes: Reports: no symptoms reported Ears, Nose, Throat: Reports: as per HPI and other (tightness of face and lips); Denies: nasal discharge or tongue swelling Breast/Chest: Reports: no symptoms reported Cardiovascular: Reports: no symptoms reported; Denies: chest pain or shortness of breath Respiratory: Reports: no symptoms reported; Denies: cough or shortness of breath Gastrointestinal: Reports: no symptoms reported; Denies: abdominal pain, nausea or vomiting Genitourinary: Reports: no symptoms reported Musculoskeletal: Reports: no symptoms reported; Denies: abnormal walking Integumentary: Reports: no symptoms reported; Denies: rash Neurological: Reports: as per HPI and other (abnormal eye movements); Denies: abnormal movements, abnormal walking or convulsions Psychological: Reports: no symptoms reported Endocrine: Reports: no symptoms reported Hematological/Lymphat ic: Reports: no symptoms reported; Denies: easy bruising Allergic/Immunologic: Reports: no symptoms reported; Denies: tongue swelling Exam Const General no acute distress HENMT Head normal inspection Ears normal external ears bilaterally Nose normal external nose Mouth normal speech and other (tightness around upper lip and upper face) Eyes Eyes normal appearance Pupils other (equal, reactive) EOM EOM intact bilaterally Details twitching and winkin (more content not included)... Normal [facility] PROCALCITONINon 01-03-2020 PROCALCITONIN 0.122 ng/mL High <0.[address] [facility] Comment on above: Performed By: #### P ROCAL ####MAIN LABCLIA:[id number] [place] [address] CHEST 1 VIEWon 01-02-2020 CHEST 1 VIEW [place] [address] Pt Location: ED/ DEP ER Pt RM#: MR #: [id number] PERFORMED DATE: 01/02/201809 ADM#: [id number] Patient: KASSANDRA BAUTISTA : 1995 Age/Sex: 24 / F REPORT STATUS: Signed ORDERING PHYSICIAN: Bharathi Lin PA-C PRIVATE/PRIMARY PHYSICIAN: Timothy Anna M.D. HISTORY/REASON: COVID POS/N/V/D/FEVER CLINICAL HISTORY: Positive COVID TECHNICAL FACTORS: Portable AP upright chest. EXAMINATION: CHEST 1 VIEW FINDINGS: The cardiac silhouette appears unremarkable. There is an ill defined opacity in the right lower lobe and peripherally in the left lower lobe. There are nonspecific and COVID would be in the differential. The upper lung ahuja are clear. IMPRESSION: 1. Bilateral lower lobe pneumonia. REPORT# [id number] FILMS READ BY: Elvia English MD 01/03/20 1054 FINAL REPORT RELEASED BY: Elvia English MD 01/03/20 1251 Transcribed Date/Time: 01/03/20 1106 [facility] CC: Timothy Anna M.D.; Bharathi Lin PA-C Normal [facility] COMPLETE BLOOD COUNTon 01-01 ABSOLUTE BASOPHILS 0 /cmm Normal <216 [facility] Comment on above: Performed By: #### C BC ####MAIN LABCLIA:[id number] [facility] [place] [address] ABSOLUTE EOSINOPHILS 0 /cmm Normal <[address] [facility] Comment on above: Performed By: #### C BC ####MAIN LABCLIA:[id number] [facility] [place] [address] ABSOLUTE LYMPHS 900 /cmm Low [phone] [facility] Comment on above: Performed By: #### C BC ####MAIN LABCLIA:[id number] [facility] [place] [address] ABSOLUTE MONOCYTES 700 /cmm Normal 96-972 [facility] Comment on above: Performed By: #### C BC ####MAIN LABCLIA:[id number] [place] [address] ABSOLUTE SEGS 3300 /cmm Normal 5913-[address] [facility] Comment on above: Performed By: #### C BC ####MAIN LABCLIA:[id number] [facility] [address] Basophils/100 WBC (Bld) 0.3 % Normal <2.0 M [facility] Comment on above: Performed By: #### C BC ####MAIN LABCLIA:[id number] [place] [address] Eosinophils/100 WBC (Bld) 0.0 % Normal <4.[address] [facility] Comment on above: Performed By: #### C BC ####MAIN LABCLIA:[id number] [facility] [place] [address] Erythrocyte distribution width (RBC) [Ratio] 12.2 % Normal 11.5-14.[address] [facility] Comment on above: Performed By: #### C BC ####MAIN LABCLIA:[id number] [facility] [place] [address] Hematocrit (Bld) [Volume fraction] 42.8 % Normal 38.0-47.[address] [facility] Comment on above: Performed By: #### C BC ####MAIN LABCLIA:[id number] [facility] [place] [address] Hemoglobin (Bld) [Mass/Vol] 14.7 g/dL Normal 12.0-16.[address] [facility] Comment on above: Performed By: #### C BC ####MAIN LABCLIA:[id number] [facility] [place] [address] Lymphocytes/100 WBC (Bld) 18.5 % Low 20.0-44.[address] [facility] Comment on above: Performed By: #### C BC ####MAIN LABCLIA:[id number] [facility] [address] MCH (RBC) [Entitic mass] 29.7 pg Normal 27.0-31.[address] [facility] Comment on above: Performed By: #### C BC ####MAIN LABCLIA:[id number] [facility] [address] MCV (RBC) [Entitic vol] 87 fL Normal 80.0-96.0 [facility] Comment on above: Performed By: #### C BC ####MAIN LABCLIA:[id number] [facility] [place] [address] MEAN CORPUSCULAR HGB CONC 34.3 g/dL Normal 32.0-36.[address] [facility] Comment on above: Performed By: #### C BC ####MAIN LABCLIA:[id number] [facility] [place] [address] Monocytes/100 WBC (Bld) 13.2 % High 2.0-9.0 [facility] Comment on above: Performed By: #### C BC ####MAIN LABCLIA:[id number] [facility] [place] [address] Neutrophils/100 WBC (Bld) 68.0 % Normal 50.0-70.[address] [facility] Comment on above: Performed By: #### C BC ####MAIN LABCLIA:[id number] [facility] [place] [address] PLATELET COUNT 198 10 3/uL Normal 130-400 [facility] Comment on above: Performed By: #### C BC ####MAIN LABCLIA:[id number] [facility] [place] [address] RED BLOOD COUNT 4.94 10 6/uL Normal 4.20-5.40 [facility] Comment on above: Performed By: #### C BC ####MAIN LABCLIA:[id number] [facility] [place] [address] WHITE BLOOD COUNT 4.9 10 3/uL Normal 4.8-10.8 [facility] Comment on above: Performed By: #### C BC ####MAIN LABCLIA:[id number] [facility] [place] [address] COMPREHENSIVE METABOLIC PANE [facility] 01-02-2020 Albumin [Mass/Vol] 4.3 g/dL Normal 3.0-4.5 [facility] Comment on above: Performed By: #### C MP #### MAIN LAB CLIA:[id number] [address] [place] [address], [place] [address] Albumin/Globulin [Mass ratio] 1.2 {ratio} Normal 1-1.[address] [facility] Comment on above: Performed By: #### C MP #### MAIN LAB CLIA:[id number] [address] [place] [address], [place] [address] ALP [Catalytic activity/Vol] 38 U/L Normal 35-[address] [facility] Comment on above: Performed By: #### C MP #### MAIN LAB CLIA:[id number] [address] [place] [address], [place] [address] ALT [Catalytic activity/Vol] 151 U/L High 0-[address] [facility] Comment on above: Performed By: #### C MP #### MAIN LAB CLIA:[id number] [address] [place] [address] Anion gap [Moles/Vol] 20 mmol/L High 9-18 [facility] Comment on above: Performed By: #### C MP #### MAIN LAB CLIA:[id number] [address] [place] [address] AST [Catalytic activity/Vol] 105 U/L High 0-[address] [facility] Comment on above: Performed By: #### C MP #### MAIN LAB CLIA:[id number] [address] [place] [address] Bilirubin [Mass/Vol] 0.3 mg/dL Normal 0.2-1.[address] [facility] Comment on above: Performed By: #### C MP #### MAIN LAB CLIA:[id number] [address] [place] [address] Calcium [Mass/Vol] 9.3 mg/dL Normal 8.6-10.0 [facility] Comment on above: Performed By: #### C MP #### MAIN LAB CLIA:[id number] [address] [place] [address] [place] [address] Chloride [Moles/Vol] 98 mmol/L Normal 98-[address] [facility] Comment on above: Performed By: #### C MP #### MAIN LAB CLIA:[id number] [address] [place] [address] [place] [address] CO2 [Moles/Vol] 25 mmol/L Normal 22-29 [facility] Comment on above: Performed By: #### C MP #### MAIN LAB CLIA:[id number] [address] [place] [address] Creatinine [Mass/Vol] 0.65 mg/dL Normal 0.50-0.90 [facility] Comment on above: Performed By: #### C MP #### MAIN LAB CLIA:[id number] [address] [place] [address] GFR >=60 Normal >60 mL/min [facility] Comment on above: Result Comment: eGFR is calculated using the CKD-EPI equation. Result is intended only for patients between 18 and 71 years of age and is corrected for age, race, and gender. eGFR should NOT be used for pharmacy dosing. Performed By: #### C MP #### MAIN LAB CLIA:[id number] [address] [place] [address] Globulin (S) [Mass/Vol] 3.7 g/dL High 2.3-3.5 [facility] Comment on above: Performed By: #### C MP #### MAIN LAB CLIA:[id number] [address] [place] [address] Glucose [Mass/Vol] 92 mg/dL Normal 74-109 [facility] Comment on above: Performed By: #### C MP #### MAIN LAB CLIA:[id number] [address] [place] [address] Potassium [Moles/Vol] 3.6 mmol/L Normal 3.5-5.1 [facility] Comment on above: Performed By: #### C MP #### MAIN [facility] CLIA:[id number] [address] [place] [address] [place] [address] Protein [Mass/Vol] 8.0 g/dL Normal 6.4-8.3 [facility] Comment on above: Performed By: #### C MP #### [facility] CLIA:[id number] [address] [place] [address] [place] [address] Sodium [Moles/Vol] 139 mmol/L Normal 136-145 [facility] Comment on above: Performed By: #### C MP #### [facility] CLIA:[id number] [address] [place] [address] Urea nitrogen [Mass/Vol] 10 mg/dL Normal 6-[address] [facility] Comment on above: Performed By: #### C MP #### MA[facility] CLIA:[id number] [address] [place] [address] Urea nitrogen/Creatinine [Mass ratio] 15.4 mg/mg Normal [facility] Comment on above: Performed By: #### C MP #### [facility]IN [facility] CLIA:[id number] [address] [place] [address] Emergency Room Visit Reporto n 01-02-2020 Emergency Room Visit Report [place] [id number] - KASSANDRA BAUTISTA 1995 (24 F) [id number] Bharathi Lin PA-C ED Report #: [id number] (Signed) PCP: Timothy Anna MD Emergency Room Visit Report Visit Date: 01/02/20 Report Date/Time: 01/02/20 2010 HPI Arrival Condition on Arrival: Good VJ Level: 3 Information Source: patient Mode of Arrival: walk-in Lives With: Family Support System: Family Travel/Ebola Screening Traveled Out Of Country In Last 30 Days: No (Or) Been in Contact With Ill Person Who Has Traveled: No COVID Screening Had Unmasked Contact w/Anyone Who Testing Positive for COVID: Yes Patient States Having COVID Symptoms: Yes History of Present Illness Complaint: shortness of breath and cough Description of Symptoms: Pt COVID +. Pt c/o fever, cough, shortness of breath and n/v. Iburprofen this morning. Date of Onset (approx): 01/02/20 Provider HPI Details 24-year-old female patient presents today with shortness of breath coughing nausea and vomiting. She did test COVID positive couple days ago. She states that she knows Dr. Elliott personally and was told to come to the ED. She states that she took Motrin this morning. She is here for further evaluation treatment options. Allergies/Home Meds Allergy to Contrast: No Allergy to Iodine/Shellfish: No Allergies Allergy/AdvReac Type Severity Reaction Status Date / Time No Known Drug Allergies Allergy Unverified 01/02/20 18:01 Home Medications Medication Instructions Recorded Confirmed azithromycin [Zithromax Z-Simon] See Rx Instructions .ROUTE 01/02/20 .COMPLEX #6 tab metoclopramide HCl [Reglan] 10 mg PO Q6H PRN #10 tab 01/02/20 Reproductive History LMP: last week Sexually Active: No Possibility of : No Past Medical/Family/Social Hx PFSH COVID Testing History tested, positive Social History Social History Smoking Status: Patient has never smoked. Exposed to 2nd Hand Smoke: Is not exposed to second hand smoke. Lives With: Lives family. Caregiver/Support Person: Support person includes family. Sexually Active: Patient is not sexually active. ROS Constitutional: Reports: as per HPI Eyes: Reports: no symptoms reported Ears, Nose, Throat: Reports: no symptoms reported Breast/Chest: Reports: no symptoms reported Cardiovascular: Reports: no symptoms reported Respiratory: Reports: as per HPI Gastrointestinal: Reports: no symptoms reported Genitourinary: Reports: no symptoms reported Musculoskeletal: Reports: no symptoms reported Integumentary: Reports: no symptoms reported Neurological: Reports: no symptoms reported Psychological: Reports: no symptoms reported Endocrine: Reports: no symptoms reported Hematological/Lymphat ic: Reports: as per HPI Allergic/Immunologic: Reports: no symptoms reported Exam Const General no acute distress, appears healthy, well developed, comfortable and cooperative Orientation alert, oriented x 3 and awake Nutrition well nourished Appearance well groomed Limitations no limitations HENMT Head normal inspection, normocephalic and atraumatic Ears normal external ears bilaterally, normal EAC's bilaterally and normal tympanic membranes bilaterally Nose normal external nose, normal nares and normal mucous membranes and turbinates Face/Sinus normal facial exam Mouth normal oral mucosae, normal tongue, normal lips and normal speech Teeth/Gingiva normal dentition and normal gingiva Throat normal posterior oropharynx, normal tonsils and uvula midline Eyes Eyes normal appearance, normal alignment, normal conjunctivae, normal corneas and normal eyelids Pupils PERRL and normal by confrontation EOM EOM intact bilaterally Neck Neck normal visual inspection, supple and full ROM Thyroid normal thyroid Chest Chest normal chest inspection and symmetrical chest movement Cardio Rate regular rate Rhythm regular rhythm Heart Sounds normal S1 and normal S2 Resp Effort Inspection normal respiratory effort Auscultation clear bilaterally throughout and normal inspiratory/expirator y ratio GI Inspection normal inspection Palpation soft Auscultation normal bowel sounds Rectal Exam other ( Deferred) General deferred exam Musc Cervical Spine normal cervical lordosis Thoracic/Lumbar Spine normal thoracic/lumbar inspection Shoulder bilateral normal appearance Elbow bilateral normal apperaance Wrist bilateral normal appearance Hand/Fingers bilateral normal appearance Hip bilateral normal appearance Knee bilateral normal appearance Ankle/Foot bilateral normal appearance Skin Skin pink, warm, dry an (more content not included)... Normal [facility] LACTIC ACIDon 01-02-2020 Lactate [Moles/Vol] 1.0 mmol/L Normal 0.5-2.[address] [facility] Comment on above: Performed By: #### L AC #### MAIN LAB CLIA:[id number] [address] [place] [address] Vital Signs Date Time Vital Sign Value Performing Clinician Facility 09-18-2024 08:37-0400 Body height 165.1 cm No Primary Care Physician [facility] 09-18-2024 08:37-0400 Body mass index (BMI) [Ratio] 31.6 kg/m2 No Primary Care Physician [facility] 09-18-2024 08:37-0400 Body weight 86.18 kg No Primary Care Physician [facility] 08-30-2024 08:43-0400 Body height 165.[address] Brenda Hernandez DO Work Phone: [facility] 08-30-2024 08:43-0400 Body mass index (BMI) [Ratio] 31.5 kg/m2 Dr. Brenda Hernandez DO Work Phone: [facility] 08-30-2024 08:43-0400 Body weight 85.[address] Brenda Hernandez DO Work Phone: [facility] 08-30-2024 08:43-0400 Diastolic blood pressure 84 mm[Hg] Dr. Brenda Hernandez DO Work Phone: [facility] 08-30-2024 08:43-0400 Systolic blood pressure 134 mm[Hg] Dr. Brenda Hernandez DO Work Phone: [facility] 08-03-2024 10:19-0400 Body height 165.1 cm No Primary Care Physician [facility] 08-03-2024 10:17-0400 Body mass index (BMI) [Ratio] 30.8 kg/m2 No Primary Care Physician [facility] 08-03-2024 10:17-0400 Body weight 84.08 kg No Primary Care Physician [facility] 08-03-2024 10:17-0400 Diastolic blood pressure 83 mm[Hg] No Primary Care Physician [facility] 08-03-2024 10:17-0400 Systolic blood pressure 127 mm[Hg] No Primary Care Physician [facility] 07-08-2024 09:56-0400 Body height 165.1 cm No Primary Care Physician [facility] 07-08-2024 09:56-0400 Body mass index (BMI) [Ratio] 29.7 kg/m2 No Primary Care Physician [facility] 07-08-2024 09:56-0400 Body temperature 98.7 [degF] No Primary Care Physician [facility] 07-08-2024 09:56-0400 Body weight 81.24 kg No Primary Care Physician [facility] 07-08-2024 09:56-0400 Diastolic blood pressure 78 mm[Hg] No Primary Care Physician [facility] 07-08-2024 09:56-0400 Heart rate 99 /min No Primary Care Physician [facility] 07-08-2024 09:56-0400 SaO2% (BldA) [Mass fraction] 97 % No Primary Care Physician [facility] 07-08-2024 09:56-0400 Systolic blood pressure 120 mm[Hg] No Primary Care Physician [facility] 07-05-2024 08:31-0400 Body height 165.1 cm No Primary Care Physician [facility] 07-05-2024 08:31-0400 Body mass index (BMI) [Ratio] 29.7 kg/m2 No Primary Care Physician [facility] 07-05-2024 08:31-0400 Body weight 81.24 kg No Primary Care Physician [facility] 07-05-2024 08:31-0400 Diastolic blood pressure 76 mm[Hg] No Primary Care Physician [facility] 07-05-2024 08:31-0400 Systolic blood pressure 122 mm[Hg] No Primary Care Physician [facility] 06-22-2024 14:21-0400 Body mass index (BMI) [Ratio] 29.8 kg/m2 No Primary Care Physician [facility] 06-22-2024 14:21-0400 Body weight 81.3 kg No Primary Care Physician [facility] 06-22-2024 14:21-0400 Diastolic blood pressure 84 mm[Hg] No Primary Care Physician [facility] 06-22-2024 14:21-0400 Systolic blood pressure 139 mm[Hg] No Primary Care Physician [facility] 06-06-2024 12:57-0400 Body height 165.1 cm No Primary Care Physician [facility] 06-06-2024 12:57-0400 Body mass index (BMI) [Ratio] 28.8 kg/m2 No Primary Care Physician [facility] 06-06-2024 12:57-0400 Body weight 78.69 kg No Primary Care Physician [facility] 06-06-2024 12:57-0400 Diastolic blood pressure 82 mm[Hg] No Primary Care Physician [facility] 06-06-2024 12:57-0400 Systolic blood pressure 129 mm[Hg] No Primary Care Physician [facility] 05-11-2024 10:21-0400 Body height 165.1 cm No Primary Care Physician [facility] 05-11-2024 10:21-0400 Body mass index (BMI) [Ratio] 28.5 kg/m2 No Primary Care Physician [facility] 05-11-2024 10:21-0400 Body weight 77.73 kg No Primary Care Physician [facility] 05-11-2024 10:21-0400 Diastolic blood pressure 83 mm[Hg] No Primary Care Physician [facility] 05-11-2024 10:21-0400 Systolic blood pressure 121 mm[Hg] No Primary Care Physician [facility] 04-21-2024 11:20-0500 Body mass index (BMI) [Ratio] 28 kg/m2 No Primary Care Physician [facility] 04-21-2024 11:20-0500 Body weight 76.31 kg No Primary Care Physician [facility] 04-21-2024 11:20-0500 Diastolic blood pressure 89 mm[Hg] No Primary Care Physician [facility] 04-21-2024 11:20-0500 Systolic blood pressure 143 mm[Hg] No Primary Care Physician [facility] 03-17-2022 14:59-0500 Body height 165.1 cm Johanna Nazzaro DO Work Phone: [facility] 03-17-2022 14:59-0500 Body weight 78.34 kg Johanna Nazzaro DO Work Phone: [facility] 03-17-2022 14:59-0500 Diastolic blood pressure 85 mm[Hg] Johanna Nazzaro DO Work Phone: [facility] 03-17-2022 14:59-0500 Heart rate 110 /min Johanna Nazzaro DO Work Phone: [facility] 03-17-2022 14:59-0500 SaO2% (BldA) [Mass fraction] 98 % Johanna Nazzaro DO Work Phone: [facility] 03-17-2022 14:59-0500 Systolic blood pressure 130 mm[Hg] Johanna Nazzaro DO Work Phone: [facility] 02-24-2022 15:49-0500 Heart rate 96 /min Johanna Rojas APRN.PLATER APPRENTICE Work Phone: [facility] 02-24-2022 15:25-0500 Body temperature 98.29 [degF] Johanna Rojas APRN.PLATER APPRENTICE Work Phone: [facility] 02-24-2022 15:25-0500 Body weight 70.31 kg Johanna Rojas APRN.PLATER APPRENTICE Work Phone: [facility] 02-24-2022 15:25-0500 Diastolic blood pressure 83 mm[Hg] Johanna Rojas APRN.PLATER APPRENTICE Work Phone: [facility] 02-24-2022 15:25-0500 Respiratory rate 16 /min Johanna Rojas APRN.PLATER APPRENTICE Work Phone: [facility] 02-24-2022 15:25-0500 SaO2% (BldA) [Mass fraction] 99 % Johanna Gillisradha RANGEL.PLATER APPRENTICE Work Phone: [facility] 02-24-2022 15:25-0500 Systolic blood pressure 122 mm[Hg] Johanna Rojas APRN.PLATER APPRENTICE Work Phone: [facility] 11-06-2021 16:15-0400 Body height 162.56 cm Brenda Mccall Other [facility] Other 11-06-2021 16:15-0400 Body mass index (BMI) [Ratio] 27.98 kg/m2 Brenda Charmaineite Other [facility] Other 11-06-2021 16:15-0400 Body temperature 98.9 [degF] Brenda Cal Other [facility] Other 11-06-2021 16:15-0400 Body weight 73.94 kg Brenda Charmaineite Other [facility] Other 11-06-2021 16:15-0400 Diastolic blood pressure 82 mm[Hg] Brenda Mccall Other [facility] Other 11-06-2021 16:15-0400 Heart rate 89 /min Brenda Mccall Other [facility] Other 11-06-2021 16:15-0400 Respiratory rate 18 /min Brenda Hernandezwaite Other [facility] Other 11-06-2021 16:15-0400 SaO2% (BldA) [Mass fraction] 99 % Brenda Mccall Other [facility] Other 11-06-2021 16:15-0400 Systolic blood pressure 138 mm[Hg] Brenda Mccall Other [facility] Other Encounters Encounter Date Encounter Type Care Provider Facility Start: 09-18-2024 End: 09-18-2024 Patient encounter procedure Bonnie BOWEN [facility] Work Phone: Start: 09-18-2024 End: 09-18-2024 ambulatory No Primary Care Physician -[facility] Start: 08-30-2024 End: 08-30-[address] Brenda Hernandez DO -[facility] Work Phone: Start: 08-30-2024 End: 08-30-[address] Brenda Hernandez DO Work Phone: -[facility] Start: 08-03-2024 End: 08-03-2024 Patient encounter procedure Yamilex Delvalle CNM -[facility] Work Phone: Start: 08-03-2024 End: 08-03-2024 ambulatory No Primary Care Physician [facility] Work Phone: Start: 07-20-2024 End: 07-20-2024 ambulatory No Primary Care Physician [facility] Work Phone: Start: 07-20-2024 End: 07-20-[address] Brenda Hernandez DO -[facility] Work Phone: Start: 07-20-2024 End: 07-20-2024 ambulatory No Primary Care Physician Facility:[facility] Start: 07-10-2024 End: 07-10-2024 ambulatory No Primary Care Physician [facility] Work Phone: Start: 07-10-2024 End: 07-10-2024 Patient encounter procedure Richard Meng PA -[facility] Work Phone: Start: 07-10-2024 End: 07-10-2024 ambulatory Brenda Hernandez Facility:[facility] Start: 07-08-2024 End: 07-08-2024 Patient encounter procedure Richard ELAINE -[facility] Work Phone: Start: 07-08-2024 End: 07-08-2024 ambulatory No Primary Care Physician [facility] Work Phone: Start: 07-05-2024 End: 07-05-2024 ambulatory No Primary Care Physician [facility] Work Phone: Start: 07-05-2024 End: 07-05-2024 Patient encounter procedure Bonnie Ruiz NP-C -[facility] Work Phone: Start: 07-05-2024 End: 07-05-2024 Patient encounter procedure Bonnie Ruiz POSTDOCTORAL RESEARCH FELLOW-C -[facility] Work Phone: Start: 07-05-2024 End: 07-05-2024 ambulatory No Primary Care Physician [facility] Work Phone: Start: 07-05-2024 End: 07-05-2024 ambulatory Brenda Hernandez Facility:[facility] Start: 06-22-2024 End: 06-22-2024 Patient encounter procedure Yamilex Delvalle CNM -[facility] Work Phone: Start: 06-22-2024 End: 06-22-2024 ambulatory Brenda Hernandez Facility:[facility] Start: 06-06-2024 End: 06-06-2024 ambulatory No Primary Care Physician [facility] Work Phone: Start: 06-06-2024 End: 06-06-[address] Brenda Hernandez DO -Laboratory, [facility] Work Phone: Start: 06-06-2024 End: 06-06-[address] Brenda Hernandez DO -[facility] Work Phone: Start: 06-06-2024 End: 06-06-2024 ambulatory Brenda Hernandez Facility:[facility] Start: 06-06-2024 End: 06-06-2024 ambulatory Brenda Hernandez Facility:[facility] Start: 05-11-2024 End: 05-11-[address] Brenda Hernandez DO -[facility] Work Phone: Start: 05-11-2024 End: 05-11-2024 ambulatory No Primary Care Physician [facility] Work Phone: Start: 05-11-2024 End: 05-11-2024 ambulatory Brenda Hernandez Facility:[facility] Start: 04-23-2024 End: 04-23-2024 ambulatory No Primary Care Physician [facility] Work Phone: Start: 04-23-2024 End: 04-23-[address] Brenda Hernandez DO -Laboratory Work Phone: Start: 04-23-2024 End: 04-23-2024 ambulatory Brenda Hernandez Facility:[facility] Start: 04-21-2024 End: 04-21-2024 Patient encounter procedure Lacy ARTEAGA -[facility] Work Phone: Start: 04-21-2024 End: 04-21-2024 ambulatory No Primary Care Physician [facility] Work Phone: Start: 04-21-2024 End: 04-21-2024 ambulatory No Primary Care Physician Facility:[facility] Start: 01-24-2024 End: 01-24-[address] Krystle Enriquez MD -Lab, [facility] Start: 01-24-2024 End: 01-24-2024 ambulatory No Primary Care Physician Facility:[facility] Start: 01-12-2024 End: 01-12-[address] Brenda Morrison, [facility] Start: 01-12-2024 End: 01-12-2024 ambulatory No Primary Care Physician Facility:[facility] Start: 01-08-2024 End: 01-08-[address] Brenda [facility] Work Phone: Start: 01-08-2024 End: 01-08-2024 ambulatory No Primary Care Physician Facility:[facility] Start: 01-06-2024 End: 01-06-[address] Brenda Morrison, [facility] Start: 01-06-2024 End: 01-06-2024 ambulatory No Primary Care Physician Facility:[facility] Start: 09-24-2023 End: 09-24-2023 ambulatory No Primary Care Physician Facility:[facility] Start: 06-26-2022 Telephone encounter Johanna xiong DO Work Phone: [facility] Comment on above: Opened In Error Start: 03-26-2022 ambulatory Johanna bejarano DO Work Phone: [facility] Comment on above: Future Start: 03-17-2022 End: 03-17-2022 Patient encounter procedure Johanna Nieves DO Work Phone: [facility] Comment on above: Encounter for gyneco logical examination (general) (routine) without abnormal findings (Primary Dx); examination or test, negative result; Spontaneous loss; Encounter for screening for malignant neoplasm of cervix Start: 03-17-2022 End: 03-17-2022 Patient encounter status Johanna Nieves DO Work Phone: [facility] Start: 03-17-2022 End: 03-17-2022 ambulatory JOHANNA NIEVES Facility[facility] Start: 03-16-2022 End: 03-17-2022 Subsequent hospital visit by physician Provider [facility] Start: 03-16-2022 End: 03-16-2022 ambulatory JOHANNA NIEVES Facility[facility] Start: 03-16-2022 End: 03-16-2022 Nursing evaluation of patient and report Nurse Clinical Mental Health Counselor [facility] [place] Work Phone: [facility] Comment on above: of unknown anatomic location (Primary Dx); Encounter for test, result positive Start: 03-12-2022 Telephone encounter Johanna xiong DO Work Phone: [facility] Comment on above: Results Start: 03-12-2022 ambulatory JOHANNA NIEVES Facil ity:[facility] Start: 03-12-2022 End: 03-12-2022 Subsequent hospital visit by physician Provider [facility] Start: 03-12-2022 End: 03-12-2022 ambulatory JOHANNA NIEVES Facility:[facility] Start: 03-12-2022 End: 03-12-2022 Nursing evaluation of patient and report Nurse Clinical Mental Health Counselor [place] Work Phone: [facility] Comment on above: of unknown anatomic location (Primary Dx) Start: 03-12-2022 End: 03-12-2022 Patient encounter procedure Ultrasound Clinical Mental Health Counselor [facility] [place] Work Phone: [facility] Comment on above: of unknown anatomic location (Primary Dx) Start: 03-12-2022 End: 03-12-2022 [facility] Start: 03-10-2022 Telephone encounter Johanna xiong DO Work Phone: [facility] Comment on above: Appointment Results Start: 03-10-2022 End: 03-10-2022 ambulatory JOHANNA NIEVES Facility[facility] Start: 03-10-2022 End: 03-10-2022 [facility] Start: 03-10-2022 End: 03-10-2022 Nursing evaluation of patient and report Nurse Clinical Mental Health Counselor [place] Work Phone: [facility] Comment on above: of unknown anatomic location (Primary Dx) Start: 03-08-2022 ambulatory JOHANNA C NAABDONARO Facil ity:[facility] Start: 03-08-2022 End: 03-08-2022 Subsequent hospital visit by physician Provider [facility] Start: 03-06-2022 Telephone encounter Johanna xiong DO Work Phone: [facility] Comment on above: Results Start: 03-06-2022 End: 03-06-2022 ambulatory JOHANNA C NAZZARO Facility[facility] Start: 03-06-2022 End: 03-06-2022 Subsequent hospital visit by physician Provider [facility] Start: 03-06-2022 End: 03-06-2022 Nursing evaluation of patient and report Nurse Clinical Mental Health Counselor [place] Work Phone: [facility] Comment on above: of unknown anatomic location (Primary Dx) Start: 03-05-2022 Telephone encounter Johanna xiong DO Work Phone: [facility] Comment on above: Results Start: 03-04-2022 Telephone encounter Johanna xiong DO Work Phone: [facility] Comment on above: Patient Question; Pa tient Update Start: 03-04-2022 End: 03-04-2022 Subsequent hospital visit by physician Provider [facility] Start: 03-04-2022 End: 03-04-2022 ambulatory JOHANNA Roach NAZZARO Facility[facility] Start: 03-04-2022 End: 03-04-2022 Nursing evaluation of patient and report Nurse Clinical Mental Health Counselor [facility] [place] Work Phone: [facility] Comment on above: of unknown anatomic location (Primary Dx) Start: 03-02-2022 End: 03-02-2022 ambulatory JOHANNA C NAZZARO Facility[facility] Start: 03-02-2022 End: 03-02-2022 Subsequent hospital visit by physician Provider [facility] Start: 02-28-2022 ambulatory JOHANNA C NAZZARO Facil ity:[facility] Start: 02-28-2022 End: 02-28-2022 Subsequent hospital visit by physician Provider [facility] Start: 02-27-2022 Telephone encounter Johanna xiong DO Work Phone: [facility] Comment on above: Patient Update; Cynthia ent Question; Appointment Start: 02-26-2022 End: 02-27-2022 Emergency department patient visit GENEVIEVE SANCHEZ Facility:[facility] Start: 02-26-2022 End: 02-27-2022 Subsequent hospital visit by physician Provider [facility] Start: 02-26-2022 Telephone encounter Johanna Rojas TOOTH CUTTER.PLATER APPRENTICE Work Phone: [facility] Comment on above: Results Start: 02-24-2022 End: 02-24-2022 ambulatory FC-JOHANNA ROJAS Facility[facility] Start: 02-24-2022 End: 02-24-2022 Subsequent hospital visit by physician Provider [facility] Start: 02-24-2022 End: 02-24-2022 Patient encounter procedure Johanna Rojas TOOTH CUTTER.PLATER APPRENTICE Work Phone: [facility] Comment on above: Urinary tract infect ion symptoms (Primary Dx) Start: 12-12-2021 End: 12-12-2021 ambulatory Timothy Anna Other [facility] Other Start: 12-12-2021 Telephone encounter Timothy Ross [facility] Start: 12-11-2021 End: 12-11-2021 ambulatory Timothy Anna Other [facility] Other Start: 12-11-2021 Telephone encounter Timothy Ross [facility] Start: 12-04-2021 End: 12-04-2021 ambulatory Timothy Anna Other [facility] Other Start: 12-04-2021 Telephone encounter Timothy Ross [facility] Start: 11-07-2021 End: 11-07-2021 ambulatory Timothy Anna Other [facility] Other Start: 11-07-2021 Telephone encounter Timothy Ross [facility] Start: 11-06-2021 End: 11-06-2021 ambulatory Brenda Mccall Other [facility] Other Start: 11-06-2021 Encounter for other specified special examinations [facility] Start: 11-06-2021 Periodic preventive med est patient 18-39 yrs [facility] Start: 11-05-2021 End: 11-05-2021 ambulatory Timothy Anna Other [facility] Other Start: 11-05-2021 Telephone encounter Timothy Ross [facility] Start: 01-14-2019 End: 01-14-2019 Patient encounter procedure ANTHONY GONGORA Facility:[facility] Procedures Date Procedure Procedure Detail Performing Clinician Start: 07-20-2024 Ultrasonography in f irst trimester No Primary Care Physician Start: 07-10-2024 Urine culture No Primar y Care Physician Start: 07-10-2024 Urnls dip stick/tabl et reagent auto microscopy No Primary Care Physician Start: 07-05-2024 Urine culture No Primar y Care Physician Start: 06-06-2024 End: 06-06-2024 Polymerase chain reaction analysis No Primary Care Physician Start: 05-11-2024 Hepatitis C antibody measurement No Primary Care Physician Comment on above: Reactive: Presumptiv e evidence of antibodies to HCV. Follow CDC recommendations for supplemental testing.Non-Reactive: Antibodies to HCV were not detected; does not exclude the possibility of exposure to HCVReactive Results are presumptive evidence of antibodies to HCV. Follow CDC recommendations for supplemental testing.Order confirmation testing: HCV Quant by PCR testing - HCVPCR #[id number] Non Reactive: < 0.8 Equivocal: >/= 0.8 to < 1.0 Reactive: >/= 1.0The CDC requires that a reactive/equivocal HCV antibody result be sent out for confirmation. HCV Quant by PCR testing. Start: 05-11-2024 Rubella IgG measurement No Primary Care Physician Comment on above: Antibody Result: Int erpretationNon-Reactive: Non- ImmuneReactive: ImmuneThe following results were obtained with the [employer] Rubella IgG assay. Results from assays of other manufacturers cannot be used interchangeably. Start: 05-11-2024 Serologic test for syphilis No Primary Care Physician Start: 03-17-2022 Urine test visual color cmprsn meths Johanna Nazzaro DO Work Phone: Start: 03-17-2022 IGP,RFX APTIMA HPV A SCU ([id number]) Johanna Nazzaro DO Work Phone: Start: 03-16-2022 HCG QUANTITATIVE Jessic a Nazzaro DO Work Phone: Start: 03-12-2022 HCG QUANTITATIVE Jessic a Nazzaro DO Work Phone: Start: 03-12-2022 US OB TRANSVAGINAL Ernestina ica Nazzaro DO Work Phone: Start: 03-10-2022 HCG QUANTITATIVE Jessic a Nazzaro DO Work Phone: Start: 03-08-2022 HCG QUANTITATIVE Jessic a Nazzaro DO Work Phone: Start: 03-06-2022 HCG QUANTITATIVE Jessic a Nazzaro DO Work Phone: Start: 03-04-2022 HCG QUANTITATIVE Jessic a Nazzaro DO Work Phone: Start: 03-02-2022 HCG QUANTITATIVE Jessic a Nazzaro DO Work Phone: Start: 02-28-2022 HCG QUANTITATIVE Jessic a Nazzaro DO Work Phone: Start: 02-27-2022 US OB TRANSVAGINAL Gretta n Klepzig Sanchez Work Phone: Start: 02-26-2022 ABO AND RH ONLY Genevieve Sanchez Work Phone: Start: 02-26-2022 CBC + DIFF Genevieve Sanchez Work Phone: Start: 02-26-2022 HCG QUANTITATIVE Genevieve Sanchez Work Phone: Start: 02-26-2022 URINALYSIS WITH MICROSCOPIC, REFLEX CULTURE Freddy Durham Work Phone: Start: 02-24-2022 Bacteria identified in Urine by Culture Johanna Rojas APRN.PLATER APPRENTICE Work Phone: Start: 02-24-2022 End: 02-24-2022 Urine test visual color cmprsn meths Johanna Rojas APRN.PLATER APPRENTICE Work Phone: H/O: surgery S/P D&C (status post dilation and curettage) No Primary Care Physician Comment on above: 08/20/23 SM H/O: surgery S/P D&C (status post dilation and curettage) Dr. Brenda Hernandez DO H/O: surgery S/P D&C (status post dilation and curettage) Dr. Brenda Hernandez DO H/O: surgery S/P D&C (status post dilation and curettage) Yamilex Delvalle CNM Plan of Treatment Date Care Activity Detail Author Start: 03-17-2025 PAP TESTING PAP TESTING [facility] Start: 09-18-2024 CBC W Auto Different ial panel - Blood [facility] Start: 09-18-2024 Measurement of gluco se 2 hours after glucose challenge for glucose tolerance test [facility] Start: 09-18-2024 Serologic test for syphilis [facility] Start: 09-18-2024 [facility] Start: 10-23-2022 Influenza vaccination [facility] Start: 02-22-2022 DEPRESSION ASSESSMENT DEPRESSION ASS ESSMENT [facility] Start: 10-23-2021 Influenza vaccination INFLUENZA (#1) [facility] Start: 2018 PAP TESTING PAP TESTING [facility] Start: [address] [facility] Start: 11-12-2015 HEPATITIS C SCREENING HEPATITIS C SC EFREN [facility] Start: 11-12-2015 HIV SCREEN[address] HIV SCREENING [facility] Start: 2013 Meningococcal B Vacc ine: Consider Based On Risk (1 of 2 - Patient Seeks Protection) Meningococcal B Vaccine: Consider Based On Risk (1 of 2 - Patient Seeks Protection) [facility] Start: 11-12-2011 PEDS TO ADULT TRANSI TION ANNUAL ASSESSMENT PEDS TO ADULT TRANSITION ANNUAL ASSESSMENT [facility] Start: 2009 PEDS TO ADULT TRANSI TION INITIAL DISCUSSION PEDS TO ADULT TRANSITION INITIAL DISCUSSION [facility] Start: 2008 HPV VACCINE (1 - 2-d ose series) HPV VACCINE (1 - 2-dose series) [facility] Start: 11-12-2007 MENINGOCOCCAL B: Consider based on risk (1 of 2 - Risk Bexsero 2-dose series) MENINGOCOCCAL B: Consider based on risk (1 of 2 - Risk Bexsero 2-dose series) [facility] Start: 2006 HPV Vaccine (1 - 2-d ose series) HPV Vaccine (1 - 2-dose series) [facility] Start: 05-11-1998 COVID-19 VACCINE (#1) COVID-19 VACCI NE (#1) [facility] Start: 1997 HEPATITIS B (1 of 3 - 3-dose series) HEPATITIS B (1 of 3 - 3-dose series) [facility] Start: 1997 Hepatitis B Vaccine (1 of 3 - 3-dose series) Hepatitis B Vaccine (1 of 3 - 3-dose series) [facility] Bacteria identified in Urine by Culture URINE CULTURE Microbiology Routine Urinary tract infection symptoms Ordered: 02/24/2022 [facility] Work Phone: Comment on above: Ordered: 02/24/2022 CBC W Auto Different ial panel - Blood [facility] End: 02-27-2023 Choriogonadotropin.beta subunit [Units/volume] in Serum or Plasma BETA HCG QUANT TUMOR MARKER Lab Routine of unknown anatomic location 3x per week for 2 Occurrences starting 02/27/2022 until 02/27/2023 [facility] Work Phone: Comment on above: 3x per week for 2 Oc currences starting 02/27/2022 until 02/27/2023 Erythrocyte mean corpuscular volume determination [facility] Hematocrit [Volume Fraction] of Blood [facility] Hemoglobin [Mass/vol ume] in Blood [facility] IGP,RFX APTIMA HPV A SCU ([id number]) IGP,RFX APTIMA HPV ASCU ([id number]) Lab Routine Encounter for screening for malignant neoplasm of cervix Ordered: 03/17/2022 [facility] Work Phone: Comment on above: Ordered: 03/17/2022 Leukocytes [#/volume ] in Blood [facility] Mean corpuscular hemoglobin concentration determination [facility] Mean corpuscular hemoglobin determination [facility] Measurement of gluco se 2 hours after glucose challenge for glucose tolerance test [facility] Neutrophil count [facility] Neutrophil percent differential count [facility] Platelets [#/volume] in Blood [facility] Polymerase chain reaction analysis [facility] Red blood cell count [facility] Red cell distributio n width determination [facility] Serologic test for syphilis [facility] Urinalysis complete panel - Urine [facility] Urine test visual color cmprsn meths HCG QUAL UR B/O Lab Routine Encounter for test, result positive Ordered: 03/16/2022 [facility] Work Phone: Comment on above: Ordered: 03/16/2022 End: 04-09-2023 Us transvaginal US FEMALE PELVIS TRANSVAG Radiology Routine of unknown anatomic location 1 Occurrences starting 03/10/2022 until 04/09/2023 [facility] Work Phone: Comment on above: 1 Occurrences starti ng 03/10/2022 until 04/09/2023 [facility] Immunizations Immunization Date Immunization Notes Care Provider Domenic rodriguez 10-12-2020 SARS-COV-2 vaccine ( MOD) (2) (Covid-19) Timothy Anna Other [facility] Other 09-11-2020 SARS-COV-2 vaccine ( MOD) (1) (COVID-19) Timothy Anna Other [facility] Other 09-30-2016 hepatitis A vaccine, pediatric/adolescent dosage, 2 dose schedule Timothy Anna Other [facility] Other 08-22-2015 meningococcal oligosaccharide (groups A, C, Y and W-135) diphtheria toxoid conjugate vaccine (MCV4O) Timothy Anna Other [facility] Other 06-10-2011 Hep A, unspecified formulation Timothy Anna Other [facility] Other 10-06-2010 diphtheria, tetanus toxoids and acellular pertussis vaccine Timothy Anna Other [facility] Other 06-21-2003 Hep B, unspecified formulation (CPT 01086 Inactive) Timothy Anna Other [facility] Other 06-14-2003 diphtheria, tetanus toxoids and acellular pertussis vaccine Timothy Anna Other [facility] Other 10-09-2002 Hep B, unspecified formulation (CPT 99380 Inactive) Timothy Anna Other [facility] Other 12-16-2000 Hep B, unspecified formulation (CPT 49050 Inactive) Timothy Anna Other [facility] Other 12-16-2000 measles, mumps and rubella virus vaccine Timothy Anna Other [facility] Other 12-16-2000 varicella virus vaccine Sam Anna Other [facility] Other 02-25-2000 poliovirus vaccine, inactivated Timothy Anna Other [facility] Other 03-19-1999 poliovirus vaccine, inactivated Timothy Anna Other [facility] Other 03-06-1999 diphtheria, tetanus toxoids and acellular pertussis vaccine Timothy Anna Other [facility] Other 12-24-1998 varicella virus vaccine Sam Anna Other [facility] Other 12-24-1998 measles, mumps and rubella virus vaccine Timothy Anna Other [facility] Other 06-04-1998 diphtheria, tetanus toxoids and acellular pertussis vaccine Timothy Anna Other [facility] Other 03-05-1998 diphtheria, tetanus toxoids and acellular pertussis vaccine Timothy Anna Other [facility] Other 02-27-1998 poliovirus vaccine, inactivated Timothy Anna Other [facility] Other 01-16-1998 poliovirus vaccine, inactivated Timothy Anna Other [facility] Other 01-15-1998 diphtheria, tetanus toxoids and acellular pertussis vaccine Timothy Anna Other [facility] Other Payers Date Payer Category Payer Unknown [id number] 2024 Unknown [id number] 2023 Self-pay 2021 [facility] [id number] 2019 Unknown 1997 Unknown [id number] 2.16.8 40.1.118829.3.579.2.196 Unknown [id number] 2.16.8 40.1.731037.3.579.2.283 Unknown [id number] 2.16.8 40.1.145574.3.579.2.283 Unknown [id number] 2.16.8 40.1.531960.3.579.2.283 Unknown [id number] 2.16.8 40.1.827428.3.579.2.283 Unknown [id number] 2.16.8 40.1.400946.3.579.2.283 Unknown [id number] 2.16.8 40.1.629841.3.579.2.283 Unknown [id number] 2.16.8 40.1.324814.3.579.2.283 Unknown [id number] 2.16.8 40.1.558042.3.579.2.283 Unknown [id number] 2.16.8 40.1.613859.3.579.2.283 Unknown [id number] 2.16.8 40.1.408115.3.579.2.283 Unknown [id number] 2.16.8 40.1.819052.3.579.2.283 Unknown [id number] 2.16.8 40.1.765924.3.579.2.283 Unknown [id number] 2.16.8 40.1.813638.3.579.2.462 Unknown [id number] 2.16.8 40.1.789356.3.579.2.462 Unknown [id number] 2.16.8 40.1.017450.3.579.2.462 Unknown [id number] 2.16.8 40.1.923147.3.579.2.462 Unknown [id number] 2.16.8 40.1.151878.3.579.2.462 Unknown [id number] 2.16.8 40.1.794472.3.579.2.462 Unknown [id number] 2.16.8 40.1.103869.3.579.2.462 Unknown [id number] 2.16.8 40.1.942821.3.579.2.462 Unknown [id number] 2.16.8 40.1.871180.3.579.2.462 Unknown [id number] 2.16.8 40.1.249903.3.579.2.462 Unknown [id number] 2.16.8 40.1.356776.3.579.2.462 Unknown [id number] 2.16.8 40.1.836928.3.579.2.462 Unknown [id number] 2.16.8 40.1.384247.3.579.2.462 Unknown [id number] 2.16.8 40.1.267855.3.579.2.462 Unknown [id number] 2.16.8 40.1.067263.3.579.2.462 Unknown [id number] 2.16.8 40.1.875516.3.579.2.462 Unknown [id number] 2.16.8 40.1.373344.3.579.2.462 Unknown [id number] 2.16.8 40.1.211508.3.579.2.462 Unknown [id number] 2.16.8 40.1.440438.3.579.2.462 Unknown [id number] 2.16.8 40.1.226488.3.579.2.462 Unknown [id number] 2.16.8 40.1.228016.3.579.2.462 Unknown [id number] 2.16.8 40.1.543090.3.579.2.462 Social History Date Type Detail Facility History of Tobacco Use [facility] Other Start: 12-13-2020 End: 04-24-2024 Tobacco smoking status NHIS Never Smoker [facility] Start: 02-24-2022 End: 03-08-[address] [facility] Other Start: 1995 Sex Assigned At Female [facility] Start: 02-24-2022 Tobacco use and exposure Smokeless tobacco non-user [facility] Start: 1995 Sex Assigned At Not on file [facility] Tobacco smoking status HIIS Tobacco smoking consumption unknown [facility] Start: 02-24-2022 End: 03-08-2022 History of Social function [facility] National Score (1-100), lower number is lower risk 55 [facility] Start: 05-04-2024 End: 06-08-2024 Sex Female (finding) [facility] Clinical Notes 07-25-2020 to 08-30-2024 Note Date & Type Note Facility 08-30-2024 Progress note [facility] 08-03-2024 Progress note [facility] 07-21-2024 Radiology Diagnostic study note [facility] Imaging Services [address] [place] [address] OB Anatomy w/ Transvaginal MR#: [id number] Acct: [id number] Name: KASSANDRA BAUTISTA GONSALOLEANNA Rep #: [id number] : 1995 F 28 From: Ed Vazquez MD PCP: Care Physician,No Primary Status: REG CLI Study:OB Anatomy w/ Transvaginal Date of Exam : 07/20/24 Exam# [id number] Ordering Dr: Brenda Kang DO PROCEDURE: OB ANATOMY W/ TRANSVAGINAL 07/20/2024 REASON FOR EXAM: ANATOMY/CERVICAL LENGTH TECHNIQUE: High resolution obstetric ultrasound performed using a 2D transducer. Standard views obtained, including biometry, anatomy survey, and Doppler studies. COMPARISON: None FINDINGS LMP: March 07, 2024. Number: 1 Position: Vertex Placental Position: Anterior and not low-lying. Placental Abnormalities: None DIMENSIONS: Biparietal Diameter: 4.42 cm: 19 weeks and 3 days: 54 percentile/ Head Circumference: 16.65 cm: 19 weeks and 2 days: 45th percentile/ Abdominal Circumference: 14.11 cm: 19 weeks and 3 days: 52nd percentile/ Femur Length: 2.76 cm: 18 weeks and 3 days: 16 percentile/ ESTIMATED WEIGHT: 272 g plus/-41 g ESTIMATED WEIGHT PERCENTILE (24+ weeks): 33rd ESTIMATED GESTATIONAL AGE: Baseline: 19 weeks and 2 days By Ultrasound: 19 weeks and 1 day ESTIMATED DATE OF DELIVERY: Baseline: December 12, 2024 By Ultrasound: December 13, 2024 BIOPHYSICAL ASSESSMENT: Amniotic Fluid Volume: 4.1 Amniotic Fluid Index: Within normal limits. ( Cardiac Motion: 160 beats per minute (average) Trunk and Limb Motion: Present. MATERNAL ANATOMY: Adnexa: Both maternal ovaries are visualized and unremarkable. Cervical Length (if measured): 3.5 cm ANATOMY: Spine: Unremarkable Cranium: Unremarkable Cerebellum: Unremarkable Cisterna Magna: Unremarkable Cavum Septum Pellucidi: Unremarkable Lateral Ventricles: Unremarkable Choroid Plexus: Unremarkable Midline Falx: Unremarkable Nuchal Fold: Unremarkable Heart: Unremarkable Stomach: Unremarkable Kidneys: Unremarkable Bladder: Unremarkable Umbilical Cord: Unremarkable Extremities: Unremarkable US/OB Anatomy w/ Transvaginal IMPRESSION: Single live intrauterine gestation with a mean gestational age of 19 weeks and 1day. Reading Location: [facility] CC: Dr. Brenda Vande Velde, DO; No Primary Care Physician ~ Supervisor Sulfuric Acid Plant: Signed [facility] 06-06-2024 Evaluation note Diagnosis Onset Date Resolution Adopted person acute May 12:39pm History of recurrent miscarriages acute June 06, 2024 12:39pm acute June 06 12:39pm Supervision of high-risk acute June 06, 2024 12:39pm S/P D&C (status post dilation and curettage) resolved June 062024 12:39pm Spotting in early resolved June 06, 2024 12:39pm Adopted person acute June 22 025 2:09pm History of recurrent miscarriages acute June 22, 2024 2: 09pm acute June 22, 2024 2:09pm Supervision of high-risk acute June 22 2:09pm S/P D&C (status post dilation and curettage) resolved June 22, 2024 2:09pm Spotting in early resolved June 22, 2024 2: 09pm Adopted person acute July 05, 2024 8:21am History of recurrent miscarriages acute July 05, 2024 8 :21am Maternal varicella, non-immune acute July 05, 2024 8 :21am acute July 05, 2024 8:21am Supervision of high-risk acute July 05 8:21am Asymptomatic bacteriuria acute July 08, 2024 9 :54am Adopted person acute August 03, 2024 10:11am Asymptomatic bacteriuria acute August 03, 2024 10:11am History of recurrent miscarriages acute August 03, 2024 10:11am Maternal varicella, non-immune acute August 03, 2024 10:11am acute August 03 10:11am Supervision of high-risk acute August 03 025 10:11am Adopted person acute August 30, 2024 8:41am Asymptomatic bacteriuria acute August 30, 2024 8 :41am History of recurrent miscarriages acute August 30, 2024 8 :41am Maternal varicella, non-immune acute August 30, 2024 8 :41am acute August 30, 2024 8:41am Supervision of high-risk acute August 30 8:41am Adopted person acute September 18, 2024 8:21am Asymptomatic bacteriuria acute September 18, 2024 8:21am History of recurrent miscarriages acute September 18, 2024 8:21am Maternal varicella, non-immune acute September 18, 2024 8:21am acute September 18 8:21am Supervision of high-risk acute September 18, 025 8:21am [facility] Work Phone: 1(150) 428-415503-20-2025 Evaluation note* Diagnosis Onset Date Resolution Status Admit Date Adopted person acute April 10:15am History of recurrent miscarriages acute May 11, 2024 10:15am acute May 11 10:15am Supervision of high-risk acute May 11, 2024 10:15am S/P D&C (status post dilatio n and curettage) resolved May 11, 2024 10:15am Spotting in early resolved May 11, 2024 10:15am Adopted person acute May 12:39pm History of recurrent miscarriages acute June 06, 2024 12:39pm acute June 06 12:39pm Supervision of high-risk acute June 06, 2024 12:39pm S/P D&C (status post dilatio n and curettage) resolved June 06, 2024 12:39pm Spotting in early resolved June 06, 2024 12:39pm Adopted person acute June 22, 2 025 2:09pm History of recurrent miscarriages acute June 22, 2024 2: 09pm acute June 22, 2024 2:09pm Supervision of high-risk acute June 22, 2024 2: 09pm S/P D&C (status post dilatio n and curettage) resolved June 22, 2024 2: 09pm Spotting in early resolved June 22, 2024 2:09pm Adopted person acute July 05, 2024 8:21am History of recurrent miscarriages acute July 05, 2024 8 :21am Maternal varicella, non-immune acute July 05, 2024 8:21am acute July 05, 2024 8:21am Supervision of high-risk acute July 05, 2024 8 :21am Asymptomatic bacteriuria acute July 08, 2024 9:54am Adopted person acute August 03, 2024 10:11am Asymptomatic bacteriuria acute August 03, 2024 10:11am History of recurrent miscarriages acute August 03, 2024 10:11am Maternal varicella, non-immune acute August 03, 2024 10:11am acute August 03 10:11am Supervision of high-risk acute August 03, 2024 10:11am Adopted person acute August 30, 2024 8:41am Asymptomatic bacteriuria acute August 30, 2024 8:41am History of recurrent miscarriages acute August 30, 2024 8 :41am Maternal varicella, non-immune acute August 30, 2024 8:41am acute August 30, 2024 8:41am Supervision of high-risk acute August 30, 2024 8 :41am [facility] Work Phone: 1(296) 420-538502-28-2025 Evaluation note* Diagnosis Onset Date Resolution Status Admit Date Adopted person acute March 262024 11:06am History of recurrent miscarriages acute April 21 11:06am acute April 21, 2024 11:06am Spotting in early acute April 21, 2024 11:06am Supervision of high-risk acute April 21 11:06am [facility] Work Phone: 1(821) 982-819202-28-2025 Evaluation note* Diagnosis Onset Date Resolution Status Admit Date Adopted person acute March 262024 11:06am History of recurrent miscarriages acute April 21 11:06am acute April 21, 2024 11:06am Spotting in early acute April 21, 2024 11:06am Supervision of high-risk acute April 21 11:06am Adopted person acute April 10:15am History of recurrent miscarriages acute May 11, 2024 10:15am acute May 11 10:15am S/P D&C (status post dilatio n and curettage) acute May 11, 2024 10:15am Spotting in early acute May 11, 2024 10:15am Supervision of high-risk acute May 11, 2024 10:15am [facility] Work Phone: 1(593) 847-760402-28-2025 Evaluation note* Diagnosis Onset Date Resolution Status Admit Date Adopted person acute March 262024 11:06am History of recurrent miscarriages acute April 21 11:06am acute April 21, 2024 11:06am Spotting in early acute April 21, 2024 11:06am Supervision of high-risk acute April 21 11:06am Adopted person acute April 10:15am History of recurrent miscarriages acute May 11, 2024 10:15am acute May 11 10:15am S/P D&C (status post dilatio n and curettage) acute May 11, 2024 10:15am Spotting in early acute May 11, 2024 10:15am Supervision of high-risk acute May 11, 2024 10:15am Adopted person acute May 12:39pm History of recurrent miscarriages acute June 06, 2024 12:39pm acute June 06 12:39pm S/P D&C (status post dilatio n and curettage) acute June 06, 2024 12:39pm Spotting in early acute June 06, 2024 12:39pm Supervision of high-risk acute June 06, 2024 12:39pm [facility] Work Phone: 1(949) 302-404602-28-2025 Evaluation note* Diagnosis Onset Date Resolution Status Admit Date Adopted person acute March 262024 11:06am History of recurrent miscarriages acute April 21 11:06am acute April 21, 2024 11:06am Supervision of high-risk acute April 21 11:06am Spotting in early resolved April 21, 2024 11:06am Adopted person acute April 10:15am History of recurrent miscarriages acute May 11, 2024 10:15am acute May 11 10:15am Supervision of high-risk acute May 11, 2024 10:15am S/P D&C (status post dilatio n and curettage) resolved May 11, 2024 10:15am Spotting in early resolved May 11, 2024 10:15am Adopted person acute May 12:39pm History of recurrent miscarriages acute June 06, 2024 12:39pm acute June 06 12:39pm Supervision of high-risk acute June 06, 2024 12:39pm S/P D&C (status post dilatio n and curettage) resolved June 06, 2024 12:39pm Spotting in early resolved June 06, 2024 12:39pm Adopted person acute June 22 025 2:09pm History of recurrent miscarriages acute June 22, 2024 2: 09pm acute June 22, 2024 2:09pm Supervision of high-risk acute June 22, 2024 2: 09pm S/P D&C (status post dilatio n and curettage) resolved June 22, 2024 2: 09pm Spotting in early resolved June 22, 2024 2:09pm Adopted person acute July 05, 2024 8:21am History of recurrent miscarriages acute July 05, 2024 8 :21am Maternal varicella, non-immune acute July 05, 2024 8 :21am acute July 05, 2024 8:21am Supervision of high-risk acute July 05, 2024 8 :21am [facility] Work Phone: 1(540) 122-270702-28-2025 Evaluation note* Diagnosis Onset Date Resolution Status Admit Date Adopted person acute March 262024 11:06am History of recurrent miscarriages acute April 21, 025 11:06am acute April 21, 2024 11:06am Supervision of high-risk acute April 21, 2 025 11:06am Spotting in early resolved April 21, 2024 11:06am Adopted person acute April 10:15am History of recurrent miscarriages acute May 11, 2024 10:15am acute May 11 10:15am Supervision of high-risk acute May 11, 2024 10:15am S/P D&C (status post dilatio n and curettage) resolved May 11, 2024 10:15am Spotting in early resolved May 11, 2024 10:15am Adopted person acute May 12:39pm History of recurrent miscarriages acute June 06, 2024 12:39pm acute June 06 12:39pm Supervision of high-risk acute June 06, 2024 12:39pm S/P D&C (status post dilatio n and curettage) resolved June 06, 2024 12:39pm Spotting in early resolved June 06, 2024 12:39pm Adopted person acute June 22, 025 2:09pm History of recurrent miscarriages acute June 22, 2024 2: 09pm acute June 22, 2024 2:09pm Supervision of high-risk acute June 22, 2024 2: 09pm S/P D&C (status post dilatio n and curettage) resolved June 22, 2024 2: 09pm Spotting in early resolved June 22, 2024 2:09pm Adopted person acute July 05, 2024 8:21am History of recurrent miscarriages acute July 05, 2024 8 :21am Maternal varicella, non-immune acute July 05, 2024 8 :21am acute July 05, 2024 8:21am Supervision of high-risk acute July 05, 2024 8 :21am Asymptomatic bacteriuria acute July 08, 2024 9:54am [facility] Work Phone: 1(971) 577-827602-28-2025 Evaluation note* Diagnosis Onset Date Resolution Status Admit Date Adopted person acute March 262024 11:06am History of recurrent miscarriages acute April 21, 025 11:06am acute April 21, 2024 11:06am Supervision of high-risk acute April 21, 025 11:06am Spotting in early resolved April 21, 2024 11:06am Adopted person acute April 10:15am History of recurrent miscarriages acute May 11, 2024 10:15am acute May 11 10:15am Supervision of high-risk acute May 11, 2024 10:15am S/P D&C (status post dilatio n and curettage) resolved May 11, 2024 10:15am Spotting in early resolved May 11, 2024 10:15am Adopted person acute May 12:39pm History of recurrent miscarriages acute June 06, 2024 12:39pm acute June 06 12:39pm Supervision of high-risk acute June 06, 2024 12:39pm S/P D&C (status post dilatio n and curettage) resolved June 06, 2024 12:39pm Spotting in early resolved June 06, 2024 12:39pm Adopted person acute June 22, 2 025 2:09pm History of recurrent miscarriages acute June 22, 2024 2: 09pm acute June 22, 2024 2:09pm Supervision of high-risk acute June 22, 2024 2: 09pm S/P D&C (status post dilatio n and curettage) resolved June 22, 2024 2: 09pm Spotting in early resolved June 22, 2024 2:09pm Adopted person acute July 05, 2024 8:21am History of recurrent miscarriages acute July 05, 2024 8 :21am Maternal varicella, non-immune acute July 05, 2024 8 :21am acute July 05, 2024 8:21am Supervision of high-risk acute July 05, 2024 8 :21am Asymptomatic bacteriuria acute July 08, 2024 9:54am Adopted person acute August 03, 2024 10:11am Asymptomatic bacteriuria acute August 03, 2024 10:11am History of recurrent miscarriages acute August 03, 2024 10:11am Maternal varicella, non-immune acute August 03, 2024 10:11am acute August 03 10:11am Supervision of high-risk acute August 03, 2024 10:11am [facility] Work Phone: [phone]) 257-325101-24-2023 NoteHNO ID: [id number] Author: Johanna Nieves, DO Service: ? Author Type: Physician Type: Progress Notes Filed: 03/17/2022 4:10 PM Note Text: Patient presents for follow up She has been having bhcg q48h due to of unknown location She initially did not have an appropriate rise, did have an appropriate rise for a few levels, then an inappropriate rise At which time she started bleeding at the end of last week, she states the flow was like a period Today she has not had any bleeding Bhcg dropped significantly and was 25 yesterday Today the urine is negative Sexually active with 1 male partner Denies concern for infection Denies pain today Exam: Appears well, in no acute distress No increased respiratory effort Ambulating without difficulty External genitalia wnl, physiologic discharge, no bleeding, cervix appears normal, bimanual non tender A/P: ASSESSMENT/PLAN: 1. Encounter for gynecological examination (general) (routine) without abnormal findings - ICD9: V72.31, ICD10: Z01.419 (primary diagnosis) 2. examination or test, negative result - ICD9: V72.41, ICD10: Z32.02 - HCG QUAL UR B/O 3. Spontaneous loss - ICD9: 634.90, ICD10: O03.9 UPT negative today thus resolved Patient coping well States this was not prevented but not planned, she is interested in contraception; we discussed options including LARC methods She will notify us of her decision 4. Encounter for screening for malignant neoplasm of cervix - ICD9: V76.2, ICD10: Z12.4 - IGP,RFX APTIMA HPV ASCU ([id number]) Johanna Nieves DO This visit was chaperoned by Radha Pereyra spent a total of 30 minutes on the date of the service which included preparing to see the patient, [id number] patient care, completing clinical documentation, obtaining and/or reviewing separately obtained history, performing a medically appropriate examination, counseling and educating the patient/family/caregiver, and ordering medications, tests, or procedures.[facility]01-24-2023 History of Present illness Narrative* Johanna Nieves DO - 03/17/2022 4:07 PM EST Patient presents for follow up She has been having bhcg q48h due to of unknown location She initially did not have an appropriate rise, did have an appropriate rise for a few levels, thenan inappropriate rise At which time she started bleeding at the end of last week, she states the flow was like a period Today she has not had any bleeding Bhcg dropped significantly and was 25 yesterday Today the urine is negative Sexually active with 1 male partner Denies concern for infection Denies pain today Exam: Appears well, in no acute distress No increased respiratory effort Ambulating without difficulty External genitalia wnl, physiologic discharge, no bleeding, cervix appears normal, bimanual non tender A/P: ASSESSMENT/PLAN: 1. Encounter for gynecological examination (general) (routine) without abnormal findings - ICD9: V72.31, ICD10: Z01.419 (primary diagnosis) 2. examination or test, negative result - ICD9: V72.41, ICD10: Z32.02 - HCG QUAL UR B/O 3. Spontaneous loss - ICD9: 634.90, ICD10: O03.9 UPT negative today thus resolved Patient coping well States this was not prevented but not planned, she is interested in contraception; we discussed options including LARC methods She will notify us of her decision 4. Encounter for screening for malignant neoplasm of cervix - ICD9: V76.2, ICD10: Z12.4 - IGP,RFX APTIMA HPV ASCU ([id number]) Johanna Nieves DO This visit was chaperoned by Radha I spent a total of 30 minutes on the date of the service which included preparing to see the patient, [id number] patient care, completing clinical documentation, obtaining and/or reviewing separately obtained history, performing a medically appropriate examination, counseling and educating the pat ient/family/caregiver, and ordering medications, tests, or procedures. documented in this encounterSt[facility] Nurse Note* Matty Becker RN - 03/16/2022 7:24 AM EST Patient presented today for repeat lab work for her bhcg level. Patient reports still bleeding today stating it's honestly like I'm having a period. Patient had sent a secure email to due to not being able to send a message through [employer] on Wednesday showing Dr. Nieves what she had passed. Today patient provided a urine sample for a urine test. It was originally negative at 3 minutes but by 5 minutes showed a faint line. A bhcg level was drawn today in the office. Patient has an in office appointment with Dr. Nieves tomorrow at 2:45PM. No further questions or concerns at this time. Venipuncture performed to right antecubital. Number of tubes collected: 1 gold. Matty Becker RN March 16, 2022 7:18 AM documented in this encounterSt. [facility]-20[facility] Miscellaneous Notes* Telephone Encounter - Jolynn Szymanski MA - 03/12/2022 4:13 PM EST Informed patient. Scheduled her with Dr Nieves next week. * Telephone Encounter - Johanna Nieves DO - 03/12/2022 12:12 PM EST At this point bhcg is not rising appropriately or falling appropriately. Can we add her for an appointment within 1 week? I would recommend d&c as this does not seem to be resolving spontaneously. documented in this encounterSt. [facility]01-19-2023 NoteHNO ID: [id number] Author: Matty Lee Service: ? Author Type: ? Type: Progress Notes Filed: 03/12/2022 7:48 AM Note Text: Kassandra Bautista was seen today for an complete transvaginal obstetric ultrasound to evaluate uterus, ovaries, adnexae, gestation, and viability at 5 weeks. Patient was educated about the exam. All questions and concerns were addressed. Verbal consent was obtained. Patient tolerated the exam well with no concerns voiced throughout the exam. Exam was completed without complication. The exam was submitted to the radiologist for interpretation. Matty Lee RDMSOhiohealth [facility]01-19-2023 History of Present illness Narrative* Matty Lee - 03/12/2022 7:47 AM EST Kassandra Bautista was seen today for an complete transvaginal obstetric ultrasound to evaluate uterus, ovaries, adnexae, gestation, and viability at 5 weeks. Patient was educated about the exam. All questions and concerns were addressed. Verbal consent was obtained. Patient tolerated the exam well withno concerns voiced throughout the exam. Exam was completed without complication. The exam was submitted to the radiologist for interpretation. Matty Lee RDMS documented in this encounterSt. [facility]01-[facility] Nurse Note* Matty Becker RN - 03/12/2022 7:31 AM EST Venipuncture performed to left antecubital. Number of tubes collected: 1 gold. Matty Becker RN March 12, 2022 7:28 AM documented in this encounterSt. [facility]01-[facility]-2023 Miscellaneous Notes* Telephone Encounter - Matty Becker RN - 03/10/2022 1:04 PM EST Patient called in asking if this would be the start of a miscarriage referring to the decreasing bhcg levels. Patient reports that when she went to the bathroom today she had a small amount of brown on the toilet paper. Patient instructed to continue monitoring and to go to the ER if she soaks through 2 or more maxi pads for 2 consecutive hours. Patient also instructed to go to the ER if she starts experiencing abdominal pain. Patient verbalized an understanding. Matty Becker RN March 10, 2022 1:00 PM * Telephone Encounter - Matty Becker RN - 03/10/2022 11:47 AM EST This RN returned the patient's phone call regarding her lab results. Dr. Nieves discussed with this nurse that due to the bhcg levels dropping that we can say that this is a non-viable . Dr. Nieves advises that the patient continue her bhcg levels every 48 hours. Patient is scheduled in our office on 03/12/[address] Nieves would also like the patient to have an ultrasound. Patient is scheduled in our office on 03/12/2022 at 7AM. This RN called patient to discuss these findings with patient. Informed patient that she must continue the blood work and that Dr. Nieves would like the ultrasound. Patient aware of the date and time. Informed patient that this ultrasound is to look at everything but that we don't plan on seeing anything in the uterus. Patient verbalized an understanding. Matty Becker RN March 10, 2022 11:51 AM documented in this encounterSt. [facility]01-17-2023 Miscellaneous Notes* Telephone Encounter - Matty Bceker RN - 03/10/2022 1:01 PM EST Patient is scheduled in our office on 03/12/22 for an ultrasound along with her bhcg blood draw. Matty Becker RN March 10, 2022 1:02 PM * Telephone Encounter - Johanna Nieves DO - 03/10/2022 11:56 AM EST The bhcg dropping over the last two days is now concerning for a non-viable , after it didrise appropriately for a few blood draws. Can we schedule TVUS? A viable would not be visible at this time but I want to assess the ovaries for signs of ectopic . Continue bhcg. documented in this encounterSt. [facility]-20[facility] Nurse Note* Matty Becker RN - 03/10/2022 7:08 AM EST Venipuncture performed to right antecubital. Number of tubes collected: 1 gold. Matty Becker RN March 10, 2022 7:06 AM documented in this encounterSt. [facility]01-13-2023 Miscellaneous Notes* Telephone Encounter - Matty Becker RN - 03/06/2022 1:06 PM EST Patient had called into the office and this RN spoke to patient. Patient was informed of the appropriate rise in the bhcg level. Informed patient that she needed to continue to have the bhcg levels drawn. Patient verbalized an understanding. Matty Becker RN * Telephone Encounter - Johanna Nieves DO - 03/06/2022 12:45 PM EST FYI bhcg ravindra appropriately on this most recent lab draw; continue current mgmt; we still do not know anything definitively but will not intervene given the chance of a viable . documented in this encounterSt. [facility]01-13-2023 Nurse Note* Matty Becker RN - 03/06/2022 7:12 AM EST Venipuncture performed to left forearm. Number of tubes collected: 1 gold. Matty Becker RN March 06, 2022 7:07 AM documented in this encounterSt. [facility]01-[facility]-2023 Miscellaneous Notes* Telephone Encounter - Matty Becker RN - 03/05/2022 9:23 AM EST This RN called patient and informed her of Dr. Nieves's message. Patient asking about control. Informed patient that her bhcg levels have to go down to non- level (negative test) before she is able to start control. Patient is scheduled in our office tomorrow morning for her repeat bhcg. Patient verbalized an understanding. Patient re-educated on bleeding/pain precautions. Matty Becker RN March 05, 2022 9:25 AM * Telephone Encounter - Johanna Nieves DO - 03/05/2022 9:08 AM EST Continue bhcg because they are rising but very slowly - typically this is a sign of a non-viable but do not want to intervene if there could be a viable . Continue with pain/bleeding precautions. documented in this encounterSt. [facility]01-[facility]-2023 Miscellaneous Notes* Telephone Encounter - Matty Becker RN - 03/04/2022 11:05 AM EST Patient called in again asking about the result from today. Patient asking if this still means she isn't viable. Informed patient that we had discussed prior that the number could still rise but thatit isn't rising appropriately and that the is still consider non-viable. Informed patientthat this message would also be sent on to Dr. Nieves but that I may not be able to discuss her case with her until tomorrow when she returns to the office. Patient verbalized an understanding and thanked this nurse for talking with her. Matty Becker RN March 04, 2022 11:07 AM * Telephone Encounter - Matty Becker RN - 03/04/2022 8:24 AM EST Patient has been in contact with this nurse the past couple of days asking questions regarding her bhcg results and future plan of care. This RN has been in contact with Dr. Nieves regarding patient's results and care. Dr. Nieves states that she wants the patient to continue her bhcg levels every48 hours until she reaches a non- level. Dr. Nieves states that she anticipates the numberreaching a level and then plateauing and then decreasing. Dr. Nieves does not anticipate another ultrasound because we would not be able to see anything at the level the bhcg is at. Dr. Nieves states that if the bhcg does not get down to a non- level that she may have to go in for a D&C. Patient was educated on signs and symptoms of an ectopic and when she should report tothe ER. Patient was also educated on bleeding precautions and when she should report to the ER. Patient reports that when she first presented to the ER for something unrelated to the , patient reports having a severe cramp. Patient reports that when she went to the bathroom and wiped that there was a lot of blood and large clot/possible tissue. Patient reports that she isn't sure if this was the or what that was. Patient denies having any pain/discomfort or bleeding since. Informed patient that this message would be sent on to Dr. Nieves and that if her plan of care changes for patient, we would let her know. Patient thanked this nurse for answering all of her questions. No further concerns at this time. Matty Becker RN documented in this encounterSt. [facility]01[facility] Nurse Note* Matty Becker RN - 03/04/2022 7:58 AM EST Patient has been in contact with this nurse the past couple of days asking questions regarding her bhcg results and future plan of care. This RN has been in contact with Dr. Nieves regarding patient's results and care. Dr. Nieves states that she wants the patient to continue her bhcg levels every48 hours until she reaches a non- level. Dr. Nieves states that she anticipates the numberreaching a level and then plateauing and then decreasing. Dr. Nieves does not anticipate another ultrasound because we would not be able to see anything at the level the bhcg is at. Dr. Nieves states that if the bhcg does not get down to a non- level that she may have to go in for a D&C. Patient was educated on signs and symptoms of an ectopic and when she should report tothe ER. Patient was also educated on bleeding precautions and when she should report to the ER. Patient reports that when she first presented to the ER for something unrelated to the , patient reports having a severe cramp. Patient reports that when she went to the bathroom and wiped that there was a lot of blood and large clot/possible tissue. Patient reports that she isn't sure if this was the or what that was. Patient denies having any pain/discomfort or bleeding since. Informed patient that this message would be sent on to Dr. Nieves and that if her plan of care changes for patient, we would let her know. Patient thanked this nurse for answering all of her questions. No further concerns at this time. Matty Becker RN * Matty Becker RN - 03/04/2022 7:58 AM EST Venipuncture performed to right antecubital. Number of tubes collected: 1 gold. Matty Becker RN March 04, 2022 7:15 AM documented in this encounterSt. [facility]01-[facility]-2023 Miscellaneous Notes* Addendum Note - Johanna Nieves DO - 02/27/2022 10:54 AM ESTAddended by: JOHANNA NIEVES on: 02/27/2022 10:54 AM Modules accepted: Orders * Telephone Encounter - Matty Becker RN - 02/27/2022 10:20 AM EST Patient reports that she presented to the ER for increased pressure in her vagina. Patient reports that it wasn't until she was in the ER that she started cramping. Patient reports having blood work done. Patient reports her LMP was 02/01/2022. This would make her 3w5d . Patient reports shehas not missed her period yet. Informed patient that Dr. Nieves advises that she go to [facility] lab tomorrow to have a repeat bhcg drawn and that she can present to our office on Wednesday for a lab draw. Appointment made. Patient verbalizes an understanding of plan of care. No further questions at this time. Matty Becker RN documented in this encounterSt. 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 Cece Carty * Telephone Encounter - Johanna Rojas APRN.CNP - 02/26/2022 10:52 AM EST Urine culture is negative for bacteria. Close follow up with product analyst is recommended. Thanks documented in this encounterSt. Mary'[facility]01-[facility]-2023 NoteHNO ID: [id number] Author: Johanna Rojas APRN.CNP Service: ? Author Type: Nurse Practitioner Type: Progress Notes Filed: 02/24/2022 3:50 PM Note Text: February 24, 2022 Subjective Chief Complaint: UTI (Patient stated that burning and frequent urination x 1 week. OTC: None Patient stated that she has been on Amox from PCP for the past week for her symptoms. Patient also stated that she is . ) HPI: Adela Bautista is a 26 year old female who presents today for 1 week history of urinary tract infection symptoms. Patient states that she has had urinary frequency and burning with urination for 1 week. States that she will initiate a urine stream and will feel a tinge at the end of her urination stream. States that she contacted her primary care provider via telephone and was sent amoxicillin for her symptoms. Patient states she has taken approximately 4 to 5 days worth of the medication with no change in her symptoms. Patient states that she and her found out yesterday that they are . Patient states she is approximately [address] Nieves's office today and established a new patient appointment. Patient denies any vaginal discharge, vaginal bleeding, fever, abdominal pain, flank/back pain, fever, vomiting. Has been drinking lots of cranberry juice. History reviewed. No pertinent past medical history. History reviewed. No pertinent surgical history. History reviewed. No pertinent family history. Social History Tobacco Use Smoking status: Never Smokeless tobacco: Never Vaping Use Vaping Use: Never used ALLERGIES Allergen Reactions Reglan [Metoclopram* Intolerance There is no immunization history on file for this patient. Current Medications: amoxicillin (POLYMOX, AMOXIL) 500 mg capsule Take 500 mg by mouth three times daily. Review of Systems Constitutional: Negative for chills, fever and malaise/fatigue. HENT: Negative. Eyes: Negative. Respiratory: Negative. Cardiovascular: Negative. Gastrointestinal: Negative for diarrhea, nausea and vomiting. Genitourinary: Positive for dysuria and frequency. Negative for flank pain and hematuria. Musculoskeletal: Negative. Skin: Negative. Neurological: Negative. Objective BP 122/83 Pulse 114 Temp 98.3 Resp 16 Wt 155 lb (70.3kg) SpO2 99% LMP 02/01/2022 HR - 96 Physical Exam Vitals reviewed. Constitutional: General: She is not in acute distress. Appearance: Normal appearance. She is not ill-appearing, toxic-appearing or diaphoretic. HENT: Head: Normocephalic and atraumatic. Abdominal: Tenderness: There is no right CVA tenderness or left CVA tenderness. Skin: General: Skin is warm and dry. Capillary Refill: Capillary refill takes less than 2 seconds. Neurological: Mental Status: She is alert and oriented to person, place, and time. Psychiatric: Mood and Affect: Mood normal. Behavior: Behavior normal. Thought Content: Thought content normal. Judgment: Judgment normal. Did show patient that Keflex was safe via [employer] on cell phone ASSESSMENT/PLAN: 1. Urinary tract infection symptoms - ICD9: 788.99, ICD10: R39.9 Increase fluids Avoid caffeine or carbonated drinks at this time Take all medications as ordered ER right away if you note a fever over 100.7, nausea, vomiting, and low back pain. Go to ER May stop Amoxicillin since it is not helping. Start new antibiotic (Keflex) -Educational pamphlet regarding Urinary Tract Infection in given - UA DIP B/O - URINE CULTURE - HCG QUAL UR B/O - CEPHALEXIN 500 MG CAPSULE Johanna Rojas APRN.[facility]01-03-[facility] Instructions* Patient Instructions* Johanna Rojas APRN.[place]ENTON - 02/24/2022 3:43 PM EST Preliminary urine testing completed in [facility] is indicative of a Urinary Tract Infection. We will send your urine to the lab for culture analysis. This is to ensure the antibiotic selected today will indeed treat the bacteria in your urine. A [facility] employee will notify you via telephone withthe results in 2-3 days. Increase fluids Avoid caffeine or carbonated drinks at this time Take all medications as ordered ER right away if you note a fever over 100.7, nausea, vomiting, and low back pain. Go to ER May stop Amoxicillin since it is not helping. Start new antibiotic (Keflex) -Educational pamphlet regarding Urinary Tract Infection in given [facility] History of Present illness Narrative* Johanna Rojas APRN.CNP - 02/24/2022 3:30 PM EST February 24, 2022 Subjective Chief Complaint: UTI (Patient stated that burning and frequent urination x 1 week. OTC: None Patient stated that she has been on Amox from PCP for the past week for her symptoms. Patient also stated that she is . ) HPI: Adela Bautista is a 26 year old female who presents today for 1 week history of urinary tract infection symptoms. Patient states that she has had urinary frequency and burning with urination for 1 week. States that she will initiate a urine stream and will feel a tinge at the end of her urination stream. States that she contacted her primary care provider via telephone and was sent amoxicillinfor her symptoms. Patient states she has taken approximately 4 to 5 days worth of the medication with no change in her symptoms. Patient states that she and her found out yesterday that they are . Patient states she is approximately [address] Nieves's officetoday and established a new patient appointment. Patient denies any vaginal discharge, vaginal bleeding, fever, abdominal pain, flank/back pain, fever, vomiting. Has been drinking lots of cranberry juice. History reviewed. No pertinent past medical history. History reviewed. No pertinent surgical history. History reviewed. No pertinent family history. Social History Tobacco Use Smoking status: Never Smokeless tobacco: Never Vaping Use Vaping Use: Never used ALLERGIES Allergen Reactions Reglan [Metoclopram* Intolerance There is no immunization history on file for this patient. Current Medications: amoxicillin (POLYMOX, AMOXIL) 500 mg capsule Take 500 mg by mouth three times daily. Review of Systems Constitutional: Negative for chills, fever and malaise/fatigue. HENT: Negative. Eyes: Negative. Respiratory: Negative. Cardiovascular: Negative. Gastrointestinal: Negative for diarrhea, nausea and vomiting. Genitourinary: Positive for dysuria and frequency. Negative for flank pain and hematuria. Musculoskeletal: Negative. Skin: Negative. Neurological: Negative. Objective BP 122/83 Pulse 114 Temp 98.3 Resp 16 Wt 155 lb (70.3kg) SpO2 99% LMP 02/01/2022 HR - 96 Physical Exam Vitals reviewed. Constitutional: General: She is not in acute distress. Appearance: Normal appearance. She is not ill-appearing, toxic-appearing or diaphoretic. HENT: Head: Normocephalic and atraumatic. Abdominal: Tenderness: There is no right CVA tenderness or left CVA tenderness. Skin: General: Skin is warm and dry. Capillary Refill: Capillary refill takes less than 2 seconds. Neurological: Mental Status: She is alert and oriented to person, place, and time. Psychiatric: Mood and Affect: Mood normal. Behavior: Behavior normal. Thought Content: Thought content normal. Judgment: Judgment normal. Did show patient that Keflex was safe via [employer] juany on cell phone ASSESSMENT/PLAN: 1. Urinary tract infection symptoms - ICD9: 788.99, ICD10: R39.9 Increase fluids Avoid caffeine or carbonated drinks at this time Take all medications as ordered ER right away if you note a fever over 100.7, nausea, vomiting, and low back pain. Go to ER May stop Amoxicillin since it is not helping. Start new antibiotic (Keflex) -Educational pamphlet regarding Urinary Tract Infection in given - UA DIP B/O - URINE CULTURE - HCG QUAL UR B/O - CEPHALEXIN 500 MG CAPSULE Johanna Rojas APRN.[place] documented in this encounterSt[facility] [facility] Evaluation note* Encounter Date Diagnosis Assessment Notes Treatment Notes Treatment Clinical Notes Oct, Wellness examination (ICD-10 - Z01.89) refused labs at this time as she really does not like needles Oct, BMI 27.0-27.9,adult (ICD-10 - Z68.27) [facility] Other 06-04-[address] [address] KASSANDRA BAUTISTA 24 [id number] Mark Bynum DO SURG / 1995 Report #: [id number] OPERATIVE REPORT REPORT STATUS: Signed DATE OF PROCEDURE: OPERATIVE REPORT Referring Physician: Timothy Anna M.D. Preoperative Diagnosis: Pilonidal cyst with multiple draining sinus tracts. Postoperative Diagnosis: Pilonidal cyst with multiple draining sinus tracts. Procedure: Pilonidal cystectomy. Anesthesia: General with LMA. Estimated Blood Loss: Zero. Details of Procedure: After Adela signed the informed consent, she was brought back to the operating room, where the apple packing header gave the above stated general with an LMA. She was placed in the right lateral Goel' position. She was prepped and draped in a sterile manner. A Malleable probe was used to go inside the sinus tracts and sound them. We determined the size of the pilonidal. It measured approximately 6 cm x 4 cm x 4 cm. The skin was marked with a surgical pencil. Then, using a combination of sharp dissection and cautery, we undermined the skin and removed the pilonidal cyst out in toto. Pressure dressing was applied. She was taken to the recovery room in the stable condition. Mark Bynum DO TDY/SG/NGP.EXR RE: KASSANDRA BAUTISTA DOS: 07/26/2020 Dictated By: Mark Bynum DO FINAL REPORT RELEASED BY: Mark Bynum DO 07/29/20 0717 Dictated Date/Time: 07/26/20 1646 Transcribed Date/Time: 07/27/20 0754 TD CC: Timothy Anna M.D.[facility]06-03-[address] [id number] KASSANDRA BAUTISTA [id number] Mark Bynum DO SURG / 1995 Report #: [id number] HISTORY AND PHYSICAL DATE OF ADMISSION: 07/26/20 CHIEF COMPLAINT: Pilonidal abscess with multiple sinus draining tracts. HISTORY OF PRESENT ILLNESS: Shi is a [id number] college student who is well known to me. I watched her grow up in the [place] area playing soccer and woman?s basketball. She came to my office right before she was going to start her senior year of college with a pilonidal cyst. I examined her. I did education reassurance with her and her mother. She was happy to go without any treatment until she had her next flare up and she is here again and they want definitive care. I am going to take her [facility] same day surgery and do a formal pilonidal cystectomy. PAST MEDICAL HISTORY: None. PAST SURGICAL HISTORY: Left knee ACL repair. PREVIOUS ENDOSCOPIES: None. ALLERGIES: None. MEDICATIONS: None. SOCIAL HISTORY: She lives with her adoptive mother and father and brother in [place]. She is a college student. She does not smoke. She does not drink. REVIEW OF SYSTEMS: A ten system review was done and was all negative. PHYSICAL EXAMINATION HEENT: Pupils are equally reactive to light and accommodation. Her extraocular muscles are intact. Mucous membranes are pink and well hydrated. Her oropharynx is clear. CHEST: Clear to auscultation. HEART: Normal sinus rhythm without murmurs. ABDOMEN: Soft, no scars, no masses felt on palpation, and no hepatosplenomegaly. GENITALIA: Did not examine. RECTAL: Observation only when examining the buttocks. On the buttocks she has a scar where someone attempted to do an I D of her previous pilonidal cyst and abscess. However, there are 3 or 4 sinus drainage tracts. NEUROLOGICAL: Grossly intact. EXTREMITIES: All four extremities are present. PLAN: [facility] Same Day Surgery for formal pilonidal cystectomy. Dictated By: Mark Bynum DO FINAL REPORT RELEASED BY: Mark Bynum DO 07/26/20 0651 COSIGNED BY: Dictated Date/Time: 07/25/20 9497 Transcribed Date/Time: 07/26/20 0614 [facility] CC: Timothy Anna M.D.[facility] noteNo Information [facility] Other evaluation note* Diagnosis Urinary tract infection symptoms- Primary Other symptoms involving urinary system documented in this encounter [facility] note* Diagnosis of unknown anatomic location- Primary state, incidental documented in this encounter [facility] note* Diagnosis of unknown anatomic location- Primary state, incidental documented in this encounter [facility] note* Diagnosis of unknown anatomic location- Primary state, incidental documented in this encounter [facility] note* Diagnosis of unknown anatomic location- Primary state, incidental documented in this encounter [facility] note* Diagnosis of unknown anatomic location- Primary state, incidental documented in this encounter [facility] note* Diagnosis of unknown anatomic location- Primary state, incidental documented in this encounter [facility] note* Diagnosis of unknown anatomic location- Primary state, incidental Encounter for test, result positive examination or test, positive result documented in this encounter [facility] note* Diagnosis Encounter for gynecological examination (general) (routine) without abnormal findings- Primary examination or test, negative result Spontaneous loss Unspecified spontaneous without mention of complication Encounter for screening for malignant neoplasm of cervix Screening for malignant neoplasm of the cervix documented in this encounter [facility] general Narrative - Reported* Type Description Date Medical History Attention-deficit hy peractivity disorder, predominantly inattentive type Medical History Other acne Medical History anxiety Medical History PTSD Surgical History L Knee arthroscopy (ACL) Surgical History Pilonidal Cyst 07/2020 [facility] Other progress note Author Yamilex Delvalle [facility] Note Date/Time August 03, 2024 10:3 1am [facility] [address] [place] [address], [address] [place] [address] OFFICE VISIT Date of Service: 08/03/24 MR#: [id number] Acct: [id number] Name: KASSANDRA BAUTISTA Rep #: [id number] : 1995 Provider: MICHAEL Delvalle Age/Sex: 28/F [place] [facility] [place]: Signed Intake Vital Signs 06/06/24 12:57 07/08/24 09:56 08/03/24 10:17 08/03/24 10:19 Height 5 ft 5 in 5 ft 5 in 5 ft 5 in 5 ft 5 in Weight: 185 lb 6 oz BMI 30.8 BP 127/83 H Intake Visit Reasons: 21wk ob Rush Seater Required: No Is patient in pain?: No Allergies metoclopramide (From Reglan) Allergy (Mild, Verified 08/03/24 10:17) lock jaw Medications ?Medication ?Instructions ?Recorded ?Confirmed ?Type PNV 158-iron 13.5 mg-folic 0.5 cap PO 04/13/24 5 History mg-omega 3-dha 150 mg-epa-fish capsule (Natavi PNV) buspirone 10 mg tablet 10 mg PO TID PRN anxiety #6 0 tabs 06/06/24 08/03/24 Rx Last Menstrual Period: 03/07/24 Zika: Zika virus screening: Negative : No PFSH PFSH Medical History Spotting in early Incomplete miscarriage History of miscarriage, currently Abdominal cramping affecting Bleeding in early Surgical History S/P D&C (status post dilation and curettage) S/P left knee surgery S/P wisdom tooth extraction Social History adopted: Yes household members: spouse number of children: 0 current occupational status: employed current occupation: [employer] pets and animals: No history of recent travel: No sexually active: Yes Smoking Status: Never smoker second hand exposure: No alcohol intake: never substance use type: does not use diet: gluten free well-balanced diet: daily or most days caffeine: Yes during the past year weight has: decreased > 10 lbs what type of physical activity do you participate in: walking frequency: 3-4 times per week blayne/sabianism: Religious seatbelt use: always do you feel safe at home: Yes additional social history: - Shay History 4 Elective abortions Hx Para 0 Spontaneous abortions 3 Hx # Term Pregnancies Ectopic pregnancies Hx # Pregnancies Multiple births # of living children HPI 21wk ob Details: KASSANDRA BAUTISTA is a 28 year old who presents for routine OB visit. OB Visit RALPH Calculator Estimated Delivery Date Method Current WG Current Estimate 12/12/24 LMP (Certain) 21w 2d Initial Weight: 168 lb Date -?-?-?-?-?-?-?-?-?-?-?-?- EGA Weight BP Urine Prot -?-?-?-?-?-?-?-?-?-?-?-?- Glucose FHR FuHt Pres Dilation -?-?-?-?-?-?-?-?-?-?-?-?- Effaced St Visit Note 04/21/24 -?-?-?-?-?-?-?-?-?-?-?-?- 6w 3d 168 lb 4 oz (+4 oz) 143/89 -?-?-?-?-?-?-?-?-?-?-?-?- 114 -?-?-?-?-?-?-?-?-?-?-?-?- LC- nob next audraapolonia k. here for early trimester bleeding. brown bleeding x5 days. not wearing a pad. FHR 114. obtaining hcgs. 05/11/24 -?-?-?-?-?-?-?-?-?-?-?-?- 9w 2d 171 lb 6 oz (+3 lb 6 oz) 121/83 Negative -?-?-?-?-?-?-?-?-?-?-?-?- Negative 190 -?-?-?-?-?-?-?-?-?-?-?-?- JV- CRL still co nsistent with LMP. new ob labs today. 06/06/24 -?-?-?-?-?-?-?-?-?-?-?-?- 13w 0d 173 lb 8 oz (+5 lb 8 oz) 129/82 Negative -?-?-?-?-?-?-?-?-?-?-?-?- Negative 168 -?-?-?-?-?-?-?-?-?-?-?-?- JV- no lof, vagi nal bleeding, or cramping. + FM seen. patient is still suffering with anxiety. will try buspar. 06/22/24 -?-?-?-?-?-?-?-?-?-?-?-?- 15w 2d 179 lb 4 oz (+11 lb 4 oz) 139/84 Negative -?-?-?-?-?-?-?-?-?-?-?-?- Negative 163 -?-?-?-?-?-?-?-?-?-?-?-?- KW- work in for heartbeat check. no vb/cramping. KW- work in for heartbeat ch chacho. no vb/cramping. anatomy US ordered 07/05/24 -?-?-?-?-?-?-?-?-?-?-?-?- 17w 1d 179 lb 2 oz (+11 lb 2 oz) 122/76 Negative -?-?-?-?-?-?-?-?-?-?-?-?- Negative 148 -?-?-?-?-?-?-?-?-?-?-?-?- MH-No VB. Doing well. Denies concerns 08/03/24 -?-?-?-?-?-?-?-?-?-?-?-?- 21w 2d 185 lb 6 oz (+17 lb 6 oz) 127/83 Negative -?-?-?-?-?-?-?-?-?-?-?-?- Negative 150 -?-?-?-?-?-?-?-?-?-?-?-?- kw- no vb/lof/ct x. some fm. anatomy US reviewed. ACOG First Trimester First Trimester: Discussed ROS Const Reports system reviewed and no additional complaints, except as documented Eyes Reports system reviewed and no additional complaints, except as documented ENT Reports system reviewed and no additional complaints, except as documented Card Reports system reviewed and no additional complaints, except as documented Resp Reports system reviewed and no additional complaints, except as documented GI Reports system reviewed and no additional complaints, except as documented, Denies nausea and Denies vomiting Reports system reviewed and no additional complaints, except as documented Musc Reports system reviewed and no additional complaints, except as documented Skin/Breast Reports system reviewed and no additional complaints, except as documented Neuro Yes system reviewed and no additional complaints, except as documented Psych Reports system reviewed and no additional complaints, except as documented Endo Reports system reviewed and no additional complaints, except as documented Deangelo/Lymph Reports system reviewed and no additional complaints, except as documented Aller/Immun Reports system reviewed and no additional complaints, except as documented Exam Const General: cooperative, healthy appearing and no acute distress Orientation: alert, awake and oriented x3 Neck Neck: normal visual inspection and full ROM Resp Effort & Inspection: normal respiratory effort, able to speak in complete sentences and symmetric chest movement GI Inspection: normal to inspection Palpation: soft and other Other: gravid Skin General: no rashes or lesions noted Neuro General: patient alert, patient awake and patient oriented x3 Cognition: normal cognition Speech: speech normal Gait: normal gait Motor: muscle tone normal throughout Extrem General: normal to inspection and full ROM Psych Appearance: grossly normal Mental Status: mental status grossly normal Mood: congruent mood Affect: normal affect Speech and Movement: speech and movement normal Attitude: cooperative Thought Process: normal Thought Content: normal Judgment: judgment good Results POC Urinalysis 2 Dip (Clinic) Office Urine Glucose Negative Last Edit by Bonnie Carbajal on 08/03/24 10:23 Office Urine Protein Negative Last Edit by Bonnie Carbajal on 08/03/24 10:23 Coding Level of Care Code OB Routine Diagnoses Asymptomatic bacteriuria R82.71 Maternal varicella, non-immune O09.899; Z28.39 Adopted person Z78.9 Supervision of high risk in second trimester O09.92 Trimester: second trimester 21 weeks gestation of Z3A.21 Weeks of gestation: 21 weeks History of recurrent miscarriages N96 Assessment and Plan Assessment and Plan (1) Asymptomatic bacteriuria: Status: Acute (2) Maternal varicella, non-immune: Status: Acute Comment: Enc avoidance and vaccine pp (3) Adopted person: Status: Acute (4) Supervision of high-risk : Status: Acute Qualifiers: Trimester: second trimester Qualified Code(s): O09.92 - Supervision of high risk , unspecified, second trimester Comment: [id number], Shay (5) : Status: Acute Qualifiers: Weeks of gestation: 21 weeks Qualified Code(s): Z3A.21 - 21 weeks gestation of Comment: NIPT w gender and carrier-agrees, normal anatomy (6) History of recurrent miscarriages: Status: Acute Comment: recommend APL panel and suzan haney, will discuss parental chromosome testing and HSG at postop appointment [place], [place] female, Maternal cell contaminiation cant be ruled out as patental sample was not ran Orders: Orders POC Urinalysis 2 Dip (Clinic) Today Plan Details Additional Comments: ACOG trimester education reviewed and updated. see problem list details for updated plan management information and see below for orders placed at this visit. GA appropriate handout given. 08/03/24 1031 <Electronically signed by Yamilex jay CNM> Date _ Yamilex Delvalle CNM Cosigner Signature: Date (if applicable) CC: ~ [facility] Work Phone: Progress note Author Brenda Castillo [facility] Note Date/Time August 30, 2024 9:10a m [facility] [address] [place] [address], [address] [place] [address] OFFICE VISIT Date of Service: 08/30/24 MR#: [id number] Acct: [id number] Name: KASSANDRA BAUTISTA Rep #: [id number] : 1995 Provider: Dr. Naz Hernandez DO Age/Sex: 28/F [place] [facility] [place]: Signed Intake Vital Signs 06/06/24 12:57 08/03/24 10:19 08/30/24 08:43 Height 5 ft 5 in 5 ft 5 in 5 ft 5 in Weight: 189 lb 6 oz BMI 31.5 BP 134/84 H Intake Visit Reasons: 25wk ob Rush Seater Required: No Is patient in pain?: No Feel stressed/tense/nervous/anxious/difficulty sleeping: not at all Allergies metoclopramide (From Reglan) Allergy (Mild, Verified 08/30/24 08:49) lock jaw Medications ?Medication ?Instructions ?Recorded ?Confirmed ?Type PNV 158-iron 13.5 mg-folic 0.5 cap PO 04/13/24 5 History mg-omega 3-dha 150 mg-epa-fish capsule (Natavi PNV) buspirone 10 mg tablet 10 mg PO TID PRN anxiety #6 0 tabs 06/06/24 08/30/24 Rx Last Menstrual Period: 03/07/24 Zika: Zika virus screening: Negative : No PFSH PFSH Medical History Spotting in early Incomplete miscarriage History of miscarriage, currently Abdominal cramping affecting Bleeding in early Surgical History S/P D&C (status post dilation and curettage) S/P left knee surgery S/P wisdom tooth extraction Social History adopted: Yes household members: spouse number of children: 0 current occupational status: employed 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[employer] pets and animals: No history of recent travel: No sexually active: Yes Smoking Status: Never smoker second hand exposure: No alcohol intake: never substance use type: does not use diet: gluten free well-balanced diet: daily or most days caffeine: Yes during the past year weight has: decreased > 10 lbs what type of physical activity do you participate in: walking frequency: 3-4 times per week blayne/sabianism: Religious seatbelt use: always do you feel safe at home: Yes additional social history: - Shay History 4 Elective abortions Hx Para 0 Spontaneous abortions 3 Hx # Term Pregnancies Ectopic pregnancies Hx # Pregnancies Multiple births # of living children HPI 25wk ob Details: KASSANDRA BAUTISTA is a 28 year old who presents for routine OB visit. OB Visit RALPH Calculator Estimated Delivery Date Method Current WG Current Estimate 12/12/24 LMP (Certain) 25w 1d Initial Weight: 168 lb Date -?-?-?-?-?-?-?-?-?-?-?-?- EGA Weight BP Urine Prot -?-?-?-?-?-?-?-?-?-?-?-?- Glucose FHR FuHt Pres Dilation -?-?-?-?-?-?-?-?-?-?-?-?- Effaced St Visit Note 04/21/24 -?-?-?-?-?-?-?-?-?-?-?-?- 6w 3d 168 lb 4 oz (+4 oz) 143/89 -?-?-?-?-?-?-?-?-?-?-?-?- 114 -?-?-?-?-?-?-?-?-?-?-?-?- LC- nob next elio ba. here for early trimester bleeding. brown bleeding x5 days. not wearing a pad. FHR 114. obtaining hcgs. 05/11/24 -?-?-?-?-?-?-?-?-?-?-?-?- 9w 2d 171 lb 6 oz (+3 lb 6 oz) 121/83 Negative -?-?-?-?-?-?-?-?-?-?-?-?- Negative 190 -?-?-?-?-?-?-?-?-?-?-?-?- JV- CRL still co nsistent with LMP. new ob labs today. 06/06/24 -?-?-?-?-?-?-?-?-?-?-?-?- 13w 0d 173 lb 8 oz (+5 lb 8 oz) 129/82 Negative -?-?-?-?-?-?-?-?-?-?-?-?- Negative 168 -?-?-?-?-?-?-?-?-?-?-?-?- JV- no lof, vagi nal bleeding, or cramping. + FM seen. patient is still suffering with anxiety. will try buspar. 06/22/24 -?-?-?-?-?-?-?-?-?-?-?-?- 15w 2d 179 lb 4 oz (+11 lb 4 oz) 139/84 Negative -?-?-?-?-?-?-?-?-?-?-?-?- Negative 163 -?-?-?-?-?-?-?-?-?-?-?-?- KW- work in for heartbeat check. no vb/cramping. KW- work in for heartbeat ch chacho. no vb/cramping. anatomy US ordered 07/05/24 -?-?-?-?-?-?-?-?-?-?-?-?- 17w 1d 179 lb 2 oz (+11 lb 2 oz) 122/76 Negative -?-?-?-?-?-?-?-?-?-?-?-?- Negative 148 -?-?-?-?-?-?-?-?-?-?-?-?- MH-No VB. Doing well. Denies concerns 08/03/24 -?-?-?-?-?-?-?-?-?-?-?-?- 21w 2d 185 lb 6 oz (+17 lb 6 oz) 127/83 Negative -?-?-?-?-?-?-?-?-?-?-?-?- Negative 150 -?-?-?-?-?-?-?-?-?-?-?-?- kw- no vb/lof/ct x. some fm. anatomy US reviewed. 08/30/24 -?-?-?-?-?-?-?-?-?-?-?-?- 25w 1d 189 lb 6 oz (+21 lb 6 oz) 134/84 Negative -?-?-?-?-?-?-?-?-?-?-?-?- Negative 145 26 -?-?-?-?-?-?-?-?-?-?-?-?- JV- no lof, vagi nal bleeding, or dec fm. glucola planned for next visit. ACOG First Trimester First Trimester: Discussed Results POC Urinalysis 2 Dip (Clinic) Office Urine Glucose Negative Last Edit by Bonnie Carbajal on 08/30/24 08:55 Office Urine Protein Negative Last Edit by Bonnie Carbajal on 08/30/24 08:55 Coding Level of Care Code OB Routine Diagnoses Asymptomatic bacteriuria R82.71 Maternal varicella, non-immune O09.899; Z28.39 Adopted person Z78.9 Supervision of high risk in second trimester O09.92 Trimester: second trimester 25 weeks gestation of Z3A.25 Weeks of gestation: 25 weeks History of recurrent miscarriages N96 Assessment and Plan Assessment and Plan (1) Asymptomatic bacteriuria: Status: Acute (2) Maternal varicella, non-immune: Status: Acute Comment: Enc avoidance and vaccine pp (3) Adopted person: Status: Acute (4) Supervision of high-risk : Status: Acute Qualifiers: Trimester: second trimester Qualified Code(s): O09.92 - Supervision of high risk , unspecified, second trimester Comment: [id number], Shay (5) : Status: Acute Qualifiers: Weeks of gestation: 25 weeks Qualified Code(s): Z3A.25 - 25 weeks gestation of Comment: NIPT w gender and carrier-agrees, normal anatomy (6) History of recurrent miscarriages: Status: Acute Comment: recommend APL panel and suzan haney, will discuss parental chromosome testing and HSG at postop appointment tapan Haney female, Maternal cell contaminiation cant be ruled out as patental sample was not ran Orders: Orders POC Urinalysis 2 Dip (Clinic) Today CBC W/Diff, Automated Today O09.92 - Supervision of high risk , unspecified, second trimester Glucose Challenge Gest 1H 50g Today O09.92 - Supervision of high risk , unspecified, second trimester, Z13.1 - Encounter for screening for diabetes mellitus HIV Today O09.92 - Supervision of high risk , unspecified, second trimester Syphilis Antibodies Today O09.92 - Supervision of high risk , unspecified, second trimester 08/30/24 0911 <Electronically signed by Brenda Kendrick DO> Date _ Brenda Hernandez DO Cosigner Signature: Date (if applicable) CC: ~ [facility] Work Phone: Reason for referral (narrative)* Diagnostic Procedure Only (Routine) - Pending Review Specialty Diagnoses / Procedures Referred By Aleida cain Referred To Contact US IMAGING Diagnoses of unknown anatomic location Procedures US FEMALE PELVIS TRANSVAG US TRANSVAGINAL Johanna Nieves DO [address] [place] [address] [address] Us Imaging Referral ID Status Reason Start Date Expiration Date Visits Requested Visits Authorized [id number] Pending Review Auto-Generat ed Referral 03/10/2022 04/09/2023 1 1 [facility] for referral (narrative)No reason for referral information [facility] Work Phone: Summary Purpose Family History No Family History Records FoundNo Family History Records FoundNo Family History Records FoundNo Family History Records FoundNo Family History Records FoundNo Family History Records FoundNo Family History Records Found Advance Directives No Advanced Directives Records FoundNo Advanced Directives Records FoundNo Advanced Directives Records FoundNo Advanced Directives Records FoundNo Advanced Directives Records FoundNo Advanced Directives Records FoundNo Advanced Directives Records Found Chief Complaint and Reason for Visit Chief Complaint Admit Date 6w3d spotting x 5 days April 21 11:06am Reason for Visit Admit Date Adopted person April 21, 2024 11:06am History of recurrent miscarriages Februa 2024 11:06am April 21, 2024 11:06am Spotting in early March 11:06am Supervision of high-risk Febru florencia 2024 11:06am Chief Complaint Admit Date 6w3d spotting x 5 days April 21 11:06am 9WK NOB May 11, 2024 10: 15am Reason for Visit Admit Date Adopted person April 21, 2024 11:06am History of recurrent miscarriages Februa 2024 11:06am April 21, 2024 11:06am Spotting in early March 11:06am Supervision of high-risk Febru florencia 2024 11:06am Adopted person May 11, 2024 10: 15am History of recurrent miscarriages May 11, 2024 10:15am May 11, 2024 10: 15am S/P D&C (status post dilation and curett age) May 11, 2024 10:15am Spotting in early May 11, 2024 10:15am Supervision of high-risk May 11, 2024 10:15am Chief Complaint Admit Date 6w3d spotting x 5 days April 21 11:06am 9WK NOB May 11, 2024 10: 15am 13wk ob June 06, 2024 12: 39pm Reason for Visit Admit Date Adopted person April 21, 2024 11:06am History of recurrent miscarriages Februa ry 2024 11:06am April 21, 2024 11:06am Spotting in early March 11:06am Supervision of high-risk Febru florencia 2024 11:06am Adopted person May 11, 2024 10: 15am History of recurrent miscarriages May 11, 2024 10:15am May 11, 2024 10: 15am S/P D&C (status post dilation and curett age) May 11, 2024 10:15am Spotting in early May 11, 2024 10:15am Supervision of high-risk May 11, 2024 10:15am Adopted person June 06, 2024 12: 39pm History of recurrent miscarriages June 06, 2024 12:39pm June 06, 2024 12: 39pm S/P D&C (status post dilation and curett age) June 06, 2024 12:39pm Spotting in early June 06, 2024 12:39pm Supervision of high-risk June 06, 2024 12:39pm Chief Complaint Admit Date 6w3d spotting x 5 days April 21 11:06am 9WK NOB May 11, 2024 10: 15am 13wk ob June 06, 2024 12: 39pm HEARTBEAT CHECK June 22, 2024 2:09pm 17wk ob July 05, 2024 8:21a m Reason for Visit Admit Date Adopted person April 21, 2024 11:06am History of recurrent miscarriages Februa ry 2024 11:06am April 21, 2024 11:06am Supervision of high-risk Febru florencia 2024 11:06am Spotting in early March 11:06am Adopted person May 11, 2024 10: 15am History of recurrent miscarriages May 11, 2024 10:15am May 11, 2024 10: 15am Supervision of high-risk May 11, 2024 10:15am S/P D&C (status post dilation and curett age) May 11, 2024 10:15am Spotting in early May 11, 2024 10:15am Adopted person June 06, 2024 12: 39pm History of recurrent miscarriages June 06, 2024 12:39pm June 06, 2024 12: 39pm Supervision of high-risk June 06, 2024 12:39pm S/P D&C (status post dilation and curett age) June 06, 2024 12:39pm Spotting in early June 06, 2024 12:39pm Adopted person June 22, 2024 2:09pm History of recurrent miscarriages June 2:09pm June 22, 2024 2:09pm Supervision of high-risk June 222024 2:09pm S/P D&C (status post dilation and curett age) June 22, 2024 2:09pm Spotting in early June 22 2:09pm Adopted person July 05, 2024 8:21a m History of recurrent miscarriages July 052024 8:21am Maternal varicella, non-immune July 05, 2024 8:21am July 05, 2024 8:21a m Supervision of high-risk June 222024 8:21am Chief Complaint Admit Date 6w3d spotting x 5 days April 21 11:06am 9WK NOB May 11, 2024 10: 15am 13wk ob June 06, 2024 12: 39pm HEARTBEAT CHECK June 22, 2024 2:09pm 17wk ob July 05, 2024 8:21a m CONCERN FOR UTI July 08, 2024 9:54a m Reason for Visit Admit Date Adopted person April 21, 2024 11:06am History of recurrent miscarriages Februa ry 2024 11:06am April 21, 2024 11:06am Supervision of high-risk Febru florencia 2024 11:06am Spotting in early March 11:06am Adopted person May 11, 2024 10: 15am History of recurrent miscarriages May 11, 2024 10:15am May 11, 2024 10: 15am Supervision of high-risk May 11, 2024 10:15am S/P D&C (status post dilation and curett age) May 11, 2024 10:15am Spotting in early May 11, 2024 10:15am Adopted person June 06, 2024 12: 39pm History of recurrent miscarriages June 06, 2024 12:39pm June 06, 2024 12: 39pm Supervision of high-risk June 06, 2024 12:39pm S/P D&C (status post dilation and curett age) June 06, 2024 12:39pm Spotting in early June 06, 2024 12:39pm Adopted person June 22, 2024 2:09pm History of recurrent miscarriages June 2:09pm June 22, 2024 2:09pm Supervision of high-risk June 222024 2:09pm S/P D&C (status post dilation and curett age) June 22, 2024 2:09pm Spotting in early June 22 2:09pm Adopted person July 05, 2024 8:21a m History of recurrent miscarriages July 052024 8:21am Maternal varicella, non-immune July 05, 2024 8:21am July 05, 2024 8:21a m Supervision of high-risk June 222024 8:21am Asymptomatic bacteriuria July 08, 2024 9:54am Chief Complaint Admit Date 6w3d spotting x 5 days April 21 11:06am 9WK NOB May 11, 2024 10: 15am 13wk ob June 06, 2024 12: 39pm HEARTBEAT CHECK June 22, 2024 2:09pm 17wk ob July 05, 2024 8:21a m CONCERN FOR UTI July 08, 2024 9:54a m ANATOMY/CERVICAL LENGTH July 20, 2024 3 :02pm 21wk ob August 03, 2024 10:1 1am Reason for Visit Admit Date Adopted person April 21, 2024 11:06am History of recurrent miscarriages Februa ry 2024 11:06am April 21, 2024 11:06am Supervision of high-risk u florencia 2024 11:06am Spotting in early March 11:06am Adopted person May 11, 2024 10: 15am History of recurrent miscarriages May 11, 2024 10:15am May 11, 2024 10: 15am Supervision of high-risk May 11, 2024 10:15am S/P D&C (status post dilation and curett age) May 11, 2024 10:15am Spotting in early May 11, 2024 10:15am Adopted person June 06, 2024 12: 39pm History of recurrent miscarriages June 06, 2024 12:39pm June 06, 2024 12: 39pm Supervision of high-risk June 06, 2024 12:39pm S/P D&C (status post dilation and curett age) June 06, 2024 12:39pm Spotting in early June 06, 2024 12:39pm Adopted person June 22, 2024 2:09pm History of recurrent miscarriages June 2:09pm June 22, 2024 2:09pm Supervision of high-risk June 222024 2:09pm S/P D&C (status post dilation and curett age) June 22, 2024 2:09pm Spotting in early June 22 2:09pm Adopted person July 05, 2024 8:21a m History of recurrent miscarriages July 052024 8:21am Maternal varicella, non-immune July 05, 2024 8:21am July 05, 2024 8:21a m Supervision of high-risk June 222024 8:21am Asymptomatic bacteriuria July 08, 2024 9:54am Adopted person August 03, 2024 10:1 1am Asymptomatic bacteriuria August 03, 2024 10:11am History of recurrent miscarriages July 232024 10:11am Maternal varicella, non-immune July 10:11am August 03, 2024 10:1 1am Supervision of high-risk August 03, 2024 10:11am Chief Complaint Admit Date 6w3d spotting x 5 days April 21 11:06am 9WK NOB May 11, 2024 10: 15am 13wk ob June 06, 2024 12: 39pm HEARTBEAT CHECK June 22, 2024 2:09pm 17wk ob July 05, 2024 8:21a m CONCERN FOR UTI July 08, 2024 9:54a m ANATOMY/CERVICAL LENGTH July 20, 2024 3 :02pm Chief Complaint Admit Date 9WK NOB May 11, 2024 10: 15am 13wk ob June 06, 2024 12: 39pm HEARTBEAT CHECK June 22, 2024 2:09pm 17wk ob July 05, 2024 8:21a m CONCERN FOR UTI July 08, 2024 9:54a m ANATOMY/CERVICAL LENGTH July 20, 2024 3 :02pm 21wk ob August 03, 2024 10:1 1am 25wk ob August 30, 2024 8:41a m Reason for Visit Admit Date Adopted person May 11, 2024 10: 15am History of recurrent miscarriages May 11, 2024 10:15am May 11, 2024 10: 15am Supervision of high-risk May 11, 2024 10:15am S/P D&C (status post dilation and curett age) May 11, 2024 10:15am Spotting in early May 11, 2024 10:15am Adopted person June 06, 2024 12: 39pm History of recurrent miscarriages June 06, 2024 12:39pm June 06, 2024 12: 39pm Supervision of high-risk June 06, 2024 12:39pm S/P D&C (status post dilation and curett age) June 06, 2024 12:39pm Spotting in early June 06, 2024 12:39pm Adopted person June 22, 2024 2:09pm History of recurrent miscarriages June 2:09pm June 22, 2024 2:09pm Supervision of high-risk June 222024 2:09pm S/P D&C (status post dilation and curett age) June 22, 2024 2:09pm Spotting in early June 22 2:09pm Adopted person July 05, 2024 8:21a m History of recurrent miscarriages July 052024 8:21am Maternal varicella, non-immune July 05, 2024 8:21am July 05, 2024 8:21a m Supervision of high-risk June 222024 8:21am Asymptomatic bacteriuria July 08, 2024 9:54am Adopted person August 03, 2024 10:1 1am Asymptomatic bacteriuria August 03, 2024 10:11am History of recurrent miscarriages July 232024 10:11am Maternal varicella, non-immune July 10:11am August 03, 2024 10:1 1am Supervision of high-risk August 03, 2024 10:11am Adopted person August 30, 2024 8:41a m Asymptomatic bacteriuria August 30, 2024 8:41am History of recurrent miscarriages August 302024 8:41am Maternal varicella, non-immune August 30, 2024 8:41am August 30, 2024 8:41a m Supervision of high-risk August 30, 2024 8:41am Chief Complaint Admit Date 13wk ob June 06, 2024 12: 39pm HEARTBEAT CHECK June 22, 2024 2:09pm 17wk ob July 05, 2024 8:21a m CONCERN FOR UTI July 08, 2024 9:54a m ANATOMY/CERVICAL LENGTH July 20, 2024 3 :02pm 21wk ob August 03, 2024 10:1 1am 25wk ob August 30, 2024 8:41a m 28 wk ob/glucose September 18, 2024 8:21 am Reason for Visit Admit Date Adopted person June 06, 2024 12: 39pm History of recurrent miscarriages June 06, 2024 12:39pm June 06, 2024 12: 39pm Supervision of high-risk June 06, 2024 12:39pm S/P D&C (status post dilation and curett age) June 06, 2024 12:39pm Spotting in early June 06, 2024 12:39pm Adopted person June 22, 2024 2:09pm History of recurrent miscarriages June 2:09pm June 22, 2024 2:09pm Supervision of high-risk June 222024 2:09pm S/P D&C (status post dilation and curett age) June 22, 2024 2:09pm Spotting in early June 22 2:09pm Adopted person July 05, 2024 8:21a m History of recurrent miscarriages July 052024 8:21am Maternal varicella, non-immune July 05, 2024 8:21am July 05, 2024 8:21a m Supervision of high-risk June 222024 8:21am Asymptomatic bacteriuria July 08, 2024 9:54am Adopted person August 03, 2024 10:1 1am Asymptomatic bacteriuria August 03, 2024 10:11am History of recurrent miscarriages July 232024 10:11am Maternal varicella, non-immune July 10:11am August 03, 2024 10:1 1am Supervision of high-risk August 03, 2024 10:11am Adopted person August 30, 2024 8:41a m Asymptomatic bacteriuria August 30, 2024 8:41am History of recurrent miscarriages August 302024 8:41am Maternal varicella, non-immune August 30, 2024 8:41am August 30, 2024 8:41a m Supervision of high-risk August 30, 2024 8:41am Adopted person September 18, 2024 8:21 am Asymptomatic bacteriuria September 18, 2024 8:21am History of recurrent miscarriages August 232024 8:21am Maternal varicella, non-immune August 8:21am September 18, 2024 8:21 am Supervision of high-risk September 18, 2024 8:21am Additional Source Comments INFORMATION SOURCE (unrecogn ized section and content) DATE CREATED AUTHOR 03/08/2020 [facility] DATE CREATED AUTHOR AUTHOR'S ORGANIZ ATION 12/03/2020 [facility] DATE CREATED AUTHOR AUTHOR'S ORGANIZ ATION 03/11/2022 [facility] DATE CREATED AUTHOR AUTHOR'S ORGANIZ ATION 03/18/2022 [facility] DATE CREATED AUTHOR AUTHOR'S ORGANIZ ATION 03/27/2022 [facility] DATE CREATED AUTHOR AUTHOR'S ORGANIZ ATION 06/28/2022 [facility] DATE CREATED AUTHOR AUTHOR'S ORGANIZ ATION 09/18/2024 [facility] REASON FOR VISIT (unrecogniz ed section and content) Reason Comments UTI Patient stated that burning and frequent urination x 1 week. OTC: None Patient stated that she has been on Amox from PCP for the past week for her symptoms. Patient also stated that she is . Reason Comments Results Reason Comments Patient Update Patient Question Appointment Reason Comments Phlebotomy Reason Comments Patient Question Patient Update Reason Comments Appointment Reason Comments Results Reason Comments Care Ultrasound Reason Comments Follow Up Phlebotomy Reason Comments Follow Up Discuss possible D&C Reason Comments Opened In Error Source Comments (unrecognize d section and content) In the event this informatio n is protected by the Federal Confidentiality of Alcohol and Drug Abuse Patient Records regulations: The Federal rules restrict any use of the information to criminally investigate or prosecute any alcohol or drug abuse patient.[facility] the event this information is protected by the Federal Confidentiality of Alcohol and Drug Abuse Patient Records regulations: The Federal rules restrict any use of the information to criminally investigate or prosecute any alcohol or drug abuse patient.[facility] the event this information is protected by the Federal Confidentiality of Alcohol and Drug Abuse Patient Records regulations: The Federal rules restrict any use of the information to criminally investigate or prosecute any alcohol or drug abuse patient.[facility]In the event this information is protected by the Federal Confidentiality of Alcohol and Drug Abuse Patient Records regulations: The Federal rules restrict any use of the information to criminally investigate or prosecute any alcohol or drug abuse patient.[facility]In the event this information is protected by the Federal Confidentiality of Alcohol and Drug Abuse Patient Records regulations: The Federal rules restrict any use of the information to criminally investigate or prosecute any alcohol or drug abuse patient.[facility]In the event this information is protected by the Federal Confidentiality of Alcohol and Drug Abuse Patient Records regulations: The Federal rules restrict any use of the information to criminally investigate or prosecute any alcohol or drug abuse patient.[facility] [facility]In the event this information is protected by the Federal Confidentiality of Alcohol and Drug Abuse Patient Records regulations: The Federal rules restrict any use of the information to criminally investigate or prosecute any alcohol or drug abuse patient.[facility] CampusIn the event this information is protected by the Federal Confidentiality of Alcohol and Drug Abuse Patient Records regulations: The Federal rules restrict any use of the information to criminally investigate or prosecute any alcohol or drug abuse patient.[facility] CampusIn the event this information is protected by the Federal Confidentiality of Alcohol and Drug Abuse Patient Records regulations: The Federal rules restrict any use of the information to criminally investigate or prosecute any alcohol or drug abuse patient.[facility] CampusIn the event this information is protected by the Federal Confidentiality of Alcohol and Drug Abuse Patient Records regulations: The Federal rules restrict any use of the information to criminally investigate or prosecute any alcohol or drug abuse patient.[facility] CampusIn the event this information is protected by the Federal Confidentiality of Alcohol and Drug Abuse Patient Records regulations: The Federal rules restrict any use of the information to criminally investigate or prosecute any alcohol or drug abuse patient.[facility] CampusIn the event this information is protected by the Federal Confidentiality of Alcohol and Drug Abuse Patient Records regulations: The Federal rules restrict any use of the information to criminally investigate or prosecute any alcohol or drug abuse patient.[facility] CampusIn the event this information is protected by the Federal Confidentiality of Alcohol and Drug Abuse Patient Records regulations: The Federal rules restrict any use of the information to criminally investigate or prosecute any alcohol or drug abuse patient.[facility] [place] CampusIn the event this information is protected by the Federal Confidentiality of Alcohol and Drug Abuse Patient Records regulations: The Federal rules restrict any use of the information to criminally investigate or prosecute any alcohol or drug abuse patient.[facility] [place] CampusIn the event this information is protected by the Federal Confidentiality of Alcohol and Drug Abuse Patient Records regulations: The Federal rules restrict any use of the information to criminally investigate or prosecute any alcohol or drug abuse patient.[facility] [place] CampusIn the event this information is protected by the Federal Confidentiality of Alcohol and Drug Abuse Patient Records regulations: The Federal rules restrict any use of the information to criminally investigate or prosecute any alcohol or drug abuse patient.[facility] [place] CampusIn the event this information is protected by the Federal Confidentiality of Alcohol and Drug Abuse Patient Records regulations: The Federal rules restrict any use of the information to criminally investigate or prosecute any alcohol or drug abuse patient.[facility] [place] CampusIn the event this information is protected by the Federal Confidentiality of Alcohol and Drug Abuse Patient Records regulations: The Federal rules restrict any use of the information to criminally investigate or prosecute any alcohol or drug abuse patient.[facility] Care Teams (unrecognized sec tion and content) Team Status: Active Member Role Status Dates Dr. Brenda Hernandez DO Primary Care Provider Ac tive Team Status: Inactive Member Role Status Dates No Primary Care Physician Primary Care Provider Active Start: January 06, 2024 End: January 06, 2024 Dr. Brenda Hernandez DO Attending Provider Activ e Start: January 06, 2024 End: January 06, 2024 Dr. Brenda Hernandez DO Referring Provider Activ e Start: January 06, 2024 End: January 06, 2024 Team Status: Inactive Member Role Status Dates No Primary Care Physician Primary Care Provider Active Start: January 08, 2024 End: January 08, 2024 Dr. Brenda Hernandez DO Attending Provider Activ e Start: January 08, 2024 End: January 08, 2024 Team Status: Inactive Member Role Status Dates No Primary Care Physician Primary Care Provider Active Start: January 12, 2024 End: January 12, 2024 Dr. Brenda Hernandez DO Attending Provider Activ e Start: January 12, 2024 End: January 12, 2024 Dr. Brenda Hernandez DO Referring Provider Activ e Start: January 12, 2024 End: January 12, 2024 Team Status: Inactive Member Role Status Dates No Primary Care Physician Primary Care Provider Active Start: January 24, 2024 End: January 24, 2024 Dr. Krystle Enriquez MD Attending Provider Active Start: January 24, 2024 End: January 24, 2024 Team Status: Inactive Member Role Status Dates No Primary Care Physician Primary Care Provider Active Start: April 21, 2024 End: April 21, 2024 No Primary Care Physician Referring Provider Active Start: April 21, 2024 End: April 21, 2024 Lacy Gongora CNM Attending Provider Active Start: April 21, 2024 End: April 21, 2024 Team Status: Inactive Member Role Status Dates No Primary Care Physician Primary Care Provider Active Start: April 21, 2024 End: April 21, 2024 Lacy Gongora CNM Attending Provider Active Start: April 21, 2024 End: April 21, 2024 Lacy Gongora CNM Referring Provider Active Start: April 21, 2024 End: April 21, 2024 Team Status: Active Member Role Status Dates Dr. Brenda Hernandez DO Primary Care Provider Ac tive Start: April 23, 2024 Dr. Brenda Hernandez DO Attending Provider Activ e Start: April 23, 2024 Dr. Brenda Hernandez DO Referring Provider Activ e Start: April 23, 2024 Team Status: Inactive Member Role Status Dates Dr. Brenda Hernandez DO Primary Care Provider Ac tive Start: April 23, 2024 End: April 23, 2024 Dr. Brenda Hernandez DO Attending Provider Activ e Start: April 23, 2024 End: April 23, 2024 Dr. Brenda Hernandez DO Referring Provider Activ e Start: April 23, 2024 End: April 23, 2024 Team Status: Inactive Member Role Status Dates Dr. Brenda Hernandez DO Primary Care Provider Ac tive Start: May 11, 2024 End: May 11, 2024 Dr. Brenda Hernandez DO Attending Provider Activ e Start: May 11, 2024 End: May 11, 2024 Dr. Brenda Hernandez DO Referring Provider Activ e Start: May 11, 2024 End: May 11, 2024 Team Status: Inactive Member Role Status Dates No Primary Care Physician Referring Provider Active Start: June 06, 2024 End: June 06, 2024 Dr. Brenda Hernandez DO Primary Care Provider Ac tive Start: June 06, 2024 End: June 06, 2024 Dr. Brenda Hernandez DO Attending Provider Activ e Start: June 06, 2024 End: June 06, 2024 Team Status: Inactive Member Role Status Dates Dr. Brenda Hernandez , DO Primary Care Provider Ac tive Start: June 06, 2024 End: June 06, 2024 Dr. Brenda Hernandze , DO Attending Provider Activ e Start: June 06, 2024 End: June 06, 2024 Dr. Brenda Hernandez DO Referring Provider Activ e Start: June 06, 2024 End: June 06, 2024 Team Status: Inactive Member Role Status Dates Dr. Brenda Hernandez , DO Primary Care Provider Ac tive Start: June 22, 2024 End: June 22, 2024 Dr. Brenda Hernandez DO Referring Provider Activ e Start: June 22, 2024 End: June 22, 2024 Yamilex Delvalle CNM Attending Provider Active S tart: June 22, 2024 End: June 22, 2024 Team Status: Inactive Member Role Status Dates Dr. Brenda Hernandez DO Primary Care Provider Ac tive Start: July 05, 2024 End: July 05, 2024 Dr. Brenda Hernandez DO Referring Provider Activ e Start: July 05, 2024 End: July 05, 2024 Bonnie Ruiz POST[employer]CTORAL RESEARCH FELLOW, POSTDOCTORAL RESEARCH FELLOW-C Attending Provider Active Start: July 05, 2024 End: July 05, 2024 Team Status: Active Member Role Status Dates Dr. Brenda Hernandez DO Primary Care Provider Ac tive Start: July 05, 2024 Bonnie Ruiz POSTDOCTORAL RESEARCH FELLOW, POSTDOCTORAL RESEARCH FELLOW-C Attending Provider Active Start: July 05, 2024 Bonnie Ruiz POSTDOCTORAL RESEARCH FELLOW, POSTDOCTORAL RESEARCH FELLOW-C Referring Provider Active Start: July 05, 2024 Team Status: Inactive Member Role Status Dates Dr. Brenda Hernandez DO Primary Care Provider Ac tive Start: July 08, 2024 End: July 08, 2024 Dr. Brenda Hernandez DO Referring Provider Activ e Start: July 08, 2024 End: July 08, 2024 ARGENT[place] Pang Attending Provider Active Start: July 08, 2024 End: July 08, 2024 Team Status: Inactive Member Role Status Dates Dr. Brenda Hernandez DO Primary Care Provider Ac tive Start: July 05, 2024 End: July 05, 2024 Bonnie Ruiz POSTDOCTORAL RESEARCH FELLOW, POSTDOCTORAL RESEARCH FELLOW-C Attending Provider Active Start: July 05, 2024 End: July 05, 2024 Bonnie Ruiz POSTDOCTORAL RESEARCH FELLOW, POSTDOCTORAL RESEARCH FELLOW-C Referring Provider Active Start: July 05, 2024 End: July 05, 2024 Team Status: Inactive Member Role Status Dates Dr. Brenda Hernandez DO Primary Care Provider Ac tive Start: July 10, 2024 End: July 10, 2024 ARG[place] Pang Attending Provider Active Start: July 10, 2024 End: July 10, 2024 Team Status: Active Member Role Status Dates No Primary Care Physician Primary Care Provider Active Team Status: Inactive Member Role Status Dates Dr. Brenda Hernandez DO Attending Provider Activ e Start: July 20, 2024 End: July 20, 2024 Dr. Brenda Hernandez DO Referring Provider Activ e Start: July 20, 2024 End: July 20, 2024 No Primary Care Physician Primary Care Provider Active Start: July 20, 2024 End: July 20, 2024 Team Status: Inactive Member Role Status Dates Dr. Brenda Hernandez DO Referring Provider Activ e Start: August 03, 2024 End: August 03, 2024 Yamilex Delvalle CNM Attending Provider Active S tart: August 03, 2024 End: August 03, 2024 No Primary Care Physician Primary Care Provider Active Start: August 03, 2024 End: August 03, 2024 Team Status: Active Member Role/Relationship Status Dates No Primary Care Physician Primary Care Provider Active Team Status: Inactive Member Role/Relationship Status Dates Dr. Brenda Hernandez DO Primary Care Provider Ac tive Start: May 11, 2024 End: May 11, 2024 Dr. Brenda Hernandez DO Attending Provider Activ e Start: May 11, 2024 End: May 11, 2024 Dr. Brenda Hernandez DO Referring Provider Activ e Start: May 11, 2024 End: May 11, 2024 Team Status: Inactive Member Role/Relationship Status Dates Dr. Brenda Hernandez DO Primary Care Provider Ac tive Start: May 11, 2024 End: May 11, 2024 Dr. Brenda Vande Velde , DO Attending Provider Activ e Start: May 11, 2024 End: May 11, 2024 Dr. Brenda Hernandez DO Referring Provider Activ e Start: May 11, 2024 End: May 11, 2024 Team Status: Inactive Member Role/Relationship Status Dates No Primary Care Physician Referring Provider Active Start: June 06, 2024 End: June 06, 2024 Dr. Brenda Hernandez DO Primary Care Provider Ac tive Start: June 06, 2024 End: June 06, 2024 Dr. Brenda Hernandez , DO Attending Provider Activ e Start: June 06, 2024 End: June 06, 2024 Team Status: Inactive Member Role/Relationship Status Dates Dr. Brenda Hernandez DO Primary Care Provider Ac tive Start: June 06, 2024 End: June 06, 2024 Dr. Brenda Hernandez DO Attending Provider Activ e Start: June 06, 2024 End: June 06, 2024 Dr. Brenda Hernandez DO Referring Provider Activ e Start: June 06, 2024 End: June 06, 2024 Team Status: Inactive Member Role/Relationship Status Dates Dr. Brenda Hernandez , DO Primary Care Provider Ac tive Start: June 22, 2024 End: June 22, 2024 Dr. Brenda Hernandez DO Referring Provider Activ e Start: June 22, 2024 End: June 22, 2024 Yamilex Delvalle CNM Attending Provider Active S tart: June 22, 2024 End: June 22, 2024 Team Status: Inactive Member Role/Relationship Status Dates Dr. Brenda Hernandez DO Primary Care Provider Ac tive Start: July 05, 2024 End: July 05, 2024 Dr. Brenda Hernandez DO Referring Provider Activ e Start: July 05, 2024 End: July 05, 2024 Bonnie Ruiz POSTDOCTORAL RESEARCH FELLOW, POSTDOCTORAL RESEARCH FELLOW-C Attending Provider Active Start: July 05, 2024 End: July 05, 2024 Team Status: Inactive Member Role/Relationship Status Dates Dr. Brenda Hernandez DO Primary Care Provider Ac tive Start: July 05, 2024 End: July 05, 2024 Bonnie Joseph POSTDOCTORAL RESEARCH FELLOW, POSTDOCTORAL RESEARCH FELLOW-C Attending Provider Active Start: July 05, 2024 End: July 05, 2024 Bonnie Ruiz POSTDOCTORAL RESEARCH FELLOW, POSTDOCTORAL RESEARCH FELLOW-C Referring Provider Active Start: July 05, 2024 End: July 05, 2024 Team Status: Inactive Member Role/Relationship Status Dates Dr. Brenda Hernandez DO Primary Care Provider Ac tive Start: July 08, 2024 End: July 08, 2024 Dr. Brenda Hernandez DO Referring Provider Activ e Start: July 08, 2024 End: July 08, 2024 ARGENT[place] Pang Attending Provider Active Start: July 08, 2024 End: July 08, 2024 Team Status: Inactive Member Role/Relationship Status Dates Dr. Brenda Hernandez DO Primary Care Provider Ac tive Start: July 10, 2024 End: July 10, 2024 ARG[place] Pang Attending Provider Active Start: July 10, 2024 End: July 10, 2024 Team Status: Inactive Member Role/Relationship Status Dates Dr. Brenda Hernandez DO Attending Provider Activ e Start: July 20, 2024 End: July 20, 2024 Dr. Brenda Hernandez DO Referring Provider Activ e Start: July 20, 2024 End: July 20, 2024 No Primary Care Physician Primary Care Provider Active Start: July 20, 2024 End: July 20, 2024 Team Status: Inactive Member Role/Relationship Status Dates Dr. Brenda Hernandez DO Referring Provider Activ e Start: August 03, 2024 End: August 03, 2024 Yamilex Delvalle CNM Attending Provider Active S tart: August 03, 2024 End: August 03, 2024 No Primary Care Physician Primary Care Provider Active Start: August 03, 2024 End: August 03, 2024 Team Status: Inactive Member Role/Relationship Status Dates Dr. Brenda Hernandez DO Attending Provider Activ e Start: August 30, 2024 End: August 30, 2024 Dr. Brenda Hernandez DO Referring Provider Activ e Start: August 30, 2024 End: August 30, 2024 No Primary Care Physician Primary Care Provider Active Start: August 30, 2024 End: August 30, 2024 Team Status: Inactive Member Role/Relationship Status Dates No Primary Care Physician Referring Provider Active Start: June 06, 2024 End: June 06, 2024 Dr. Brenda Hernandez , DO Primary Care Provider Ac tive Start: June 06, 2024 End: June 06, 2024 Dr. Brenda Hernandez DO Attending Provider Activ e Start: June 06, 2024 End: June 06, 2024 Team Status: Inactive Member Role/Relationship Status Dates Dr. Brenda Hernandez DO Primary Care Provider Ac tive Start: June 06, 2024 End: June 06, 2024 Dr. Brenda Hernandez DO Attending Provider Activ e Start: June 06, 2024 End: June 06, 2024 Dr. Brenda Hernandez DO Referring Provider Activ e Start: June 06, 2024 End: June 06, 2024 Team Status: Inactive Member Role/Relationship Status Dates Dr. Brenda Hernandez DO Primary Care Provider Ac tive Start: June 22, 2024 End: June 22, 2024 Dr. Brenda Hernandez DO Referring Provider Activ e Start: June 22, 2024 End: June 22, 2024 Yamilex Delvalle CNM Attending Provider Active S tart: June 22, 2024 End: June 22, 2024 Team Status: Inactive Member Role/Relationship Status Dates Dr. Brenda Hernandez DO Primary Care Provider Ac tive Start: July 05, 2024 End: July 05, 2024 Dr. Brenda Hernandez DO Referring Provider Activ e Start: July 05, 2024 End: July 05, 2024 Bonnie Ruiz POSTDOCTORAL RESEARCH FELLOW, POSTDOCTORAL RESEARCH FELLOW-C Attending Provider Active Start: July 05, 2024 End: July 05, 2024 Team Status: Inactive Member Role/Relationship Status Dates Dr. Brenda Hernandez DO Primary Care Provider Ac tive Start: July 05, 2024 End: July 05, 2024 Bonnie Ruiz POSTDOCTORAL RESEARCH FELLOW, POSTDOCTORAL RESEARCH FELLOW-C Attending Provider Active Start: July 05, 2024 End: July 05, 2024 Bonnie Ruiz POSTDOCTORAL RESEARCH FELLOW, POSTDOCTORAL RESEARCH FELLOW-C Referring Provider Active Start: July 05, 2024 End: July 05, 2024 Team Status: Inactive Member Role/Relationship Status Dates Dr. Brenda Hernandez DO Primary Care Provider Ac tive Start: July 08, 2024 End: July 08, 2024 Dr. Brenda Hernandez DO Referring Provider Activ e Start: July 08, 2024 End: July 08, 2024 ARG[place] Pang Attending Provider Active Start: July 08, 2024 End: July 08, 2024 Team Status: Inactive Member Role/Relationship Status Dates Dr. Brenda Hernandez DO Primary Care Provider Ac tive Start: July 10, 2024 End: July 10, 2024 ARG[place] Pang Attending Provider Active Start: July 10, 2024 End: July 10, 2024 Team Status: Inactive Member Role/Relationship Status Dates Dr. Brenda Hernandez DO Attending Provider Activ e Start: July 20, 2024 End: July 20, 2024 Dr. Brenda Hernandez DO Referring Provider Activ e Start: July 20, 2024 End: July 20, 2024 No Primary Care Physician Primary Care Provider Active Start: July 20, 2024 End: July 20, 2024 Team Status: Inactive Member Role/Relationship Status Dates Dr. Brenda Hernandez DO Referring Provider Activ e Start: August 03, 2024 End: August 03, 2024 Yamilex Delvalle CNM Attending Provider Active S tart: August 03, 2024 End: August 03, 2024 No Primary Care Physician Primary Care Provider Active Start: August 03, 2024 End: August 03, 2024 Team Status: Inactive Member Role/Relationship Status Dates Dr. Brenda Hernandez DO Attending Provider Activ e Start: August 30, 2024 End: August 30, 2024 Dr. Brenda Hernandez DO Referring Provider Activ e Start: August 30, 2024 End: August 30, 2024 No Primary Care Physician Primary Care Provider Active Start: August 30, 2024 End: August 30, 2024 Team Status: Inactive Member Role/Relationship Status Dates Dr. Brenda Hernandez DO Referring Provider Activ e Start: September 18, 2024 End: September 18, 2024 Bonnie Ruiz NP, POSTDOCTORAL RESEARCH FELLOW-C Attending Provider Active Start: September 18, 2024 End: September 18, 2024 No Primary Care Physician Primary Care Provider Active Start: September 18, 2024 End: September 18, 2024 Team Status: Active Member Role/Relationship Status Dates No Primary Care Physician Primary Care Provider Active Start: September 18, 2024 Bonnie Ruiz NP, POSTDOCTORAL RESEARCH FELLOW-C Attending Provider Active Start: September 18, 2024 Goals (unrecognized section and content) Goals may be documented in a n alternate section FOR RECORDS PERTAINING TO PATIENTS WHO ARE OR HAVE BEEN ENROLLED IN A CHEMICAL DEPENDENCY/SUBSTANCEABUSE PROGRAM, SOME INFORMATION MAY BE OMITTED. This clinical summary was aggregated from multiple sources. Caution should be exercised in using it in the provision of clinical care. This summary normalizes information from multiple sources, and as a consequence, information in this document may materially change the coding, format and clinical context of patient data. In addition, data may be omitted in some cases. CLINICAL DECISIONS SHOULD BE BASED ON THE PRIMARY CLINICAL RECORDS. [facility] [employer] provides no warranty or guarantee of the accuracy or completeness of information in this document.
[2024-09-20 07:15] LABS: Glucose GTT-Gestation. Fasting 88 mg/dL (<105)
[2024-09-20 10:08] LABS: Glucose GTT-Gestational 1 Hr 197 mg/dL (<190)
[2024-09-20 11:09] LABS: Glucose GTT-Gestational 2 Hr 169 mg/dL (<165)
[2024-09-20 11:38] LABS: Glucose GTT-Gestational 3 Hr 90 L (<145)
== END | disposition home or self-care (01) ==
LOC: LAB 06:38
PROVIDERS: Referring Provider Nurse Practitioner Women's Health; Visit Provider Nurse Practitioner Women's Health
DX: Z13.1 Encounter for screening for diabetes mellitus (principal)
CPT/HCPCS: 36415; 82951; 82952

== ENCOUNTER 2024-09-27 15:41 | Outpatient (RCR) | payer SELFPAY | END 2024-10-22 23:59 | LOC: NS 15:41 | PROVIDERS: Visit Provider Nurse Practitioner Women's Health | DX: O24.419 Gestational diabetes mellitus in pregnancy, unspecified control (principal) | CPT/HCPCS: 97802 ==

== ENCOUNTER → 2024-10-02 | Outpatient (CLI) | payer SELFPAY | END | disposition home or self-care (01) | LOC: LABSPEC 12:16 | PROVIDERS: Visit Provider Obstetrics & Gynecology | DX: R82.71 Bacteriuria (principal) | CPT/HCPCS: 87086; 87088 ==

== ENCOUNTER 2024-11-04 10:05 | Outpatient (CLI) | payer SELFPAY ==
--- OUTSIDE RECORDS SUMMARY | 2024-11-04 10:17 | XMS RPT_ITS | CCD ---
Author Organization [facility] CliniSyak Care Team Providers Care Name Role Phone ANTHONY GONGORA Attending Unavailable Timothy Anna Primary Care Unavaila Timothy Rivero Consulting Unavaila Timothy Rivero Unavailable Brenda Mccall Unavailable [phone] Unavailable Primary Care Provider UnavailGENEVIEVE Perez Consulting Unavailable NAZZARO JOHANNA C Attending Unavailable NAZZARO JOHANNA C Attending Unavailable NAZZARO, JOHANNA C [...] Dr. Krystle Enriquez MD Attending Provider [phone] Care Physician, No Primary Referring Provider Un available Lacy Gongora CNM Attending Provider [phone] Lacy Gongora CNM Referring Provider [phone] Dr. Brenda Hernandez DO Primary Care Provid er Care Physician, No Primary Primary Care Provider Unavailable Dr. Brenda Hernandez DO Attending Provider Dr. Brenda Hernandez DO Referring Provider Care Physician, No Primary Primary Care Provider Unavailable Yamilex Delvalle CNM Attending Provider [phone] Joseph FINGERNAIL SCULPTOR-CBonnie Attending Provider [phone] Joseph SANCHEZ-CBonnie Referring Provider [phone] Richard Fofana Attending Provider Richard Fofana Attending Provider Krissy Castillo DO, Dr. Gutierrez Primary Care Provid er Krissy Castillo DO, Dr. Gutierrez Attending Provider Krissy Castillo DO, Dr. Gutierrez Referring Provider Care Physician, No Primary Referring Provider Un available Care Physician, No Primary Primary Care Provider Unavailable Krissy Castillo DO, Dr. Gutierrez Primary Care Provid er Krissy Castillo DO, Dr. Gutierrez Attending Provider Krissy Castillo DO, Dr. Gutierrez Referring Provider Mina GARIBAY, Dr. Dalton Attending Provider Krissy Castillo DO, Dr. Gutierrez Primary Care Provid er Krissy Castillo DO, Dr. Gutierrez Referring Provider Dr. Brenda Hernandez DO Attending Provider Care Physician, No Primary Referring Provider Un available Krissy Castillo DO, Dr. Gutierrez Primary Care Provid er Krissy Castillo DO, Dr. Gutierrez Referring Provider Yamilex Delvalle CNM Attending Provider [phone] Care Physician, No Primary Referring Unava ilable Care Physician, No Primary Primary Care Unava ilable Lacy Gongora Attending Unavailable Bonnie Ruiz NP Attending Unavailable Care Physician, No Primary Primary Care Unava ilable Brenda Hernandez Referring Unavailabl e Care Physician, No Primary Referring Unava ilable Care Physician, No Primary Primary Care Unava ilable Yamilex Delvalle Attending Unavailable Care Physician, No Primary Primary Care Unava ilable Brenda Hernandez Referring Unavailabl e Krystle Enriquez Attending Unavailable Care Physician, No Primary Referring Unava ilable Care Physician, No Primary Primary Care Unava ilable [place] FINGERNAIL SCULPTOR, Bonnie Attending Unavailable [place] FINGERNAIL SCULPTOR, Bonnie Attending Unavailable Care Physician, No Primary Primary Care Unava ilable Care Physician, No Primary Primary Care Unava ilable Vande Velde, Brenda Attending Unavailabl e Vande Velde, Brenda Referring Unavailabl e Vande Velde, Brenda Primary Care Unavailabl e Richard Meng Attending Unavailable Vande Velde, Brenda Primary Care Unavailabl e Vande Velde, Brenda Attending Unavailabl e Vande Velde, Brenda Referring Unavailabl e Care Physician, No Primary Primary Care Unava ilable Vande Velde, Brenda Attending Unavailabl e Vande Velde, Brenda Primary Care Unavailabl e Vande Velde, Brenda Referring Unavailabl e Vande Velde, Brenda Attending Unavailabl e Joseph FINGERNAIL SCULPTOR, Bonnie Attending Unavailable Care Physician, No Primary Primary Care Unava ilable [place] FINGERNAIL SCULPTOR, Bonnie Referring Unavailable Vande Velde, Brenda Referring Unavailabl e Vande Velde, Brenda Primary Care Unavailabl e Vande Velde, Brenda Attending Unavailabl e Care Physician, No Primary Primary Care Unava ilable Krystle Enriquez Attending Unavailable Vande Velde, Brenda Primary Care Unavailabl e Vande Velde, Brenda Referring Unavailabl e Vande Velde, Brenda Attending Unavailabl e Vande Velde, Brenda Primary Care Unavailabl e Richard Meng Attending Unavailable Vande Velde, Brenda Referring Unavailabl e Vande Velde, Brenda Primary Care Unavailabl e Joseph FINGERNAIL SCULPTOR, Bonnie Attending Unavailable Vande Velde, Brenda Referring Unavailabl e Vande Velde, Brenda Primary Care Unavailabl e Yamilex Delvalle Attending Unavailable Vande Velde, Brenda Referring Unavailabl e Care Physician, No Primary Primary Care Unava ilable [place] FINGERNAIL SCULPTOR, Bonnie Referring Unavailable Joseph FINGERNAIL SCULPTOR, Bonnie Attending Unavailable Care Physician, No Primary Primary Care Unava ilable [place] FINGERNAIL SCULPTOR, Bonnie Attending Unavailable Care Physician, No Primary Primary Care Unava ilable Krystle Enriquez Referring Unavailable Krystle Enriquez Admitting Unavailable Krystle Enriquez Attending Unavailable Brenda Hernandez Primary Care Unavailabl e Joseph FINGERNAIL SCULPTOR, Bonnie Referring Unavailable Joseph FINGERNAIL SCULPTOR, Bonnie Attending Unavailable Care Physician, No Primary Primary Care Unava ilable Vande Velde, Brenda Referring Unavailabl e Vande Velde, Brenda Attending Unavailabl e Care Physician, No Primary Primary Care Unava ilable Vande Velde, Brenda Attending Unavailabl e Vande Velde, Brenda Referring Unavailabl e Care Physician, No Primary Primary Care Unava ilable Lacy Gongora Attending Unavailable Gongora, Lacy Referring Unavailable Care Physician, No Primary Primary Care Unava ilable Krystle Enriquez Attending Unavailable Care Physician, No Primary Primary Care Unava ilable Vande Velde, Brenda Referring Unavailabl e Vande Velde, Brenda Attending Unavailabl e Care Physician, No Primary Primary Care Unava ilable Yamilex Delvalle Attending Unavailable Vande Velde, Brenda Referring Unavailabl e [place] FINGERNAIL SCULPTOR, Bonnie Attending Unavailable Care Physician, No Primary Primary Care Unava ilable Vande Velde, Brenda Primary Care Unavailabl e Care Physician, No Primary Referring Unava ilable Betye Anna, Brenda Attending Unavailabl e Allergies Allergy Classification Reported Allergen(s) Allergy Type Date of Onset Reaction(s) Facility (20 sources) Metoclopramide; Translations: [METOCLOPRAMIDE] Drug Allergy 3 Intolerance [facility] (1 source) Metoclopramide Drug Allergy 5 [facility] Repository Medications Current Medications Medication Drug Class(es) Dates Sig (Normalized) Sig (Original) Amoxicillin / Clavulanate (1 source) Penicillin-class Antibacterial Start: 12-25-2020 take 1 tablet by mouth twice daily Augmentin 875-125 MG 1 tablet Orally Twice a day for 10 day(s) Dec, Active Blood-Glucose Meter misc (7 sources) Start: 09-20-2024 Blood-Glucose Meter misc Active 0 .ROUTE .MEDSUPPLY 1 0 September 20, 2024 12:00am Gestational diabetes mellitus (GDM) Gestational diabetes mellitus in , unspecified control As directed busPIRone hydrochloride 10 mg oral tablet (16 sources) Start: 06-06-2024 take 1 tablet by mouth three times daily as needed for anxiety Buspirone 10 mg tablet Active 10 mg PO THREE TIMES A DAY as needed for anxiety 60 3 June 06, 2024 12:00am cephalexin 500 mg oral capsule (9 sources) Cephalosporin Antibacterial Start: 02-24-2022 End: 03-06-2022 take 1 capsule by mouth twice daily cephALEXin (KEFLEX) 500 mg capsule Indications: Urinary tract infection symptoms Take 1 capsule by mouth twice daily for 10 days. 20 capsule 0 02/24/2022 03/06/2022 Active Comment on above: Take 1 capsule by [facility] twice daily for 10 days. dextromethorphan hydrobromide 15 mg / guaiFENesin 400 mg / pseudoephedrine hydrochloride 60 mg oral tablet (1 source) alpha-Adrenergic Agonist, Uncompetitive S-ykmoik-K-aspartat e Receptor Antagonist, Sigma-1 Agonist Start: 12-13-2020 [...] hrs for 30 day(s) Jan, Active Iron (19 sources) Start: 04-13-2024 [id number] 4-Pme-Dub-Fish (Hayley Velasquezv) 13.5 mg iron- 0.5 mg-150 mg capsule [...] times daily. progesterone 200 mg oral capsule (19 sources) Progesterone Start: 09-24-2023 End: 04-13-2024 Progesterone Micronized (Prometrium) 200 mg capsule Discontinued 200 mg VAGINAL AT BEDTIME 30 30 3 September 24, 2023 12:00am April 13, 2024 9:25am continue through 14 weeks Problems Active Problems Problem Classification Problem Date Documented Date Episodic/Chronic Diabetes mellitus without complication (7 sources) Abnormal glucose level; Translations: [Other abnormal glucose] 09-18-2024 Episodic Comment on above: 3 HR GTT Diabetes or abnormal glucose tolerance complicating ; childbirth; or the puerperium (18 sources) Gestational diabetes mellitus; Translations: [Gestational diabetes mellitus in , unspecified control] Onset: 10-16-2024 09-20-2024 Episodic Comment on above: well controlled diet diabetic, discussed decreased testing frequencies well controlled diet diabetic, discussed decreased testing frequencies. 36 wk growth US Genitourinary symptoms and ill-defined conditions (20 sources) Urinary symptoms ; Translations: [Unspecified symptoms and signs involving the genitourinary system] Onset: 07-11-2024 Episodic Hemorrhage during ; abruptio placenta; placenta previa (19 sources) Antepartum hemorrhage; Translations: [Hemorrhage in early , unspecified] 08-24-2023 Episodic Immunizations and screening for infectious disease (1 source) Encounter for immunization; Translations: [Encounter for immunization] Onset: 10-02-2024 Episodic Other complications of (20 sources) ; [...] 114, HCGx2. reso lved Other complications of (19 sources) H/O: miscarriage; Translations: [Supervision of with other poor reproductive or obstetric history, unspecified trimester] 08-24-2023 Episodic Other complications of (20 sources) High risk ; Translations: [Supervision of high risk , unspecified, unspecified trimester] 04-13-2024 Episodic Comment on above: , Shay [id number], Edgar melgar PRR , boy name s darrelet Shay Other complications of (19 sources) Complication of , childbirth and/or the puerperium; Translations: [Other specified related conditions, unspecified trimester] 08-24-2023 Episodic Other complications of (13 sources) Varicella non-immune; Translations: [Supervision of other high risk pregnancies, unspecified trimester] 07-05-2024 Episodic Comment on above: Enc avoidance and va ccine pp Other complications of (2 sources) Supervision of high risk , unspecified, second trimester; Translations: [Supervision of high risk , unspecified, second trimester] Onset: 10-16-2024 Episodic Other complications of (1 source) Supervision of other high risk pregnancies, unspecified trimester; Translations: [Supervision of other high risk pregnancies, unspecified trimester] Onset: 10-16-2024 Episodic Other complications of (1 source) Supervision of high risk , unspecified, unspecified trimester; Translations: [Supervision of high risk , unspecified, unspecified trimester] Onset: 08-16-2024 Episodic Other female genital disorders (20 sources) Recurrent loss; 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] Onset: 10-16-2024 09-13-2023 Episodic Comment on above: recommend APL panel and suzan haney, will discuss parental chromosome testing and HSG at postop appointmenttapan Haney female, Maternal cell contaminiation cant be ruled out as patental sample was not ran Other nutritional; endocrine; and metabolic disorders (1 source) Body mass index (BMI) 27.0-27.9, adult Episodic Other screening for suspected conditions (not mental disorders or infectious disease) (9 sources) Liver function tests abnormal; Translations: [Abnormal results of liver function studies] Onset: 09-28-2024 Episodic Other upper respiratory infections (6 sources) Sinusitis; Translations: [Chronic sinusitis, unspecified] Chronic Residual codes; unclassified (20 sources) Adopted; Translations: [Other specified health status] 04-13-2024 Episodic Residual codes; unclassified (1 source) 31 weeks gestation of ; Translations: [31 weeks gestation of ] Onset: 10-16-2024 Episodic Residual codes; unclassified (1 source) Other specified health status; Translations: [Other specified health status] Onset: 10-02-2024 Episodic Residual codes; unclassified (1 source) 29 weeks gestation of ; Translations: [29 weeks gestation of ] Onset: 10-02-2024 Episodic Unclassified (20 sources) No additional problems on file Unclassified (1 source) Other underimmunization status; Translations: [Other underimmunization status] Onset: 10-16-2024 Past or Other Problems Problem Classification Problem [...] recurrent loss, unspecified trimester] Onset: 05-04-2024 Episodic Other and delivery including normal (20 sources) test positive; Translations: [Encounter for test, result positive] Onset: 07-25-2024 Episodic Comment on above: Enc avoidance and va ccine pp Residual codes; unclassified (1 source) 21 weeks gestation of ; Translations: [21 weeks gestation of ] Onset: 08-03-2024 Episodic Residual codes; unclassified (1 source) Other specified postprocedural states; Translations: [Other specified postprocedural states] Onset: 05-11-2024 Episodic Residual codes; unclassified (1 source) 9 weeks gestation of ; Translations: [9 weeks gestation of ] Onset: 05-11-2024 Episodic Spontaneous (20 sources) Miscarriage; Translations: [Complete or unspecified spontaneous without complication] Onset: 02-10-2024 Episodic Comment on above: 7.3mm EML with les gonzáles c/w Dr. Enriquez. options reviewed and pt opted for D&C today. Unclassified (1 source) OB GROIN AREA DISCOMFORT Onset: 02-26-2022 Unclassified (1 source) VIABILITY Onset: 03-12-2022 Results Test Name Value Interpretation Reference Range Facility Laboratory - Chemistry and C hemistry - challengeOrdered By: Yamilex Delvalle on 10-16-2024 Glucose Ql (U) Negative [facility] Laboratory - UrinalysisOrder ed By: Yamilex Delvalle on 10-16-2024 Protein Ql (U) Negative [facility] Managing Attorney Office Visit Reporton 10-16-2024 Managing Attorney Office Visit Report [facility] [address], [address] [place] [address] OFFICE VISIT Date of Service: 10/16/24 MR#: [id number] Acct: [id number] Name: KASSANDRA BAUTISTA Rep #: [id number] : 1995 Provider: MICHAEL Freeman ams Age/Sex: 28/F Location: [facility] Status: Signed Intake Vital Signs 09/18/24 08:37 10/02/24 08:43 10/16/24 10:34 Height 5 ft 5 in 5 ft 5 in 5 ft 5 in Weight: 179 lb 5 oz BMI 29.8 BP 122/84 H Intake Visit Reasons: 32 WK OB Chief Complaint: 32wk OB Animal Ride Manager Required: No Is patient in pain?: No Allergies metoclopramide (From Reglan) Allergy (Mild, Verified 10/16/24 10:32) lock jaw Medications ???Medication ???Instructions ???Recorded ???Confirmed ???Type PNV 158-iron 13.5 mg-folic 0.5 cap PO 04/13/24 10/16/24 History mg-omega 3-dha 150 mg-epa-fish capsule (Natavi PNV) buspirone 10 mg tablet 10 mg PO TID PRN anxiety #60 tabs 06/06/24 10/16/24 Rx blood sugar diagnostic (Blood #120 ea 09/20/24 10/16/24 Rx Glucose Test strips) blood-glucose meter #1 ea 09/20/24 10/16/24 Rx lancets 30 gauge (Droplet Lancets) #200 ea 09/20/24 10/16/24 Rx Last Menstrual Period: 03/07/24 : No PFSH PFSH Medical History Adopted person Spotting in early Incomplete miscarriage History of miscarriage, currently Abdominal cramping affecting Bleeding in early Surgical History S/P D C (status post dilation and curettage) S/P left knee surgery S/P wisdom tooth extraction Social History adopted: Yes household members: spouse number of children: 0 current occupational status: employed current occupation: [employer] pets and animals: No history of recent [...] in: walking frequency: 3-4 times per week blayne/confucianist: Nondenominational seatbelt use: always do you feel safe at home: Yes additional social history: - Shay History 4 Elective abortions Hx Para 0 Spontaneous abortions 3 Hx # Term Pregnancies Ectopic pregnancies Hx # Pregnancies Multiple births # of living children HPI 32 WK OB Details: KASSANDRA BAUTISTA is a 28 year old who presents for routine OB visit. OB Visit RALPH Calculator Estimated Delivery Date Method Current WG Current Estimate 12/12/24 LMP (Certain) 31w 6d Expected Delivery Route/Plan Labor Preferences- CB/BF classes: [] labor support person: [] labor intervention preferences: [] pain management options preferred: [] cut cord/dad catch: [] : [] PP control planned: [] discussed possible routes of delivery and associated risks: [] special requests: [] Specific Issue/Plans Covid status: [] Flu vaccine: [] Tdap vaccine: given Rhogam: na LARC form signed: [declined Problem list reviewed and updated with the most current plan of care details and appropriate orders placed. Relevant counseling for the gestational age provided. Continue routine care and follow up unless otherwise noted in visit notes/problem list details Initial Weight: 168 lb Date -???-???-???-???-???- ???-???-???-???-???-? [...] seen. patient is still suffering with anxiety. (more content not included)... Normal [facility] Urine Cultureon 10-04-2024 URC Below infection level. Mixed Gram Positive Organisms [place] Count 1000-10,000 MIXC Mixed contaminants. Submit a new specimen if indicated. Normal [facility] Comment on above: Performed By: #### L 500.4710 #### [facility] Laboratory [address] [place] [address]. [place], [address] Laboratory - Chemistry and C hemistry - challengeOrdered By: Krystle Enriquez on 10-02-2024 Bilirubin Ql (U) Negative [facility] Glucose Ql (U) Negative [facility] Ketones Ql (U) Large (80+) [facility] pH (U) 6.0 [pH] [facility] Specific gravity (U) [Rel density] 1.010 [facility] Urobilinogen (U) [Mass/Vol] 0.8538530 mg/dL [facility] Laboratory - Hematology and Cell countsOrdered By: Krystle Enriquez on 10-02-2024 Hemoglobin Ql (U) Negative [facility] Laboratory - Specimen inform ationOrdered By: Krystle Enriquez on 10-02-2024 Clarity (U) Clear [facility] Color (U) Yellow [facility] Laboratory - UrinalysisOrder ed By: Krystle Enriquez on 10-02-2024 Nitrite Ql (U) Negative [facility] Protein Ql (U) Negative [facility] No Panel InformationOrdered By: Krystle Enriquez on 10-02-2024 Urine Leukocytes Negatve [facility] Urine Non-Hemolyzed Blood [facility] Managing Attorney Office Visit Reporton 10-02-2024 Managing Attorney Office Visit Report [facility] [address], [address] [place] [address] OFFICE VISIT Date of Service: 10/02/24 MR#: [id number] Acct: [id number] Name: KASSANDRA BAUTISTA Rep #: [id number] : 1995 Provider: Dr. Krystle alejo MD Age/Sex: 28/F Location: [facility] Status: Signed Intake Vital Signs 07/05/24 08:31 09/27/24 16:05 10/02/24 08:43 Height 5 ft 5 in 5 ft 5 in 5 ft 5 in Weight: 181 lb 3 oz BMI 30.1 BP 121/84 H Intake Visit Reasons: 30 wk ob Animal Ride Manager Required: No Is patient in pain?: No Feel stressed/tense/nervou s/anxious/difficulty sleeping: not at all Allergies metoclopramide (From Reglan) Allergy (Mild, Verified 10/02/24 08:45) lock jaw Medications ???Medication ???Instructions ???Recorded ???Confirmed ???Type PNV 158-iron 13.5 mg-folic 0.5 cap PO 04/13/24 10/02/24 History mg-omega 3-dha 150 mg-epa-fish capsule (Natavi PNV) buspirone 10 mg tablet 10 mg PO TID PRN anxiety #60 tabs 06/06/24 10/02/24 Rx blood sugar diagnostic (Blood #120 ea 09/20/24 10/02/24 Rx Glucose Test strips) blood-glucose meter #1 ea 09/20/24 10/02/24 Rx lancets 30 gauge (Droplet Lancets) #200 ea 09/20/24 10/02/24 Rx Last Menstrual Period: 03/07/24 Zika: Zika virus screening: Negative : No PFSH PFSH Medical History (Updated 10/02/24 @ 09:[address] Krystle Enriquez MD) Adopted person Spotting in early Incomplete miscarriage History of miscarriage, currently Abdominal cramping affecting Bleeding in early Surgical History S/P D C (status post dilation and curettage) S/P left knee surgery S/P wisdom tooth extraction Social History adopted: Yes household members: spouse number of children: 0 current occupational status: employed 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 pets and animals: No history of recent [...] in: walking frequency: 3-4 times per week blayne/confucianist: Nondenominational seatbelt use: always do you feel safe at home: Yes additional social history: - Shay History 4 Elective abortions Hx Para 0 Spontaneous abortions 3 Hx # Term Pregnancies Ectopic pregnancies Hx # Pregnancies Multiple births # of living children HPI 30 wk ob Details: KASSANDRA BAUTISTA is a 28 year old who presents for routine OB visit. OB Visit RALPH Calculator Estimated Delivery Date Method Current WG Current Estimate 12/12/24 LMP (Certain) 29w 6d Expected Delivery Route/Plan Labor Preferences- CB/BF classes: [] labor support person: [] labor intervention preferences: [] pain management options preferred: [] cut cord/dad catch: [] : [] PP control planned: [] discussed possible routes of delivery and associated risks: [] special requests: [] Specific Issue/Plans Covid status: [] Flu vaccine: [] Tdap vaccine: given Rhogam: na LARC form signed: [declined Problem list reviewed and updated with the most current plan of care details and appropriate orders placed. Relevant counseling for the gestational age provided. Continue routine care and follow up unless otherwise noted in visit notes/problem list details Initial Weight: 168 lb Date -???-???-???-???-???- ???-???-???-???-???-? [...] Negative -???-???-???-???-???- ???-???-???-???-???-? ??-???- Negative 168 -???-???-???-???-???- ???-???-???-???-?? (more content not included)... Normal [facility] Urine cultureOrdered By: Sandeep Enriquez on 10-02-2024 Bacteria identified Cx Nom (U) Positive Abnormal [facility] Gestational GTT 3HR 100gon 0 09-20-2024 GEST GTT 100gm High [facility] Comment on above: Order Comment: Y Result Comment: FAST ING 88 Col: 09/20/24 0642 GLUCOSE TOLERANCE TEST FOR Reference Interval GESTATIONAL DIABETES Fasting <105 mg/dL 1 hour <190 mg/dl 2 hour <165 mg/dl 3 hour <145 mg/dl 1 HR GLU 197 H Col: 09/20/24 0822 2 HR GLU 169 H Col: 09/20/24 0922 3 HR GLU 90 Col: 09/20/24 1022 Performed By: #### L 500.9799 #### [facility] [address] [place], [address] Quantitative serum or plasma 3 hour gestational glucose tolerance panelOrdered By: Bonnie Ruiz on 09-20-2024 Glucose tolerance 3 hours gestational panel See comment [facility] Comment on above: FASTING 88 Col: 08/24 0642GLUCOSE TOLERANCE TEST FOR Reference Interval GESTATIONAL DIABETES Fasting <105 mg/dL 1 hour <190 mg/dl 2 hour <165 mg/dl 3 hour <145 mg/dl 1 HR GLU 197 H Col: 09/20/24 0822 2 HR GLU 169 H Col: 09/20/24 0922 3 HR GLU 90 Col: 09/20/24 1022 Absolute lymphocyte countOrd ered By: Brenda Anna on 09-18-2024 Lymphocytes Auto (Unsp spec) [#/Vol] 1.70 10*3/uL 0.83-4.51 [facility] Absolute neutrophil countOrd ered By: Brenda Anna on 09-18-2024 Neutrophils (Bld) [#/Vol] 10.4 10*3/uL High 2.0-7.7 [facility] Automated lymphocyte count a s percentage of total leukocytesOrdered By: Brenda Castillo on 09-18-2024 Lymphocytes/100 WBC Auto (Unsp spec) 13.1 % Low 19-41 [facility] Basophil percentageOrdered B y: Brenda Anna on 09-18-2024 Basophils/100 WBC (Bld) 0.2 % 0-1 [facility] CBC W/Diff, Automatedon 08-23 Absolute Lymph 1.70 X10 3/uL Normal 0.83-4.51 [facility] Comment on above: Performed By: #### L 3890.6006, L501.0250, L509.8002, L100.0100 #### [facility] [address] [place], [address] Absolute Neut 10.4 X10 3/uL High 2.0-7.7 [facility] Comment on above: Performed By: #### L 3890.6006, L501.0250, L509.8002, L100.0100 #### [facility] [address] [place], [address] Basophils/100 WBC (Bld) 0.2 % Normal 0-1 [facility] Comment on above: Performed By: #### L 3890.6006, L501.0250, L509.8002, L100.0100 #### [facility] [address] [place], [address] Eosinophils/100 WBC (Bld) 0.3 % Normal 0-5 [facility] Comment on above: Performed By: #### L 3890.6006, L501.0250, L509.8002, L100.0100 #### [facility] [address] [place], [address] Erythrocyte distribution width (RBC) [Ratio] 13.0 % Normal 11.6-14.6 [facility] Comment on above: Performed By: #### L 3890.6006, L501.0250, L509.8002, L100.0100 #### [facility] [address] [place], [address] Hematocrit (Bld) [Volume fraction] 37.0 % Normal 37-47 [facility] Comment on above: Performed By: #### L 3890.6006, L501.0250, L509.8002, L100.0100 #### [facility] [address] [place], [address] Hemoglobin (Bld) [Mass/Vol] 11.9 g/dL Low 12.0-15.0 [facility] Comment on above: Performed By: #### L 3890.6006, L501.0250, L509.8002, L100.0100 #### [facility] [address] [place], [address] IG% 0.700 Normal 0.0-0.9 [facility] Comment on above: Result Comment: IG% - Immature Granulocytes (promyelocytes, myelocytes and metamyelocytes) > 1% indicates that a LEFT SHIFT is Present. Performed By: #### L 3890.6006, L501.0250, L509.8002, L100.0100 #### [facility] [address] [place], [address] Lymphocytes/100 WBC (Bld) 13.1 % Low 19-41 [facility] Comment on above: Performed By: #### L 3890.6006, L501.0250, L509.8002, L100.0100 #### [facility] [address] [place], [address] MCH (RBC) [Entitic mass] 28.4 pg Normal 27.0-32.0 [facility] Comment on above: Performed By: #### L 3890.6006, L501.0250, L509.8002, L100.0100 #### [facility] [address] [place], [address] MCHC (RBC) [Mass/Vol] 32.2 g/dL Normal 32-36 [facility] Comment on above: Performed By: #### L 3890.6006, L501.0250, L509.8002, L100.0100 #### [facility] [address] [place], [address] MCV (RBC) [Entitic vol] 88.3 fL Normal 81-99 [facility] Comment on above: Performed By: #### L 3890.6006, L501.0250, L509.8002, L100.0100 #### [facility] [address] [place], [address] Monocytes/100 WBC (Bld) 5.5 % Normal 0-10 [facility] Comment on above: Performed By: #### L 3890.6006, L501.0250, L509.8002, L100.0100 #### [facility] [address] [place], [address] Neutrophils/100 WBC (Bld) 80.2 % High 47-70 [facility] Comment on above: Performed By: #### L 3890.6006, L501.0250, L509.8002, L100.0100 #### [facility] [address] [place], [address] Nucleated RBC (Bld) [#/Vol] 0 10*3/uL Normal 0-5 [facility] Comment on above: Performed By: #### L 3890.6006, L501.0250, L509.8002, L100.0100 #### [facility] [address] [place], [address] Platelet mean volume (Bld) [Entitic vol] 10.3 fL Normal 6.2-12.0 [facility] Comment on above: Performed By: #### L 3890.6006, L501.0250, L509.8002, L100.0100 #### [facility] [address] [place], [address] Platelets (Bld) [#/Vol] 222 10*3/uL Normal 150-450 [facility] Comment on above: Performed By: #### L 3890.6006, L501.0250, L509.8002, L100.0100 #### [facility] [address] [place], [address] RBC (Bld) [#/Vol] 4.19 10*6/uL Low 4.2-5.4 [facility] Comment on above: Performed By: #### L 3890.6006, L501.0250, L509.8002, L100.0100 #### [facility] [address] [place], [address] RDW SD 41.5 fl Normal 35.1-43.9 [facility] Comment on above: Performed By: #### L 3890.6006, L501.0250, L509.8002, L100.0100 #### [facility] [address] [place], [address] WBC (Bld) [#/Vol] 13.0 10*3/uL High 4.4-11.0 [facility] Comment on above: Performed By: #### L 3890.6006, L501.0250, L509.8002, L100.0100 #### [facility] [address] [place], [place], [address] Eosinophil percentageOrdered By: Brenda Castillo on 09-18-2024 Eosinophils/100 WBC (Bld) 0.3 % 0-5 [facility] Erythrocyte distribution wid th ratioOrdered By: Brenda Castillo on 09-18-2024 Erythrocyte distribution width (RBC) [Ratio] 13.0 % 11.6-14.6 [facility] Erythrocyte distribution wid th standard deviationOrdered By: Brenda Castillo on 09-18-2024 Erythrocyte distribution width (RBC) [Ratio] 41.5 fl 35.1-43.9 [facility] Glucose Challenge Gest 1H 50 deborah 09-18-2024 GLU GEST 50g 1H 148 mg/dL High 70-140 [facility] Comment on above: Performed By: #### L 3890.6006, L501.0250, L509.8002, L100.0100 #### [facility] [address] [facility] [place], [place], [address] Glucose measurement at 2 nathan rs post-dose gestational glucose tolerance testOrdered By: Brenda Castillo on 09-18-2024 Glucose [Mass/Vol] 148 mg/dL High 70-140 [facility] HIVon 09-18-2024 HIV Non-Reactive Normal Nonreactive [facility] Comment on above: Result Comment: Non- Reactive Reactive Repeatedly reactive samples must be confirmed according to CDC recommended confirmatory algorithms. The subresults for either HIVAG or AHIV can be used as an aid in the selection of the confirmation algorithm for reactive samples. Send out specimens with Reactive results to [facility] for confirmation. Order the HIV antibody detection and differentiation: lc#[id number] Performed By: #### L 3890.6006, L501.0250, L509.8002, L100.0100 #### [facility] [address] [place], [address] Hematocrit Auto (Bld) [Volum e fraction]Ordered By: Brenda Castillo on 09-18-2024 Hematocrit (Bld) [Volume fraction] 37.0 % 37-47 [facility] Hemoglobin measurementOrdere d By: Brenda Castillo on 09-18-2024 Hemoglobin (Bld) [Mass/Vol] 11.9 g/dL Low 12.0-15.0 [facility] Immature granulocytes/100 WB C Auto (Bld)Ordered By: Brenda Castillo on 09-18-2024 Immature granulocytes/100 WBC (Bld) 0.700 % 0.0-0.9 [facility] Comment on above: IG% - Immature Granu locytes (promyelocytes, myelocytes and metamyelocytes) > 1% indicates that a LEFT SHIFT is Present. Laboratory - Chemistry and C hemistry - challengeOrdered By: Bonnie Ruiz on 09-18-2024 Glucose Ql (U) Negative [facility] - UrinalysisOrder ed By: Bonnie Ruiz on 09-18-2024 Protein Ql (U) Negative [facility] MCV (mean corpuscular volume ) determinationOrdered By: Brenda Castillo on 09-18-2024 MCV (RBC) [Entitic vol] 88.3 fL 81-99 [facility] Mean corpuscular hemoglobin (MCH) determinationOrdered By: Brenda Castillo on 09-18-2024 MCH (RBC) [Entitic mass] 28.4 pg 27.0-32.0 [facility] Mean corpuscular hemoglobin concentration (MCHC) determinationOrdered By: Brenda Castillo on 09-18-2024 MCHC (RBC) [Mass/Vol] 32.2 g/dL 32-36 [facility] Mean platelet volume determi nationOrdered By: Brenda Castillo on 09-18-2024 Platelet mean volume (Bld) [Entitic vol] 10.3 fL 6.2-12.0 [facility] Monocyte percentageOrdered B y: Brenda Castillo on 09-18-2024 Monocytes/100 WBC (Bld) 5.5 % 0-10 [facility] Neutrophil percentageOrdered By: Brenda Castillo on 09-18-2024 Neutrophils/100 WBC (Bld) 80.2 % High 47-70 [facility] No Panel InformationOrdered By: Brenda Castillo on 09-18-2024 HIV (1&2) Antibody Non-Reactive Nonreactive [facility] Comment on above: Non-ReactiveReactive Repeatedly reactive samples must be confirmed according to CDC recommended confirmatory algorithms. The subresults for either HIVAG or AHIV can be used as an aid in the selection of the confirmation algorithm for reactive samples.Send out specimens with Reactive results to [facility] for confirmation.Order the HIV antibody detection and differentiation: #[id number] Nucleated red blood cell per centageOrdered By: Brenda Castillo on 09-18-2024 Nucleated RBC/100 WBC (Bld) [Ratio] 0 % 0-5 [facility] Managing Attorney Office Visit Reporton 09-18-2024 Managing Attorney Office Visit Report [facility] [address], [address] [place] [address] OFFICE VISIT Date of Service: 09/18/24 MR#: [id number] Acct: [id number] Name: KASSANDRA BAUTISTA Rep #: [id number] : 1995 Provider: JESSI cooper Age/Sex: 28/F Location: [facility] Status: Signed Intake Vital Signs 07/05/24 08:31 08/30/24 08:43 09/18/24 08:37 09/18/24 08:53 Height 5 ft 5 in 5 ft 5 in 5 ft 5 in Weight: 190 lb BMI 31.6 BP 136/80 H Intake Visit Reasons: 28 wk ob/glucose Animal Ride Manager Required: No Is patient in pain?: No [...] 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 Normal [facility] Platelet countOrdered By: Gabriel Castillo on 09-18-2024 Platelets (Bld) [#/Vol] 222 10*3/uL 150-450 [facility] RBC Auto (Bld) [#/Vol]Ordere d By: Brenda Castillo on 09-18-2024 RBC (Bld) [#/Vol] 4.19 10*6/uL Low 4.2-5.4 [facility] Syphilis Antibodieson 2024 Syphilis Abs Non-Reactive Normal Nonreactive [facility] Comment on above: Performed By: #### L 3890.6006, L501.0250, L509.8002, L100.0100 #### [facility] [address] [place], [place], [id number] White blood cell (WBC) count Ordered By: Brenda Castillo on 09-18-2024 WBC (Bld) [#/Vol] 13.0 10*3/uL High 4.4-11.0 [facility] Laboratory - Chemistry and C hemistry - challengeOrdered By: Brenda Castillo on 08-30-2024 Glucose Ql (U) Negative [facility] - UrinalysisOrder ed By: Brenda Castillo on 08-30-2024 Protein Ql (U) Negative [facility] Managing Attorney Office Visit Reporton 08-30-2024 Managing Attorney Office Visit Report [facility] [address], [address] [place] [address] OFFICE VISIT Date of Service: 08/30/24 MR#: [id number] Acct: [id number] Name: KASSANDRA BAUTISTA Rep #: [id number] : 1995 Provider: Dr. 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 (more content not included)... Normal [facility] - Chemistry and C hemistry - challengeOrdered By: Yamilex Delvalle on 08-03-2024 Glucose Ql (U) Negative [facility] - UrinalysisOrder ed By: Yamilex Delvalle on 08-03-2024 Protein Ql (U) Negative [facility] Managing Attorney Office Visit Reporton 08-03-2024 Managing Attorney Office Visit Report [facility], [address] [place] [address] OFFICE VISIT Date of Service: 08/03/24 MR#: [id number] Acct: [id number] Name: KASSANDRA BAUTISTA Rep #: [id number] : 1995 Provider: MICHAEL Freeman ams Age/Sex: 28/F Location: [facility] Status: Signed Intake Vital Signs 06/06/24 12:57 07/08/24 09:56 08/03/24 10:17 08/03/24 10:19 Height 5 ft 5 in 5 ft 5 in 5 ft 5 in 5 ft 5 in Weight: 185 lb 6 oz BMI 30.8 BP 127/83 H Intake Visit Reasons: 21wk ob Animal Ride Manager Required: No Is patient in pain?: No [...] 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 anatomy (more content not included)... Normal [facility] OB Anatomy w/ Transvaginalon 07-20-2024 OB Anatomy w/ Transvaginal [facility] [address] [place] [address] OB Anatomy w/ Transvaginal MR#: [id number] Acct: [id number] Name: KASSANDRA BAUTISTA Rep #: [id number] : 1995 F 28 From: Miguel olea MD PCP: Care Physician,No Primary Status: [facility] Study: OB Anatomy w/ Transvaginal Date of Exam: 07/20 Exam# [id number] Ordering Dr: Brenda Hernandez DO PROCEDURE: OB [...] 19 weeks and 1 day. Reading [facility]: [facility] CC: Dr. Brenda Hernandez DO; No Primary Care Physician Abstract Checker: Signed Normal [facility] Urine Cultureon 07-11-2024 [facility] Mixed Gram Positive Organisms [place] Count 11,000-25,000 [facility] Mixed contaminants. Submit a new specimen if indicated. Normal [facility] Comment on above: Performed By: #### L 700.8000 #### [facility] [address] [place], [place] [address] [place], [place], [id number] Bilirubin Test strip Ql (U)O rdered By: Richard Meng on 07-10-2024 Bilirubin Ql (U) Negative Negative [facility] Ketones Test strip Ql (U)Ord ered By: Richard Meng on 07-10-2024 Ketones Ql (U) Negative Negative [facility] Microscopic analysis of urin e for red blood cells (RBC)Ordered By: Richard Meng on 07-10-2024 Microscopic analysis of urine for red blood cells (RBC) 0 SEEN /hpf 0-5 [facility] Mucus LM Ql (Urine sed)Order ed By: Richard Meng on 07-10-2024 Mucus Ql (Urine sed) 0 SEEN /hpf [facility] Nitrite Test strip Ql (U)Ord ered By: Richard Meng on 07-10-2024 Nitrite Ql (U) Negative Negative [facility] Protein Test strip Ql (U)Ord ered By: Richard Meng on 07-10-2024 Protein Ql (U) Negative Negative [facility] Squamous epithelial cells de tection in urine sediment by light microscopyOrdered By: Richard Meng on 07-10-2024 Epithelial cells.squamous LM Ql (Urine sed) 0-5 SEEN /hpf - [facility] Urinalysis, Completeon 07-10 EPI,SQUAMOUS 0-5 SEEN Normal - [facility] Comment on above: Order Comment: ALICIA CTOR TO SPECIFY Performed By: #### L 700.8000 #### [facility] [address] [place], [address] BACTERIA 0 SEEN Normal None Seen [facility] Comment on above: Order Comment: ALICIA CTOR TO SPECIFY Performed By: #### L 700.8000 #### [facility] [address] [place], [address] Mucus Ql (Urine sed) 0 SEEN Normal [facility] Comment on above: Order Comment: ALICIA CTOR TO SPECIFY Performed By: #### L 700.8000 #### [facility] [address] [place], [address] RBC 0 SEEN Normal 0-5 [facility] Comment on above: Order Comment: ALICIA CTOR TO SPECIFY Performed By: #### L 700.8000 #### [facility] [address] [place], [address] WBC 0 SEEN Normal 0-5 [facility] Comment on above: Order Comment: ALICIA CTOR TO SPECIFY Performed By: #### L 700.8000 #### [facility] [address] [place], [address] Urine clarityOrdered By: Augustine Meng on 07-10-2024 Clarity (U) Clear Clear [facility] Urine color determinationOrd ered By: Richard Meng on 07-10-2024 Color (U) Yellow Yellow [facility] Urine cultureOrdered By: Augustine Meng on 07-10-2024 Bacteria identified Cx Nom (U) Positive Abnormal [facility] Urine glucose detectionOrder ed By: Richard Meng on 07-10-2024 Glucose Ql (U) Normal mg/dl Normal [facility] Urine leukocyte esterase det ection by dipstickOrdered By: Richard Meng on 07-10-2024 Leukocyte esterase Test strip Ql (U) Negative Negative [facility] Urine pHOrdered By: Richard Moreno hstetler on 07-10-2024 pH (U) 7.0 [pH] 5.0 - 8.0 [facility] Urine sediment bacteria coun t by microscopy (number/high power field)Ordered By: Richard Meng on 07-10-2024 Bacteria LM.HPF (Urine sed) [#/Area] 0 /[HPF] None Seen [facility] Urine specific gravity measu rementOrdered By: Richard Meng on 07-10-2024 Specific gravity (U) [Rel density] 1.005 1.002-1.030 [facility] Urine urobilinogen measureme ntOrdered By: Richard Meng on 07-10-2024 Urobilinogen Ql (U) Normal mg/dl Normal [facility] White blood cell countOrdere d By: Richard Meng on 07-10-2024 White blood cell count 0 SEEN /hpf 0-5 [facility] - Chemistry and C hemistry - challengeOrdered By: Richard Meng on 07-08-2024 Bilirubin Ql (U) Negative [facility] Glucose Ql (U) Negative [facility] Ketones Ql (U) Negative [facility] pH (U) 7.0 [pH] [facility] Specific gravity (U) [Rel density] 1.005 [facility] Urobilinogen (U) [Mass/Vol] 0.1469315 mg/dL [facility] - Hematology and Cell countsOrdered By: Richard Meng on 07-08-2024 Hemoglobin Ql (U) Negative [facility] - Specimen inform ationOrdered By: Richard Meng on 07-08-2024 Clarity (U) Clear [facility] Color (U) YELLOW [facility] - UrinalysisOrder ed By: Richard Meng on 07-08-2024 Nitrite Ql (U) Negative [facility] Protein Ql (U) Negative [facility] No Panel InformationOrdered By: Richard Meng on 07-08-2024 Urine Leukocytes Negatve [facility] Urine Non-Hemolyzed Blood Negative [facility] Urgent Care Visit Reporton 0 07-08-2024 Urgent Care Visit Report [facility] [address], [address] [place] [address] OFFICE VISIT Date of Service: 07/08/24 MR#: [id number] Acct: [id number] Name: KASSANDRA BAUTISTA Rep #: [id number] : 1995 Provider: ARGENTINA Pang Age/Sex: 28/F Location: [facility] Status: Signed Intake Vital Signs 07/05/24 08:31 [...] on for 3 days to a week. 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 Patient states that she recently completed a urine culture through her [employer] and was notified that it showed 80,000 [...] MA on 07/08/24 09:59 Off Ur Spec [facility] 1.005 Last Edit by Lesley Guo MA [...] Complexity Diagnoses (more content not included)... Normal [facility] Urine Cultureon 07-07-2024 [facility] Mixed Gram Positive Organisms [place] Count 80,000-100,000 [facility] Mixed contaminants. Submit a new specimen if indicated. Normal [facility] Comment on above: Performed By: #### L 034.9782 #### [facility] [place], [address] Laboratory - Chemistry and C hemistry - challengeOrdered By: Bonnie Ruiz on 07-05-2024 Bilirubin Ql (U) Negative [facility] Glucose Ql (U) Negative [facility] Ketones Ql (U) Negative [facility] pH (U) 8.5 [pH] [facility] Specific gravity (U) [Rel density] 1.010 [facility] Urobilinogen (U) [Mass/Vol] Negative [facility] - Hematology and Cell countsOrdered By: Bonnie Ruiz on 07-05-2024 Hemoglobin Ql (U) Trace [facility] - Specimen inform ationOrdered By: Bonnie Ruiz on 07-05-2024 Clarity (U) Clear [facility] Color (U) Yellow [facility] - UrinalysisOrder ed By: Bonnie Ruiz on 07-05-2024 Nitrite Ql (U) Negative [facility] Protein Ql (U) Negative [facility] No Panel InformationOrdered By: Bonnie Ruiz on 07-05-2024 Urine Leukocytes Negatve [facility] Urine Non-Hemolyzed Blood [facility] Managing Attorney Office Visit Reporton 07-05-2024 Managing Attorney Office Visit Report [facility] [address], [address] [place] [address] OFFICE VISIT Date of Service: 07/05/24 MR#: [id number] Acct: [id number] Name: KASSANDRA BAUTISTA Rep #: [id number] : 1995 Provider: JESSI cooper Age/Sex: 28/F Location: [facility] Status: Signed Intake Vital Signs 05/11/24 10:21 06/22/24 14:21 07/05/24 08:31 Height 5 ft 5 in 5 ft 5 in 5 ft 5 in Weight: 179 lb 2 oz BMI 29.7 BP 122/76 H Intake Visit Reasons: 17wk ob Chief Complaint: 17 Week OB Animal Ride Manager Required: No Is patient in pain?: No [...] 0 current occupational status: employed current occupation: [employer] pets and animals: No history of recent [...] in: walking frequency: 3-4 times per week blayne/confucianist: Nondenominational seatbelt use: always do you feel safe [...] (Clinic) Offic (more content not included)... Normal [facility] Urine cultureOrdered By: Valentín Ruiz on 07-05-2024 Bacteria identified Cx Nom (U) Positive Abnormal [facility] Laboratory - Chemistry and C hemistry - challengeOrdered By: Yamilex Delvalle on 06-22-2024 Glucose Ql (U) Negative [facility] Laboratory - UrinalysisOrder ed By: Yamilex Delvalle on 06-22-2024 Protein Ql (U) Negative [facility] Managing Attorney Office Visit Reporton 06-22-2024 Managing Attorney Office Visit Report [facility] [address], [address] [place] [address] OFFICE VISIT Date of Service: 06/22/24 MR#: [id number] Acct: [id number] Name: KASSANDRA BAUTISTA Rep #: [id number] : 1995 Provider: MICHAEL Freeman ams Age/Sex: 28/F Location: [facility] Status: Signed Intake Vital Signs 06/06/24 12:57 06/22/24 14:21 Height 5 ft 5 in 5 ft 5 in Weight: 173 lb 8 oz 179 lb 4 oz BMI 28.8 29.8 BP 129/82 H 139/84 H Intake Visit Reasons: HEARTBEAT CHECK Chief Complaint: Heartbeat Check Animal Ride Manager Required: No Is patient in pain?: No [...] current occupational status: 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 Normal [facility] Chlamydia and Neisseria gono rrhoeae detection by PCROrdered By: Brenda Castillo on 06-06-2024 Chlamydia/Neisseria (PCR) [facility] Laboratory - Chemistry and C hemistry - challengeOrdered By: Brenda Castillo on 06-06-2024 Glucose Ql (U) Negative [facility] Laboratory - UrinalysisOrder ed By: Brenda Castillo on 06-06-2024 Protein Ql (U) Negative [facility] M8200.2203on 06-06-2024 M8200.2203 Pending Chlamydia Trachomatis PCR NEGATIVE for Chlamydia trachomatis N. gonorrhoeae PCR Negative for N. gonorrhoeae Normal [facility] Comment on above: Performed By: #### M 8200.2203 #### [facility] [address] [place], [address] Managing Attorney Office Visit Reporton 06-06-2024 Managing Attorney Office Visit Report [facility]'[address], [address] [place] [address] OFFICE VISIT Date of Service: 06/06/24 MR#: [id number] Acct: [id number] Name: KASSANDRA BAUTISTA Rep #: [id number] : 1995 Provider: Dr. 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 Normal [facility] V-Zoster IgG (Immunity)on V ZOSTER IgG Normal [facility] Comment on above: Result Comment: RESU LT: NON REACTIVE Please note reference interval change A Reactive result is considered evidence of immunity to VZV. Reactive indicates that VZV IgG was detected consistent with previous infection and/or vaccination. A Non Reactive result indicates that VZV IgG was not detected suggesting that immunity has not been acquired. Performed at: - [facility] [id number] Hourly Shift: Kevon Flynn PhD, Phone: [phone] Performed By: #### L 004.5763 #### [facility] [address] [place], [address] Absolute lymphocyte countOrd ered By: Brenda Castillo on 05-11-2024 Lymphocytes Auto (Unsp spec) [#/Vol] 2.11 10*3/uL 0.83-4.51 [facility] Absolute neutrophil countOrd ered By: Brenda Castillo on 05-11-2024 Neutrophils (Bld) [#/Vol] 11.2 10*3/uL High 2.0-7.7 [facility] Automated lymphocyte count a s percentage of total leukocytesOrdered By: Bernda Castillo on 05-11-2024 Lymphocytes/100 WBC Auto (Unsp spec) 14.9 % Low 19-41 [facility] Basophil percentageOrdered B y: Brenda Castillo on 05-11-2024 Basophils/100 WBC (Bld) 0.3 % 0-1 [facility] CBC W/Diff, Automatedon 04-23 0-2024 Absolute Lymph 2.11 X10 3/uL Normal 0.83-4.51 [facility] Comment on above: Performed By: #### L 3890.6301, L3890.6102, BTS, L509.8002, L100.0100, L3400.0000, L509.4006, L3890.6006 #### [facility] [address] [place], [address] Absolute Neut 11.2 X10 3/uL High 2.0-7.7 [facility] Comment on above: Performed By: #### L 3890.6301, L3890.6102, BTS, L509.8002, L100.0100, L3400.0000, L509.4006, L3890.6006 #### [facility] [address] [place], [address] Basophils/100 WBC (Bld) 0.3 % Normal 0-1 [facility] Comment on above: Performed By: #### L 3890.6301, L3890.6102, BTS, L509.8002, L100.0100, L3400.0000, L509.4006, L3890.6006 #### [facility] [address] [place], [address] Eosinophils/100 WBC (Bld) 1.0 % Normal 0-5 [facility] Comment on above: Performed By: #### L 3890.6301, L3890.6102, BTS, L509.8002, L100.0100, L3400.0000, L509.4006, L3890.6006 #### [facility] [address] [place], [address] (989) Erythrocyte distribution width (RBC) [Ratio] 12.0 % Normal 11.6-14.6 [facility] Comment on above: Performed By: #### L 3890.6301, L3890.6102, BTS, L509.8002, L100.0100, L3400.0000, L509.4006, L3890.6006 #### [facility] [address] [place], [address] (412) Hematocrit (Bld) [Volume fraction] 41.3 % Normal 37-47 [facility] Comment on above: Performed By: #### L 3890.6301, L3890.6102, BTS, L509.8002, L100.0100, L3400.0000, L509.4006, L3890.6006 #### [facility] [address] [place], [address] Hemoglobin (Bld) [Mass/Vol] 14.3 g/dL Normal 12.0-15.0 [facility] Comment on above: Performed By: #### L 3890.6301, L3890.6102, BTS, L509.8002, L100.0100, L3400.0000, L509.4006, L3890.6006 #### [facility] [address] [place], [address] IG% 0.300 Normal 0.0-0.9 [facility] Comment on above: Result Comment: IG% - Immature Granulocytes (promyelocytes, myelocytes and metamyelocytes) > 1% indicates that a LEFT SHIFT is Present. Performed By: #### L 3890.6301, L3890.6102, BTS, L509.8002, L100.0100, L3400.0000, L509.4006, L3890.6006 #### [facility] [address] [place], [address] Lymphocytes/100 WBC (Bld) 14.9 % Low 19-41 [facility] Comment on above: Performed By: #### L 3890.6301, L3890.6102, BTS, L509.8002, L100.0100, L3400.0000, L509.4006, L3890.6006 #### [facility] [address] [place], [address] MCH (RBC) [Entitic mass] 30.3 pg Normal 27.0-32.0 [facility] Comment on above: Performed By: #### L 3890.6301, L3890.6102, BTS, L509.8002, L100.0100, L3400.0000, L509.4006, L3890.6006 #### [facility] [address] [place], [address] MCHC (RBC) [Mass/Vol] 34.6 g/dL Normal 32-36 [facility] Comment on above: Performed By: #### L 3890.6301, L3890.6102, BTS, L509.8002, L100.0100, L3400.0000, L509.4006, L3890.6006 #### [facility] [address] [place], [address] MCV (RBC) [Entitic vol] 87.5 fL Normal 81-99 [facility] Comment on above: Performed By: #### L 3890.6301, L3890.6102, BTS, L509.8002, L100.0100, L3400.0000, L509.4006, L3890.6006 #### [facility] [address] [place], [address] Monocytes/100 WBC (Bld) 4.7 % Normal 0-10 [facility] Comment on above: Performed By: #### L 3890.6301, L3890.6102, BTS, L509.8002, L100.0100, L3400.0000, L509.4006, L3890.6006 #### [facility] [address] [place], [address] Neutrophils/100 WBC (Bld) 78.8 % High 47-70 [facility] Comment on above: Performed By: #### L 3890.6301, L3890.6102, BTS, L509.8002, L100.0100, L3400.0000, L509.4006, L3890.6006 #### [facility] [address] [place], [address] Nucleated RBC (Bld) [#/Vol] 0 10*3/uL Normal 0-5 [facility] Comment on above: Performed By: #### L 3890.6301, L3890.6102, BTS, L509.8002, L100.0100, L3400.0000, L509.4006, L3890.6006 #### [facility] [address] [place], [address] Platelet mean volume (Bld) [Entitic vol] 9.6 fL Normal 6.2-12.0 [facility] Comment on above: Performed By: #### L 3890.6301, L3890.6102, BTS, L509.8002, L100.0100, L3400.0000, L509.4006, L3890.6006 #### [facility] [address] [place], [address] Platelets (Bld) [#/Vol] 332 10*3/uL Normal 150-450 [facility] Comment on above: Performed By: #### L 3890.6301, L3890.6102, BTS, L509.8002, L100.0100, L3400.0000, L509.4006, L3890.6006 #### [facility] [address] [place], [address] RBC (Bld) [#/Vol] 4.72 10*6/uL Normal 4.2-5.4 [facility] Comment on above: Performed By: #### L 3890.6301, L3890.6102, BTS, L509.8002, L100.0100, L3400.0000, L509.4006, L3890.6006 #### [facility] [address] [place], [address] RDW SD 38.8 fl Normal 35.1-43.9 [facility] Comment on above: Performed By: #### L 3890.6301, L3890.6102, BTS, L509.8002, L100.0100, L3400.0000, L509.4006, L3890.6006 #### [facility] [address] [place], [address] WBC (Bld) [#/Vol] 14.2 10*3/uL High 4.4-11.0 [facility] Comment on above: Performed By: #### L 3890.6301, L3890.6102, BTS, L509.8002, L100.0100, L3400.0000, L509.4006, L3890.6006 #### [facility] [address] [place], [address] Eosinophil percentageOrdered By: Brenda Castillo on 05-11-2024 Eosinophils/100 WBC (Bld) 1.0 % 0-5 [facility] Erythrocyte distribution wid th ratioOrdered By: Brenda Castillo on 05-11-2024 Erythrocyte distribution width (RBC) [Ratio] 12.0 % 11.6-14.6 [facility] Erythrocyte distribution wid th standard deviationOrdered By: Brenad Castillo on 05-11-2024 Erythrocyte distribution width (RBC) [Entitic vol] 38.8 fL 35.1-43.9 [facility] Erythrocyte distribution width (RBC) [Ratio] 38.8 fl 35.1-43.9 [facility] HBV surface Ag Ql (S)Ordered By: Brenda Castillo on 05-11-2024 Hepatitis B Surface Antigen Non-Reactive Nonreactive [facility] Comment on above: Reactive: Presumptiv e evidence of HBV. Repeatedly reactive samples must be confirmed using a neutralization test (Elec[employer] HBsAg Confirmatory Test)Non-Reactive: HBsAg not detected; does not exclude the possibility of exposure to HBV Hematocrit Auto (Bld) [Volum e fraction]Ordered By: Brenda Castillo on 05-11-2024 Hematocrit (Bld) [Volume fraction] 41.3 % 37-47 [facility] Hemoglobin measurementOrdere d By: Brenda Castillo on 05-11-2024 Hemoglobin (Bld) [Mass/Vol] 14.3 g/dL 12.0-15.0 [facility] Hepatitis C antibodyOrdered By: Brenda Castillo on 05-11-2024 Hepatitis C Antibody Non-Reactive Nonreactive [facility] Comment on above: Reactive: Presumptiv e evidence of antibodies to HCV. Follow CDC recommendations for supplemental testing.Non-Reactive: Antibodies to HCV were not detected; does not exclude the possibility of exposure to HCVReactive Results are presumptive evidence of antibodies to HCV. Follow CDC recommendations for supplemental testing.Order confirmation testing: HCV Quant by PCR testing - HCVPCR #[id number] Non Reactive: < 0.8 Equivocal: >/= 0.8 to < 1.0 Reactive: >/= 1.0The CDC requires that a reactive/equivocal HCV antibody result be sent out for confirmation. HCV Quant by PCR testing. Immature granulocytes/100 WB C Auto (Bld)Ordered By: Brenda Castillo on 05-11-2024 Immature granulocytes/100 WBC (Bld) 0.300 % 0.0-0.9 [facility] Comment on above: IG% - Immature Granu locytes (promyelocytes, myelocytes and metamyelocytes) > 1% indicates that a LEFT SHIFT is Present. L3890.6006on 05-11-2024 HIV Non-Reactive Normal Nonreactive [facility] Comment on above: Performed By: #### L 700.8000 #### [facility] [address] [place], [place], [address] L3890.6102on 05-11-2024 HEP B Surf Ag Non-Reactive Normal Nonreactive [facility] Comment on above: Result Comment: Reac tive: Presumptive evidence of HBV. Repeatedly reactive samples must be confirmed using a neutralization test ([employer] HBsAg Confirmatory Test) Non-Reactive: HBsAg not detected; does not exclude the possibility of exposure to HBV Performed By: #### L 700.8000 #### [facility] [address] [place], [place], [address] L3890.6301on 05-11-2024 Hepatitis C Ab Non-Reactive Normal Nonreactive [facility] Comment on above: Result Comment: Reac tive: Presumptive evidence of antibodies to HCV. Follow CDC recommendations for supplemental testing. Non-Reactive: Antibodies to HCV were not detected; does not exclude the possibility of exposure to HCV Reactive Results are presumptive evidence of antibodies to HCV. Follow CDC recommendations for supplemental testing. Order confirmation testing: HCV Quant by PCR testing - HCVPCR #[id number] Non Reactive: < 0.8 Equivocal: >/= 0.8 to < 1.0 Reactive: >/= 1.0 The CDC requires that a reactive/equivocal HCV antibody result be sent out for confirmation. HCV Quant by PCR testing. Performed By: #### L 700.8000 #### [facility] [address] [place], [address] L509.4006on 05-11-2024 Rubella IgG REAC Normal Nonreactive [facility] Comment on above: Result Comment: Anti body Result: Interpretation Non-Reactive: Non-Immune Reactive: Immune The following results were obtained with the [employer]ys Rubella IgG assay. Results from assays of other manufacturers cannot be used interchangeably. Performed By: #### L 700.8000 #### [facility] [address] [facility] [place], [address] L509.8002on 05-11-2024 Syphilis Abs Non-Reactive Normal Nonreactive [facility] Comment on above: Performed By: #### L 700.8000 #### [facility] [address] [place], [address] Laboratory - Chemistry and C hemistry - challengeOrdered By: Brenda Castillo on 05-11-2024 Glucose Ql (U) Negative [facility] Laboratory - Microbiology an d Antimicrobial susceptibilityOrdered By: Brenda Castillo on 05-11-2024 HBV surface Ag Ql (S) Non-Reactive Nonreactive [facility] Comment on above: Reactive: Presumptiv e evidence of HBV. Repeatedly reactive samples must be confirmed using a neutralization test ([employer] HBsAg Confirmatory Test)Non-Reactive: HBsAg not detected; does not exclude the possibility of exposure to HBV Laboratory - UrinalysisOrder ed By: Brenda Castillo on 05-11-2024 Protein Ql (U) Negative [facility] Lymphocytes Auto (Unsp spec) [#/Vol]Ordered By: Brenda Castillo on 05-11-2024 Lymphocytes (Bld) [#/Vol] 2.11 10*3/uL 0.83-4.51 [facility] Lymphocytes/100 WBC Auto (Un sp spec)Ordered By: Brenda Castillo on 05-11-2024 Lymphocytes/100 WBC (Bld) 14.9 % Low 19-41 [facility] MCV (mean corpuscular volume ) determinationOrdered By: Brenda Castillo on 05-11-2024 MCV (RBC) [Entitic vol] 87.5 fL 81-99 [facility] Mean corpuscular hemoglobin (MCH) determinationOrdered By: Brenda Castillo on 05-11-2024 MCH (RBC) [Entitic mass] 30.3 pg 27.0-32.0 [facility] Mean corpuscular hemoglobin concentration (MCHC) determinationOrdered By: Brenda Castillo on 05-11-2024 MCHC (RBC) [Mass/Vol] 34.6 g/dL 32-36 [facility] Mean platelet volume determi nationOrdered By: Brenda Castillo on 05-11-2024 Platelet mean volume (Bld) [Entitic vol] 9.6 fL 6.2-12.0 [facility] Monocyte percentageOrdered B y: Brenda Anna on 05-11-2024 Monocytes/100 WBC (Bld) 4.7 % 0-10 [facility] Neutrophil percentageOrdered By: Brenda Anna on 05-11-2024 Neutrophils/100 WBC (Bld) 78.8 % High 47-70 [facility] No Panel InformationOrdered By: Brenda Castillo on 05-11-2024 HIV (1&2) Antibody Non-Reactive Nonreactive [facility] Nucleated red blood cell per centageOrdered By: Brenda Castillo on 05-11-2024 Nucleated RBC/100 WBC (Bld) [Ratio] 0 % 0-5 [facility] Managing Attorney Office Visit Reporton 05-11-2024 Managing Attorney Office Visit Report [facility] [address], [address] [place] [address] OFFICE VISIT Date of Service: 05/11/24 MR#: [id number] Acct: [id number] Name: KASSANDRA BAUTISTA Rep #: [id number] : 1995 Provider: Dr. Brenda Rmaos DO Age/Sex: 28/F Location: [facility] Status: Signed Intake Vital Signs 04/21/24 12:02 04/24/24 09:38 05/11/24 10:21 Height 5 ft 5 in 5 ft 5 in 5 ft 5 in Weight: 171 lb 6 oz BMI 28.5 BP 121/83 H Intake Visit Reasons: 9WK NOB Animal Ride Manager Required: No Is patient in pain?: No [...] 0 current occupational status: employed current occupation: [employer] pets and animals: No history of recent [...] in: walking frequency: 3-4 times per week blayne/confucianist: Nondenominational seatbelt use: always do you feel safe [...] at postop appointment tapan Haney female, Maternal ce (more content not included)... Normal [facility] Platelet countOrdered By: Gabriel Castillo on 05-11-2024 Platelets (Bld) [#/Vol] 332 10*3/uL 150-450 [facility] RBC Auto (Bld) [#/Vol]Ordere d By: Brenda Castillo on 05-11-2024 RBC (Bld) [#/Vol] 4.72 10*6/uL 4.2-5.4 [facility] Rubella immune status determ ination by IgG antibody assayOrdered By: Brenda Castillo on 05-11-2024 Rubella IgG Antibody REAC Nonreactive [facility] Comment on above: Antibody Result: Int erpretationNon-Reactive: Non-ImmuneReactive: ImmuneThe following results were obtained with the [employer] Rubella IgG assay. Results from assays of other manufacturers cannot be used interchangeably. Serum Varicella zoster virus IgG antibody assay by immunoassay (units/volume)Ordered By: Brenda Castillo on 05-11-2024 VZV IgG IA Qn (S) See comment [facility] Comment on above: RESULT: NON REACTIVE Please note reference interval changeA Reactive result is considered evidence of immunity toVZV. Reactive indicates that VZV IgG was detectedconsistent with previous infection and/or vaccination.A Non Reactive result indicates that VZV IgG was notdetected suggesting that immunity has not been acquired.Performed at: [facility] [id number] Director: Kevon Flynn PhD, Phone: [phone] T. pallidum abOrdered By: Gabriel Castillo on 05-11-2024 Syphilis Total Antibody Non-Reactive Nonreactiv e [facility] Type AND Screenon 05-11-2024 ABO and Rh group Nom (Bld) Blood group A Rh(D) positive Normal [facility] Comment on above: Order Comment: PN Performed By: #### L 700.8000 #### [facility] [address] [place], [address] VZV IgG IA Qn (S)Ordered By: Brenda Castillo on 05-11-2024 Varicella-Zoster IgG Antibody See comment [facility] Comment on above: RESULT: NON REACTIVE Please note reference interval changeA Reactive result is considered evidence of immunity toVZV. Reactive indicates that VZV IgG was detectedconsistent with previous infection and/or vaccination.A Non Reactive result indicates that VZV IgG was notdetected suggesting that immunity has not been acquired.Performed at: [facility] [address] [id number] Director: Kevon Flynn PhD, Phone: [phone] White blood cell (WBC) count Ordered By: Brenda Castillo on 05-11-2024 WBC (Bld) [#/Vol] 14.2 10*3/uL High 4.4-11.0 [facility] HCG ( test) QlOrder ed By: Lacy Gongora on 04-23-2024 Human Chorionic Gonadotropin, Quant 27863 mIU/mL High <9 [facility] Comment on above: Gestational Age0.2-1 Week: 5-50 mIU/mL1-2 Weeks: 50-500 mIU/mL2-3 Weeks: 100-5000 mIU/mL3-4 Weeks: 500-10,000 mIU/mL4-5 Weeks:1000-50,000 mIU/mL5-6 Weeks: 10,000-100,000 mIU/mL6-8 Weeks: 15,000-200,000 mIU/mL2-3 Months:10,000-100,000 mIU/mL Serum human chorionic gonado tropin detection for pregnancyOrdered By: Lacy Gongora on 04-23-2024 HCG ( test) Ql [address]791 mIU/mL High <9 [facility] Comment on above: Gestational Age0.2-1 Week: 5-50 mIU/mL1-2 Weeks: 50-500 mIU/mL2-3 Weeks: 100-5000 mIU/mL3-4 Weeks: 500-10,000 mIU/mL4-5 Weeks:1000-50,000 mIU/mL5-6 Weeks: 10,000-100,000 mIU/mL6-8 Weeks: 15,000-200,000 mIU/mL2-3 Months:10,000-100,000 mIU/mL hCG Titer Quant., Serumon HCG QUANT. 29956 mIU/mL High <9 non-preg [facility] Comment on above: Result Comment: Gest ational Age 0.2-1 Week: 5-50 mIU/mL 1-2 Weeks: 50-500 mIU/mL 2-3 Weeks: 100-5000 mIU/mL 3-4 Weeks: 500-10,000 mIU/mL 4-5 Weeks:1000-50,000 mIU/mL 5-6 Weeks: 10,000-100,000 mIU/mL 6-8 Weeks: 15,000-200,000 mIU/mL 2-3 Months:10,000-100,000 mIU/mL Performed By: #### L 700.8000 #### [facility] [address] [place], [address] HCG ( test) QlOrder ed By: Lacy Gongora on 04-21-2024 Human Chorionic Gonadotropin, Quant 02806 mIU/mL [facility] <9 [facility] Comment on above: Gestational Age0.2-1 Week: 5-50 mIU/mL1-2 Weeks: 50-500 mIU/mL2-3 Weeks: 100-5000 mIU/mL3-4 Weeks: 500-10,000 mIU/mL4-5 Weeks:1000-50,000 mIU/mL5-6 Weeks: 10,000-100,000 mIU/mL6-8 Weeks: 15,000-200,000 mIU/mL2-3 Months:10,000-100,000 mIU/mL Managing Attorney Office Visit Reporton 04-21-2024 Managing Attorney Office Visit Report [facility] [address] [place] [address], [address] [place] [address] OFFICE VISIT Date of Service: 04/21/24 MR#: [id number] Acct: [id number] Name: KASSANDRA BAUTISTA Rep #: [id number] : 1995 Provider: MICHAEL lua Age/Sex: 28/F Location: [facility] Status: Signed Intake Vital Signs 09/24/23 08:21 [...] Medical History (Updated 04/21/24 @ 12:01 by Layc Gongora CNM) Spotting in early Incomplete miscarriage History of miscarriage, currently Abdominal cramping affecting Bleeding in early Surgical History S/P D C (status post dilation and curettage) S/P left knee surgery S/P wisdom tooth extraction Social History adopted: Yes household members: spouse number of children: 0 current occupational status: employed 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[employer] pets and animals: No history of recent [...] in: walking frequency: 3-4 times per week blayne/confucianist: Nondenominational seatbelt use: always do you feel safe [...] unspecified trimester 04/21/24 1202 Date Lacy Gongora CNM Cosigner Signature: Date (if applicable) CC: Normal [facility] Serum human chorionic gonado tropin detection for pregnancyOrdered By: Lacy Gongora on 04-21-2024 HCG ( test) Ql [address]32 mIU/mL High <9 [facility] Comment on above: Gestational Age0.2-1 Week: 5-50 mIU/mL1-2 Weeks: 50-500 mIU/mL2-3 Weeks: 100-5000 mIU/mL3-4 Weeks: 500-10,000 mIU/mL4-5 Weeks:1000-50,000 mIU/mL5-6 Weeks: 10,000-100,000 mIU/mL6-8 Weeks: 15,000-200,000 mIU/mL2-3 Months:10,000-100,000 mIU/mL hCG Titer Quant., Serumon HCG QUANT. 50482 mIU/mL High <9 non-preg [facility] Comment on above: Result Comment: Gest ational Age 0.2-1 Week: 5-50 mIU/mL 1-2 Weeks: 50-500 mIU/mL 2-3 Weeks: 100-5000 mIU/mL 3-4 Weeks: 500-10,000 mIU/mL 4-5 Weeks:1000-50,000 mIU/mL 5-6 Weeks: 10,000-100,000 mIU/mL 6-8 Weeks: 15,000-200,000 mIU/mL 2-3 Months:10,000-100,000 mIU/mL Performed By: #### L 500.4710 #### [facility] [facility] [address] [place], [address] HCG ( test) QlOrder ed By: Krystle Enriquez on 01-24-2024 Human Chorionic Gonadotropin, Quant 6 mIU/mL High <4 [facility] hCG Titer Quant., Serumon HCG QUANT. 6 mIU/mL High 1-3 [facility] Comment on above: Performed By: #### L 500.4787 #### [facility] [address] [place], [address] HCG ( test) QlOrder ed By: Krystle Enriquez on 01-12-2024 Human Chorionic Gonadotropin, Quant 260 mIU/mL High <4 [facility] Comment on above: hCG levels with Gest ational AgeGestational Age hCG mIU/mL (IU/L)0.2 - 1 week 5 - 501-2 weeks 50 - 5002-3 weeks 100 - 52716-5 weeks 500 - 213418-6 weeks 1000 - 271978-7 weeks 57803 - 100,0006-8 weeks 61379 - 200,0002-3 months 86390 - 100,000 hCG Titer Quant., Serumon HCG QUANT. 260 mIU/mL High 1-3 [facility] Comment on above: Result Comment: hCG levels with Gestational Age Gestational Age hCG mIU/mL (IU/L) 0.2 - 1 week 5 - 50 1-2 weeks 50 - 500 2-3 weeks 100 - 5000 3-4 weeks 500 - 24277 4-5 weeks 1000 - 63177 5-6 weeks 07688 - 100,000 6-8 weeks 30952 - 200,000 2-3 months 67359 - 100,000 Performed By: #### L 700.8000 #### [facility] [address] [place], [address] HCG ( test) QlOrder ed By: Brenda Castillo on 01-08-2024 Human Chorionic Gonadotropin, Quant 1600 mIU/mL High <4 [facility] Comment on above: hCG levels with Gest ational AgeGestational Age hCG mIU/mL (IU/L)0.2 - 1 week 5 - 501-2 weeks 50 - 5002-3 weeks 100 - 04832-1 weeks 500 - 997604-9 weeks 1000 - 618441-2 weeks 00318 - 100,0006-8 weeks 09174 - 200,0002-3 months 22958 - 100,000 hCG Titer Quant., Serumon HCG QUANT. 1600 mIU/mL High 1-3 [facility] Comment on above: Result Comment: hCG levels with Gestational Age Gestational Age hCG mIU/mL (IU/L) 0.2 - 1 week 5 - 50 1-2 weeks 50 - 500 2-3 weeks 100 - 5000 3-4 weeks 500 - 99329 4-5 weeks 1000 - 22404 5-6 weeks 98631 - 100,000 6-8 weeks 25816 - 200,000 2-3 months 32236 - 100,000 Performed By: #### L 700.8000 #### [facility] [address] [place], [place], [address] HCG ( test) QlOrder ed By: Brenda Castillo on 01-06-2024 Human Chorionic Gonadotropin, Quant 2222 mIU/mL High <4 [facility] Comment on above: hCG levels with Gest ational AgeGestational Age hCG mIU/mL (IU/L)0.2 - 1 week 5 - 501-2 weeks 50 - 5002-3 weeks 100 - 12391-9 weeks 500 - 228190-0 weeks 1000 - 686042-4 weeks 73844 - 100,0006-8 weeks 78172 - 200,0002-3 months 58258 - 100,000 hCG Titer Quant., Serumon HCG QUANT. 2222 mIU/mL High 1-3 [facility] Comment on above: Result Comment: hCG levels with Gestational Age Gestational Age hCG mIU/mL (IU/L) 0.2 - 1 week 5 - 50 1-2 weeks 50 - 500 2-3 weeks 100 - 5000 3-4 weeks 500 - 80918 4-5 weeks 1000 - 97900 5-6 weeks 45299 - 100,000 6-8 weeks 86875 - 200,000 2-3 months 44424 - 100,000 Performed By: #### L 700.8000 #### [facility] [address] [place], [place], [address] IGP,RFX APTIMA HPV ASCU (LC1 [id number])on 03-25-2022 . [facility] Diagnosis [facility] Note [facility] Performed by [facility] Specimen adequacy: [facility] Test Methodology: [facility] IGP,Rfx AptimaRon 03-25-2022 . . [facility] Comment on above: Order Comment: Speci men Comment: [id number] Specimen Comment: No. of containers..01 ThinPrep Vial Performed By: #### L 801.8810 #### [place] [address] . [facility] Comment on above: Order Comment: Speci men Comment: [id number] Specimen Comment: No. of containers..01 ThinPrep Vial Result Comment: The HPV DNA reflex criteria were not met with this specimen result therefore, no HPV testing was performed. Performed at: [facility] [address] [place], [place] [id number] Hourly Shift: Berto Banegas MD, Phone: [phone] Performed at: [facility] - [facility] [id number] Hourly Shift: Lila Martin MD, Phone: [phone] Performed By: #### L 801.8810 #### [place] [address] Diagnosis: [facility] Comment on above: Order Comment: Speci men Comment: [id number] Specimen Comment: No. of containers..01 ThinPrep Vial Result Comment: NEGA TIVE FOR INTRAEPITHELIAL LESION OR MALIGNANCY. Performed By: #### L 801.8810 #### [place] [address] Note: [facility] Comment on above: Order Comment: Speci men Comment: [id number] Specimen Comment: No. of containers..01 ThinPrep Vial [...] By: #### L 801.8810 #### [place] [address] Performed by: [facility] Comment on above: Order Comment: Speci men Comment: [id number] Specimen Comment: No. of containers..01 ThinPrep Vial Result Comment: Carson Delvalle Last Sawyer (ASCP) Performed By: #### L 801.8810 #### [place] [address] Spec adequacy: [facility] Comment on above: Order Comment: Speci men Comment: [id number] Specimen Comment: No. of containers..01 ThinPrep Vial Result Comment: Sati sfactory for evaluation. Endocervical and/or squamous metaplastic cells (endocervical component) are present. Performed By: #### L 801.8810 #### [place] [address] Test Methodlogy [facility] Comment on above: Order Comment: Speci men Comment: [id number] Specimen Comment: No. of containers..01 ThinPrep Vial Result Comment: This liquid based ThinPrep(R) pap test was screened with the use of an image guided system. Performed By: #### L 801.8810 #### [place] [address] No Panel Informationon 03-25 . . [facility] CNOVon 03-17-2022 CNOV Office Visit (OBGDOV ) KASSANDRA BAUTISTA ([id number]) 1995 F Date Time Provider Department 03/17/22 [...] ICD10: Z12.4 - IGP,RFX APTIMA HPV ASCU ([id number]) Johanna Nieves, This visit was chaperoned by Radha I spent a total of 30 minutes on the date of the service which included preparing to see the patient, [id number] patient care, completing clinical documentation, obtaining and/or reviewing separately obtained history, performing a medically appropriate examination, counseling and educating the patient/family/caregi matthew, and ordering medications, tests, or procedures. Allergies [...] of cervix [Z12.4] Order(s):HCG QUAL UR B/O [[id number]] Order #: [id number] IGP,RFX APTIMA HPV ASCU ([id number]) [[id number]] Order #: [id number] Prescriptions as of 03/17/2022 - amoxicillin (POLYMOX, AMOXIL) 500 mg capsule Take 500 mg by mouth three times daily. Problem List As Of Date: 03/17/2022 (None) Encounter Status:Closed by JOHANNA NIEVES on 03/17/22 Normal [facility] HCG QUAL UR B/Oon 03-17-2022 status Negative neg - pos Sully barakat [facility] Quality Check Yes [facility] B-HCG (QUANT)on 03-16-2022 B-HCG (QUANT) 25.41 mIU/mL [facility] Comment on above: Result Comment: Appr ox. [...] L 304.0222 #### [facility] [address] [place] [address] [facility] 03-16-2022 CNNURSE Nurse Visit (OBGDOV) KASSANDRA BAUTISTA ([id number]) 1995 F Date Time Provider Department 03/16/22 7:00 AM NURSE COAL CRUSHER OPERATOR UP RALPH OBGDOV During your visit today, we recorded the following information about you: Matty Becker RN 03/16/2022 7:27 AM Signed Patient presented today for repeat lab work for her bhcg level. Patient reports still bleeding today stating it's honestly like I'm having a period. Patient had sent a secure email to [employer] due to not being able to send a message through [employer] on Wednesday showing Dr. Nieves what she [...] result positive [Z32.01] Order(s):HCG QUAL UR B/O [[id number]] Order #: [id number] Prescriptions as of 03/16/2022 - amoxicillin (POLYMOX, AMOXIL) 500 mg capsule Take 500 mg by mouth three times daily. Problem List As Of Date: 03/16/2022 (None) Visit Notes: >> Matty Becker RN WedMar 16, 2022 7:24 AM Status: Signed Patient presented today for repeat lab work for her bhcg level. Patient reports still bleeding today stating it's honestly like I'm having a period. Patient had sent a secure email to [employer] due to not being able to send a message through [employer] on Wednesday showing Dr. Nieves what she [...] Status:Closed by MATTY BECKER on 03/16/22 Normal [facility] HCG.beta subunit Qnon 2022 hCG Quantitative, Blood 25.41 mIU/mL [facility] B-HCG (QUANT)on 03-12-2022 B-HCG (QUANT) 440.40 mIU/mL [facility] Comment on above: Result Comment: Appr ox. [...] L 304.0222 #### [facility] [address] [place] [address] [facility] 03-12-2022 CNNURSE Nurse Visit (OBGDOV) KASSANDRA BAUTISTA ([id number]) 1995 F Date Time Provider Department 03/12/22 7:00 AM NURSE COAL CRUSHER OPERATOR [employer]ALPH OBGDOV During your visit today, [...] (None) Visit Notes: >> Matty Becker RN [facility] Mar 12, 2022 7:31 AM Status: Signed Venipuncture performed to left antecubital. Number of tubes collected: 1 gold. Matty Becker RN March 12, 2022 7:28 AM Encounter Status:Closed by MATTY BECKER on 03/12/22 [facility] CNOVon 03-12-2022 CNOV Office Visit (OBGDOV ) KASSANDRA BAUTISTA ([id number]) 1995 F Date Time Provider Department 03/12/22 7:00 AM ULTRASOUND COAL CRUSHER OPERATOR [employer] RALPH OBGDOV During your visit today, we recorded the following information about you: Matty Lee 03/12/2022 7:48 AM Signed Kassandra Bautista was seen today for an [...] to the radiologist for interpretation. Matty Lee [facility] Allergies As of Date: 03/12/2022 Noted Allergy [...] Encounter Status:Closed by MATTY LEE on 03/12/22 [facility] [place] 03-12-2022 [facility] Telephone (OBGDOV) KASSANDRA BAUTISTA ([id number]) 1995 F Date Time Provider Department 03/12/22 JOHANNA NIEVES During your visit today, we recorded the following information about you: Johanna Nieves DO 03/12/2022 12:14 PM Signed At this point bhcg is not rising appropriately or falling appropriately. Can we add her for an appointment within 1 week? I would recommend [facility] as this does not seem to [...] Status:Closed by JOLYNN SZYMANSKI on 06/26/22 Normal [facility] HCG.beta subunit Qnon 2022 hCG Quantitative, Blood 440.40 mIU/mL [facility] OB TRANSVAGINALon 023 [facility] B-HCG (QUANT)on 03-10-2022 B-HCG (QUANT) 416.60 mIU/mL [facility] Comment on above: Result Comment: Appr ox. [...] L 304.0222 #### [facility] [address] [place] [address] [facility] 03-10-2022 CNNURSE Nurse Visit (OBGDOV) KASSANDRA [id number]) 1995 F Date Time Provider Department 03/10/22 7:00 AM NURSE COAL CRUSHER OPERATOR UP RALPHMATTHEW GAMEZ During your visit today, we recorded the following information about you: Matty Becker RN 03/10/2022 7:09 AM Signed Venipuncture performed to right antecubital. Number of tubes collected: 1 Matty Becker RN March 10, 2022 7:06 [...] (None) Visit Notes: >> Matty Becker RN Tue Mar 10, 2022 7:08 AM Status: Signed Venipuncture performed to right antecubital. Number of tubes collected: 1 Matty Becker RN March 10, 2022 7:06 AM Encounter Status:Closed by MATTY BECKER on 03/10/22 [facility] Telephone (OBGDOV) KASSANDRA BAUTISTA ([id number]) 1995 F Date Time Provider Department 03/10/22 [...] Becker RN March 10, 2022 1:02 PM Matyt Becker RN 03/11/2022 7:59 AM Signed Patient [...] Visit Diagnosis: of unknown anatomic location [O36.80X0] Order(s):US FEMALE PELVIS TRANSVAG [[id number]] Order #: [id number] FUTURE Prescriptions as of 06/26/2022 - amoxicillin (POLYMOX, AMOXIL) 500 mg capsule Take 500 mg by mouth three times daily. Problem List As Of Date: 03/10/2022 (None) Encounter Status:Closed by MATTY BECKER on 03/10/22 [facility]OB[facility] KASSANDRA BAUTISTA ([id number]) 1995 F Date Time Provider Department 03/10/22 [...] Status:Closed by MATTY BECKER on 03/10/22 Normal [facility] HCG.beta subunit Qnon 2022 hCG Quantitative, Blood 416.60 mIU/mL [facility] B-HCG (QUANT)on 03-08-2022 B-HCG (QUANT) 501.60 mIU/mL [facility] Comment on above: Result Comment: Appr ox. [...] L 304.0222 #### [facility] [address] [place] [address] HCG.beta subunit Qnon 2022 hCG Quantitative, Blood 501.60 mIU/mL [facility] B-HCG (QUANT)on 03-06-2022 B-HCG (QUANT) 226.10 mIU/mL [facility] Comment on above: Result Comment: Appr ox. [...] L 304.0222 #### [facility] [address] [place] [address] [facility] 03-06-2022 CNNURSE Nurse Visit (OBGDOV) KASSANDRA BAUTISTA ([id number]) 1995 F Date Time Provider Department 03/06/22 7:00 AM NURSE COAL CRUSHER OPERATOR [employer] RALPH OBGDOV During your visit today, we recorded the following information about you: Matty Becker RN 03/06/2022 7:13 AM Signed Venipuncture performed to left forearm. Number of tubes collected: 1 [email or web address] Matty Becker RN March 06, 2022 7:07 [...] Encounter Status:Closed by MATTY BECKER on 03/06/22 [facility] [place] 03-06-2022 CNPN Telephone (OBGDOV) KASSANDRA BAUTISTA ([id number]) 1995 F Date Time Provider Department 03/06/22 JOHANNA NIEVES During your visit today, we recorded the following information about you: Johanna Nieves DO 03/06/2022 12:46 PM Signed FYI bhcg ravindra appropriately on this most [...] Status:Closed by MATTY BECKER on 03/06/22 Normal [facility] HCG.beta subunit Qnon 2022 hCG Quantitative, Blood 226.10 mIU/mL [facility] CNPNon 03-05-2022 CNPN Telephone (OBGDOV) KASSANDRA BAUTISTA ([id number]) 1995 F Date Time Provider Department 03/05/22 [...] on 03/05/22 [facility] 03-04-2022 [facility] Nurse Visit (OBGDOV) KASSANDRA BAUTISTA ([id number]) 1995 F Date Time Provider Department 03/04/22 7:00 AM NURSE COAL CRUSHER OPERATOR UP RALPH GAMEZ During your visit today, we [...] Encounter Status:Closed by MATTY BECKER on 03/04/22 [facility] 03-04-2022 [facility] Telephone (OBGDOV) KASSANDRA BAUTISTA ([id number]) 1995 F Date Time Provider Department 03/04/22 [...] Fully Assessed Reason for Visit: Patient Question [0537] Patient Update [4534] Prescriptions as of 03/04/2022 - amoxicillin (POLYMOX, AMOXIL) 500 mg capsule Take 500 mg by mouth three times daily. - cephALEXin (KEFLEX) 500 mg capsule Take 1 capsule by mouth twice daily for 10 days. Problem List As Of Date: 03/04/2022 (None) Encounter Status:Closed by MATTY BECKER on 03/04/22 Normal [facility] HCG.beta subunit Qnon 2022 hCG Quantitative, Blood 118.70 mIU/mL [facility] CNNURSEon 03-02-2022 CNNURSE Nurse Visit (OBGDOV) KASSANDRA BAUTISTA ([id number]) 1995 F Date Time Provider Department 03/02/22 7:00 AM NURSE COAL CRUSHER OPERATOR UP RALPH OBZENAIDAOV During your visit today, we recorded the following information about you: Matty Becker RN 03/02/2022 7:15 AM Signed Venipuncture performed to left hand. Number of tubes collected: 1 Matty Becker RN March 02, 2022 7:12 [...] left hand. Number of tubes collected: 1 Matty Becker RN March 02, 2022 7:12 AM Encounter Status:Closed by MATYT BECKER on 03/02/22 Normal [facility] HCG.beta subunit Qnon 2022 hCG Quantitative, Blood 83.12 mIU/mL [facility] B-HCG (QUANT)on 02-28-2022 B-HCG (QUANT) 79.44 mIU/mL [facility] Comment on above: Result Comment: Appr ox. [...] 58,176 Performed By: #### L 304.0222 #### [facility] [address] [place] [address] HCG.beta subunit Qnon 2022 hCG Quantitative, Blood 79.44 mIU/mL [facility] ABO and Rh group panel (Bld) on 02-27-2022 ABO and Rh group Nom (Bld) Blood group A Rh(D) positive [facility] B-HCG (QUANT)on 02-27-2022 B-HCG (QUANT) 64.20 mIU/mL [facility] Comment on above: Result Comment: Appr ox. [...] 58,176 Performed By: #### L 304.0222 #### [facility] [address] [place] [address] CBCon 02-27-2022 BASO# 0.00 x10(3) Normal 0.00-0.10 [facility] Comment on above: Performed By: #### L 200.0010 #### [facility] - [facility]AT[facility] [address] [place] [address] Basophils/100 WBC (Bld) 0.2 % Normal 0.0-1.0 [facility] Comment on above: Performed By: #### L 200.0010 #### [facility] - [facility] [address] [place] [address] EOS# 0.00 x10(3) Normal 0.00-0.54 [facility] Comment on above: Performed By: #### L 200.0010 #### [facility] - [facility] [address] [place] [address] Eosinophils/100 WBC (Bld) 0.2 % Low 0.5-4.9 [facility] Comment on above: Performed By: #### L 200.0010 #### ML [facility] [address] [place] [address] Erythrocyte distribution width (RBC) [Ratio] 12.9 % Normal 12.5-15.7 [facility] Comment on above: Performed By: #### L 200.0010 #### ML [facility] [address] [place] [address] Hematocrit (Bld) [Volume fraction] 45.7 % Normal 36.0-48.0 [facility] Comment on above: Performed By: #### L 200.0010 #### ML [facility] [address] [place] [address] Hemoglobin (Bld) [Mass/Vol] 15.1 g/dL Normal 12.0-16.0 [facility] Comment on above: Performed By: #### L 200.0010 #### [facility] - [facility] [address] [place] [address] LYMPH# 2.90 x10(3) Normal 1.00-3.50 [facility] Comment on above: Performed By: #### L 200.0010 #### [facility] [address] [place] [address] Lymphocytes/100 WBC (Bld) 18.0 % Normal 16.0-48.0 [facility] Comment on above: Performed By: #### L 200.0010 #### [facility] - [facility] [address] [place] [address]449 MCH (RBC) [Entitic mass] 29.0 pg Normal 28.5-32.9 [facility] Comment on above: Performed By: #### L 200.0010 #### [facility] [address] [place] [address] MCHC (RBC) [Mass/Vol] 33.0 g/dL Normal 33.0-36.0 [facility] Comment on above: Performed By: #### L 200.0010 #### ML [facility] [address] [place] [address]123 MCV (RBC) [Entitic vol] 88.1 fL Normal 80.0-99.0 [facility] Comment on above: Performed By: #### L 200.0010 #### [facility] [address] [place] [address] MONO# 1.10 x10(3) High 0.30-0.80 [facility] Comment on above: Performed By: #### L 200.0010 #### ML [facility] [address] [place] [address] Monocytes/100 WBC (Bld) 6.9 % Normal 4.3-11.2 [facility] Comment on above: Performed By: #### L 200.0010 #### [facility] [address] [place] [address] NEUT# 11.80 x10(3) High 1.40-6.50 [facility] Comment on above: Performed By: #### L 200.0010 #### [facility] [address] [place] [address] 09068 Neutrophils/100 WBC (Bld) 74.7 % High 45.0-73.0 [facility] Comment on above: Performed By: #### L 200.0010 #### [facility] [address] [place] [address] Platelet mean volume (Bld) [Entitic vol] 8.1 fL Normal 7.5-9.5 [facility] Comment on above: Performed By: #### L 200.0010 #### [facility] - [facility] [address] [place] [address] PLT 297 X10(3) Normal 150-450 [facility] Comment on above: Performed By: #### L 200.0010 #### [facility] - [facility] [address] [place] [address] RBC 5.18 x10(6) High 3.30-5.00 [facility] Comment on above: Performed By: #### L 200.0010 #### [facility] - [facility] [address] [place] [address] WBC 15.9 x10(3) High 4.5-10.0 [facility] Comment on above: Performed By: #### L 200.0010 #### [facility] - [facility] [address] [place] [address] CBC W Auto Differential pane l (Bld)on 02-27-2022 BASO ABS 0.00 x10(3) 0.00 - 0.10 x10(3) [facility] Basophils/100 WBC (Bld) 0.2 % 0.0 - 1.0 % [facility] EOS ABS 0.00 x10(3) 0.00 - 0.54 x10(3) [facility] Eosinophils/100 WBC (Bld) 0.2 % Low 0.5 - 4.9 % [facility] Erythrocyte distribution width (RBC) [Ratio] 12.9 % 12.5 - 15.7 % [facility] Hematocrit (Bld) [Volume fraction] 45.7 % 36.0 - 48.0 % [facility] Hemoglobin (Bld) [Mass/Vol] 15.1 g/dL 12.0 - 16.0 g/dL [facility] LYMPH ABS 2.90 x10(3) 1.00 - 3.50 x10(3) [facility] Lymphocytes/100 WBC (Bld) 18.0 % 16.0 - 48.0 % [facility] MCH (RBC) [Entitic mass] 29.0 pg 28.5 - 32.9 pg [facility] MCHC (RBC) [Mass/Vol] 33.0 g/dL 33.0 - 36.0 g/dL [facility] MCV (RBC) [Entitic vol] 88.1 fL 80.0 - 99.0 fl [facility] MONO ABS 1.10 x10(3) High 0.30 - 0.80 x10(3) [facility] Monocytes/100 WBC (Bld) 6.9 % 4.3 - 11.2 % [facility] Neutrophil Ab 11.80 x10(3) High 1.40 - 6.50 x10(3) [facility] Neutrophils/100 WBC (Bld) 74.7 % High 45.0 - 73.0 % [facility] Platelet Count 297 X10(3) 150 - 450 X10(3) [facility] Platelet mean volume (Bld) [Entitic vol] 8.1 fL 7.5 - 9.5 fl [facility] RBC 5.18 x10(6) High 3.30 - 5.00 x10(6) [facility] WBC 15.9 x10(3) High 4.5 - 10.0 x10(3) [facility] CNPDedra 02-27-2022 [place] Telephone (STEVENOV) ADELA BAUTISTA ([id number]) 1995 F Date Time Provider Department 02/27/22 [...] Dr. Nieves advises that she go to [facility] lab tomorrow to have a repeat bhcg drawn and that she can present to our office on Wednesday for a lab draw. Appointment made. Patient verbalizes an understanding of plan of care. No further questions at this time. ALEXX Leong, 02/27/2022 10:54 AM Signed Addended by: JOHANNA NIEVES on: 02/27/2022 10:54 AM Modules accepted: Orders Allergies As of Date: 02/27/2022 Noted Allergy Reaction REGLAN (METOCLOPRAMIDE) 02/24/2022 5 - Intolerance Date Reviewed: Never Reviewed Reason for Visit: Patient Update [1234] Patient Question [9417] Appointment [186] Primary Visit Diagnosis: of unknown anatomic location [O36.80X0] Order(s):BETA HCG QUANT TUMOR MARKER [facility] Order #: [id number] STANDING Prescriptions as of 02/27/2022 - amoxicillin (POLYMOX, AMOXIL) 500 mg capsule Take 500 mg by mouth three times daily. - cephALEXin (KEFLEX) 500 mg capsule Take 1 capsule by mouth twice daily for 10 days. Problem List As Of Date: 02/27/2022 (None) Encounter Status:Closed by MATTY BECKER on 02/27/22 Normal [facility] HCG.beta subunit Qnon 2022 hCG Quantitative, Blood 64.20 mIU/mL [facility] TYPE & RHon 02-27-2022 BLD TYPE Positive [facility] Comment on above: Performed By: #### B 100.0900 #### [facility] [address] [place] [address] OB TRANSVAGINALon 023 [facility] US PREG TRANSVAGINALon 02-27 US PREG TRANSVAGINAL [place] [address] Name: LILYADELA Phys: GENEVIEVE SANCHEZ D.O. : [birth year] Age: 26 Sex: F Acct: [id number] Loc: ED Exam Date: 02/27/22 Status: REG ER Radiology No.: Unit Number: [id number] Exam # Type/Exam [id number] US / US PREG TRANSVAGINAL EXAMINATION: FIRST [...] By: ARCELIA GIBSON M.D. Tests performed at: [address] [address] [facility] 02-26-2022 FABRIZIO Telephone (NATHALIE) ADELA BAUTISTA ([id number]) 1995 F Date Time Provider Department 02/26/22 JOHANNA ROJAS During your visit today, we recorded the following information about you: Johanna Rojas APRN.ART MANAGER 02/26/2022 10:52 AM Signed Urine culture is negative for bacteria. Close follow up with kettle fry cook operator is recommended. Thanks Cece Carty 02/26/2022 11:06 AM Signed Informed pt that urine culture was neg And call her BRANCH ASSOCIATE for follow up. Cece Carty Allergies As [...] Status:Closed by JOHANNA ROJAS on 02/26/22 Normal [facility] UA W/C&Son 02-26-2022 Bilirubin Ql (U) Negative Normal [facility] Comment on above: Order Comment: Urine Specimen Source+ CLEAN CATCH Performed By: #### L 200.3001 #### ML - LABORATORY [address] [place] [address] Color (U) YELLOW Normal YELLOW [facility] Comment on above: Order Comment: Urine Specimen Source+ CLEAN CATCH Performed By: #### L 200.3001 #### ML - LABORATORY [address] [place] [address]3476 Glucose Ql (U) Negative Normal NE[facility]IVE [facility] Comment on above: Order Comment: Urine Specimen Source+ CLEAN CATCH Performed By: #### L 200.3001 #### ML - LABORATORY [address] [place] [address] 90938 Hemoglobin Ql (U) LARGE Normal NEGATIVE [facility] Comment on above: Order Comment: Urine Specimen Source+ CLEAN CATCH Performed By: #### L 200.3001 #### ML - [facility] [address] [place] [address]398 Leukocyte esterase Test strip Ql (U) Negative Normal NEGATIVE [facility] Comment on above: Order Comment: Urine Specimen Source+ CLEAN CATCH Performed By: #### L 200.3001 #### ML - LABORATORY [address] [place] [address] 91552 Nitrite Ql (U) Negative Normal NEGATIVE [facility] Comment on above: Order Comment: Urine Specimen Source+ CLEAN CATCH Performed By: #### L 200.3001 #### ML - LABORATORY [address] [place] [address]778 pH (U) 6.0 [pH] Normal 5.0-8.0 [facility] Comment on above: Order Comment: Urine Specimen Source+ CLEAN CATCH Performed By: #### L 200.3001 #### ML - LABORATORY [address] [place] [address] 61477 Protein Ql (U) Negative Normal NEGATIVE [facility] Comment on above: Order Comment: Urine Specimen Source+ CLEAN CATCH Performed By: #### L 200.3001 #### ML - LABORATORY [address] [place] [address] 88981 URINE APPEARANC CLEAR Normal CLEAR [facility] Comment on above: Order Comment: Urine Specimen Source+ CLEAN CATCH Performed By: #### L 200.3001 #### ML - LABORATORY [address] [place] [address] 58086 URINE KETONE >=80 Normal NEGATIVE [facility] Comment on above: Order Comment: Urine Specimen Source+ CLEAN CATCH Performed By: #### L 200.3001 #### [facility] [address] [place] [address]243 URINE SPECIFIC 1.025 Normal 1.001-1.035 [facility] Comment on above: Order Comment: Urine Specimen Source+ CLEAN CATCH Performed By: #### L 200.3001 #### [facility] - [facility] [address] [place] [address] 14300 URINE UROBILINO 0.2 EU/DL Normal 0.2-1.0 [facility] Comment on above: Order Comment: Urine Specimen Source+ CLEAN CATCH Performed By: #### L 200.3001 #### [facility] - [facility] [address] [place] [address]144 URINE CULTUREon 02-26-2022 Bacteria identified Cx Nom (U) XXX [facility] Urinalysis complete panel (U )on 02-26-2022 Appearance (U) CLEAR CLEAR [facility] Bilirubin, Urine Negative NEGATIVE [facility] Blood, Urine LARGE NEGATIVE [facility] Color (U) YELLOW YELLOW [facility] Glucose Ql (U) Negative NEGATIVE MG/DL [facility] Ketones Ql (U) >=80 NEGATIVE MG/DL [facility] Leukocytes Negative NEGATIVE [facility] Nitrites Urine Negative NEGATIVE [facility] pH (U) 6.0 [pH] 5.0 - 8.0 [facility] Protein.monoclonal (U) [Mass/Vol] Negative NEGATIVE MG/DL [facility] Specific [place], Ur 1.025 1.001 - 1.035 C [facility] Urobilinogen, Urine 0.2 EU/DL 0.2 - 1. 0 EU/DL [facility] CNOVon 02-24-2022 CNOV Office Visit (UCUPNO ) ADELA BAUTISTA ([id number]) 1995 F Date Time Provider Department 02/24/22 3:20 PM JOHANNA ROJAS During your visit today, we recorded the following information about you: Temperature Pulse Respiration Blood pressure 98.3 degrees 96/minute 16/minute 122/83 Weight Last Period 70.3 kg 02/01/22 Johanna Rojas APRN.ART MANAGER 02/24/2022 3:50 PM Signed February 24, 2022 [...] show patient that Keflex was safe via [email or web address] juany on cell phone ASSESSMENT/PLAN: 1. Urinary [...] Addendum Preliminary urine testing completed in [facility] is indicative of a Urinary Tract Infection. We will send your urine to the lab for culture analysis. This is to ensure the antibiotic selected today will indeed treat the bacteria in your urine. A [facility] employee will notify you via telephone with [...] and frequent (more content not included)... Normal [facility] HCG QUAL UR B/Oon 02-24-2022 status Positive neg - pos [facility] Quality Check Yes [facility] UA DIP B/Oon 02-24-2022 Bilirubin, Urine Small Neg [facility] Color/Appearance Yellow/Clear [facility] Glucose Ql (U) Negative Neg mg/dL [facility] Hemoglobin/Blood,Ur Large Neg [facility] Ketones Ql (U) Neg [facility] Leukocytes Small Neg [facility] Nitrite Ql (U) Negative Neg [facility] pH (U) 6.5 [pH] 4.5 - 8.0 [facility] Protein.monoclonal (U) [Mass/Vol] 100 mg/dL Neg mg/dL [facility] Specific [place], Ur 1.005 - 1.030 C [facility] Urobilinogen, Urine 0.2 EU Normal ( <1.1) EU [facility] Urine Cultureon 02-24-2022 Bacteria identified Cx Nom (U) CULTURE, URINE No growth (<1,000 CFU/ml) Urine, Midstream clean catch SOURCE: Urine, Midstream clean catch Test Performed By: [facility] [address] [place] [address] Undercutter: Erick Leone III, M.D. See Below Normal [facility] 1 [facility]gent [facility] [address] [place] [address] - KASSANDRA BAUTISTA 1995 (25 F) [id number] Indra Tran MD URG Report #: [id number] (Signed) PCP: Timothy Anna MD Urgent Care [...] ibuprofen. 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 [...] dose 2 of 2 (NOT given at [facility]) Allergies/Home Meds Allergies Allergy/AdvReac Type Severity Reaction Status Date / Time metoclopramide [From Reglan] AdvReac Intermediate ANXIETY, Verified 12/02/20 16:04 EYE/FACIAL TWITCHING Home Medications Medication Instructions Recorded Confirmed melatonin 10 mg tablet 10 mg PO HS PRN 07/15/20 12/02/20 sertraline 25 mg tablet 25 mg PO DAILY 12/02/20 12/02/20 Reproductive History LMP: 11/27/20 Possibility of : No Currently : No Past Medical/Family/Social Hx [facility] COVID Testing History tested, negative Medical [...] reviewed wi (more content not included)... Normal [facility] Anesthesia Post-Evaluationon 07-26-2020 [place]esthesia [place] [address] - KASSANDRA BAUTISTA 1995 (24 F) [id number] Suresh Fajardo CRNA SURG / Report #: [id number] (Signed) PCP: Timothy Anna MD Anesthesia Post-Evaluation Report Date/Time: 07/26/20 1406 Date Evaluation: 07/26/20 Time Evaluation: 14:06 Post-Evaluation: [...] 07/26/20 1407 Electronically Cosigned By/Signed Date Time [facility] Anesthesia Pre-Evaluationon 07-26-2020 Anesthesia Pre-Evaluation [facility] [address] [place] [address] - KASSANDRA BAUTISTA 1995 (24 F) [id number] Jorge Yao DO SURG / Report #: [id number] (Signed) PCP: Timothy Anna MD Anesthesia Pre-Evaluation [...] TWITCHING Electronically Signed By/Signed Date Time Jorge Yao DO 07/26/20 1230 Electronically Cosigned By/Signed Date Time [facility] HCG URINEon 07-26-2020 Beta HCG ( test) Ql (U) Negative [facility] Comment on above: Order Comment: COLLE CTED BY: arcelia begum Performed By: #### H CGU #### MAIN LAB CLIA:[id number] [address] [place] [address] SARS-CoV-2,MRHon 07-19-2020 SARS-CoV-2 (COVID-19) RNA FRANCISCO+probe Ql (Unsp spec) Negative Normal Negative [facility] Comment on above: Order Comment: Comme nts: PREOP Nasopharynx Result Comment: Ry guallpa was tested using the [employer] SARS-CoV-2 RT-PCR test on the [employer] System. This test has Emergency Use Authorization from the [place] FDA. The EUA for this test is supported by the [place] of Health and Human Service's declaration that circumstances exist to justify the emergency use of in vitro diagnostics for the detection and/or diagnosis of the virus that causes COVID-19. This EUA will remain in effect for the duration of the COVID-19 declaration. Performed By: #### S ARSCOV #### MAIN LAB CLIA:[id number] [address] [place] [address] SARS-CoV-2 (COVID-19) RNA FRANCISCO+probe Ql (Unsp spec) NASOP Normal [facility] Comment on above: Order Comment: Comme nts: PREOP Nasopharynx Performed By: #### S ARSCOV #### MAIN LAB CLIA:[id number] [address] [place], [place] [address] Emergency Room Visit Reporto n 01-04-2020 Emergency [place] [address] - BAUTISTAKASSANDRA 1995 (24 F) [id number] Johanna Ledezma MD ED Report #: [id number] (Signed) PCP: Timothy Anna MD Emergency Room [...] and winkin (more content not included)... Normal [facility] PROCALCITONINon 01-03-2020 PROCALCITONIN 0.122 ng/mL High <0.100 [facility] Comment on above: Performed By: #### P ROCAL ####MAIN LABCLIA:[id number] [place] [address] CHEST 1 VIEWon 01-02-2020 CHEST 1 VIEW [place] [address] Pt Location: ED/ DEP ER Pt RM#: MR #: [id number] PERFORMED DATE: 01/02/201809 ADM#: [id number] Patient: KASSANDRA BAUTISTA : 1995 Age/Sex: 24 [...] IMPRESSION: 1. Bilateral lower lobe pneumonia. REPORT# [id number] FILMS READ BY: Elvia English MD 01/03/20 1054 FINAL REPORT RELEASED BY: Elvia English MD 01/03/20 1251 Transcribed Date/Time: 01/03/20 1106 JL CC: Timothy Anna M.D.; Bharathi Lin PA-C Normal [facility] COMPLETE BLOOD COUNTon 01-01 ABSOLUTE BASOPHILS 0 /cmm Normal <216 [facility] Comment on above: Performed By: #### C BC ####MAIN LABCLIA:[id number] [place] [address] ABSOLUTE EOSINOPHILS 0 /cmm Normal <432 [facility] Comment on above: Performed By: #### C BC ####MAIN LABCLIA:[id number] [place] [address] ABSOLUTE LYMPHS 900 /cmm Low [phone] [facility] Comment on above: Performed By: #### C BC ####MAIN LABCLIA:[id number] [facility] [address] ABSOLUTE MONOCYTES 700 /cmm Normal 96-972 [facility] Comment on above: Performed By: #### C BC ####MAIN LABCLIA:[id number] [facility] [address] ABSOLUTE SEGS 3300 /cmm Normal 5849-2883 [facility] Comment on above: Performed By: #### C BC ####MAIN LABCLIA:[id number] [facility] [place] [address] Basophils/100 WBC (Bld) 0.3 % Normal <2.0 [facility] Comment on above: Performed By: #### C BC ####MAIN LABCLIA:[id number] [facility] [place] [address] Eosinophils/100 WBC (Bld) 0.0 % Normal <4.0 [facility] Comment on above: Performed By: #### C BC ####MAIN LABCLIA:[id number] [facility] [address] Erythrocyte distribution width (RBC) [Ratio] 12.2 % Normal 11.5-14.5 [facility] Comment on above: Performed By: #### C BC ####MAIN LABCLIA:[id number] [facility] [address] Hematocrit (Bld) [Volume fraction] 42.8 % Normal 38.0-47.0 [facility] Comment on above: Performed By: #### C BC ####MAIN LABCLIA:[id number] [facility] [address] Hemoglobin (Bld) [Mass/Vol] 14.7 g/dL Normal 12.0-16.4 [facility] Comment on above: Performed By: #### C BC ####MAIN LABCLIA:[id number] [facility] [address] Lymphocytes/100 WBC (Bld) 18.5 % Low 20.0-44.0 [facility] Comment on above: Performed By: #### C BC ####MAIN LABCLIA:[id number] [facility] [address] MCH (RBC) [Entitic mass] 29.7 pg Normal 27.0-31.0 [facility] Comment on above: Performed By: #### C BC ####MAIN LABCLIA:[id number] [facility] [address] MCV (RBC) [Entitic vol] 87 fL Normal 80.0-96.0 [facility] Comment on above: Performed By: #### C BC ####MAIN LABCLIA:[id number] [facility] [address] MEAN CORPUSCULAR HGB CONC 34.3 g/dL Normal 32.0-36.0 [facility] Comment on above: Performed By: #### C BC ####MAIN LABCLIA:[id number] [facility] [address] Monocytes/100 WBC (Bld) 13.2 % High 2.0-9.0 [facility] Comment on above: Performed By: #### C BC ####MAIN LABCLIA:[id number] [facility] [address] Neutrophils/100 WBC (Bld) 68.0 % Normal 50.0-70.0 [facility] Comment on above: Performed By: #### C BC ####MAIN LABCLIA:[id number] [facility] [address] PLATELET COUNT 198 10 3/uL Normal 130-400 [facility] Comment on above: Performed By: #### C BC ####MAIN LABCLIA:[id number] [facility] [place] [address] RED BLOOD COUNT 4.94 10 6/uL Normal 4.20-5.40 [facility] Comment on above: Performed By: #### C BC ####MAIN LABCLIA:[id number] [facility] [place] [address] WHITE BLOOD COUNT 4.9 10 3/uL Normal 4.8-10.8 [facility] Comment on above: Performed By: #### C BC ####MAIN LABCLIA:[id number] [facility] [place] [address] COMPREHENSIVE METABOLIC PANE Flavio 01-02-2020 Albumin [Mass/Vol] 4.3 g/dL Normal 3.0-4.5 [facility] Comment on above: Performed By: #### C MP #### MAIN LAB CLIA:[id number] [address] [place] [address]131 Albumin/Globulin [Mass ratio] 1.2 {ratio} Normal 1-1.4 [facility] Comment on above: Performed By: #### C MP #### MAIN LAB CLIA:[id number] [address] [place] [address]803 ALP [Catalytic activity/Vol] 38 U/L Normal 35-104 [facility] Comment on above: Performed By: #### C MP #### MAIN LAB CLIA:[id number] [address] [place] [address] 10515 ALT [Catalytic activity/Vol] 151 U/L High 0-33 [facility] Comment on above: Performed By: #### C MP #### MAIN LAB CLIA:[id number] [address] [place] [address] 17115 Anion gap [Moles/Vol] 20 mmol/L High 9-18 [facility] Comment on above: Performed By: #### C MP #### MAIN LAB CLIA:[id number] [address] [place] [address] [place] [address] AST [Catalytic activity/Vol] 105 U/L High 0-32 [facility] Comment on above: Performed By: #### C MP #### MAIN LAB CLIA:[id number] [address] [place] [address] 81610 Bilirubin [Mass/Vol] 0.3 mg/dL Normal 0.2-1.2 [facility] Comment on above: Performed By: #### C MP #### MAIN LAB CLIA:[id number] [address] [place] [address] [place] [address] Calcium [Mass/Vol] 9.3 mg/dL Normal 8.6-10.0 [facility] Comment on above: Performed By: #### C MP #### MAIN LAB CLIA:[id number] [address] [place] [address] 64322 Chloride [Moles/Vol] 98 mmol/L Normal 98-107 [facility] Comment on above: Performed By: #### C MP #### MAIN LAB CLIA:[id number] [address] [place] [address] 29233 CO2 [Moles/Vol] 25 mmol/L Normal 22-29 [facility] Comment on above: Performed By: #### C MP #### MAIN LAB CLIA:[id number] [address] [place] [address] 29665 Creatinine [Mass/Vol] 0.65 mg/dL Normal 0.50-0.90 [facility] Comment on above: Performed By: #### C MP #### MAIN LAB CLIA:[id number] [address] [place] [address] 57081 GFR >=60 Normal >60 mL/min [facility] Comment on above: Result Comment: eGFR is calculated using the CKD-EPI equation. Result is intended only for patients between 18 and 71 years of age and is corrected for age, race, and gender. eGFR should NOT be used for pharmacy dosing. Performed By: #### C MP #### MAIN LAB CLIA:[id number] [address] [place] [address] Globulin (S) [Mass/Vol] 3.7 g/dL High 2.3-3.5 [facility] Comment on above: Performed By: #### C MP #### MAIN LAB CLIA:[id number] [address] [place] [address]88[address] Glucose [Mass/Vol] 92 mg/dL Normal 74-109 [facility] Comment on above: Performed By: #### C MP #### MAIN LAB CLIA:[id number] [address] [place] [address] Potassium [Moles/Vol] 3.6 mmol/L Normal 3.5-5.1 [facility] Comment on above: Performed By: #### C MP #### MAIN LAB CLIA:[id number] [address] [place] [address] 10024 Protein [Mass/Vol] 8.0 g/dL Normal 6.4-8.3 [facility] Comment on above: Performed By: #### C MP #### MAIN LAB CLIA:[id number] [address] [place] [address] 40475 Sodium [Moles/Vol] 139 mmol/L Normal 136-145 [facility] Comment on above: Performed By: #### C MP #### MAIN LAB CLIA:[id number] [address] [place] [address] 94149 Urea nitrogen [Mass/Vol] 10 mg/dL Normal 6-20 [facility] Comment on above: Performed By: #### C MP #### MAIN LAB CLIA:[id number] [address] [place] [address] 95460 Urea nitrogen/Creatinine [Mass ratio] 15.4 mg/mg Normal [facility] Comment on above: Performed By: #### C MP #### MAIN LAB CLIA:[id number] [address] [place] [address] Emergency Room Visit Reporto n 01-02-2020 Emergency Room Visit Report [address] [address] - KASSANDRA BAUTISTA 1995 (24 F) [id number] Bharathi Lin PA-C ED Report #: [id number] (Signed) PCP: Timothy Anna MD Emergency Room Visit Report Visit Date: 01/02/20 Report Date/Time: 01/02/202009 HPI Arrival Condition on Arrival: Good VJ [...] dry an (more content not included)... Normal [facility] LACTIC ACIDon 01-02-2020 Lactate [Moles/Vol] 1.0 mmol/L Normal 0.5-2.2 [facility] Comment on above: Performed By: #### L AC #### MAIN LAB CLIA:[id number] [address] [place], [place] [address] Vital Signs Date Time Vital Sign Value Performing Clinician Facility 11-01-2024 12:57-0400 Body height 165.[address] Brenda Hernandez DO Work Phone: [facility] 11-01-2024 12:57-0400 Body mass index (BMI) [Ratio] 29.7 kg/m2 Dr. Brenda Hernandez DO Work Phone: [facility] 11-01-2024 12:57-0400 Body weight 80.[address] Brenda Hernandez DO Work Phone: [facility] 11-01-2024 12:57-0400 Diastolic blood pressure 83 mm[Hg] Dr. Brenda Hernandez DO Work Phone: [facility] 11-01-2024 12:57-0400 Systolic blood pressure 126 mm[Hg] Dr. Brenda Hernandez DO Work Phone: [facility] 10-16-2024 10:34-0400 Body height 165.[address] Brenda Hernandez DO Work Phone: [facility] 10-16-2024 10:34-0400 Body mass index (BMI) [Ratio] 29.8 kg/m2 Dr. Brenda Hernandez DO Work Phone: [facility] 10-16-2024 10:34-0400 Body weight 81.[address] Brenda Hernandez DO Work Phone: [facility] 10-16-2024 10:34-0400 Diastolic blood pressure 84 mm[Hg] Dr. Brenda Hernandez DO Work Phone: [facility] 10-16-2024 10:34-0400 Systolic blood pressure 122 mm[Hg] Dr. Brenda Hernandez DO Work Phone: [facility] 10-02-2024 08:43-0400 Body height 165.1 cm No Primary Care Physician [facility] 10-02-2024 08:43-0400 Body mass index (BMI) [Ratio] 30.1 kg/m2 No Primary Care Physician [facility] 10-02-2024 08:43-0400 Body weight 82.18 kg No Primary Care Physician [facility] 10-02-2024 08:43-0400 Diastolic blood pressure 84 mm[Hg] No Primary Care Physician [facility] 10-02-2024 08:43-0400 Systolic blood pressure 121 mm[Hg] No Primary Care Physician [facility] 09-27-2024 16:05-0400 Body height 165.1 cm No Primary Care Physician [facility] 09-27-2024 16:05-0400 Body weight 86.18 kg No Primary Care Physician [facility] 09-18-2024 08:53-0400 Diastolic blood pressure 80 mm[Hg] No Primary Care Physician [facility] 09-18-2024 08:53-0400 Systolic blood pressure 136 mm[Hg] No Primary Care Physician [facility] 09-18-2024 08:37-0400 Body height 165.1 cm No Primary Care Physician [facility] 09-18-2024 08:37-0400 Body mass index (BMI) [Ratio] 31.6 kg/m2 No Primary Care Physician [facility] 09-18-2024 08:37-0400 Body weight 86.18 kg No Primary Care Physician [facility] 08-30-2024 08:43-0400 Body height 165.[address] Brenda Hernandez DO Work Phone: [facility] 08-30-2024 08:43-0400 Body mass index (BMI) [Ratio] 31.5 kg/m2 Dr. Brenda Hernandez DO Work Phone: [facility] 08-30-2024 08:43-0400 Body weight 85.[address] Brenda Hernandez DO Work Phone: [facility] 08-30-2024 08:43-0400 Diastolic blood pressure 84 mm[Hg] Dr. Brenda Hernandez DO Work Phone: [facility] 08-30-2024 08:43-0400 Systolic blood pressure 134 mm[Hg] Dr. Brenda Hernandez DO Work Phone: [facility] 08-03-2024 10:19-0400 Body height 165.1 cm No Primary Care Physician [facility] 08-03-2024 10:17-0400 Body mass index (BMI) [Ratio] 30.8 kg/m2 No Primary Care Physician [facility] 08-03-2024 10:17-0400 Body weight 84.08 kg No Primary Care Physician [facility] 08-03-2024 10:17-0400 Diastolic blood pressure 83 mm[Hg] No Primary Care Physician [facility] 08-03-2024 10:17-0400 Systolic blood pressure 127 mm[Hg] No Primary Care Physician [facility] 07-08-2024 09:56-0400 Body height 165.1 cm No Primary Care Physician [facility] 07-08-2024 09:56-0400 Body mass index (BMI) [Ratio] 29.7 kg/m2 No Primary Care Physician [facility] 07-08-2024 09:56-0400 Body temperature 98.7 [degF] No Primary Care Physician [facility] 07-08-2024 09:56-0400 Body weight 81.24 kg No Primary Care Physician [facility] 07-08-2024 09:56-0400 Diastolic blood pressure 78 mm[Hg] No Primary Care Physician [facility] 07-08-2024 09:56-0400 Heart rate 99 /min No Primary Care Physician [facility] 07-08-2024 09:56-0400 SaO2% (BldA) [Mass fraction] 97 % No Primary Care Physician [facility] 07-08-2024 09:56-0400 Systolic blood pressure 120 mm[Hg] No Primary Care Physician [facility] 07-05-2024 08:31-0400 Body height 165.1 cm No [facility] [facility] 07-05-2024 08:31-0400 Body mass index (BMI) [Ratio] 29.7 kg/m2 No Primary Care Physician [facility] 07-05-2024 08:31-0400 Body weight 81.24 kg No Primary Care Physician [facility] 07-05-2024 08:31-0400 Diastolic blood pressure 76 mm[Hg] No Primary Care Physician [facility] 07-05-2024 08:31-0400 Systolic blood pressure 122 mm[Hg] No Primary Care Physician [facility] 06-22-2024 14:21-0400 Body mass index (BMI) [Ratio] 29.8 kg/m2 No Primary Care Physician [facility] 06-22-2024 14:21-0400 Body weight 81.3 kg No Primary Care Physician [facility] 06-22-2024 14:21-0400 Diastolic blood pressure 84 mm[Hg] No Primary Care Physician [facility] 06-22-2024 14:21-0400 Systolic blood pressure 139 mm[Hg] No Primary Care Physician [facility] 06-06-2024 12:57-0400 Body height 165.1 cm No Primary Care Physician [facility] 06-06-2024 12:57-0400 Body mass index (BMI) [Ratio] 28.8 kg/m2 No Primary Care Physician [facility] 06-06-2024 12:57-0400 Body weight 78.69 kg No Primary Care Physician [facility] 06-06-2024 12:57-0400 Diastolic blood pressure 82 mm[Hg] No Primary Care Physician [facility] 06-06-2024 12:57-0400 Systolic blood pressure 129 mm[Hg] No Primary Care Physician [facility] 05-11-2024 10:21-0400 Body height 165.1 cm No Primary Care Physician [facility] 05-11-2024 10:21-0400 Body mass index (BMI) [Ratio] 28.5 kg/m2 No Primary Care Physician [facility] 05-11-2024 10:21-0400 Body weight 77.73 kg No Primary Care Physician [facility] 05-11-2024 10:21-0400 Diastolic blood pressure 83 mm[Hg] No Primary Care Physician [facility] 05-11-2024 10:21-0400 Systolic blood pressure 121 mm[Hg] No Primary Care Physician [facility] 04-21-2024 11:20-0500 Body mass index (BMI) [Ratio] 28 kg/m2 No Primary Care Physician [facility] 04-21-2024 11:20-0500 Body weight 76.31 kg No Primary Care Physician [facility] 04-21-2024 11:20-0500 Diastolic blood pressure 89 mm[Hg] No Primary Care Physician [facility] 04-21-2024 11:20-0500 Systolic blood pressure 143 mm[Hg] No Primary Care Physician [facility] 03-17-2022 14:59-0500 Body height 165.1 cm Johanna Nieves DO Work Phone: [facility] 03-17-2022 14:59-0500 Body weight 78.34 kg Johanna Nieves DO Work Phone: [facility] 03-17-2022 14:59-0500 Diastolic blood pressure 85 mm[Hg] Johanna Nazzaro DO Work Phone: [facility] 03-17-2022 14:59-0500 Heart rate 110 /min Johanna Nazzaro DO Work Phone: [facility] 03-17-2022 14:59-0500 SaO2% (BldA) [Mass fraction] 98 % Johanna Nazzaro DO Work Phone: [facility] 03-17-2022 14:59-0500 Systolic blood pressure 130 mm[Hg] Johanna Nazzaro DO Work Phone: [facility] 02-24-2022 15:49-0500 Heart rate 96 /min Johanna Jonh TRUCK REPAIR SUPERVISOR.ART MANAGER Work Phone: [facility] 02-24-2022 15:25-0500 Body temperature 98.29 [degF] Johanna Jonh TRUCK REPAIR SUPERVISOR.ART MANAGER Work Phone: [facility] 02-24-2022 15:25-0500 Body weight 70.31 kg Johanna Jonh TRUCK REPAIR SUPERVISOR.ART MANAGER Work Phone: [facility] 02-24-2022 15:25-0500 Diastolic blood pressure 83 mm[Hg] Johanna Jonh TRUCK REPAIR SUPERVISOR.ART MANAGER Work Phone: [facility] 02-24-2022 15:25-0500 Respiratory rate 16 /min Johanna Jonh TRUCK REPAIR SUPERVISOR.ART MANAGER Work Phone: [facility] 02-24-2022 15:25-0500 SaO2% (BldA) [Mass fraction] 99 % Johannahung Rojas TRUCK REPAIR SUPERVISOR.ART MANAGER Work Phone: [facility] 02-24-2022 15:25-0500 Systolic blood pressure 122 mm[Hg] Johanna Jonh TRUCK REPAIR SUPERVISOR.ART MANAGER Work Phone: [facility] 11-06-2021 16:15-0400 Body height 162.56 cm Brenda Mccall Other [facility] [place] Other 11-06-2021 16:15-0400 Body mass index (BMI) [Ratio] 27.98 kg/m2 Brenda Charmaineite Other [facility] [place] Other 11-06-2021 16:15-0400 Body temperature 98.9 [degF] Brenda Charmaineite Other [facility] [place] Other 11-06-2021 16:15-0400 Body weight 73.94 kg Brenda Cal Other [facility] [place] Other 11-06-2021 16:15-0400 Diastolic blood pressure 82 mm[Hg] Brenda Montanoite Other [facility] [place] Other 11-06-2021 16:15-0400 Heart rate 89 /min Brenda Charmaineite Other [facility] [place] Other 11-06-2021 16:15-0400 Respiratory rate 18 /min Brenda Davidwaite Other [facility] [place] Other 11-06-2021 16:15-0400 SaO2% (BldA) [Mass fraction] 99 % Brenda Davidwaite Other [facility] [place] Other 11-06-2021 16:15-0400 Systolic blood pressure 138 mm[Hg] Brenda Davidwaite Other [facility] [place] Other Encounters Encounter Date Encounter Type Care Provider Facility Start: 12-12-2024 ambulatory No Primary Car e Physician Facility:[facility] Start: 11-13-2024 ambulatory No Primary Car e Physician Facility:[facility] Start: 11-02-2024 ambulatory No Primary Car e Physician Facility:[facility] Start: 11-01-2024 End: 11-01-2024 Patient encounter procedure Bonnie Ruiz FINGERNAIL SCULPTOR-C -[facility] Work Phone: Start: 11-01-2024 End: 11-01-[address] Brenda Hernandez DO Work Phone: -[facility] Start: 10-16-2024 End: 10-16-2024 Patient encounter procedure Yamilex Delvalle CNM -[facility] Work Phone: Start: 10-16-2024 End: 10-16-[address] Brenda Hernandez DO Work Phone: -[facility] Start: 10-02-2024 End: 10-02-[address] Brenda Hernandez DO Work Phone: -Laboratory Specimen Start: 10-02-2024 End: 10-02-[address] Krystle Enriquez MD -Laboratory Specimen Work Phone: Start: 10-02-2024 End: 10-02-[address] Krystle Enriquez MD -[facility] Work Phone: Start: 10-02-2024 End: 10-02-2024 ambulatory No Primary Care Physician -[facility] Start: 10-02-2024 End: 10-02-2024 ambulatory No Primary Care Physician Facility:[facility] Start: 09-27-2024 End: 10-22-2024 Discharged Recurring Bonnie Ruiz FINGERNAIL SCULPTOR-C -[facility] Work Phone: Start: 09-27-2024 Registered Recurring Bonnie Ruiz FINGERNAIL SCULPTOR-C -[facility] Services Work Phone: Start: 09-27-2024 End: 10-22-[address] Brenda Hernandez DO Work Phone: -N[facility] Services Start: 09-20-2024 End: 09-20-2024 ambulatory No Primary Care Physician -Laboratory Start: 09-20-2024 End: 09-20-2024 Patient encounter procedure Bonnie Pateltings FINGERNAIL SCULPTOR-C -Laboratory Work Phone: Start: 09-20-2024 End: 09-20-2024 ambulatory Bonnie Joseph FINGERNAIL SCULPTOR Facility:[facility] Start: 09-18-2024 End: 09-18-2024 Patient encounter procedure Bonnie Masseys FINGERNAIL SCULPTOR-C -[facility] Work Phone: Start: 09-18-2024 End: 09-18-2024 ambulatory No Primary Care Physician -[facility] Start: 09-18-2024 End: 09-18-2024 ambulatory Bonnei Joseph FINGERNAIL SCULPTOR Facility:[facility] Start: 08-30-2024 End: 08-30-[address] Brenda Hernandez DO -[facility] Work Phone: Start: 08-30-2024 End: 08-30-[address] Brenda Hernandez DO Work Phone: -[facility] Start: 08-03-2024 End: 08-03-2024 Patient encounter procedure Yamilex Delvalle CNM -[facility] Work Phone: Start: 08-03-2024 End: 08-03-2024 ambulatory No Primary Care Physician [facility] Work Phone: Start: 07-20-2024 End: 07-20-2024 ambulatory No Primary Care Physician [facility] Work Phone: Start: 07-20-2024 End: 07-20-[address] Brenda Hernandez DO -Ultrasound [facility] Work Phone: Start: 07-20-2024 End: 07-20-2024 ambulatory No Primary Care Physician Facility:[facility] Start: 07-10-2024 End: 07-10-2024 ambulatory No Primary Care Physician [facility] Work Phone: Start: 07-10-2024 End: 07-10-2024 Patient encounter procedure Richard Meng PA -Laboratory Specimen Work Phone: Start: 07-10-2024 End: 07-10-2024 ambulatory Brenda Hernandez Facility:[facility] Start: 07-08-2024 End: 07-08-2024 Patient encounter procedure Richard ELAINE -[facility] Work Phone: Start: 07-08-2024 End: 07-08-2024 ambulatory No Primary Care Physician [facility] Work Phone: Start: 07-05-2024 End: 07-05-2024 ambulatory No Primary Care Physician [facility] Work Phone: Start: 07-05-2024 End: 07-05-2024 Patient encounter procedure Bonnie Ruiz NP-C -Laboratory Specimen Work Phone: Start: 07-05-2024 End: 07-05-2024 Patient encounter procedure Bonnie Ruiz FINGERNAIL SCULPTOR-C -[facility] Work Phone: Start: 07-05-2024 End: 07-05-2024 ambulatory No Primary Care Physician [facility] Work Phone: Start: 07-05-2024 End: 07-05-2024 ambulatory Brenda Hernandez Facility:[facility] Start: 06-22-2024 End: 06-22-2024 Patient encounter procedure Yamilex Delvalle CNM -[facility] Work Phone: Start: 06-22-2024 End: 06-22-2024 ambulatory Brenda Hernandez Facility:[facility] Start: 06-06-2024 End: 06-06-2024 ambulatory No Primary Care Physician [facility] Work Phone: Start: 06-06-2024 End: 06-06-[address] Brenda Hernandez DO -Laboratory, Specimen Work Phone: Start: 06-06-2024 End: 06-06-[address] Brenda Hernandez DO -[facility] Work Phone: Start: 06-06-2024 End: 06-06-2024 ambulatory Brenda Hernandez Facility:[facility] Start: 06-06-2024 End: 06-06-2024 ambulatory Brenda Hernandez Facility:[facility] Start: 05-11-2024 End: 05-11-[address] Brenda Hernandez DO -[facility] Work Phone: Start: 05-11-2024 End: 05-11-2024 ambulatory No Primary Care Physician [facility] Work Phone: Start: 05-11-2024 End: 05-11-2024 ambulatory Brenda Hernandez Facility:[facility] Start: 04-23-2024 End: 04-23-2024 ambulatory No Primary Care Physician [facility] Work Phone: Start: 04-23-2024 End: 04-23-[address] Brenda Hernandez DO -Laboratory Work Phone: Start: 04-23-2024 End: 04-23-2024 ambulatory Brenda Hernandez Facility:[facility] Start: 04-21-2024 End: 04-21-2024 Patient encounter procedure Lacy Gongora CNM -[facility] Work Phone: Start: 04-21-2024 End: 04-21-2024 ambulatory No Primary Care Physician [facility] Work Phone: Start: 04-21-2024 End: 04-21-2024 ambulatory No Primary Care Physician Facility:[facility] Start: 01-24-2024 End: 01-24-[address] Krystle Enriquez MD -Lab, [facility] Start: 01-24-2024 End: 01-24-2024 ambulatory No Primary Care Physician Facility:[facility] Start: 01-12-2024 End: 01-12-[address] Brenda Morrison, [facility] Start: 01-12-2024 End: 01-12-2024 ambulatory No Primary Care Physician Facility:[facility] Start: 01-08-2024 End: 01-08-[address] Brenda JOELaboratory Work Phone: Start: 01-08-2024 End: 01-08-2024 ambulatory No Primary Care Physician Facility:[facility] Start: 01-06-2024 End: 01-06-[address] Brenda Morrison, [facility] Start: 01-06-2024 End: 01-06-2024 ambulatory No Primary Care Physician Facility:[facility] Start: 06-26-2022 Telephone encounter Johanna xiong DO Work Phone: [facility] Comment on above: Opened In Error Start: 03-26-2022 ambulatory Johanna bejarano DO Work Phone: [facility] Comment on above: Future Start: 03-17-2022 End: 03-17-2022 Patient encounter procedure Johanna Nieves DO Work Phone: [facility] Comment on above: Encounter for gyneco logical examination (general) (routine) without abnormal findings (Primary Dx); examination or test, negative result; Spontaneous loss; Encounter for screening for malignant neoplasm of cervix Start: 03-17-2022 End: 03-17-2022 Patient encounter status Johanna Nieves DO Work Phone: [facility] Start: 03-17-2022 End: 03-17-2022 ambulatory JOHANNA NIEVES Facility:[facility] Start: 03-16-2022 End: 03-17-2022 Subsequent hospital visit by physician Provider [facility] [place] Start: 03-16-2022 End: 03-16-2022 ambulatory JOHANNA NIEVES Facility:[facility] Start: 03-16-2022 End: 03-16-2022 Nursing evaluation of patient and report Nurse Product Development Carpenter Up [employer] Work Phone: [facility] Comment on above: of unknown anatomic location (Primary Dx); Encounter for test, result positive Start: 03-12-2022 Telephone encounter Johanna xiong DO Work Phone: [facility] Comment on above: Results Start: 03-12-2022 ambulatory JOHANNA NIEVES Facil ity:[facility] Start: 03-12-2022 End: 03-12-2022 Subsequent hospital [facility] Start: 03-12-2022 End: 03-12-2022 ambulatory JOHANNA NIEVES Facility:[facility] Start: 03-12-2022 End: 03-12-2022 Nursing evaluation of patient and report Nurse Product Development Carpenter Up [employer] Work Phone: [facility] Comment on above: of unknown anatomic location (Primary Dx) Start: 03-12-2022 End: 03-12-2022 Patient encounter procedure Ultrasound Product Development Carpenter Up [place] Work Phone: [facility] Comment on above: of unknown anatomic location (Primary Dx) Start: 03-12-2022 End: 03-12-2022 Subsequent hospital visit by [facility] Start: 03-10-2022 Telephone encounter Johanna xiong DO Work Phone: [facility] Comment on above: Appointment Results Start: 03-10-2022 End: 03-10-2022 ambulatory JOHANNA NIEVES Facility[facility] Start: 03-10-2022 End: 03-10-2022 Subsequent hospital visit by physician [facility] Start: 03-10-2022 End: 03-10-2022 Nursing evaluation of patient and report Nurse Product Development Carpenter Up [employer] Work Phone: [facility] Comment on above: of unknown anatomic location (Primary Dx) Start: 03-08-2022 ambulatory JOHANNA NIEVES Facil ity:[facility] Start: 03-08-2022 End: 03-08-2022 Subsequent hospital visit by physician Provider [facility] Start: 03-06-2022 Telephone encounter Johanna xiong DO Work Phone: [facility] Comment on above: Results Start: 03-06-2022 End: 03-06-2022 ambulatory JOHANNA NIEVES Facility[facility] Start: 03-06-2022 End: 03-06-2022 Subsequent hospital visit by physician Provider [facility] Start: 03-06-2022 End: 03-06-2022 Nursing evaluation of patient and report Nurse Product Development Carpenter Up [place] Work Phone: [facility] Comment on above: of unknown anatomic location (Primary Dx) Start: 03-05-2022 Telephone encounter Johanna xiong DO Work Phone: [facility] Comment on above: Results Start: 03-04-2022 Telephone encounter Johanna xiong DO Work Phone: [facility] Comment on above: Patient Question; Pa tient Update Start: 03-04-2022 End: 03-04-2022 Subsequent hospital visit by physician Provider [facility] Start: 03-04-2022 End: 03-04-2022 ambulatory JOHANNA NIEVES Facility[facility] Start: 03-04-2022 End: 03-04-2022 Nursing evaluation of patient and report Nurse Product Development Carpenter Up Ralph Work Phone: [facility] Comment on above: of unknown anatomic location (Primary Dx) Start: 03-02-2022 End: 03-02-2022 ambulatory JOHANNA NIEVES Facility[facility] Start: 03-02-2022 End: 03-02-2022 Subsequent hospital visit by physician Provider [facility] Start: 02-28-2022 ambulatory JOHANNA NIEVES Facil ity:[facility] Start: 02-28-2022 End: 02-28-2022 Subsequent hospital visit by physician Provider [facility] Start: 02-27-2022 Telephone encounter Johanna xiong DO Work Phone: [facility] Comment on above: Patient Update; Cynthia ent Question; Appointment Start: 02-26-2022 End: 02-27-2022 Emergency department patient visit GENEVIEVE SANCHEZ Facility:[facility] Start: 02-26-2022 End: 02-27-2022 Subsequent hospital visit by physician Provider [facility] Start: 02-26-2022 Telephone encounter Johanna Rojas TRUCK REPAIR SUPERVISOR.ART MANAGER Work Phone: [facility] Comment on above: Results Start: 02-24-2022 End: 02-24-2022 ambulatory FC-JOHANNA ROJAS Facility[facility] Start: 02-24-2022 End: 02-24-2022 Subsequent hospital visit by physician Provider [facility] Start: 02-24-2022 End: 02-24-2022 Patient encounter procedure Johanna Rojas TRUCK REPAIR SUPERVISOR.ART MANAGER Work Phone: [facility] Comment on above: Urinary tract infect ion symptoms (Primary Dx) Start: 12-12-2021 End: 12-12-2021 ambulatory Timothy Anna Other [facility] [place] Other Start: 12-12-2021 Telephone encounter Timothy Ross [facility] Start: 12-11-2021 End: 12-11-2021 ambulatory Timothy Anna Other [facility] [place] Other Start: 12-11-2021 Telephone encounter Timothy Ross [facility] Start: 12-04-2021 End: 12-04-2021 ambulatory Timothy Anna Other [facility] [place] Other Start: 12-04-2021 Telephone encounter Timothy Ross [facility] Start: 11-07-2021 End: 11-07-2021 ambulatory Timothy Anna Other [facility] [place] Other Start: 11-07-2021 Telephone encounter Timothy Anna [facility] Start: 11-06-2021 End: 11-06-2021 ambulatory Brenda Mccall Other [facility] [place] Other Start: 11-06-2021 Encounter for other specified special examinations [facility] Start: 11-06-2021 Periodic preventive med est patient 18-39 yrs [facility] Start: 11-05-2021 End: 11-05-2021 ambulatory Timothy Anna Other [facility] [place] Other Start: 11-05-2021 Telephone encounter Timothy Ross [facility] Start: 01-14-2019 End: 01-14-2019 Patient encounter procedure [facility] Facility:[facility] Procedures Date Procedure Procedure Detail Performing Clinician Start: 10-02-[address] Jodee Hernandez DO Work Phone: Start: 09-18-2024 Serologic test for syphilis No Primary Care Physician Start: 07-20-2024 Ultrasonography in f irst trimester [...] HCV Quant by PCR testing - HCVPCR #[id number] Non Reactive: < 0.8 Equivocal: >/= 0.8 [...] Start: 03-17-2022 IGP,RFX APTIMA HPV A SCU ([id number]) Johanna Nazzaro DO Work Phone: Start: 03-16-2022 [...] Phone: Start: 02-27-2022 US OB TRANSVAGINAL Gretta Sanchez Work Phone: Start: 02-26-2022 ABO AND RH ONLY Genevieve Sanchez Work Phone: Start: 02-26-2022 CBC + DIFF Genevieve Sanchez Work Phone: Start: 02-26-2022 HCG QUANTITATIVE Genevieve Sanchez Work Phone: Start: 02-26-2022 URINALYSIS WITH MICROSCOPIC, REFLEX CULTURE Freddy Cdoy [place] Work Phone: Start: 02-24-2022 Bacteria identified in Urine by Culture Johanna Rojas APRN.ART MANAGER Work Phone: Start: 02-24-2022 End: 02-24-2022 Urine test visual color cmprsn meths Johanna Rojas APRN.ART MANAGER Work Phone: H/O: surgery S/P D&C (status [...] Author Start: 03-17-2025 PAP TESTING PAP TESTING [facility] Start: 09-18-2024 CBC W Auto Different ial panel - Blood [facility] Start: 09-18-2024 Measurement of gluco se 2 hours after glucose challenge for glucose tolerance test [facility] Start: 09-18-2024 Serologic test for syphilis [facility] Start: 09-18-2024 [facility] Start: 10-23-2022 Influenza vaccination [facility] Start: 02-22-2022 DEPRESSION ASSESSMENT DEPRESSION ASS ESSMENT [facility] Start: 10-23-2021 Influenza vaccination INFLUENZA (#1) [facility] Start: 2018 PAP TESTING PAP TESTING [facility] Start: 2016 Urine microalbumin profile [facility] Start: 11-12-2015 HEPATITIS C SCREENING HEPATITIS C SC EFREN [facility] Start: 11-12-2015 HIV SCREENING HIV SCREENING [facility] Start: 2013 Meningococcal B Vacc ine: Consider Based On Risk (1 of 2 - Patient Seeks Protection) Meningococcal B Vaccine: Consider Based On Risk (1 of 2 - Patient Seeks Protection) [facility] Start: 11-12-2011 PEDS TO ADULT TRANSI TION ANNUAL ASSESSMENT PEDS TO ADULT TRANSITION ANNUAL ASSESSMENT [facility] Start: 2009 PEDS TO ADULT TRANSI TION INITIAL DISCUSSION PEDS TO ADULT TRANSITION INITIAL DISCUSSION [facility] Start: 2008 HPV VACCINE (1 - 2-d ose series) HPV VACCINE (1 - 2-dose series) [facility] Start: 11-12-2007 MENINGOCOCCAL B: Consider based on risk (1 of 2 - Risk Bexsero 2-dose series) MENINGOCOCCAL B: Consider based on risk (1 of 2 - Risk Bexsero 2-dose series) [facility] Start: 2006 HPV Vaccine (1 - 2-d ose series) HPV Vaccine (1 - 2-dose series) [facility] Start: 05-11-1998 COVID-19 VACCINE (#1) COVID-19 VACCI NE (#1) [facility] Start: 1997 HEPATITIS B (1 of 3 - 3-dose series) HEPATITIS B (1 of 3 - 3-dose series) [facility] Start: 1997 Hepatitis B Vaccine (1 of 3 - 3-dose series) Hepatitis B Vaccine (1 of 3 - 3-dose series) [facility] Bacteria identified in Urine by Culture URINE CULTURE Microbiology Routine Urinary tract infection symptoms Ordered: 02/24/2022 [facility] Work Phone: Comment on above: Ordered: 02/24/2022 CBC W Auto Different ial panel - Blood [facility] End: 02-27-2023 Choriogonadotropin.beta subunit [Units/volume] in Serum or Plasma BETA HCG QUANT TUMOR MARKER Lab Routine of unknown anatomic location 3x per week for 2 Occurrences starting 02/27/2022 until 02/27/2023 [facility] Work Phone: Comment on above: 3x per week for 2 Oc currences starting 02/27/2022 until 02/27/2023 Erythrocyte mean corpuscular volume determination [facility] Hematocrit [Volume Fraction] of Blood [facility] Hemoglobin [Mass/vol ume] in Blood [facility] IGP,RFX APTIMA HPV A SCU ([id number]) IGP,RFX APTIMA HPV ASCU ([id number]) Lab Routine Encounter for screening for malignant neoplasm of cervix Ordered: 03/17/2022 [facility] Work Phone: Comment on above: Ordered: 03/17/2022 Leukocytes [#/volume ] in Blood [facility] Mean corpuscular hemoglobin concentration determination [facility] Mean corpuscular hemoglobin determination [facility] Measurement of gluco se 2 hours after glucose challenge for glucose tolerance test [facility] Neutrophil count [facility] Neutrophil percent differential count [facility] Platelets [#/volume] in Blood [facility] Polymerase chain reaction analysis [facility] Red blood cell count [facility] Red cell distributio n width determination [facility] Serologic test for syphilis [facility] Urinalysis complete panel - Urine [facility] Urine test visual color cmprsn meths HCG QUAL UR B/O Lab Routine Encounter for test, result positive Ordered: 03/16/2022 [facility] Work Phone: Comment on above: Ordered: 03/16/2022 End: 04-09-2023 Us transvaginal US FEMALE PELVIS TRANSVAG Radiology Routine of unknown anatomic location 1 Occurrences starting 03/10/2022 until 04/09/2023 [facility] Work Phone: Comment on above: 1 Occurrences starti ng 03/10/2022 until 04/09/2023 [facility] [place] Immunization Date Immunization Notes Care Provider Domenic rodriguez 10-02-2024 tetanus toxoid, redu akmi diphtheria toxoid, and acellular pertussis vaccine, adsorbed No Primary Care Physician [facility] 10-12-2020 SARS-COV-2 vaccine ( MOD) (2) (Covid-19) Timothy Anna Other [facility] Other 09-11-2020 SARS-COV-2 vaccine ( MOD) (1) (COVID-19) Timothy Anna Other [facility] Other 09-30-2016 hepatitis A vaccine, pediatric/adolescent dosage, 2 dose schedule Timothy Anna Other [facility] Other 08-22-2015 meningococcal oligosaccharide (groups A, C, Y and W-135) diphtheria toxoid conjugate vaccine (MCV4O) Timothy Anna Other [facility] Other 06-10-2011 Hep A, unspecified formulation Timothy Anna Other [facility] Other 10-06-2010 diphtheria, tetanus toxoids and acellular pertussis vaccine Timothy Anna Other [facility] Other 06-21-2003 Hep B, unspecified formulation (CPT 14032 Inactive) Timothy Anna Other [facility] [place] Other 06-14-2003 diphtheria, tetanus toxoids and acellular pertussis vaccine Timothy Anna Other [facility] Other 10-09-2002 Hep B, unspecified formulation (CPT 40343 Inactive) Timothy Anna Other [facility] Other 12-16-2000 Hep B, unspecified formulation (CPT 03626 Inactive) Timothy Anna Other [facility] Other 12-16-2000 measles, mumps and rubella virus vaccine Timothy Anna Other [facility] Other 12-16-2000 varicella virus vaccine Sam Anna Other [facility] Other 02-25-2000 poliovirus vaccine, inactivated Timothy Anna Other [facility] Other 03-19-1999 poliovirus vaccine, inactivated Timothy Anna Other [facility] Other 03-06-1999 diphtheria, tetanus toxoids and acellular pertussis vaccine Timothy Anna Other [facility] Other 12-24-1998 varicella virus vaccine Sam Anna Other [facility] Other 12-24-1998 measles, mumps and rubella virus vaccine Timothy Anna Other [facility] Other 06-04-1998 diphtheria, tetanus toxoids and acellular pertussis vaccine Timothy Anna Other [facility] Other 03-05-1998 diphtheria, tetanus toxoids and acellular pertussis vaccine Timothy Anna Other [facility] Other 02-27-1998 poliovirus vaccine, inactivated Timothy Anna Other [facility] Other 01-16-1998 poliovirus vaccine, inactivated Timothy Anna Other [facility] Other 01-15-1998 diphtheria, tetanus toxoids and acellular pertussis vaccine Timothy Anna Other [facility] Other Payers Date Payer Category Payer Unknown [id number] 2024 Self-pay 2024 Unknown [id number] 2021 [facility] [id number] 2019 Unknown 1995 Unknown [id number] 2.16.8 40.1.647579.3.579.2.196 Unknown [id number] 2.16.8 40.1.940469.3.579.2.283 Unknown [id number] 2.16.8 40.1.537958.3.579.2.283 Unknown [id number] 2.16.8 40.1.528558.3.579.2.283 Unknown [id number] 2.16.8 40.1.141168.3.579.2.283 Unknown [id number] 2.16.8 40.1.374372.3.579.2.283 Unknown [id number] 2.16.8 40.1.225844.3.579.2.283 Unknown [id number] 2.16.8 40.1.966982.3.579.2.283 Unknown [id number] 2.16.8 40.1.236720.3.579.2.283 Unknown [id number] 2.16.8 40.1.197930.3.579.2.283 Unknown [id number] 2.16.8 40.1.984846.3.579.2.283 Unknown [id number] 2.16.8 40.1.642845.3.579.2.283 Unknown [id number] 2.16.8 40.1.002619.3.579.2.283 Unknown [id number] 2.16.8 40.1.556533.3.579.2.462 Unknown [id number] 2.16.8 40.1.426813.3.579.2.462 Unknown [id number] 2.16.8 40.1.870201.3.579.2.462 Unknown [id number] 2.16.8 40.1.230840.3.579.2.462 Unknown [id number] 2.16.8 40.1.059608.3.579.2.462 Unknown [id number] 2.16.8 40.1.849139.3.579.2.462 Unknown [id number] 2.16.8 40.1.361856.3.579.2.462 Unknown [id number] 2.16.8 40.1.189713.3.579.2.462 Unknown [id number] 2.16.8 40.1.150283.3.579.2.462 Unknown [id number] 2.16.8 40.1.065279.3.579.2.462 Unknown [id number] 2.16.8 40.1.763716.3.579.2.462 Unknown [id number] 2.16.8 40.1.511209.3.579.2.462 Unknown [id number] 2.16.8 40.1.452455.3.579.2.462 Unknown [id number] 2.16.8 40.1.366202.3.579.2.462 Unknown [id number] 2.16.8 40.1.829515.3.579.2.462 Unknown [id number] 2.16.8 40.1.415010.3.579.2.462 Unknown [id number] 2.16.8 40.1.342414.3.579.2.462 Unknown [id number] 2.16.8 40.1.277318.3.579.2.462 Unknown [id number] 2.16.8 40.1.185302.3.579.2.462 Unknown [id number] 2.16.8 40.1.561020.3.579.2.462 Unknown [id number] 2.16.8 40.1.965813.3.579.2.462 Unknown [id number] 2.16.8 40.1.995925.3.579.2.462 Unknown [id number] 2.16.8 40.1.733189.3.579.2.462 Unknown [id number] 2.16.8 40.1.748102.3.579.2.462 Unknown [id number] 2.16.8 40.1.670953.3.579.2.462 Unknown [id number] 2.16.8 40.1.092458.3.579.2.462 Unknown [id number] 2.16.8 40.1.698658.3.579.2.462 Unknown [id number] 2.16.8 40.1.021854.3.579.2.462 Unknown [id number] 2.16.8 40.1.149315.3.579.2.462 Unknown [id number] 2.16.8 40.1.279575.3.579.2.462 Social History Date Type Detail Facility History of Tobacco Use [facility] Other Start: 12-13-2020 End: 04-24-2024 Tobacco smoking status NHIS Never Smoker [facility] Start: 02-24-2022 End: 03-08-2022 Sex Assigned At [facility] Other Start: 1995 Sex Assigned At Female [facility] Start: 02-24-2022 Tobacco use and exposure Smokeless tobacco non-user [facility] Start: 1995 Sex Assigned At Not on file [facility] Tobacco smoking status NVIS Tobacco smoking consumption unknown [facility] Start: 02-24-2022 End: 03-08-2022 History of Social function [facility] National Score (1-100), lower number is lower risk 55 [facility] Start: 05-04-2024 End: 06-08-2024 Sex Female (finding) [facility] Medical Equipment Procedure Code Equipment Code Equipment Origin al Text Equipment Identifier Dates Blood Sugar Diagnostic (Blood Glucose Test) strip Start: 09-20-2024 Lancets (Droplet Lancets) 30 gauge misc Start: 09-20-2024 Blood Sugar Diagnostic (Blood Glucose Test) strip Start: 09-20-2024 Lancets (Droplet Lancets) 30 gauge misc Start: 09-20-2024 Blood Sugar Diagnostic (Blood Glucose Test) strip Start: 09-20-2024 Lancets (Droplet Lancets) 30 gauge misc Start: 09-20-2024 Blood Sugar Diagnostic (Blood Glucose Test) strip Start: 09-20-2024 Lancets (Droplet Lancets) 30 gauge misc Start: 09-20-2024 Blood Sugar Diagnostic (Blood Glucose Test) strip Start: 09-20-2024 Lancets (Droplet Lancets) 30 gauge misc Start: 09-20-2024 Blood Sugar Diagnostic (Blood Glucose Test) strip Start: 09-20-2024 Lancets (Droplet Lancets) 30 gauge misc Start: 09-20-2024 Blood Sugar Diagnostic (Blood Glucose Test) strip Start: 09-20-2024 Lancets (Droplet Lancets) 30 gauge misc Start: 09-20-2024 Clinical Notes 07-25-2020 to 10-16-2024 Note Date & Type Note Facility 10-16-2024 Progress note [facility] 10-02-2024 Progress note [facility] 08-30-2024 Progress note [facility] 08-03-2024 Progress note [facility] 07-21-2024 Radiology Diagnostic study note [facility] [address] [place] [address] OB Anatomy w/ Transvaginal MR#: [id number] Acct: [id number] Name: KASSANDRA BAUTISTA Rep #: [id number] : 1995 F 28 From: Ed Vazquez MD PCP: Care Physician,No Primary Status: REG CLI Study:OB Anatomy w/ Transvaginal Date of Exam : 07/20/24 Exam# [id number] Ordering Dr: Brenda Kang DO PROCEDURE: OB [...] of 19 weeks and 1day. Reading Location: [facility] CC: Dr. Brenda Hernandez, ; No Primary Care Physician ~ Abstract Checker: Signed [facility] 07-05-2024 Evaluation note Diagnosis Onset Date Resolution History of recurrent miscarriages acute July 05, 2024 8 :21am Maternal varicella, non-immune acute July 05, 2024 8 :21am acute July 05, 2024 8:21am Supervision of high-risk acute July 05 8:21am Adopted person inactive July 05, 2024 8:21am Asymptomatic bacteriuria acute July 08, 2024 9 :54am Asymptomatic bacteriuria acute August 03, 2024 10:11am History of recurrent miscarriages acute August 03, 2024 10:11am Maternal varicella, non-immune acute August 03, 2024 10:11am acute August 03 10:11am Supervision of high-risk acute August 03 10:11am Adopted person inactive August 03, 2024 10:11am Asymptomatic bacteriuria acute August 30, 2024 8 :41am History of recurrent miscarriages acute August 30, 2024 8 :41am Maternal varicella, non-immune acute August 30, 2024 8 :41am acute August 30, 2024 8:41am Supervision of high-risk acute August 30 8:41am Adopted person inactive August 30, 2024 8:41am Asymptomatic bacteriuria acute September 18, 2024 8:21am History of recurrent miscarriages acute September 18, 2024 8:21am Maternal varicella, non-immune acute September 18, 2024 8:21am acute September 18 8:21am Supervision of high-risk acute September 18 8:21am Adopted person inactive September 18, 2024 8:21am Asymptomatic bacteriuria acute October 02 8:38am Gestational diabetes acute Aug2024 8:38am History of recurrent miscarriages acute October 02 8:38am Maternal varicella, non-immune acute October 02 8:38am acute October 02, 8:38am Supervision of high-risk acute October 02, 2024 8:38am Adopted person inactive September 8:38am Asymptomatic bacteriuria acute October 16 10:31am Gestational diabetes acute 2024 10:31am History of recurrent miscarriages acute October 16 10:31am Maternal varicella, non-immune acute October 16 10:31am acute October 16 10:31am Supervision of high-risk acute October 16, 2024 10:31am [facility] Work Phone: 1(752) 311-647605-14-2025 Evaluation note* Diagnosis Onset Date Resolution Status Admit Date History of recurrent miscarriages acute July 05, 2024 8 :21am Maternal varicella, non-immune acute July 05, 2024 8 :21am acute July 05, 2024 8:21am Supervision of high-risk acute July 05, 2024 8 :21am Adopted person inactive July 05, 2024 8:21am Asymptomatic bacteriuria acute July 08, 2024 9:54am Asymptomatic bacteriuria acute August 03, 2024 10:11am History of recurrent miscarriages acute August 03, 2024 10:11am Maternal varicella, non-immune acute August 03, 2024 10:11am acute August 03 10:11am Supervision of high-risk acute August 03, 2024 10:11am Adopted person inactive August 03, 2024 10:11am Asymptomatic bacteriuria acute August 30, 2024 8:41am History of recurrent miscarriages acute August 30, 2024 8 :41am Maternal varicella, non-immune acute August 30, 2024 8 :41am acute August 30, 2024 8:41am Supervision of high-risk acute August 30, 2024 8 :41am Adopted person inactive August 30, 2024 8:41am Asymptomatic bacteriuria acute September 18, 2024 8:21am History of recurrent miscarriages acute September 18, 2024 8:21am Maternal varicella, non-immune acute September 18, 2024 8:21am acute September 18 8:21am Supervision of high-risk acute September 18, 2024 8:21am Adopted person inactive September 18, 2024 8:21am Asymptomatic bacteriuria acute October 02, 2024 8:38am Gestational diabetes acute 2024 8:38am History of recurrent miscarriages acute October 02 8:38am Maternal varicella, non-immune acute October 02 8:38am acute October 02, 025 8:38am Supervision of high-risk acute October 02 8:38am Adopted person inactive September 8:38am Asymptomatic bacteriuria acute October 16, 2024 10:31am Gestational diabetes acute 2024 10:31am History of recurrent miscarriages acute October 16 10:31am Maternal varicella, non-immune acute October 16 10:31am acute October 16, 025 10:31am Supervision of high-risk acute October 16 10:31am Asymptomatic bacteriuria acute November 01, 2024 12:49pm Gestational diabetes acute Oct 12:49pm History of recurrent miscarriages acute November 01, 2024 12:49pm Maternal varicella, non-immune acute November 01, 2024 12:49pm acute October 12:49pm Supervision of high-risk acute November 01, 2024 12:49pm [facility] Work Phone: 1(586) 836-935405-01-2025 Evaluation note* Diagnosis Onset Date Resolution Status Admit Date History of recurrent miscarriages acute June 22, 2024 2: 09pm acute June 22, 2024 2:09pm Supervision of high-risk acute June 22, 2024 2: 09pm S/P D&C (status post dilatio n and curettage) resolved June 22, 2024 2: 09pm Spotting in early resolved June 22, 2024 2:09pm Adopted person inactive June 22 2:09pm History of recurrent miscarriages acute July 05, 2024 8 :21am Maternal varicella, non-immune acute July 05, 2024 8:21am acute July 05, 2024 8:21am Supervision of high-risk acute July 05, 2024 8 :21am Adopted person inactive July 05, 2024 8:21am Asymptomatic bacteriuria acute July 08, 2024 9:54am Asymptomatic bacteriuria acute August 03, 2024 10:11am History of recurrent miscarriages acute August 03, 2024 10:11am Maternal varicella, non-immune acute August 03, 2024 10:11am acute August 03 10:11am Supervision of high-risk acute August 03, 2024 10:11am Adopted person inactive August 03, 2024 10:11am Asymptomatic bacteriuria acute August 30, 2024 8:41am History of recurrent miscarriages acute August 30, 2024 8 :41am Maternal varicella, non-immune acute August 30, 2024 8:41am acute August 30, 2024 8:41am Supervision of high-risk acute August 30, 2024 8 :41am Adopted person inactive August 30, 2024 8:41am Asymptomatic bacteriuria acute September 18, 2024 8:21am History of recurrent miscarriages acute September 18, 2024 8:21am Maternal varicella, non-immune acute September 18, 2024 8:21am acute September 18 8:21am Supervision of high-risk acute September 18, 2024 8:21am Adopted person inactive September 18, 2024 8:21am Asymptomatic bacteriuria acute October 02, 2024 8:38am Gestational diabetes acute 2024 8:38am History of recurrent miscarriages acute October 02 8:38am Maternal varicella, non-immune acute October 02, 2024 8:38am acute October 02 8:38am Supervision of high-risk acute October 02 8:38am Adopted person inactive September 8:38am [facility] Work Phone: 1(590) 908-768005-01-2025 Evaluation note* Diagnosis Onset Date Resolution Status Admit Date History of recurrent miscarriages acute June 22, 2024 2: 09pm acute June 22, 2024 2:09pm Supervision of high-risk acute June 22, 2024 2: 09pm S/P D&C (status post dilatio n and curettage) resolved June 22, 2024 2: 09pm Spotting in early resolved June 22, 2024 2:09pm Adopted person inactive May 1st, 2 025 2:09pm History of recurrent miscarriages acute July 05, 2024 8 :21am Maternal varicella, non-immune acute July 05, 2024 8:21am acute July 05, 2024 8:21am Supervision of high-risk acute July 05, 2024 8 :21am Adopted person inactive July 05, 2024 8:21am Asymptomatic bacteriuria acute July 08, 2024 9:54am Asymptomatic bacteriuria acute August 03, 2024 10:11am History of recurrent miscarriages acute August 03, 2024 10:11am Maternal varicella, non-immune acute August 03, 2024 10:11am acute August 03 10:11am Supervision of high-risk acute August 03, 2024 10:11am Adopted person inactive August 03, 2024 10:11am Asymptomatic bacteriuria acute August 30, 2024 8:41am History of recurrent miscarriages acute August 30, 2024 8 :41am Maternal varicella, non-immune acute August 30, 2024 8:41am acute August 30, 2024 8:41am Supervision of high-risk acute August 30, 2024 8 :41am Adopted person inactive August 30, 2024 8:41am Asymptomatic bacteriuria acute September 18, 2024 8:21am History of recurrent miscarriages acute September 18, 2024 8:21am Maternal varicella, non-immune acute September 18, 2024 8:21am acute September 18 8:21am Supervision of high-risk acute September 18, 2024 8:21am Adopted person inactive September 18, 2024 8:21am Asymptomatic bacteriuria acute October 02, 2024 8:38am Gestational diabetes acute 2024 8:38am History of recurrent miscarriages acute October 02 8:38am Maternal varicella, non-immune acute October 02, 2024 8:38am acute October 02 8:38am Supervision of high-risk acute October 02 8:38am Adopted person inactive September 8:38am Asymptomatic bacteriuria acute October 16, 2024 10:31am Gestational diabetes acute 2024 10:31am History of recurrent miscarriages acute October 16 10:31am Maternal varicella, non-immune acute October 16, 2024 10:31am acute October 16, 2 025 10:31am Supervision of high-risk acute October 16 10:31am [facility] Work Phone: 1(831) 848-264104-15-2025 Evaluation note* Diagnosis Onset Date Resolution Status Admit Date Adopted person acute May 12:39pm History of [...] high-risk acute August 30, 2024 8 :41am Adopted person acute September 18, 2024 8:21am Asymptomatic bacteriuria acute September 18, 2024 8:21am History of recurrent miscarriages acute September 18, 2024 8:21am Maternal varicella, non-immune acute September 18, 2024 8:21am acute September 18 8:21am Supervision of high-risk acute September 18, 2024 8:21am [facility] Work Phone: 1(253) 472-236104-15-2025 Evaluation note* Diagnosis Onset Date Resolution Status Admit Date History of recurrent miscarriages acute June 06, 2024 12:39pm acute June 06 12:39pm Supervision of high-risk acute June 06, 2024 12:39pm S/P D&C (status post dilatio n and curettage) resolved June 06, 2024 12:39pm Spotting in early resolved June 06, 2024 12:39pm Adopted person inactive May 12:39pm History of recurrent miscarriages acute June 22, 2024 2: 09pm acute June 22, 2024 2:09pm Supervision of high-risk acute June 22, 2024 2: 09pm S/P D&C (status post dilatio n and curettage) resolved June 22, 2024 2: 09pm Spotting in early resolved June 22, 2024 2:09pm Adopted person inactive June 22, 2 025 2:09pm History of recurrent miscarriages acute July 05, 2024 8 :21am Maternal varicella, non-immune acute July 05, 2024 8:21am acute July 05, 2024 8:21am Supervision of high-risk acute July 05, 2024 8 :21am Adopted person inactive July 05, 2024 8:21am Asymptomatic bacteriuria acute July 08, 2024 9:54am Asymptomatic bacteriuria acute August 03, 2024 10:11am History of recurrent miscarriages acute August 03, 2024 10:11am Maternal varicella, non-immune acute August 03, 2024 10:11am acute August 03 10:11am Supervision of high-risk acute August 03, 2024 10:11am Adopted person inactive August 03, 2024 10:11am Asymptomatic bacteriuria acute August 30, 2024 8:41am History of recurrent miscarriages acute August 30, 2024 8 :41am Maternal varicella, non-immune acute August 30, 2024 8:41am acute August 30, 2024 8:41am Supervision of high-risk acute August 30, 2024 8 :41am Adopted person inactive August 30, 2024 8:41am Asymptomatic bacteriuria acute September 18, 2024 8:21am History of recurrent miscarriages acute September 18, 2024 8:21am Maternal varicella, non-immune acute September 18, 2024 8:21am acute September 18 8:21am Supervision of high-risk acute September 18, 2024 8:21am Adopted person inactive September 18, 2024 8:21am Asymptomatic bacteriuria acute October 02, 2024 8:38am Gestational diabetes acute Aug2024 8:38am History of recurrent miscarriages acute October 02 8:38am Maternal varicella, non-immune acute October 02, 2024 8:38am acute October 02, 8:38am Supervision of high-risk acute October 02 8:38am Adopted person inactive September 8:38am [facility] Work Phone: 1(234) 482-249503-20-2025 Evaluation note* Diagnosis Onset Date Resolution Status [...] high-risk acute August 30, 2024 8 :41am [facility] Work Phone: 1(128) 260-340902-28-2025 Evaluation note* Diagnosis Onset Date Resolution Status Admit Date Adopted person acute March 262024 11:06am History of recurrent miscarriages acute April 21, 025 11:06am acute April 21, 2024 11:06am Spotting in early acute April 21, 2024 11:06am Supervision of high-risk acute April 21 11:06am [facility] Work Phone: 1(754) 754-957702-28-2025 Evaluation note* Diagnosis Onset Date Resolution Status [...] of high-risk acute May 11, 2024 10:15am [facility] Work Phone: 1(219) 553-986602-28-2025 Evaluation note* Diagnosis Onset Date Resolution Status [...] of high-risk acute June 06, 2024 12:39pm [facility] Work Phone: 1(347) 184-222002-28-2025 Evaluation note* Diagnosis Onset Date Resolution Status Admit Date Adopted person acute March 262024 11:06am History of recurrent miscarriages acute April 21 025 11:06am acute April 21, 2024 11:06am [...] high-risk acute July 05, 2024 8 :21am [facility] Work Phone: 1(791) 708-6557320194-87-2588 Evaluation note* Diagnosis Onset Date Resolution Status Admit Date Adopted person acute March 262024 11:06am History of recurrent miscarriages acute April 21 025 11:06am acute April 21, 2024 11:06am Supervision of high-risk acute April 21 025 11:06am Spotting in early resolved April [...] Asymptomatic bacteriuria acute July 08, 2024 9:54am [facility] Work Phone: 1(750) 913-961102-28-2025 Evaluation note* Diagnosis Onset Date Resolution Status [...] 2024 12:39pm Adopted person acute June 22 2:09pm History of recurrent miscarriages acute June [...] of high-risk acute August 03, 2024 10:11am [facility] Work Phone: 1(465) 104-576401-24-2023 NoteHNO ID: [id number] Author: Johanna Nieves DO Service: ? Author Type: Physician Type: [...] ICD10: Z12.4 - IGP,RFX APTIMA HPV ASCU ([id number]) Johanna Nieves DO This visit was chaperoned by Radha I spent a total of 30 minutes on the date of the service which included preparing to see the patient, [id number] patient care, completing clinical documentation, obtaining and/or reviewing separately obtained history, performing a medically appropriate examination, counseling and educating the patient/family/caregiver, and ordering medications, tests, or procedures.[facility]01-24[facility] History of Present illness Narrative* Johanna Nieves [...] ICD10: Z12.4 - IGP,RFX APTIMA HPV ASCU ([id number]) Johanna Nieves DO This visit was chaperoned by Radha Pereyra spent a total of 30 minutes on the date of the service which included preparing to see the patient, hqyv-xx-hfhr patient care, completing clinical documentation, obtaining and/or reviewing separately obtained history, performing a medically appropriate examination, counseling and educating the pat ient/family/caregiver, and ordering medications, tests, or procedures. documented in this encounterPrem[facility]-23-[facility]23 Nurse Note* Matty Becker RN - 03/16/2022 7:24 AM EST Patient presented today for repeat lab work for her bhcg level. Patient reports still bleeding today stating it's honestly like I'm having a period. Patient had sent a secure email to [email or web address] due to not being able to send a message through [employer] on Wednesday showing Dr. Nieves what she [...] 16, 2022 7:18 AM documented in this encounterPremier Health Miami [facility]01-19-2023 Miscellaneous Notes* Telephone Encounter - Jolynn Szymanski [...] to be resolving spontaneously. documented in this encounterPremier Health Miami [facility]01-19-2023 NoteHNO ID: [id number] Author: Matty Lee Service: ? Author Type: [...] to the radiologist for interpretation. Matty Lee RDMSNationwide Children'S Hospital01-19-2023 History of Present illness Narrative* Matty Lee [...] interpretation. Matty Lee RDMS documented in this encounterPremier Health [facility]01-19-2023 Nurse Note* Matty Becker RN - 03/12/2022 7:31 AM EST Venipuncture performed to left antecubital. Number of tubes collected: 1 gold. Matty Becker RN March 12, 2022 7:28 AM documented in this encounterPremier Health [facility]01-17-2023 Miscellaneous Notes* Telephone Encounter - Matty Becker [...] 1:00 PM * Telephone Encounter - Matty Beckre RN - 03/10/2022 11:47 AM EST This [...] 10, 2022 11:51 AM documented in this encounterPremier Health [facility]01-17-2023 Miscellaneous Notes* Telephone Encounter - Matty Becker RN - 03/10/2022 1:01 PM EST Patient [...] ectopic . Continue bhcg. documented in this encounterPremier Health [facility]01-17-2023 Nurse Note* Matty Becker RN - 03/10/2022 7:08 AM EST Venipuncture performed to right antecubital. Number of tubes collected: 1 gold. Matty Becker RN March 10, 2022 7:06 AM documented in this encounterPremier [facility]01-13-2023 Miscellaneous Notes* Telephone Encounter - Matty Becker [...] of a viable . documented in this encounterPremier Health [facility]01-13-2023 Nurse Note* Matty Becker RN - 03/06/2022 7:12 AM EST Venipuncture performed to left forearm. Number of tubes collected: 1 gold. Matty Becker RN March 06, 2022 7:07 AM documented in this encounterPremier [facility]01-12-2023 Miscellaneous Notes* Telephone Encounter - Matty Becker [...] Continue with pain/bleeding precautions. documented in this encounterPremier Health [facility]01-11-2023 Miscellaneous Notes* Telephone Encounter - Matty Becker [...] time. Matty Becker RN documented in this encounterPremier Health [facility]01-11-2023 Nurse Note* Matty Becker RN - 03/04/2022 [...] 04, 2022 7:15 AM documented in this encounterPremier Health [facility]01-06-2023 Miscellaneous Notes* Addendum Note - Johanna Nieves [...] Dr. Nieves advises that she go to [facility] lab tomorrow to have a repeat bhcg drawn and that she can present to our office on Wednesday for a lab draw. Appointment made. Patient verbalizes an understanding of plan of care. No further questions at this time. Matty Becker RN documented in this encounterPremier Health [facility]01-05-2023 Miscellaneous Notes* Telephone Encounter - Cece Carty - 02/26/2022 11:03 AM EST Informed pt that urine culture was neg And call her BRANCH ASSOCIATE for follow up. Cece Carty * Telephone Encounter - Johanna Rojas APRN.CNP - 02/26/2022 10:52 AM EST Urine culture is negative for bacteria. Close follow up with kettle fry cook operator is recommended. Thanks documented in this encounterPremier Health Miami [facility]01-03-2023 NoteHNO ID: [id number] Author: Johanna Rojas APRN.[place] Service: ? Author Type: Nurse Practitioner Type: [...] show patient that Keflex was safe via [email or web address] juany on cell phone ASSESSMENT/PLAN: 1. Urinary [...] - CEPHALEXIN 500 MG CAPSULE Johanna Rojas APRN.CNPNationwide Children'S Hospital01-03-2023 Instructions* Patient Instructions* Johanna Rojas APRN.CNP - 02/24/2022 3:43 PM EST Preliminary urine testing completed in [facility] is indicative of a Urinary Tract Infection. We will send your urine to the lab for culture analysis. This is to ensure the antibiotic selected today will indeed treat the bacteria in your urine. A [facility] employee will notify you via telephone withthe [...] Tract Infection in given documented in this encounterPremier Health [facility]01-03-2023 History of Present illness Narrative* Johanna Rojas [...] show patient that Keflex was safe via [email or web address] juany on cell phone ASSESSMENT/PLAN: 1. Urinary [...] - CEPHALEXIN 500 MG CAPSULE Johanna Rojas APRN.ART MANAGER documented in this encounterPremier Health Miami [facility]09-15-2022 Evaluation note* Encounter Date Diagnosis Assessment Notes Treatment Notes Treatment Clinical Notes Oct, Wellness examination (ICD-10 - Z01.89) refused labs at this time as she really does not like needles Oct, BMI 27.0-27.9,adult (ICD-10 - Z68.27) [facility] Other 06-04-2021 [place] [address] KASSANDRA BAUTISTA 24 [id number] Mark Bynum DO SURG / 1995 Report #: [id number] OPERATIVE REPORT REPORT STATUS: Signed DATE OF PROCEDURE: OPERATIVE REPORT Referring Physician: Timothy Anna M.D. Preoperative Diagnosis: Pilonidal cyst with multiple draining sinus tracts. Postoperative Diagnosis: Pilonidal cyst with multiple draining sinus tracts. Procedure: Pilonidal cystectomy. Anesthesia: General with LMA. Estimated Blood Loss: Zero. Details of Procedure: After Adela signed the informed consent, she was brought back to the operating room, where the chief engineer waterworks gave the above stated general with an [...] stable condition. Mark Bynum DO TDY/SG/NGP.EXR RE: LILYMARIA LUZKASSANDRA A DOS: 07/26/2020 Dictated By: Mark Bynum DO FINAL REPORT RELEASED BY: Mark Bynum DO 07/29/20 0717 Dictated Date/Time: 07/26/20 1646 Transcribed Date/Time: 07/27/20 0754 TD CC: Timothy Anna M.D.[facility]06-03-2021 [place] [address] BAUTISTA,KASSANDRA Fenton 22 [id number] Mark Bynum DO SURG / 1995 Report #: [id number] HISTORY AND PHYSICAL DATE OF ADMISSION: 07/26/20 CHIEF COMPLAINT: Pilonidal abscess with multiple sinus draining tracts. HISTORY OF PRESENT ILLNESS: Shi is a [id number] college student who is well known to me. I watched her grow up in the [place] area playing soccer and woman?s basketball. She [...] care. I am going to take her [facility]?s same day surgery and do a formal pilonidal cystectomy. PAST MEDICAL HISTORY: None. PAST SURGICAL HISTORY: Left knee ACL repair. PREVIOUS ENDOSCOPIES: None. ALLERGIES: None. MEDICATIONS: None. SOCIAL HISTORY: She lives with her adoptive mother and father and brother in [place]. She is a college student. She does [...] EXTREMITIES: All four extremities are present. PLAN: [facility] Same Day Surgery for formal pilonidal cystectomy. Dictated By: Mark Bynum DO FINAL REPORT RELEASED BY: Mark Bynum DO 07/26/20 0651 COSIGNED BY: Dictated Date/Time: 07/25/20 1833 Transcribed Date/Time: 07/26/20 0614 [facility] CC: Timothy Anna M.D.[facility] noteNo Information [facility] Other evaluation note* Diagnosis Urinary tract infection symptoms- Primary Other symptoms involving urinary system [facility] this [facility]* Diagnosis of unknown anatomic location- Primary state, incidental documented in this encounter [facility]* Diagnosis of unknown anatomic location- Primary state, incidental documented in this encounter [facility]* Diagnosis of unknown anatomic location- Primary state, incidental documented in this encounter [facility]* Diagnosis of unknown anatomic location- Primary state, incidental documented in this encounter [facility]* Diagnosis of unknown anatomic location- Primary state, incidental documented in this encounter [facility]* Diagnosis of unknown anatomic location- Primary state, incidental documented in this encounter [facility]* Diagnosis of unknown anatomic location- Primary state, incidental Encounter for test, result positive examination or test, positive result [facility] Encounter for gynecological examination (general) (routine) without abnormal findings- Primary examination or test, negative result Spontaneous loss Unspecified spontaneous without mention of complication Encounter for screening for malignant neoplasm of cervix Screening for malignant neoplasm of the cervix documented in this encounter [facility] general Narrative - Reported* Type Description Date Medical History Attention-deficit hy peractivity disorder, predominantly inattentive type Medical History Other acne Medical History anxiety Medical History PTSD Surgical History L Knee arthroscopy (ACL) Surgical History Pilonidal Cyst 07/2020 [facility] Other progress note Author Yamilex Delvalle [facility] Note Date/Time August 03, 2024 10:3 1am [facility] [address] [place] [address], [address] [place] [address] OFFICE VISIT Date of Service: 08/03/24 MR#: [id number] Acct: [id number] Name: KASSANDRA BAUTISTA Rep #: [id number] : 1995 Provider: MICHAEL Delvalle Age/Sex: 28/F Location: [facility] Status: Signed Intake Vital Signs 06/06/24 12:57 07/08/24 09:56 08/03/24 10:17 08/03/24 10:19 Height 5 ft 5 in 5 ft 5 in 5 ft 5 in 5 ft 5 in Weight: 185 lb 6 oz BMI 30.8 BP 127/83 H Intake Visit Reasons: 21wk ob Animal Ride Manager Required: No Is patient in pain?: No [...] 0 current occupational status: employed current occupation: [employer] pets and animals: No history of recent [...] in: walking frequency: 3-4 times per week blayne/confucianist: Nondenominational seatbelt use: always do you feel safe [...] high risk , unspecified, second trimester Comment: [id number], Shay (5) : Status: Acute Qualifiers: Weeks of gestation: 21 weeks Qualified Code(s): Z3A.21 - 21 weeks gestation of Comment: NIPT w gender and carrier-agrees, normal anatomy (6) History of recurrent miscarriages: Status: Acute Comment: recommend APL panel and uszan haney, will discuss parental chromosome testing and [...] Cosigner Signature: Date (if applicable) CC: ~ [facility] Work Phone: Progress note Author Brenda Castillo [facility] Note Date/Time August 30, 2024 9:10a m [facility] [address] [place] [address], [address] [place] [address] OFFICE VISIT Date of Service: 08/30/24 MR#: [id number] Acct: [id number] Name: KASSANDRA BAUTISTA Rep #: [id number] : 1995 Provider: Dr. 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 brown bleeding [...] oz) 122/76 Negative -?-?-?-?-?-?-?-?-?-?-?-?- Negative 148 -?-?-?-?-?-?-?-?-?-?-?-?- -No VB. Doing well. Denies concerns 08/03/24 -?-?-?-?-?-?-?-?-?-?-?-?- [...] high risk , unspecified, second trimester Comment: [id number], Shay (5) : Status: Acute Qualifiers: Weeks of gestation: 25 weeks Qualified Code(s): Z3A.25 - 25 weeks gestation of Comment: NIPT w gender and carrier-agrees, normal anatomy (6) History of recurrent miscarriages: Status: Acute Comment: recommend APL panel and suzan anora, will discuss parental chromosome testing and HSG at postop appointment Medina, tapan female, Maternal cell contaminiation cant be ruled out as patental sample was not ran Orders: Orders POC Urinalysis 2 Dip (Clinic) Today CBC W/Diff, Automated Today O09. - Supervision of high risk , unspecified, second trimester Glucose Challenge Gest 1H 50g Today O09. - Supervision of high risk , unspecified, second trimester, Z13.1 - Encounter for screening for diabetes mellitus HIV Today O - Supervision of high risk , unspecified, second trimester Syphilis Antibodies Today O09. - Supervision of high risk , unspecified, second trimester 08/30/24 0911 <Electronically signed by Brenda Kendrick DO> Date _ Brenda Hernandez DO Cosigner Signature: Date (if applicable) CC: ~ [facility] Work Phone: Progress note Author Krystle Enriquez [facility] Note Date/Time October 02, 2024 9: 34am [facility] [address], [address] [place] [address] OFFICE VISIT Date of Service: 10/02/24 MR#: [id number] Acct: [id number] Name: KASSANDRA BAUTISTA Rep #: [id number] : 1995 Provider: Dr. Amos Enriquez MD Age/Sex: 28/F Location: [facility] Status: Signed Intake Vital Signs 07/05/24 08:31 09/27/24 16:05 10/02/24 08:43 Height 5 ft 5 in 5 ft 5 in 5 ft 5 in Weight: 181 lb 3 oz BMI 30.1 BP 121/84 H Intake Visit Reasons: 30 wk ob Animal Ride Manager Required: No Is patient in pain?: No Feel stressed/tense/nervous/anxious/difficulty sleeping: not at all Allergies metoclopramide (From Reglan) Allergy (Mild, Verified 10/02/24 08:45) lock jaw Medications ?Medication ?Instructions ?Recorded ?Confirmed ?Type PNV 158-iron 13.5 mg-folic 0.5 cap PO 04/13/24 5 History mg-omega 3-dha 150 mg-epa-fish capsule (Natavi PNV) buspirone 10 mg tablet 10 mg PO TID PRN anxiety #6 0 tabs 06/06/24 10/02/24 Rx blood sugar diagnostic (Blood #120 ea 09/20/24 5 Rx Glucose Test strips) blood-glucose meter #1 ea 09/20/24 10/02/24 Rx lancets 30 gauge (Droplet Lancets) #200 ea 09/20/24 Rx Last Menstrual Period: 03/07/24 Zika: Zika virus screening: Negative : No PFSH PFSH Medical History (Updated 10/02/24 @ 09:[address] 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 OB Visit RALPH Calculator Estimated Delivery Date Method Current WG Current Estimate 12/12/24 LMP (Certain) 29w 6d Expected Delivery Route/Plan Labor Preferences- CB/BF classes: [] labor support person: [] labor intervention preferences: [] pain management options preferred: [] cut cord/dad catch: [] : [] PP control planned: [] discussed possible routes of delivery and associated risks: [] special requests: [] Specific Issue/Plans Covid status: [] Flu vaccine: [] Tdap vaccine: given Rhogam: na LARC form signed: [declined Problem list reviewed and updated with the most current plan of care details and appropriate orders placed. Relevant counseling for the gestational age provided. Continue routine care and follow up unless otherwise noted in visit notes/problem list details Initial Weight: 168 lb Date -?-?-?-?-?-?-?-?-?-?-?-?- EGA Weight BP Urine Prot -?-?-?-?-?-?-?-?-?-?-?-?- Glucose FHR FuHt Pres Dilation -?-?-?-?-?-?-?-?-?-?-?-?- Effaced St Visit Note 04/21/24 -?-?-?-?-?-?-?-?-?-?-?-?- 6w 3d 168 lb 4 oz (+4 oz) 143/89 -?-?-?-?-?-?-?-?-?-?-?-?- 114 -?-?-?-?-?-?-?-?-?-?-?-?- LC- nob next elio k. here for early trimester bleeding. brown bleeding x5 days. not wearing a pad. FHR 114. obtaining hcgs. 05/11/24 -?-?-?-?-?-?-?-?-?-?-?-?- 9w 2d 171 lb 6 oz (+3 lb 6 oz) 121/83 Negative -?-?-?-?-?-?-?-?-?-?-?-?- Negative 190 -?-?-?-?-?-?-?-?-?-?-?-?- JV- CRL still co nsistent with LMP. new ob labs today. 06/06/24 -?-?-?-?-?-?-?-?-?-?-?-?- 13w 0d 173 lb 8 oz (+5 lb 8 oz) 129/82 Negative -?-?-?-?-?-?-?-?-?-?--?-?- Negative 168 -?-?-?-?-?-?-?-?-?-?-?-?- JV- no lof, vagi nal bleeding, or cramping. + FM seen. patient is still suffering with anxiety. will try buspar. 06/22/24 -?-?-?-?-?-?-?-?-?-?-?-?- 15w 2d 179 lb 4 oz (+11 lb 4 oz) 139/84 Negative -?-?-?-?-?-?-?-?-?-?-?-?- Negative 163 -?-?-?-?-?-?-?-?-?-?-?-?- KW- work in for heartbeat check. no vb/cramping. KW- work in for heartbeat ch chacho. no vb/cramping. anatomy US ordered 07/05/24 -?--?-?-?-?-?-?-?-?-?-?-?- 17w 1d 179 lb 2 oz (+11 lb 2 oz) 122/76 Negative -?-?-?-?-?-?-?-?-?-?-?-?- Negative 148 -?-?-?-?-?-?-?-?-?-?-?-?- -No VB. Doing well. Denies concerns 08/03/24 -?-?-?-?-?-?-?-?-?-?-?-?- [...] dec fm. glucola planned for next visit. 09/18/24 -?-?-?-?-?-?-?-?-?-?-?-?- 27w 6d 190 lb (+22 lb) 136/80 Negative -?-?-?-?-?-?-?-?-?-?-?-?- Negative 160 28 -?-?-?-?-?-?-?-?-?-?-?-?- MH-No VB, LOF. G ood FM. 28 wk labs pending. Larc. 10/02/24 -?-?-?-?-?-?-?-?-?-?-?-?- 29w 6d 181 lb 3 oz (+13 lb 3 oz) 121/84 Trace -?-?-?-?-?-?-?-?-?-?-?-?- Negative 145 30 -?-?-?-?-?-?--?-?-?-?-?-?- SM- no vb lof go od fm n oreugla ctx, tdap today with further conversation. ACOG First Trimester First Trimester: Discussed Second Trimester Second Trimester: Signs and Symptoms of Labor, Selecting a care provider, Depression/Anxiety and Intimate Partner Violence Third Trimester Third Trimester: Pain Management Plans, Labor support person(s), Immediate Larc, Circumcision preference, Signs and Symptoms of Preeclampsia, Feeding No and Family Medical Leave or Disability Forms Results POC Urinalysis 2 Dip (Clinic) Office Urine Glucose Negative Last Edit by Bonnie Carbajal on 10/02/24 08:53 Office Urine Protein Trace Last Edit by Bonnie Carbajal on 10/02/24 08:53 Immunizations Boostrix Tdap 2.5 Lf unit-8 mcg-5 Lf/0.5 mL intramuscular syringe Performing Provider: Krystle Enriquez MD Performing Location: [facility] Administered by: Bonnie Carbajal on 10/02/24 08:54 Dose Route Admin Location Dispensed Lot Number Expiration Date NDC Frame And Scrap Crusher 0.5 mL IM Left Deltoid 0.5 mL [id number] 10/22/26 92842-226-25 [employer] VIS Given Date VIS Provided VIS Publication Date 10/02/24 Single Vaccine 24 Eligibility Eligibility Date Funding Source Not Applicable Coding Level of Care Code OB Routine Diagnoses Gestational diabetes O24.419 Asymptomatic bacteriuria R82.71 Maternal varicella, non-immune O09.899; Z28.39 Adopted person Z78.9 Supervision of high risk in second trimester O09.92 Trimester: second trimester 29 weeks gestation of Z3A.29 Weeks of gestation: 29 weeks History of recurrent miscarriages N96 Assessment and Plan Assessment and Plan (1) Gestational diabetes: Status: Acute Comment: well controlled diet diabetic, discussed decreased testing frequencies (2) Asymptomatic bacteriuria: Status: Acute (3) Maternal varicella, non-immune: Status: Acute Comment: Enc avoidance and vaccine pp (4) Adopted person: Status: Inactive (5) Supervision of high-risk : Status: Acute Qualifiers: Trimester: second trimester Qualified Code(s): O09.92 - Supervision of high risk , unspecified, second trimester Comment: PRR , boy name secret Shay (6) : Status: Acute Qualifiers: Weeks of gestation: 29 weeks Qualified Code(s): Z3A.29 - 29 weeks gestation of Comment: NIPT w gender and carrier-agrees, normal anatomy (7) History of recurrent miscarriages: Status: Acute Comment: recommend APL panel and suzan medina, will discuss parental chromosome testing and HSG at postop appointment tapan Haney female, Maternal cell contaminiation cant be ruled out as patental sample was not ran Orders: Orders Tdap Immunization Today Z23 - Encounter for immunization POC Urinalysis 2 Dip (Clinic) Today 10/02/24 0934 <Electronically signed by Krystle walter MD> Date _ Krystle Enriquez MD Cosigner Signature: Date (if applicable) CC: ~ [facility] Work Phone: Progress note Author Yamilex Delvalle [facility] Note Date/Time October 16, 2024 10 :45am [facility] [address] [place] [address], [address] [place] [address] OFFICE VISIT Date of Service: 10/16/24 MR#: [id number] Acct: [id number] Name: KASSANDRA BAUTISTA Rep #: [id number] : 1995 Provider: MICHAEL Delvalle Age/Sex: 28/F Location: [facility] Status: Signed Intake Vital Signs 09/18/24 08:37 10/02/24 08:43 10/16/24 10:34 Height 5 ft 5 in 5 ft 5 in 5 ft 5 in Weight: 179 lb 5 oz BMI 29.8 BP 122/84 H Intake Visit Reasons: 32 WK OB Chief Complaint: 32wk OB Animal Ride Manager Required: No Is patient in pain?: No Allergies metoclopramide (From Reglan) Allergy (Mild, Verified 10/16/24 10:32) lock jaw Medications ?Medication ?Instructions ?Recorded ?Confirmed ?Type PNV 158-iron 13.5 mg-folic 0.5 cap PO 04/13/24 5 History mg-omega 3-dha 150 mg-epa-fish capsule (Natavi PNV) buspirone 10 mg tablet 10 mg PO TID PRN anxiety #6 0 tabs 06/06/24 10/16/24 Rx blood sugar diagnostic (Blood #120 ea 09/20/24 5 Rx Glucose Test strips) blood-glucose meter #1 ea 09/20/24 10/16/24 Rx lancets 30 gauge (Droplet Lancets) #200 ea 09/20/24 Rx Last Menstrual Period: 03/07/24 : No PFSH PFSH Medical History Adopted person Spotting in early Incomplete miscarriage History of miscarriage, currently Abdominal cramping affecting Bleeding in early Surgical History S/P D&C (status post dilation and curettage) S/P left knee surgery S/P wisdom tooth extraction Social History adopted: Yes household members: spouse number of children: 0 current occupational status: employed current occupation: [employer] [employer] pets and animals: No history of recent [...] in: walking frequency: 3-4 times per week blayne/confucianist: Nondenominational seatbelt use: always do you feel safe at home: Yes additional social history: - Shay History 4 Elective abortions Hx Para 0 Spontaneous abortions 3 Hx # Term Pregnancies Ectopic pregnancies Hx # Pregnancies Multiple births # of living children HPI 32 WK OB Details: KASSANDRA BAUTISTA is a 28 year old who presents for routine OB visit. OB Visit RALPH Calculator Estimated Delivery Date Method Current WG Current Estimate 12/12/24 LMP (Certain) 31w 6d Expected Delivery Route/Plan Labor Preferences- CB/BF classes: [] labor support person: [] labor intervention preferences: [] pain management options preferred: [] cut cord/dad catch: [] : [] PP control planned: [] discussed possible routes of delivery and associated risks: [] special requests: [] Specific Issue/Plans Covid status: [] Flu vaccine: [] Tdap vaccine: given Rhogam: na LARC form signed: [declined Problem list reviewed and updated with the most current plan of care details and appropriate orders placed. Relevant counseling for the gestational age provided. Continue routine care and follow up unless otherwise noted in visit notes/problem list details Initial Weight: 168 lb Date -?-?-?-?-?-?-?-?-?-?-?-?- EGA Weight BP Urine Prot -?-?-?-?-?-?-?-?-?-?-?-?- Glucose FHR FuHt Pres Dilation -?-?-?-?-?-?-?-?-?-?-?-?- Effaced St Visit Note 04/21/24 -?-?-?-?-?-?-?-?-?-?-?-?- 6w 3d 168 lb 4 oz (+4 oz) 143/89 -?-?-?--?-?-?-?-?-?-?-?-?- 114 -?-?-?-?-?-?-?-?-?-?-?-?- LC- nob next elio ontiveros here for early trimester bleeding. brown bleeding [...] oz (+11 lb 2 oz) 122/76 Negative -?-?-?-?-?-?-?-?-?--?-?-?- Negative 148 -?-?-?-?-?-?-?-?-?-?-?-?- -No VB. Doing well. Denies concerns 08/03/24 -?-?-?-?-?-?-?-?-?-?-?-?- [...] dec fm. glucola planned for next visit. 09/18/24 -?-?-?-?-?-?-?-?-?-?-?-?- 27w 6d 190 lb (+22 lb) 136/80 Negative -?-?-?-?-?-?-?-?-?-?-?-?- Negative 160 28 -?-?-?-?-?-?-?-?-?-?-?-?- MH-No VB, LOF. G ood FM. 28 wk labs pending. Larc. 10/02/24 -?-?-?-?-?-?-?-?-?-?-?-?- 29w 6d 181 lb 3 oz (+13 lb 3 oz) 121/84 Negative -?-?--?-?-?-?-?-?-?-?-?-?- Negative 145 30 -?-?-?-?-?-?-?-?-?-?-?-?- SM- no vb lof go od fm n oreugla ctx, tdap today with further conversation. 10/16/24 -?-?-?-?-?-?-?-?-?-?-?-?- 31w 6d 179 lb 5 oz (+11 lb 5 oz) 122/84 Negative -?-?-?-?-?-?-?-?-?-?-?-?- Negative 150 32 -?-?-?-?--?-?-?-?-?-?-?-?- KW- no vb/lof/ct x. good fm. BS reviewed and very well controlled. CBE classes scheduled. ACOG First Trimester First Trimester: Discussed Second Trimester Second Trimester: Signs and Symptoms of Labor, Selecting a care provider, Depression/Anxiety and Intimate Partner Violence Third Trimester Third Trimester: Pain Management Plans, Labor support person(s), Immediate Larc, Circumcision preference, Signs and Symptoms of Preeclampsia, Infant Feeding No and Family Medical Leave or Disability Forms ROS Const Reports system reviewed and no [...] Office Urine Glucose Negative Last Edit by Nava Mullen on 10/16/24 10:38 Office Urine Protein Negative Last Edit by Nava Mullen on 10/16/24 10:38 Coding Level of Care Code OB Routine Diagnoses Gestational diabetes O24.419 Asymptomatic bacteriuria R82.71 Maternal varicella, non-immune O09.899; Z28.39 Supervision of high risk in second trimester O09.92 Trimester: second trimester 31 weeks gestation of Z3A.31 Weeks of gestation: 31 weeks History of recurrent miscarriages N96 Assessment and Plan Assessment and Plan (1) Gestational diabetes: Status: Acute Comment: well controlled diet diabetic, discussed decreased testing frequencies (2) Asymptomatic bacteriuria: Status: Acute (3) Maternal varicella, non-immune: Status: Acute Comment: Enc avoidance and vaccine pp (4) Supervision of high-risk : Status: Acute Qualifiers: Trimester: second trimester Qualified Code(s): O09.92 - Supervision of high risk , unspecified, second trimester Comment: PRR , boy name secret Shay (5) : Status: Acute Qualifiers: Weeks of gestation: 31 weeks Qualified Code(s): Z3A.31 - 31 weeks gestation of Comment: NIPT w gender [...] at this visit. GA appropriate handout given. 10/16/24 1040 <Electronically signed by Yamilex jay CNM> Date _ Yamilex Delvalle CNM Cosigner Signature: Date (if applicable) CC: ~ [employer] Work Phone: Reason for referral (narrative)* Diagnostic Procedure Only (Routine) - Pending Review Specialty Diagnoses / Procedures Referred By Aleida cain Referred To Contact US IMAGING Diagnoses of unknown anatomic location Procedures US FEMALE PELVIS TRANSVAG US TRANSVAGINAL Johanna Nieves DO [address] [place] [address] Us Imaging Referral ID Status Reason Start Date Expiration Date Visits Requested Visits Authorized [id number] Pending Review Auto-Generat ed Referral 03/10/2022 04/09/2023 1 1 [facility] for referral (narrative)No reason for referral information [facility]WW[facility] Work Phone: Summary Purpose Family History [...] in early March 11:06am Supervision of high-risk u 2024 11:06am Chief Complaint Admit Date 6w3d spotting x 5 days April 21 11:06am 9WK NOB May 11, 2024 10: 15am Reason for Visit Admit Date Adopted person April 21, 2024 11:06am History of recurrent miscarriages 2024 11:06am April 21, 2024 11:06am Spotting in early March 11:06am Supervision of high-risk u florencia2024 11:06am Adopted person May 11, 2024 10: [...] Supervision of high-risk September 18, 2024 8:21am Chief Complaint Admit Date 13wk ob June 06, 2024 12: 39pm HEARTBEAT CHECK June 22, 2024 2:09pm wk ob July 05, 2024 8:21a m CONCERN FOR UTI July 08, 2024 9:54a m ANATOMY/CERVICAL LENGTH July 20, 2024 3 :02pm wk ob August 03, 2024 10:1 1am 25wk ob August 30, 2024 8:41a m 28 wk ob/glucose September 18, 2024 8:21 am Encounter for screening for diabetes shady litus September 20, 2024 6:37am Chief Complaint Admit Date 13wk ob June 06, 2024 12: 39pm HEARTBEAT CHECK June 22, 2024 2:09pm 17wk ob July 05, 2024 8:21a m CONCERN FOR UTI July 08, 2024 9:54a m ANATOMY/CERVICAL LENGTH July 20, 2024 3 :02pm 21wk ob August 03, 2024 10:1 1am 25wk ob August 30, 2024 8:41a m 28 wk ob/glucose September 18, 2024 8:21 am Encounter for screening for diabetes shady litus September 20, 2024 6:37am GDM September 27, 2024 3:4 1pm Chief Complaint Admit Date 13wk ob June 06, 2024 12: 39pm HEARTBEAT CHECK June 22, 2024 2:09pm 17wk ob July 05, 2024 8:21a m CONCERN FOR UTI July 08, 2024 9:54a m ANATOMY/CERVICAL LENGTH July 20, 2024 3 :02pm 21wk ob August 03, 2024 10:1 1am 25wk ob August 30, 2024 8:41a m 28 wk ob/glucose September 18, 2024 8:21 am Encounter for screening for diabetes shady litus September 20, 2024 6:37am GDM September 27, 2024 3:4 1pm 30 wk ob October 02, 2024 8: 38am Reason for Visit Admit Date History of recurrent miscarriages June 06, 2024 12:39pm June 06, 2024 12: 39pm Supervision of high-risk June 06, 2024 12:39pm S/P D&C (status post dilation and curett age) June 06, 2024 12:39pm Spotting in early June 06, 2024 12:39pm Adopted person June 06, 2024 12: 39pm History of recurrent miscarriages June 2:09pm June 22, 2024 2:09pm Supervision of high-risk June 222024 2:09pm S/P D&C (status post dilation and curett age) June 22, 2024 2:09pm Spotting in early June 22 2:09pm Adopted person June 22, 2024 2:09pm History of recurrent miscarriages July 052024 8:21am Maternal varicella, non-immune July 05, 2024 8:21am July 05, 2024 8:21a m Supervision of high-risk June 222024 8:21am Adopted person July 05, 2024 8:21a m Asymptomatic bacteriuria July 08, 2024 9:54am Asymptomatic bacteriuria August 03, 2024 10:11am History of recurrent miscarriages July 232024 10:11am Maternal varicella, non-immune July 10:11am August 03, 2024 10:1 1am Supervision of high-risk August 03, 2024 10:11am Adopted person August 03, 2024 10:1 1am Asymptomatic bacteriuria August 30, 2024 8:41am History of recurrent miscarriages August 302024 8:41am Maternal varicella, non-immune August 30, 2024 8:41am August 30, 2024 8:41a m Supervision of high-risk August 30, 2024 8:41am Adopted person August 30, 2024 8:41a m Asymptomatic bacteriuria September 18, 2024 8:21am History of recurrent miscarriages August 232024 8:21am Maternal varicella, non-immune August 8:21am September 18, 2024 8:21 am Supervision of high-risk September 18, 2024 8:21am Adopted person September 18, 2024 8:21 am Asymptomatic bacteriuria October 02 8:38am Gestational diabetes October 02, 2024 8 :38am History of recurrent miscarriages October 02, 2024 8:38am Maternal varicella, non-immune October 022024 8:38am October 02, 2024 8: 38am Supervision of high-risk Augus t 2024 8:38am Adopted person October 02, 2024 8: 38am Chief Complaint Admit Date HEARTBEAT CHECK June 22, 2024 2:09pm 17wk ob July 05, 2024 8:21a m CONCERN FOR UTI July 08, 2024 9:54a m ANATOMY/CERVICAL LENGTH July 20, 2024 3 :02pm 21wk ob August 03, 2024 10:1 1am 25wk ob August 30, 2024 8:41a m 28 wk ob/glucose September 18, 2024 8:21 am Encounter for screening for diabetes shady litus September 20, 2024 6:37am GDM September 27, 2024 3:4 1pm 30 wk ob October 02, 2024 8: 38am Reason for Visit Admit Date History of recurrent miscarriages June 2:09pm June 22, 2024 2:09pm Supervision of high-risk June 222024 2:09pm S/P D&C (status post dilation and curett age) June 22, 2024 2:09pm Spotting in early June 22 2:09pm Adopted person June 22, 2024 2:09pm History of recurrent miscarriages July 052024 8:21am Maternal varicella, non-immune July 05, 2024 8:21am July 05, 2024 8:21a m Supervision of high-risk June 222024 8:21am Adopted person July 05, 2024 8:21a m Asymptomatic bacteriuria July 08, 2024 9:54am Asymptomatic bacteriuria August 03, 2024 10:11am History of recurrent miscarriages July 232024 10:11am Maternal varicella, non-immune July 10:11am August 03, 2024 10:1 1am Supervision of high-risk August 03, 2024 10:11am Adopted person August 03, 2024 10:1 1am Asymptomatic bacteriuria August 30, 2024 8:41am History of recurrent miscarriages August 302024 8:41am Maternal varicella, non-immune August 30, 2024 8:41am August 30, 2024 8:41a m Supervision of high-risk August 30, 2024 8:41am Adopted person August 30, 2024 8:41a m Asymptomatic bacteriuria September 18, 2024 8:21am History of recurrent miscarriages August 232024 8:21am Maternal varicella, non-immune August 8:21am September 18, 2024 8:21 am Supervision of high-risk September 18, 2024 8:21am Adopted person September 18, 2024 8:21 am Asymptomatic bacteriuria October 02 8:38am Gestational diabetes October 02, 2024 8 :38am History of recurrent miscarriages October 02, 2024 8:38am Maternal varicella, non-immune October 022024 8:38am October 02, 2024 8: 38am Supervision of high-risk Augus t 2024 8:38am Adopted person October 02, 2024 8: 38am Chief Complaint Admit Date HEARTBEAT CHECK June 22, 2024 2:09pm 17wk ob July 05, 2024 8:21a m CONCERN FOR UTI July 08, 2024 9:54a m ANATOMY/CERVICAL LENGTH July 20, 2024 3 :02pm 21wk ob August 03, 2024 10:1 1am 25wk ob August 30, 2024 8:41a m 28 wk ob/glucose September 18, 2024 8:21 am Encounter for screening for diabetes shady litus September 20, 2024 6:37am GDM September 27, 2024 3:4 1pm 30 wk ob October 02, 2024 8: 38am 32 WK OB October 16, 2024 10 :31am Reason for Visit Admit Date History of recurrent miscarriages June 2:09pm June 22, 2024 2:09pm Supervision of high-risk June 222024 2:09pm S/P D&C (status post dilation and curett age) June 22, 2024 2:09pm Spotting in early June 22 2:09pm Adopted person June 22, 2024 2:09pm History of recurrent miscarriages July 052024 8:21am Maternal varicella, non-immune July 05, 2024 8:21am July 05, 2024 8:21a m Supervision of high-risk June 222024 8:21am Adopted person July 05, 2024 8:21a m Asymptomatic bacteriuria July 08, 2024 9:54am Asymptomatic bacteriuria August 03, 2024 10:11am History of recurrent miscarriages July 232024 10:11am Maternal varicella, non-immune July 10:11am August 03, 2024 10:1 1am Supervision of high-risk August 03, 2024 10:11am Adopted person August 03, 2024 10:1 1am Asymptomatic bacteriuria August 30, 2024 8:41am History of recurrent miscarriages August 302024 8:41am Maternal varicella, non-immune August 30, 2024 8:41am August 30, 2024 8:41a m Supervision of high-risk August 30, 2024 8:41am Adopted person August 30, 2024 8:41a m Asymptomatic bacteriuria September 18, 2024 8:21am History of recurrent miscarriages August 232024 8:21am Maternal varicella, non-immune August 8:21am September 18, 2024 8:21 am Supervision of high-risk September 18, 2024 8:21am Adopted person September 18, 2024 8:21 am Asymptomatic bacteriuria October 02 8:38am Gestational diabetes October 02, 2024 8 :38am History of recurrent miscarriages October 02, 2024 8:38am Maternal varicella, non-immune October 022024 8:38am October 02, 2024 8: 38am Supervision of high-risk Augus 2024 8:38am Adopted person October 02, 2024 8: 38am Asymptomatic bacteriuria October 16 10:31am Gestational diabetes October 16, 2024 1 0:31am History of recurrent miscarriages October 16, 2024 10:31am Maternal varicella, non-immune October 162024 10:31am October 16, 2024 10 :31am Supervision of high-risk Augus t 2024 10:31am Chief Complaint Admit Date 17wk ob July 05, 2024 8:21a m CONCERN FOR UTI July 08, 2024 9:54a m ANATOMY/CERVICAL LENGTH July 20, 2024 3 :02pm 21wk ob August 03, 2024 10:1 1am 25wk ob August 30, 2024 8:41a m 28 wk ob/glucose September 18, 2024 8:21 am Encounter for screening for diabetes shady litus September 20, 2024 6:37am GDM September 27, 2024 3:4 1pm 30 wk ob October 02, 2024 8: 38am 32 WK OB October 16, 2024 10 :31am Reason for Visit Admit Date History of recurrent miscarriages July 052024 8:21am Maternal varicella, non-immune July 05, 2024 8:21am July 05, 2024 8:21a m Supervision of high-risk June 222024 8:21am Adopted person July 05, 2024 8:21a m Asymptomatic bacteriuria July 08, 2024 9:54am Asymptomatic bacteriuria August 03, 2024 10:11am History of recurrent miscarriages July 232024 10:11am Maternal varicella, non-immune July 10:11am August 03, 2024 10:1 1am Supervision of high-risk August 03, 2024 10:11am Adopted person August 03, 2024 10:1 1am Asymptomatic bacteriuria August 30, 2024 8:41am History of recurrent miscarriages August 302024 8:41am Maternal varicella, non-immune August 30, 2024 8:41am August 30, 2024 8:41a m Supervision of high-risk August 30, 2024 8:41am Adopted person August 30, 2024 8:41a m Asymptomatic bacteriuria September 18, 2024 8:21am History of recurrent miscarriages August 232024 8:21am Maternal varicella, non-immune August 8:21am September 18, 2024 8:21 am Supervision of high-risk September 18, 2024 8:21am Adopted person September 18, 2024 8:21 am Asymptomatic bacteriuria October 02 8:38am Gestational diabetes October 02, 2024 8 :38am History of recurrent miscarriages October 02, 2024 8:38am Maternal varicella, non-immune October 022024 8:38am October 02, 2024 8: 38am Supervision of high-risk Augus t 2024 8:38am Adopted person October 02, 2024 8: 38am Asymptomatic bacteriuria October 16 10:31am Gestational diabetes October 16, 2024 1 0:31am History of recurrent miscarriages October 16, 2024 10:31am Maternal varicella, non-immune October 162024 10:31am October 16, 2024 10 :31am Supervision of high-risk Augus t 2024 10:31am Chief Complaint Admit Date 17wk ob July 05, 2024 8:21a m CONCERN FOR UTI July 08, 2024 9:54a m ANATOMY/CERVICAL LENGTH July 20, 2024 3 :02pm 21wk ob August 03, 2024 10:1 1am 25wk ob August 30, 2024 8:41a m 28 wk ob/glucose September 18, 2024 8:21 am Encounter for screening for diabetes shady litus September 20, 2024 6:37am GDM September 27, 2024 3:4 1pm 30 wk ob October 02, 2024 8: 38am 32 WK OB October 16, 2024 10 :31am 34 WK OB November 01, 2024 12:49pm Reason for Visit Admit Date History of recurrent miscarriages July 052024 8:21am Maternal varicella, non-immune July 05, 2024 8:21am July 05, 2024 8:21a m Supervision of high-risk June 222024 8:21am Adopted person July 05, 2024 8:21a m Asymptomatic bacteriuria July 08, 2024 9:54am Asymptomatic bacteriuria August 03, 2024 10:11am History of recurrent miscarriages July 232024 10:11am Maternal varicella, non-immune July 10:11am August 03, 2024 10:1 1am Supervision of high-risk August 03, 2024 10:11am Adopted person August 03, 2024 10:1 1am Asymptomatic bacteriuria August 30, 2024 8:41am History of recurrent miscarriages August 302024 8:41am Maternal varicella, non-immune August 30, 2024 8:41am August 30, 2024 8:41a m Supervision of high-risk August 30, 2024 8:41am Adopted person August 30, 2024 8:41a m Asymptomatic bacteriuria September 18, 2024 8:21am History of recurrent miscarriages August 232024 8:21am Maternal varicella, non-immune August 8:21am September 18, 2024 8:21 am Supervision of high-risk September 18, 2024 8:21am Adopted person September 18, 2024 8:21 am Asymptomatic bacteriuria October 02 8:38am Gestational diabetes October 02, 2024 8 :38am History of recurrent miscarriages October 02, 2024 8:38am Maternal varicella, non-immune October 022024 8:38am October 02, 2024 8: 38am Supervision of high-risk Augus t 2024 8:38am Adopted person October 02, 2024 8: 38am Asymptomatic bacteriuria October 16 10:31am Gestational diabetes October 16, 2024 1 0:31am History of recurrent miscarriages October 16, 2024 10:31am Maternal varicella, non-immune October 162024 10:31am October 16, 2024 10 :31am Supervision of high-risk Augus t 2024 10:31am Asymptomatic bacteriuria November 01, 2024 12:49pm Gestational diabetes November 01 12:49pm History of recurrent miscarriages Septem dario 2024 12:49pm Maternal varicella, non-immune November 01, 2024 12:49pm November 01, 2024 12:49pm Supervision of high-risk Septe mber 2024 12:49pm Additional Source Comments INFORMATION SOURCE (unrecogn ized section and content) DATE CREATED AUTHOR 03/08/2020 [facility] DATE CREATED AUTHOR AUTHOR'S ORGANIZ ATION 12/03/2020 Chanda Harley [facility] DATE CREATED AUTHOR AUTHOR'S ORGANIZ ATION 03/11/2022 [facility] DATE CREATED AUTHOR AUTHOR'S ORGANIZ ATION 03/18/2022 [facility] DATE CREATED AUTHOR AUTHOR'S ORGANIZ ATION 03/27/2022 [facility] DATE CREATED AUTHOR AUTHOR'S ORGANIZ ATION 06/28/2022 [facility] DATE CREATED AUTHOR AUTHOR'S ORGANIZ ATION 11/03/2024 [facility] REASON FOR VISIT (unrecogniz ed section [...] or prosecute any alcohol or drug abuse patient.[facility] the event this information is protected by the Federal Confidentiality of Alcohol and Drug Abuse Patient Records regulations: The Federal rules restrict any use of the information to criminally investigate or prosecute any alcohol or drug abuse patient.[facility] HospitalIn the event this information is protected by the Federal Confidentiality of Alcohol and Drug Abuse Patient Records regulations: The Federal rules restrict any use of the information to criminally investigate or prosecute any alcohol or drug abuse patient.[facility] the event this information is protected by the Federal Confidentiality of Alcohol and Drug Abuse Patient Records regulations: The Federal rules restrict any use of the information to criminally investigate or prosecute any alcohol or drug abuse patient.[facility] the event this information is protected by the Federal Confidentiality of Alcohol and Drug Abuse Patient Records regulations: The Federal rules restrict any use of the information to criminally investigate or prosecute any alcohol or drug abuse patient.[facility] the event this information is protected by the Federal Confidentiality of Alcohol and Drug Abuse Patient Records regulations: The Federal rules restrict any use of the information to criminally investigate or prosecute any alcohol or drug abuse patient.[facility] the event this information is protected by the Federal Confidentiality of Alcohol and Drug Abuse Patient Records regulations: The Federal rules restrict any use of the information to criminally investigate or prosecute any alcohol or drug abuse patient.[facility] the event this information is protected by the Federal Confidentiality of Alcohol and Drug Abuse Patient Records regulations: The Federal rules restrict any use of the information to criminally investigate or prosecute any alcohol or drug abuse patient.[facility] the event this information is protected by the Federal Confidentiality of Alcohol and Drug Abuse Patient Records regulations: The Federal rules restrict any use of the information to criminally investigate or prosecute any alcohol or drug abuse patient.[facility] the event this information is protected by the Federal Confidentiality of Alcohol and Drug Abuse Patient Records regulations: The Federal rules restrict any use of the information to criminally investigate or prosecute any alcohol or drug abuse patient.[facility] the event this information is protected by the Federal Confidentiality of Alcohol and Drug Abuse Patient Records regulations: The Federal rules restrict any use of the information to criminally investigate or prosecute any alcohol or drug abuse patient.[facility] HospitalIn the event this information is protected by the Federal Confidentiality of Alcohol and Drug Abuse Patient Records regulations: The Federal rules restrict any use of the information to criminally investigate or prosecute any alcohol or drug abuse patient.[facility] HospitalIn the event this information is protected by the Federal Confidentiality of Alcohol and Drug Abuse Patient Records regulations: The Federal rules restrict any use of the information to criminally investigate or prosecute any alcohol or drug abuse patient.[facility]In the event this information is protected by the Federal Confidentiality of Alcohol and Drug Abuse Patient Records regulations: The Federal rules restrict any use of the information to criminally investigate or prosecute any alcohol or drug abuse patient.[facility] Hospital[facility] the event this information is protected by the Federal Confidentiality of Alcohol and Drug Abuse Patient Records regulations: The Federal rules restrict any use of the information to criminally investigate or prosecute any alcohol or drug abuse patient.[facility] HospitalIn the event this information is protected by the Federal Confidentiality of Alcohol and Drug Abuse Patient Records regulations: The Federal rules restrict any use of the information to criminally investigate or prosecute any alcohol or drug abuse patient.[facility] HospitalIn the event this information is protected by the Federal Confidentiality of Alcohol and Drug Abuse Patient Records regulations: The Federal rules restrict any use of the information to criminally investigate or prosecute any alcohol or drug abuse patient.[facility] HospitalIn the event this information is protected by the Federal Confidentiality of Alcohol and Drug Abuse Patient Records regulations: The Federal rules restrict any use of the information to criminally investigate or prosecute any alcohol or drug abuse patient.[facility] Care Teams (unrecognized sec tion and content) [...] 2024 End: July 05, 2024 Bonnie Ruiz FINGERNAIL SCULPTOR, FINGERNAIL SCULPTOR-C Attending Provider Active Start: July 05, 2024 End: July 05, 2024 Team Status: Active Member Role Status Dates Dr. Brenda Hernandez DO Primary Care Provider Ac tive Start: July 05, 2024 Bonnie Ruiz FINGERNAIL SCULPTOR, FINGERNAIL SCULPTOR-C Attending Provider Active Start: July 05, 2024 Bonnie Ruiz FINGERNAIL SCULPTOR, FINGERNAIL SCULPTOR-C Referring Provider Active Start: July 05, 2024 [...] 2024 End: July 05, 2024 Bonnie Ruiz FINGERNAIL SCULPTOR, FINGERNAIL SCULPTOR-C Attending Provider Active Start: July 05, 2024 End: July 05, 2024 Bonnie Ruiz FINGERNAIL SCULPTOR, FINGERNAIL SCULPTOR-C Referring Provider Active Start: July 05, 2024 [...] 2024 End: July 05, 2024 Bonnie Ruiz FINGERNAIL SCULPTOR, FINGERNAIL SCULPTOR-C Attending Provider Active Start: July 05, 2024 End: July 05, 2024 Team Status: Inactive Member Role/Relationship Status Dates Dr. Brenda Hernandez DO Primary Care Provider Ac tive Start: July 05, 2024 End: July 05, 2024 Bonnie Ruiz FINGERNAIL SCULPTOR, FINGERNAIL SCULPTOR-C Attending Provider Active Start: July 05, 2024 End: July 05, 2024 Bonnie Ruiz FINGERNAIL SCULPTOR, FINGERNAIL SCULPTOR-C Referring Provider Active Start: July 05, 2024 [...] 2024 End: July 05, 2024 Bonnie Ruiz FINGERNAIL SCULPTOR, FINGERNAIL SCULPTOR-C Attending Provider Active Start: July 05, 2024 End: July 05, 2024 Team Status: Inactive Member Role/Relationship Status Dates Dr. Brenda Hernandez DO Primary Care Provider Ac tive Start: July 05, 2024 End: July 05, 2024 Bonnie Ruiz FINGERNAIL SCULPTOR, FINGERNAIL SCULPTOR-C Attending Provider Active Start: July 05, 2024 End: July 05, 2024 Bonnie Ruiz FINGERNAIL SCULPTOR, FINGERNAIL SCULPTOR-C Referring Provider Active Start: July 05, 2024 [...] 2024 End: September 18, 2024 Bonnie Ruiz FINGERNAIL SCULPTOR, FINGERNAIL SCULPTOR-C Attending Provider Active Start: September 18, 2024 End: September 18, 2024 No Primary Care Physician Primary Care Provider Active Start: September 18, 2024 End: September 18, 2024 Team Status: Active Member Role/Relationship Status Dates No Primary Care Physician Primary Care Provider Active Start: September 18, 2024 Bonnie Ruiz FINGERNAIL SCULPTOR, FINGERNAIL SCULPTOR-C Attending Provider Active Start: September 18, 2024 Team Status: Inactive Member Role/Relationship Status Dates No Primary Care Physician Primary Care Provider Active Start: September 18, 2024 End: September 18, 2024 Bonnie Ruiz FINGERNAIL SCULPTOR, FINGERNAIL SCULPTOR-C Attending Provider Active Start: September 18, 2024 End: September 18, 2024 Team Status: Active Member Role/Relationship Status Dates No Primary Care Physician Primary Care Provider Active Start: September 20, 2024 Bonnie Ruiz FINGERNAIL SCULPTOR, FINGERNAIL SCULPTOR-C Attending Provider Active Start: September 20, 2024 Bonnie Ruiz FINGERNAIL SCULPTOR, FINGERNAIL SCULPTOR-C Referring Provider Active Start: September 20, 2024 Team Status: Inactive Member Role/Relationship Status Dates No Primary Care Physician Primary Care Provider Active Start: September 20, 2024 End: September 20, 2024 Bonnie Ruiz FINGERNAIL SCULPTOR, FINGERNAIL SCULPTOR-C Attending Provider Active Start: September 20, 2024 End: September 20, 2024 Bonnie Ruiz FINGERNAIL SCULPTOR, FINGERNAIL SCULPTOR-C Referring Provider Active Start: September 20, 2024 End: September 20, 2024 Team Status: Active Member Role/Relationship Status Dates No Primary Care Physician Primary Care Provider Active Start: September 27, 2024 Bonnie Ruiz FINGERNAIL SCULPTOR, FINGERNAIL SCULPTOR-C Attending Provider Active Start: September 27, 2024 Team Status: Inactive Member Role/Relationship Status Dates Dr. Brenda Hernandez DO Referring Provider Activ e Start: October 02, 2024 End: October 02, 2024 Dr. Krystle Enriquez MD Attending Provider Active Start: October 02, 2024 End: October 02, 2024 No Primary Care Physician Primary Care Provider Active Start: October 02, 2024 End: October 02, 2024 Team Status: Inactive Member Role/Relationship Status [...] 2024 End: July 05, 2024 Bonnie Ruiz FINGERNAIL SCULPTOR, FINGERNAIL SCULPTOR-C Attending Provider Active Start: July 05, 2024 End: July 05, 2024 Team Status: Inactive Member Role/Relationship Status Dates Dr. Brenda Hernandez DO Primary Care Provider Ac tive Start: July 05, 2024 End: July 05, 2024 Bonnie Ruiz FINGERNAIL SCULPTOR, FINGERNAIL SCULPTOR-C Attending Provider Active Start: July 05, 2024 End: July 05, 2024 Bonnie Ruiz FINGERNAIL SCULPTOR, FINGERNAIL SCULPTOR-C Referring Provider Active Start: July 05, 2024 [...] End: September 18, 2024 Bonnie Ruiz NP, KISHAC Attending Provider Active Start: September 18, 2024 End: September 18, 2024 No Primary Care Physician Primary Care Provider Active Start: September 18, 2024 End: September 18, 2024 Team Status: Inactive Member Role/Relationship Status Dates No Primary Care Physician Primary Care Provider Active Start: September 18, 2024 End: September 18, 2024 Bonnie Ruiz FINGERNAIL SCULPTOR, FINGERNAIL SCULPTOR-C Attending Provider Active Start: September 18, 2024 End: September 18, 2024 Team Status: Inactive Member Role/Relationship Status Dates No Primary Care Physician Primary Care Provider Active Start: September 20, 2024 End: September 20, 2024 Bonnie Ruiz FINGERNAIL SCULPTOR, FINGERNAIL SCULPTOR-C Attending Provider Active Start: September 20, 2024 End: September 20, 2024 Bonnie Ruiz FINGERNAIL SCULPTOR, FINGERNAIL SCULPTOR-C Referring Provider Active Start: September 20, 2024 End: September 20, 2024 Team Status: Active Member Role/Relationship Status Dates No Primary Care Physician Primary Care Provider Active Start: September 27, 2024 Bonnie Ruiz FINGERNAIL SCULPTOR, FINGERNAIL SCULPTOR-C Attending Provider Active Start: September 27, 2024 Team Status: Inactive Member Role/Relationship Status Dates Dr. Brenda Hernandez DO Referring Provider Activ e Start: October 02, 2024 End: October 02, 2024 Dr. Krystle Enriquez MD Attending Provider Active Start: October 02, 2024 End: October 02, 2024 No Primary Care Physician Primary Care Provider Active Start: October 02, 2024 End: October 02, 2024 Team Status: Inactive Member Role/Relationship Status Dates No Primary Care Physician Primary Care Provider Active Start: October 02, 2024 End: October 02, 2024 Dr. Krystle Enriquez MD Attending Provider Active Start: October 02, 2024 End: October 02, 2024 Team Status: Inactive Member Role/Relationship Status Dates No Primary Care Physician Primary Care Provider Active Start: October 16, 2024 End: October 16, 2024 No Primary Care Physician Referring Provider Active Start: October 16, 2024 End: October 16, 2024 Yamilex Delvalle CNM Attending Provider Active S tart: October 16, 2024 End: October 16, 2024 Team Status: Inactive Member Role/Relationship Status Dates Dr. Brenda Hernandez DO Primary Care Provider Ac tive Start: July 05, 2024 End: July 05, 2024 Dr. Brenda Hernandez DO Referring Provider Activ e Start: July 05, 2024 End: July 05, 2024 Bonnie Joseph FINGERNAIL SCULPTOR, FINGERNAIL SCULPTOR-C Attending Provider Active Start: July 05, 2024 End: July 05, 2024 Team Status: Inactive Member Role/Relationship Status Dates Dr. Brenda Hernandez DO Primary Care Provider Ac tive Start: July 05, 2024 End: July 05, 2024 Bonnie Ruiz FINGERNAIL SCULPTOR, FINGERNAIL SCULPTOR-C Attending Provider Active Start: July 05, 2024 End: July 05, 2024 Bonnie Ruiz FINGERNAIL SCULPTOR, FINGERNAIL SCULPTOR-C Referring Provider Active Start: July 05, 2024 [...] Inactive Member Role/Relationship Status Dates Dr. Brenda Vande Velde , DO Attending Provider Activ e Start: August 30, 2024 End: August 30, 2024 Dr. Brenda Hernandez , DO Referring Provider Activ e Start: August 30, 2024 End: August 30, 2024 No Primary Care Physician Primary Care Provider Active Start: August 30, 2024 End: August 30, 2024 Team Status: Inactive Member Role/Relationship Status Dates Dr. Brenda Hernandez , DO Referring Provider Activ e Start: September 18, 2024 End: September 18, 2024 Bonnie Ruiz FINGERNAIL SCULPTOR, FINGERNAIL SCULPTOR-C Attending Provider Active Start: September 18, 2024 End: September 18, 2024 No Primary Care Physician Primary Care Provider Active Start: September 18, 2024 End: September 18, 2024 Team Status: Inactive Member Role/Relationship Status Dates No Primary Care Physician Primary Care Provider Active Start: September 18, 2024 End: September 18, 2024 Bonnie Ruiz FINGERNAIL SCULPTOR, FINGERNAIL SCULPTOR-C Attending Provider Active Start: September 18, 2024 End: September 18, 2024 Team Status: Inactive Member Role/Relationship Status Dates No Primary Care Physician Primary Care Provider Active Start: September 20, 2024 End: September 20, 2024 Bonnie Ruiz FINGERNAIL SCULPTOR, FINGERNAIL SCULPTOR-C Attending Provider Active Start: September 20, 2024 End: September 20, 2024 Bonnie Ruiz FINGERNAIL SCULPTOR, FINGERNAIL SCULPTOR-C Referring Provider Active Start: September 20, 2024 End: September 20, 2024 Team Status: Inactive Member Role/Relationship Status Dates No Primary Care Physician Primary Care Provider Active Start: September 27, 2024 End: October 22, 2024 Bonnie Ruiz FINGERNAIL SCULPTOR, FINGERNAIL SCULPTOR-C Attending Provider Active Start: September 27, 2024 End: October 22, 2024 Team Status: Inactive Member Role/Relationship Status Dates Dr. Brenda Hernandez , Referring Provider Activ e Start: October 02, 2024 End: October 02, 2024 Dr. Krystle Enriquez MD Attending Provider Active Start: October 02, 2024 End: October 02, 2024 No Primary Care Physician Primary Care Provider Active Start: October 02, 2024 End: October 02, 2024 Team Status: Inactive Member Role/Relationship Status Dates No Primary Care Physician Primary Care Provider Active Start: October 02, 2024 End: October 02, 2024 Dr. Krystle Enriquez MD Attending Provider Active Start: October 02, 2024 End: October 02, 2024 Team Status: Inactive Member Role/Relationship Status Dates No Primary Care Physician Primary Care Provider Active Start: October 16, 2024 End: October 16, 2024 No Primary Care Physician Referring Provider Active Start: October 16, 2024 End: October 16, 2024 Yamilex Delvalle CNM Attending Provider Active S tart: October 16, 2024 End: October 16, 2024 Team Status: Inactive Member Role/Relationship Status Dates No Primary Care Physician Primary Care Provider Active Start: November 01, 2024 End: November 01, 2024 No Primary Care Physician Referring Provider Active Start: November 01, 2024 End: November 01, 2024 Bonnie Ruiz NP, FINGERNAIL SCULPTOR-C Attending Provider Active Start: November 01, 2024 End: November 01, 2024 Goals (unrecognized section and content) Goals [...] BE BASED ON THE PRIMARY CLINICAL RECORDS. [facility]. provides no warranty or guarantee of the accuracy or completeness of information in this document.
[2024-11-04 10:18] VITALS: BP 123/83; PULSE 113
[2024-11-04 10:21] VITALS: BMI 29.2
[2024-11-04 10:22] VITALS: BP 123/83; PULSE 113; RESP 15; TEMP 36.9; O2SAT 98
--- NOTE | 2024-11-04 10:53 | US_ITS ---
PROCEDURE: OB BIOPHYSICAL PROF W/O NST 11/04/2024 REASON FOR EXAM: DECREASED MOVEMENT TECHNIQUE: Procedure Code: USBIOWO Modality: US Procedure: OB BIOPHYSICAL PROF W/O NST COMPARISON: 07/20/2024 FINDINGS There is a single live intrauterine in cephalic presentation with heart rate of 151 beats per minute. Largest fluid pocket measures 4.8 x 3.3 cm, total ROSARIO is 11.4 cm. Placenta is anterior, not low lying. Grade 2 Biophysical profile: Breathing movements 2/2 Gross body movements 2/2 tone 2/2 Amniotic fluid volume 2/2 age by LMP 34 weeks 4 days with RALPH of 12/12/2024 US/OB Biophysical Prof W/O NST IMPRESSION: Normal biophysical profile 09/29 Reading Location: [id number]
--- NOTE | 2024-11-04 11:27 | OB.TRI.PN_ITS ---
Progress Notes Date of Service: 11/04/24 Progress Note: Patient presents for triage evaluation secondary to decreased movement FHT: 140 Moderate variability reactive possible isolated variable deceleration category II tracing [place]: irregular Contractions Assessment and plan: Reactive NST, obtain bpp- 8/8 reassuring maternal and status patient discharged to home to follow-up as schedule. See problem list details for additional plan information. Charges/Coding Procedures Urinary/Genital [id number]: 12450-10 non-stress test Interp Assessment & Plan (1) History of recurrent miscarriages: COMMENT: recommend APL panel and suzan vega, will discuss parental chromosome testing and HSG at postop appointment [place] female, Maternal cell contaminiation cant be ruled out as patental sample was not ran (2) : QUALIFIERS: Weeks of gestation: 34 weeks Qualified Code(s): Z3A.34 - 34 weeks gestation of COMMENT: NIPT w gender and carrier-agrees, normal anatomy (3) Supervision of high-risk : QUALIFIERS: Trimester: second trimester Qualified Code(s): O09.92 - Supervision of high risk , unspecified, second trimester COMMENT: PRR , boy name secret RALPH 12/12/24 Shay (4) Asymptomatic bacteriuria: (5) Maternal varicella, non-immune: COMMENT: Enc avoidance and vaccine pp (6) Gestational diabetes: QUALIFIERS: Gestational diabetes mellitus control: diet-controlled Trimester: third trimester Qualified Code(s): O24.410 - Gestational diabetes mellitus in , diet controlled COMMENT: well controlled diet diabetic, discussed decreased testing frequencies. 36 wk growth US
== END 2024-11-04 12:48 | disposition home or self-care (01) ==
LOC: WPOUT 10:11 → WP 10:12
PROVIDERS: Referring Provider Obstetrics & Gynecology; Visit Provider Obstetrics & Gynecology
DX: O36.8130 Decreased fetal movements, third trimester, not applicable or unspecified (principal); Z3A.34 34 weeks gestation of pregnancy
CPT/HCPCS: 59025; 59050; 76819; 99221; G0378

== ENCOUNTER → 2024-11-13 | Outpatient (CLI) | payer SELFPAY ==
--- NOTE | 2024-11-13 12:29 | US_ITS ---
PROCEDURE: OB LIMITED WITH BIOMETRICS 11/13/2024 REASON FOR EXAM: 36WK GROWTH US TECHNIQUE: Procedure Code: [id number] Modality: US Procedure: OB LIMITED WITH BIOMETRICS COMPARISON: None FINDINGS Number: 1 Position: Vertex Placental Position: Anterior and right lateral. No evidence of previa. Placental Abnormalities: No evidence of previa. DIMENSIONS: Biparietal Diameter: 8.7 cm: 35 weeks and 0 days: 32 percentile/ Head Circumference: 32.1 cm: 36 weeks and 1 day: 26 percentile/ Abdominal Circumference: 32.5 cm: 36 weeks and 3 days: 74 percentile/ Femur Length: 6.6 cm: 34 weeks and 1 day: 9 percentile/ ESTIMATED WEIGHT: 2736 g plus/-410 g. ESTIMATED WEIGHT PERCENTILE (24+ weeks): 45 ESTIMATED GESTATIONAL AGE: Baseline: 35 weeks and 6 days By Ultrasound: 35 weeks and 4 days ESTIMATED DATE OF DELIVERY: Baseline: December 12, 2024 By Ultrasound: December 14, 2024 BIOPHYSICAL ASSESSMENT: Amniotic Fluid Volume: 5 cm Amniotic Fluid Index: 16.8 cm (8-24 cm normal range) Cardiac Motion: 141 beats per minute (average) Trunk and Limb Motion: Present. MATERNAL ANATOMY: Adnexa: Neither maternal ovary is successfully identified. US/OB Limited With Biometrics IMPRESSION: Single live intrauterine gestation with a mean gestational age of 35 weeks and 4 days. Reading Location: [place] [id number]
== END | disposition home or self-care (01) ==
LOC: US 12:28
PROVIDERS: Referring Provider Nurse Practitioner Women's Health; Visit Provider Nurse Practitioner Women's Health
DX: O24.410 Gestational diabetes mellitus in pregnancy, diet controlled (principal); O09.92 Supervision of high risk pregnancy, unspecified, second trimester; Z3A.00 Weeks of gestation of pregnancy not specified
CPT/HCPCS: 76816

== ENCOUNTER → 2024-11-21 | Outpatient (CLI) | payer SELFPAY | END | disposition home or self-care (01) | LOC: LABSPEC 10:40 | PROVIDERS: Visit Provider Obstetrics & Gynecology | DX: O09.93 Supervision of high risk pregnancy, unspecified, third trimester (principal); Z3A.37 37 weeks gestation of pregnancy | CPT/HCPCS: 87081 ==

== ENCOUNTER 2024-12-04 10:10 | Inpatient (IN) | payer SELFPAY ==
[2024-12-04] VITALS (46 sets, daily range): BP systolic 98–141; BP diastolic 57–94; PULSE 78–130; RESP 16–18; TEMP 36.4–36.8; O2SAT 93–99; BMI 29.8
--- NOTE | 2024-12-04 10:34 | HP.PCM.OB_ITS ---
HPI - General General Date of Admission: 12/04/24 Date of Service: 12/04/24 HPI Narrative ALEJANDRO BAUTISTA, is a 29 F 38.6 weeks who presents to unit after being seen in the office by Dr Lucas. + rupture of membranes possibly last wednesday but patient unsure of when it actually happened. no contractions. positive movement. will get admitted and start pitocin and consider ATB for prolonged rupture. Maternal Data Information RALPH Calculator Estimated Delivery Date Method Current WG Current Estimate 12/12/24 LMP (Certain) 38w 6d Final RALPH: 12/12/24 Final RALPH Source: US >20 weeks Gestational age: 38.6 PFSH PFS Medical History Adopted person Spotting in early Incomplete miscarriage History of miscarriage, currently Abdominal cramping affecting Bleeding in early Home Medications ?Medication ?Instructions ?Recorded ?Last Taken ?Type PNV 158-iron 13.5 mg-folic 0.5 1 cap PO DAILY 04/13/24 11/04/24 09:00 History mg-omega 3-dha 150 mg-epa-fish capsule (Natavi PNV) blood sugar diagnostic (Blood #120 ea 09/20/24 Unknown Rx Glucose Test strips) blood-glucose meter #1 ea 09/20/24 Unknown Rx lancets 30 gauge (Droplet Lancets) #200 ea 09/20/24 Un known Rx Allergy/AdvReac Type Severity Reaction Status Date / Time metoclopramide (From Reglan) Allergy Mild lock jaw Verified 12/04/24 08:36 Surgical History S/P D&C (status post dilation and curettage) S/P left knee surgery S/P wisdom tooth extraction Social History adopted: Yes household members: spouse number of children: 0 current occupational status: employed 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 pets and animals: No history of recent travel: No sexually active: Yes Smoking Status: Never smoker second hand exposure: No alcohol intake: never substance use type: does not use diet: gluten free well-balanced diet: daily or most days caffeine: Yes during the past year weight has: decreased > 10 lbs what type of physical activity do you participate in: walking frequency: 3-4 times per week blayne/holiness: Christianity seatbelt use: always do you feel safe at home: Yes additional social history: - Shay History 4 Elective abortions Hx Para 0 Spontaneous abortions 3 Hx # Term Pregnancies Ectopic pregnancies Hx # Pregnancies Multiple births # of living children Visit Details Expected Delivery Route/Plan Labor Preferences- CB/BF classes: [] labor support person: [] labor intervention preferences: [] pain management options preferred: [] cut cord/dad catch: [] : [] PP control planned: [] discussed possible routes of delivery and associated risks: [] special requests: [] Plans Covid status: [] Flu vaccine: [] Tdap vaccine: given Rhogam: na LARC form signed: [declined movement and labor precautions reviewed. Problem list reviewed and updated with the most current plan of care details and appropriate orders placed. Relevant counseling for the gestational age provided. Continue routine care and follow up unless otherwise noted in visit notes/problem list details OB Flowsheet Initial Weight: 168 lb Date -?-?-?-?-?-?-?-?-?-?-?-?- EGA Weight BP Urine Prot -?-?-?-?-?-?-?-?-?-?-?-?- Glucose FHR FuHt Pres Dilation -?-?-?-?-?-?-?-?-?-?-?-?- Effaced St Visit Note 04/21/24 -?-?-?-?-?-?-?-?-?-?-?-?- 6w 3d 168 lb 4 oz (+4 oz) 143/89 -?-?-?-?-?-?-?-?-?-?-?-?- 114 -?-?-?-?-?-?-?-?-?-?-?-?- LC- nob delon ontiveros here for early trimester bleeding. brown bleeding x5 days. not wearing a pad. FHR 114. obtaining hcgs. 05/11/24 -?-?-?-?-?-?-?-?-?-?-?-?- 9w 2d 171 lb 6 oz (+3 lb 6 oz) 121/83 Negative -?-?-?-?-?-?-?-?-?-?-?-?- Negative 190 -?-?-?-?-?-?-?-?-?-?-?-?- JV- CRL still co nsistent with LMP. new ob labs today. 06/06/24 -?-?-?-?-?-?-?-?-?-?-?-?- 13w 0d 173 lb 8 oz (+5 lb 8 oz) 129/82 Negative -?-?-?-?-?-?-?-?-?-?-?-?- Negative 168 -?-?-?-?-?-?-?-?-?-?-?-?- JV- no lof, vagi nal bleeding, or cramping. + FM seen. patient is still suffering with anxiety. will try buspar. 06/22/24 -?-?-?-?-?-?-?-?-?--?-?-?- 15w 2d 179 lb 4 oz (+11 lb 4 oz) 139/84 Negative -?-?-?-?-?-?-?-?-?-?-?-?- Negative 163 -?-?-?-?-?-?-?-?-?-?-?-?- KW- work in for heartbeat check. no vb/cramping. KW- work in for heartbeat ch chacho. no vb/cramping. anatomy US ordered 07/05/24 -?-?-?-?-?-?-?-?-?-?-?-?- 17w 1d 179 lb 2 oz (+11 lb 2 oz) 122/76 Negative -?-?-?-?-?-?-?-?-?-?-?-?- Negative 148 -?-?-?-?-?-?-?-?-?-?-?-?- MH-No VB. Doing well. Denies concerns 08/03/24 -?-?-?-?-?-?-?-?-?-?-?-?- 21w 2d 185 lb 6 oz (+17 lb 6 oz) 127/83 Negative -?-?-?-?-?-?-?-?-?-?-?-?- Negative 150 -?-?-?-?-?-?-?-?-?-?-?-?- kw- no vb/lof/ct x. some fm. anatomy US reviewed. 08/30/24 -?-?-?-?-?-?-?-?-?-?-?-?- 25w 1d 189 lb 6 oz (+21 lb 6 oz) 134/84 Negative -?-?-?-?-?-?-?-?-?-?-?-?- Negative 145 26 -?-?-?-?-?-?-?-?-?-?-?-?- JV- no lof, vagi nal bleeding, or dec fm. glucola planned for next visit. 09/18/24 -?-?-?-?-?-?-?-?-?-?-?-?- 27w 6d 190 lb (+22 lb) 136/80 Negative -?-?-?-?-?-?-?-?-?-?-?-?- Negative 160 28 -?-?-?-?-?-?-?-?-?-?-?-?- MH-No VB, LOF. G ood FM. 28 wk labs pending. Lar. 10/02/24 -?-?-?-?-?-?-?-?-?-?-?-?- 29w 6d 181 lb 3 oz (+13 lb 3 oz) 121/84 Negative -?-?-?-?-?-?-?-?-?-?-?-?- Negative 145 30 -?-?-?-?-?-?-?-?-?-?-?-?- SM- no vb lof go od fm n oreugla ctx, tdap today with further conversation. 10/16/24 -?-?-?-?-?-?-?-?-?-?-?-?- 31w 6d 179 lb 5 oz (+11 lb 5 oz) 122/84 Negative -?-?-?-?-?-?-?-?-?-?-?-?- Negative 150 32 -?-?-?-?-?-?-?-?-?-?-?-?- KW- no vb/lof/ct x. good fm. BS reviewed and very well controlled. CBE classes scheduled. 11/01/24 -?-?-?-?-?-?-?-?-?-?-?-?- 34w 1d 178 lb 8 oz (+10 lb 8 oz) 126/83 Negative -?-?-?-?-?-?-?-?-?-?-?-?- Negative 148 34 -?-?-?-?-?-?-?-?-?-?-?-?- MH-No VB, LOF. G ood FM. Glucose readings wnl. 36 wk growth US 11/13/24 -?-?-?-?-?-?-?-?-?-?-?-?- 35w 6d 177 lb 5 oz (+9 lb 5 oz) 128/87 Negative -?-?-?-?-?-?-?-?-?-?-?-?- Negative 145 35 Cephalic -?-?-?-?-?-?-?-?-?-?-?-?- SM- reviewed BS controlled no vb lof good fm no regular ctx 11/21/24 -?-?-?-?-?-?-?-?-?-?-?-?- 37w 0d 180 lb 3 oz (+12 lb 3 oz) 124/80 Negative -?-?-?-?--?-?-?-?-?-?-?-?- Negative 150 36 Cephalic 1 .5 -?-?-?-?-?-?-?-?-?-?-?-?- 80 -1 JV- no lof , vaginal bleeding, or dec fm. gbs today JV- no lof, vaginal bleeding , or dec fm. gbs today. recent growth scan shows nicola 16. will repeat next week if still measuring behind. 11/27/24 -?-?-?-?-?-?-?-?-?-?-?-?- 37w 6d 178 lb 3 oz (+10 lb 3 oz) 123/86 Negative -?-?-?-?-?-?-?-?-?-?-?-?- Negative 155 37 Cephalic 2 -?-?-?-?-?-?-?-?-?-?-?-?- 80 -1 KW- no vb/ lof/ctx. good fm. questions answered. 12/04/24 -?-?-?-?-?-?-?-?-?-?-?-?- 38w 6d 180 lb 5 oz (+12 lb 5 oz) 126/87 Negative -?-?-?-?-?-?-?-?-?-?-?-?- Negative 145 37.5 Cephalic 2 -?-?-?-?-?-?-?-?-?-?-?-?- 80 -1 JV- normal glucose log. no complaints today. IOL next wednesday. JV- normal glucose log. some leaking but no gushes. rom plus collected. no other complaints today. IOL next wednesday. ROS Constitutional Constitutional: Denies change in weight, fatigue, fever(s), headache(s), poor appetite or weakness Eyes Eyes: Denies blurry vision, change in vision, floaters, seeing flashes or spots in vision ENT HEENT: Denies dizziness, headache(s), loss taste/smell or sore throat Cardiovascular Cardiovascular: Denies chest pain, dizziness, dyspnea, irregular heart rhythm, lightheadedness, palpitations or rapid heart rate Respiratory/Chest Respiratory/Chest: Denies change in mental status, chest tightness, cough, dyspnea or breast pain Gastrointestinal Gastrointestinal: Denies anorexia, chewing difficulty, constipation, diarrhea or weight changes Genitourinary Genitourinary: Denies difficulty urinating, dysuria, flank pain, genital pain, urinary frequency or urinary urgency Musculoskeletal Musculoskeletal: Denies back pain, difficulty walking, extremity pain, joint pain, muscle cramps or muscle weakness Integumentary Integumentary: Denies lesions or unusual bruising Neurologic Neurologic: Denies abnormal movements, abnormal speech, dizziness, numbness, seizure-like activity, syncope or weakness Psychiatric Psychiatric: Denies behavioral changes, change in appetite, confusion, depression, homicidal ideation, suicidal ideation or suicidal thoughts Endocrine Endocrinology: Denies excessive sweating, polydipsia or polyuria Hematologic/Lymphatic Hematologic/Lymphatic: Denies anemia Allergic/Immunologic Allergic/Immunologic: Denies itchy eyes, lip swelling, throat swelling, tongue swelling or wheezing Physical Exam Const alert, oriented x3 and no apparent distress General Appearance: cooperative Orientation / Consciousness: awake HEENT normocephalic Neck full ROM Lymph Lymphatic: no lymphadenopathy noted Chest inspection of chest normal Resp normal respiratory effort and normal air movement Effort and Inspection: able to speak in complete sentences and symmetric chest movement GI soft to palpation and non-tender Inspection: gravid Palpation: soft; Negative for tender external exam normal Back/Spine normal to inspection Extremity normal to inspection and full ROM Skin no rashes or lesions noted Psych mental status grossly normal Appearance: grossly normal Speech: normal speech Labs Labs Labs: Blood Type A POSITIVE Antibody Screen NEGATIVE Hct, (37-47) 37.0 % Hgb, (12.0-15.0) 11.9 g/dL L Obstetrics Ultrasound Syphilis Total Ab, (Nonreactive) Nonreactive VZV IgG Antibody Rubella IgG Antibody, (Nonreactive) REAC Hep Bs Antigen, (Nonreactive) Nonreactive Hepatitis C Antibody, (Nonreactive) Nonreactive HIV 1&2 Antibody, (Nonreactive) Nonreactive Glucose 1 Hr 50 gm, (70-140) 148 mg/dL H Gest Glucose Tolerance mg/dL Assessment & Plan (1) SROM (spontaneous rupture of membranes): (2) Gestational diabetes: QUALIFIERS: Gestational diabetes mellitus control: diet-controlled Trimester: third trimester Qualified Code(s): O24.410 - Gestational diabetes mellitus in , diet controlled COMMENT: well controlled diet diabetic, discussed decreased testing frequencies. 36 wk growth US (3) Asymptomatic bacteriuria: (4) Maternal varicella, non-immune: COMMENT: Enc avoidance and vaccine pp (5) Supervision of high-risk : QUALIFIERS: Trimester: second trimester Qualified Code(s): O09.92 - Supervision of high risk , unspecified, second trimester COMMENT: PRR GBS neg, , boy name secret RALPH 12/12/24 Shay (6) : QUALIFIERS: Weeks of gestation: 37 weeks Qualified Code(s): Z3A.37 - 37 weeks gestation of COMMENT: NIPT w gender and carrier-agrees, normal anatomy (7) History of recurrent miscarriages: COMMENT: recommend APL panel and suzan haney, will discuss parental chromosome testing and HSG at postop appointment tapan Haney female, Maternal cell contaminiation cant be ruled out as patental sample was not ran Charges/Coding Multi Select Codes Urinary/Genital Urinary/Genital CPT Codes: No Charge
[2024-12-04] MEDS: Lactated Ringers 1,000 ML 50 ML IV (11:45)
[2024-12-04 11:55] LABS: Hematocrit 40.5 % (37-47); Hemoglobin 13.3 g/dL (12.0-15.0); Immature Granulocytes Count 0.060 X10^3/uL (0.0-0.0); Mean Corp Hgb Conc 32.8 g/dL (32-36); Mean Corpuscular Volume 87.1 fL (81-99); Mean Platelet Vol. 11.2 fl (6.2-12.0); NRBC Flagged by Analyzer 0 % (0-5); Platelet Count 188 K/mm3 (150-450); RBC Distribution Width CV 14.5 % (11.6-14.6); RBC Distribution Width SD 46.2 fl (35.1-43.9); Red Blood Count 4.65 M/mm3 (4.2-5.4); White Blood Count 10.8 K/mm3 (4.4-11.0)
[2024-12-04] MEDS: Oxytocin 15 Units/NS 250ml 15 UNITS/250 ML IV.SOLN 2 UNITS IV (12:17)
[2024-12-04 13:16] LABS: Syphilis Antibodies Nonreactive (Nonreactive)
--- NOTE | 2024-12-04 16:05 | PCM.PN.BLA ---
Progress Note Coping well with contractions current tracing: FHT: 130 Moderate variability reactive no decelerations category I tracing [place]: 2-3 Contractions Membranes:forebag ruptured for clear fluid SVE:3/80/-1 A/P: Continue with position changes Titrate pitocin per protocol Epidural per anesthesia GBS neg Anticipate Dr Hernández aware of above assessment and agrees with plan of care Assessment & Plan Assessment/Plan (1) SROM (spontaneous rupture of membranes): (2) Gestational diabetes: QUALIFIERS: Gestational diabetes mellitus control: diet-controlled Trimester: third trimester Qualified Code(s): O24.410 - Gestational diabetes mellitus in , diet controlled (3) Asymptomatic bacteriuria: (4) Maternal varicella, non-immune: (5) Supervision of high-risk : QUALIFIERS: Trimester: second trimester Qualified Code(s): O09.92 - Supervision of high risk , unspecified, second trimester (6) : QUALIFIERS: Weeks of gestation: 37 weeks Qualified Code(s): Z3A.37 - 37 weeks gestation of (7) History of recurrent miscarriages: Multi Select Codes Urinary/Genital Urinary/Genital CPT Codes: No Charge
[2024-12-04] MEDS: Lactated Ringers 1,000 ML 200 ML IV ×2 (17:04→22:06)
[2024-12-04] MEDS: fentaNYL-bupivacaine (epidural) 100 ML BAG EPIDURAL ×2 (17:25→22:03)
--- NOTE | 2024-12-04 18:01 | PN_ITS ---
Progress Note comfortable with epidural current tracing: FHT: 130 Moderate variability reactive no decelerations category I tracing [place]: 3-4 minutes Contractions Membranes:remains clear SVE:3.5/80/-1 A/P: Continue with position changes Titrate pitocin per protocol Epidural per anesthesia GBS neg Anticipate Dr Hernández aware of above assessment and agrees with plan of care Assessment & Plan Assessment/Plan (1) SROM (spontaneous rupture of membranes): (2) Gestational diabetes: QUALIFIERS: Gestational diabetes mellitus control: diet-controlled Trimester: third trimester Qualified Code(s): O24.410 - Gestational diabetes mellitus in , diet controlled (3) Asymptomatic bacteriuria: (4) Maternal varicella, non-immune: (5) Supervision of high-risk : QUALIFIERS: Trimester: second trimester Qualified Code(s): O09.92 - Supervision of high risk , unspecified, second trimester (6) : QUALIFIERS: Weeks of gestation: 37 weeks Qualified Code(s): Z3A.37 - 37 weeks gestation of (7) History of recurrent miscarriages: Multi Select Codes Urinary/Genital Urinary/Genital CPT Codes: No Charge
[2024-12-05] VITALS (43 sets, daily range): BP systolic 104–146; BP diastolic 56–80; PULSE 93–126; RESP 16–17; TEMP 36.5–36.8; O2SAT 93–100
--- NOTE | 2024-12-05 00:47 | PCM.PN.BLA ---
Progress Note comfortable with epidural current tracing: FHT: 135 Moderate variability reactive occasional decelerations category II tracing [place]: 3-4 minute Contractions Membranes: remains clear SVE:complete and pushing A/P: Continue with position changes Titrate pitocin per protocol Epidural per anesthesia GBS neg Anticipate Dr Hernández aware of above assessment and agrees with plan of care Assessment & Plan Assessment/Plan (1) SROM (spontaneous rupture of membranes): (2) Gestational diabetes: QUALIFIERS: Gestational diabetes mellitus control: diet-controlled Trimester: third trimester Qualified Code(s): O24.410 - Gestational diabetes mellitus in , diet controlled (3) Asymptomatic bacteriuria: (4) Maternal varicella, non-immune: (5) Supervision of high-risk : QUALIFIERS: Trimester: second trimester Qualified Code(s): O09.92 - Supervision of high risk , unspecified, second trimester (6) : QUALIFIERS: Weeks of gestation: 37 weeks Qualified Code(s): Z3A.37 - 37 weeks gestation of (7) History of recurrent miscarriages: Multi Select Codes Urinary/Genital Urinary/Genital CPT Codes: No Charge
--- NOTE | 2024-12-05 01:23 | OB.VAGDELI_ITS ---
Maternal Data Information RALPH Calculator Estimated Delivery Date Method Current Current Estimate 12/12/24 LMP (Certain) 39w 0d Vaginal Delivery Maternal Presentation Maternal Presentation: Presented to unit for [active labor] [induction of labor for ] Vaginal Delivery Information Procedure Performed: Spontaneous Vaginal Delivery Surgeon/Practitioner: Yamilex Delvalle Pre-Procedure Diagnosis: see problem list Post-Procedure Diagnosis: same Findings Description of procedure: Progressed well to 10cm dilated and made steady progress with effective maternal pushing. Delivered the head in [REGINA] presentation. The head was delivered atraumatically and [no nuchal cord] [a loose nuchal cord] was identified [and was easily reduced over the 's head]. The anterior and posterior shoulders delivered without complication followed by the rest of the and the was placed on the maternal abdomen. Delayed cord clamping was employed for approximately 3 minutes. Cord was clamped and cut and gentle traction was applied to the cord and the placenta delivered spontaneously. Immediately following, it was noted to be intact with a [3] vessel cord. Uterine bleeding stable. [brisk, Methergine, Hemabate, Cytotec, TXA, uterine sweep performed and clots extracted.] The perineum and vagina were inspected and noted to have [no laceration] [a first degree laceration which was repaired with 3-0 Vicryl in the usual fashion]. EBL was [150cc]. Patient and tolerated delivery well. Apgars [8/9]. [Mina] [Lance] notified of vaginal delivery and orders reviewed. Physician agrees with current plan of care. Presentation: Vertex Placenta Disposition: [facility] Specimen collected: No Delayed Cord Clamping: Yes E Learning Developer narrative writer: No Post Vaginal Deli Episiotomy Description: None Complication Complications: No Multi Select Codes Urinary/Genital Urinary/Genital CPT Codes: 61010 Vaginal Delivery [facility]
--- NOTE | 2024-12-05 01:23 | EX.PCM.OBVAG ---
Assessment & Plan (1) Vaginal delivery: COMMENT: KW SROM stacey Hernandezus (2) SROM (spontaneous rupture of membranes): (3) Gestational diabetes: QUALIFIERS: Gestational diabetes mellitus control: diet-controlled Trimester: third trimester Qualified Code(s): O24.410 - Gestational diabetes mellitus in , diet controlled COMMENT: well controlled diet diabetic, discussed decreased testing frequencies. 36 wk growth US (4) Asymptomatic bacteriuria: (5) Maternal varicella, non-immune: COMMENT: Enc avoidance and vaccine pp (6) Supervision of high-risk : QUALIFIERS: Trimester: second trimester Qualified Code(s): O09.92 - Supervision of high risk , unspecified, second trimester COMMENT: PRR GBS neg, , boy name secret RALPH 12/12/24 Shay (7) : QUALIFIERS: Weeks of gestation: 37 weeks Qualified Code(s): Z3A.37 - 37 weeks gestation of COMMENT: NIPT w gender and carrier-agrees, normal anatomy (8) History of recurrent miscarriages: COMMENT: recommend APL panel and suzan haney, will discuss parental chromosome testing and HSG at postop appointment tapan Haney female, Maternal cell contaminiation cant be ruled out as patental sample was not ran Maternal Data Information RALPH Calculator Estimated Delivery Date Method Current WG Current Estimate 12/12/24 LMP (Certain) 39w 0d Final RALPH: 12/12/24 Final RALPH Source: US >20 weeks Gestational age: 39.0 Vaginal Delivery Maternal Presentation Maternal Presentation: Spontaneous Rupture of Membranes Maternal Presentation: Presented to unit for augmentation of labor for prolonged rupture of membranes. mother and infant tolerated well Type of Induction: Pitocin Medical Reason for Induction: Maternal Medical Condition: list: (SROM) Vaginal Delivery Information Procedure Performed: Spontaneous Vaginal Delivery Surgeon/Practitioner: Yamilex Delvalle Date of Procedure: 12/05/24 Pre-Procedure Diagnosis: see problem list Post-Procedure Diagnosis: same Type of anesthesia: Epidural Estimated Blood Loss: 350 Time of Delivery: 01:06 Findings Description of procedure: Progressed well to 10cm dilated and made steady progress with effective maternal pushing. Delivered the head in TIAN presentation. The head was delivered atraumatically and no nuchal cord was identified. The anterior and posterior shoulders delivered without complication followed by the rest of the and the was placed on the maternal abdomen. Delayed cord clamping was employed for approximately 3 minutes. Cord was clamped and cut and gentle traction was applied to the cord and the placenta delivered spontaneously. Immediately following, it was noted to be intact with a 3 vessel cord. Uterine bleeding brisk at first but became stable after uterine sweep and clot removed. Plan one dose of Ancef 2g IV. The perineum and vagina were inspected and noted to have a small second degree laceration which was repaired with 3-0 Vicryl in the usual fashion. EBL was 350cc. Patient and tolerated delivery well. Apgars 9/9. Dr Lucas notified of vaginal delivery and orders reviewed. Physician agrees with current plan of care. Presentation: Vertex Amniotic Membrane Rupture Type: Spontaneous Amniotic Fluid Description: Clear Placental Delivery Description: Spontaneous Placenta Disposition: [facility] Specimen collected: No Cord Vessel Description: 3 Vessels Cord Entanglement: None Infant A Gender: Male (1 minute): 9 (5 minute): 9 Delayed Cord Clamping: Yes Investment Representative airdox fitter: No Post Vaginal Deli Medications given after delivery: IV Pitocin Episiotomy Description: None Laceration: 2nd degree Complication Complications: No Multi Select Codes Urinary/Genital Urinary/Genital CPT Codes: 53798 Vaginal Delivery [facility]
--- NOTE | 2024-12-05 01:28 | DCINST_ITS ---
Discharge Instructions DC O2, CPAP, BIPAP needs Home O2 Discharge instructions: No Dressing / Incision Discharge Activity: Return to Normal Activity May resume sexual activity in: 6-8 weeks Dressing / Incision Call your doctor if you observe: Fever of 101 or Higher, Coldness, Increased Pain, Numbness or Tingling, Change in Color, Inability to urinate, Inability to have a bowel movement, Using more than 1 pad per hour, Shortness of breath, Dizziness, Fainting spells, Swelling in the ankles, Chest pain, Increased palpitations (irregular heartbeat), Calf discomfort and Uncontrolled pain Follow Up Care Please Follow Up With: Yamilex Delvalle CNM When: Please call the office to schedule your follow up appointment in 6 weeks. If you had high blood pressure please call to schedule an appointment in 2 weeks. Test Results: Test results from this visit will be discussed in further detail at your follow- up appointment, if applicable. Discharge Plan Admission Admit Date/Time: 12/04/24 10:10 Attending Provider: Yamilex Delvalle Primary Care Provider: Care PhysicianVy Primary Discharge Orders/Prescriptions Prescriptions: No Action Natavi PNV 13.5 mg iron- 0.5 mg-150 mg capsule 1 cap PO DAILY (DME) Blood Glucose Test Strip See Rx Instructions .ROUTE .MEDSUPPLY Qty: 120 6RF Rx Instructions: Check blood sugars Fasting and 2 hours after breakfast, lunch, and dinner. (DME) blood-glucose meter Misc See Rx Instructions .ROUTE .MEDSUPPLY Qty: 1 0RF Rx Instructions: As directed (DME) lancets [Droplet Lancets] 30 gauge misc See Rx Instructions .ROUTE .MEDSUPPLY Qty: 200 6RF Rx Instructions: Check blood sugars fasting and 2 hours after breakfast, lunch, and supper. Referrals / Follow Up: Care Physician,No Primary [Primary Care Provider, Medical]
[2024-12-05] MEDS: Oxytocin 15 Units/NS 250ml 15 UNITS/250 ML IV.SOLN 83 UNITS IV (01:45)
[2024-12-05] MEDS: Cefazolin 2 GM in 0.9% Normal Saline (100mL Bag) 100 ML IV (02:09)
--- NOTE | 2024-12-05 07:42 | PCM.PN.OB ---
Subjective Subjective Patient doing well without complaints. Tolerating PO. Ambulating and voiding without difficulty. Feeding well. Denies chest pain, shortness of breath, calf pain/swelling, fevers, chills, lightheadedness. Objective Data Objective Data Vital Signs: Vital Signs Temp Pulse Resp BP Pulse Ox 97.7 F L 96 16 123/68 H 100 12/05/24 03:25 12/05/24 03:27 12/05/24 03:25 12/05/24 03:25 12/05/24 03:27 Weight: 179 lb 3.773 oz Body Mass Index (BMI) 29.8 Intake & Output: Intake and Output for Last 24 Hours 12/03/24 12/04/24 12/05/24 23:59 23:59 23:59 Intake Total 2401.46 / 2401.46 1196.17 / 1196.17 Output Total 350 / 350 1650 / 1650 Balance 2051.46 / 2051.46 -453.83 / -453.83 Lab / Micro Data 12/04/24 11:45 Labs: Laboratory Results - last 24 hr 12/04/24 11:45: WBC 10.8, RBC 4.65, Hgb 13.3, Hct 40.5, MCV 87.1, MCH 28.6, MCHC 32.8, RDW Std Deviation 46.2 H, RDW Coeff of Romina 14.5, Plt Count 188, MPV 11.2, Immature Gran % (Auto) 0.600, Neut % (Auto) 82.2 H, Lymph % (Auto) 11.5 L, [place] % (Auto) 5.3, Eos % (Auto) 0.1, Baso % (Auto) 0.3, Absolute Neuts (auto) 8.9 H, Absolute Lymphs (auto) 1.25, Nucleated RBC % 0, Syphilis Total Ab Nonreactive, Blood Type A POSITIVE, Antibody Screen NEGATIVE 12/04/24 11:53: POC Glucose 84 12/04/24 13:17: POC Glucose 85 12/04/24 16:58: POC Glucose 78 12/04/24 20:58: POC Glucose 77 12/04/24 22:13: POC Glucose 77 12/04/24 23:24: POC Glucose 75 12/05/24 00:17: POC Glucose 80 12/05/24 01:53: POC Glucose 120 H 12/05/24 05:58: POC Glucose 102 ROS Constitutional Constitutional: Reports systems reviewed and no addt'l complaints, except as documented Cardiovascular Cardiovascular: Reports as per HPI Respiratory/Chest Respiratory/Chest: Reports as per HPI Genitourinary Genitourinary: Reports as per HPI Physical Exam Const alert and oriented x3 HEENT normocephalic Eyes PERRL Neck full ROM Resp normal respiratory effort GI soft to palpation GI Narrative: FF below U Assessment & Plan (1) Vaginal delivery: COMMENT: KW SROM boy Román (2) Gestational diabetes: QUALIFIERS: Gestational diabetes mellitus control: diet-controlled Trimester: third trimester Qualified Code(s): O24.410 - Gestational diabetes mellitus in , diet controlled COMMENT: well controlled diet diabetic, discussed decreased testing frequencies. 36 wk growth US (3) Maternal varicella, non-immune: COMMENT: Enc avoidance and vaccine pp PLAN: Plan s/p PPD 1. routine post delivery care 2. breast feeding- support given 3. rh positive 4. rubella immune 5. glucose stable
[2024-12-06 01:11] VITALS: BP 121/61; PULSE 78
[2024-12-06 01:13] VITALS: BP 121/61; PULSE 81; RESP 14; TEMP 36.2; O2SAT 98
[2024-12-06 07:36] VITALS: BP 125/73; PULSE 84
[2024-12-06 07:37] VITALS: RESP 16; TEMP 36.5
--- NOTE | 2024-12-06 07:59 | PCM.PN.OB ---
Subjective Subjective Patient doing well without complaints. Tolerating PO. Ambulating and voiding without difficulty. Feeding well. Denies chest pain, shortness of breath, calf pain/swelling, fevers, chills, lightheadedness. Objective Data Objective Data Vital Signs: Vital Signs Temp Pulse Resp BP Pulse Ox O2 Del Method 97.7 F L 84 16 125/73 H 98 Room Air 12/06/24 07:37 12/06/24 07:36 12/06/24 07:37 12/06/24 07:36 12/06/24 01:13 12/06/24 07:37 Oxygen Delivery Method Room Air Weight: 179 lb 3.773 oz Body Mass Index (BMI) 29.8 Intake & Output: Intake and Output for Last 24 Hours 12/04/24 12/05/24 12/06/24 23:59 23:59 23:59 Intake Total 2401.46 / 2401.46 1196.17 / 1196.17 Output Total 350 / 350 1650 / 1650 Balance 2051.46 / 2051.46 -453.83 / -453.83 Lab / Micro Data 12/04/24 11:45 ROS Constitutional Constitutional: Reports systems reviewed and no addt'l complaints, except as documented Cardiovascular Cardiovascular: Reports as per HPI Respiratory/Chest Respiratory/Chest: Reports as per HPI Genitourinary Genitourinary: Reports as per HPI Physical Exam Const alert and oriented x3 HEENT normocephalic Eyes PERRL Neck full ROM Resp normal respiratory effort GI soft to palpation GI Narrative: FF below U. Dressing dry and intact Palpation: tender other (appropriately) Psych mental status grossly normal Assessment & Plan (1) Vaginal delivery: COMMENT: KW SROM boy Román (2) Gestational diabetes: QUALIFIERS: Gestational diabetes mellitus control: diet-controlled Trimester: third trimester Qualified Code(s): O24.410 - Gestational diabetes mellitus in , diet controlled COMMENT: well controlled diet diabetic, discussed decreased testing frequencies. 36 wk growth US (3) Maternal varicella, non-immune: COMMENT: Enc avoidance and vaccine pp PLAN: Plan s/p PPD # 1 1. routine post delivery care 2. breast feeding- support given 3. rh positive 4. rubella immune 5. glucose stable 6. home today
--- NOTE | 2024-12-06 12:08 | CASEMGMT ---
Social Work Brief Assessment - Labor and Delivery Unit Patient Address: [address] [place] [id number] Phone number: [phone] Date and Time of Referral:? 12/05/24 Referred By: [id number] Date and time of intervention:?12/06/24, 1100 Reason for Referral:?? mental health Sw completed chart review and acknowledges social work consult. Sw presented to bedside and introduced self to mother of baby (MOB- Kassandra) and father of baby (FOB- Shay). Sw explained reason for sw involvement and completed psychosocial assessment. Informant:?? Medical record, MOB and FOB. History:? MATTHEW is 29 year old female who is 4, para 0- now 1 following labor and delivery of , baby Román. Román was born on [birth year]/24 via vaginal delivery weighing 7lb 4oz and had apgars of 9 and 9 at one and five minutes of life, respectfully. MOB received routine care during with [facility]. MOB is breast feeding and reports that it is going okay, stating that she is still learning on getting the hang of things. Baby will be followed by Dr. Callaway for pediatrics. baby is first baby for parents together, who report that they have been together for three years after meeting each other online. FOB is gainfully employed outside of the home, while MOB plans on being a stay at home mom now that baby is born. Parents report to having all necessary baby items for baby, including: car seat, safe sleep space, clothes, diapers and wipes. Parents report to having a lot of family supports in place. Parents deny mental health history, but FOB does state that MOB did have some anxiety last night. MOB states that she feels better today and is ready to go home. MOB reports that she is familiar with signs and symptoms of baby blues and depression and anxiety to be mindful of. FOB reports that if MOB were to struggle he would be able to recognize that and would know how to support her. Sw educated parents on shaken baby prevention and ABCs of safe sleep. Assessment:? MOB and baby admitted following labor and delivery. MOB had some anxiety following delivery of baby. MOB and FOB receptive to meeting with sw. Parents were talkative and engaging. Parents have obtained all necessary baby supplies and have natural supports in place. MOB states that she has healthy coping skills to utilize if she feels as though she is struggling with her mental health during this period, and is open to talking to family members and her OBGYN. Plan:??? MOB and baby to be discharged when ready. Sw provided parents with literature on: depresion anxiety and depression. Help Me Grow, list of [facility] resources, shaken baby prevention and ABCs of safe sleep. No further needs requested or indicated. Trinidad Velasquez, CHEMICAL DEPENDENCY PROFESSIONAL, CAREER GUIDANCE TECHNICIAN
[2024-12-06 12:54] VITALS: BP 139/74; PULSE 91; RESP 16; TEMP 36.7
[2024-12-06 12:56] VITALS: BP 123/74; PULSE 90
== END 2024-12-06 13:35 | disposition home or self-care (01) | DRG 807 ==
PROVIDERS: Admitting Provider Advanced Practice Midwife; Referring Provider Advanced Practice Midwife; Visit Provider Advanced Practice Midwife
DX: O42.92 Full-term premature rupture of membranes, unspecified as to length of time between rupture and onset of labor (principal); Z37.0 Single live birth; O24.410 Gestational diabetes mellitus in pregnancy, diet controlled; R82.71 Bacteriuria; Z3A.39 39 weeks gestation of pregnancy; O70.1 Second degree perineal laceration during delivery; O76 Abnormality in fetal heart rate and rhythm complicating labor and delivery
CPT/HCPCS: 59025; 59050; 82962; 85025; 86780; 86850; 86900; 86901; 99221; G0378

== ENCOUNTER → 2024-12-04 | Outpatient (CLI) | payer SELFPAY ==
[2024-12-04 09:30] LABS: ROM Internal Control Test YES-OK TO RESULT pt. (Internal QC)
[2024-12-04 09:33] LABS: ROM Patient Test POSITIVE (Negative); Record Kit Lot#, ROM+ K3607
== END | disposition home or self-care (01) ==
LOC: BWCLAB 08:59 → LABSPEC 09:00
PROVIDERS: Visit Provider Obstetrics & Gynecology
DX: O99.891 Other specified diseases and conditions complicating pregnancy (principal); N89.8 Other specified noninflammatory disorders of vagina; Z3A.00 Weeks of gestation of pregnancy not specified; O26.899 Other specified pregnancy related conditions, unspecified trimester
CPT/HCPCS: 84112

== ENCOUNTER → 2025-01-17 | Outpatient (CLI) | payer SELFPAY | END | disposition home or self-care (01) | LOC: LABSPEC 16:17 | PROVIDERS: Referring Provider Nurse Practitioner Women's Health; Visit Provider Nurse Practitioner Women's Health | DX: Z12.4 Encounter for screening for malignant neoplasm of cervix (principal) | CPT/HCPCS: 88175; G0145 ==

== ENCOUNTER → 2025-02-05 | Outpatient (CLI) | payer SELFPAY ==
[2025-02-05 09:39] LABS: Glucose GTT- Fasting 104 mg/dL (70-99)
[2025-02-05 11:36] LABS: Glucose GTT-30 minutes 154 mg/dL (110-170)
[2025-02-05 12:37] LABS: Glucose GTT- 1 Hour 157 mg/dL (120-170)
[2025-02-05 12:56] LABS: Glucose GTT- 2 Hour 105 mg/dL (70-120)
== END | disposition home or self-care (01) ==
LOC: LAB 09:04
PROVIDERS: Referring Provider Nurse Practitioner Women's Health; Visit Provider Nurse Practitioner Women's Health
DX: Z86.32 Personal history of gestational diabetes (principal)
CPT/HCPCS: 36415; 82951; 82952